=== PATIENT | female | born 1945 | race American Indian/Alaskan Native ===

== ENCOUNTER 2017-10-30 16:18 | Inpatient (IN) | payer MEDICARE ==
[2017-10-30 17:52] LABS: Basophils # (Auto) 0.1 K/mm3 (0.0-0.1); Eosinophils % (Auto) 0.5 % (0.0-4.3); Hematocrit 44.6 % (30.3-42.9); Hemoglobin 14.4 gm/dl (10.1-14.3); Lymphocytes # (Auto) 1.8 K/mm3 (1.2-5.4); Lymphocytes % (Auto) 30.7 % (13.4-35.0); Mean Corpuscular HGB Conc 32 % (30-34); Mean Corpuscular Hemoglobin 27 pg (28-32); Mean Corpuscular Volume 83 fl (79-97); Monocytes # (Auto) 0.9 K/mm3 (0.0-0.8); Monocytes % (Auto) 14.3 % (0.0-7.3); Platelet Count 243 K/mm3 (140-440); Red Blood Count 5.39 M/mm3 (3.65-5.03); Red Cell Distribution Width 14.3 % (13.2-15.2)
[2017-10-30 17:57] LABS: BUN/Creatinine Ratio 7; Blood Urea Nitrogen 4 mg/dL (7-17); Calcium 9.3 mg/dL (8.4-10.2); Hemolysis Index 6
--- NOTE | 2017-10-30 18:48 | XRay Report ---
FINAL REPORT EXAM: XR CHEST ROUTINE 2V HISTORY: shortness of breath TECHNIQUE: Two view chest PA and lateral PRIORS: None. FINDINGS: Cardiac and mediastinal contours are unremarkable. No focal pulmonary infiltrate is identified. No pleural fluid collection seen. Pulmonary vasculature is unremarkable. IMPRESSION: Negative two-view chest
[2017-10-30] MEDS ORDERED: DUONEB *Not for PRN Use IH ONE (19:30)
[2017-10-30] MEDS ORDERED: PROVENTIL IH ONE ×2 (19:31→22:39)
[2017-10-30] MEDS ORDERED: ATROVENT IH ONE (22:39)
--- NOTE | 2017-10-30 22:42 | Emergency Department Report ---
ED Shortness of Breath HPI - General Chief Complaint: Upper Respiratory Infection Stated Complaint: SOB/COLD Time Seen by Provider: 10/30/17 19:39 Source: patient Mode of arrival: Ambulatory Limitations: No Limitations - History of Present Illness MD Complaint: shortness of breath -: week(s) (2) Pain Scale: 8 Quality: aching Consistency: intermittent Improves With: rest, bronchodilators Worsens With: other (cough) Known History Of: COPD Context: recent URI, other (smokes 1ppd for 50 yrs) Associated Symptoms: chest pain, cough Treatments Prior to Arrival: none - Related Data Home Oxygen Therapy: No Allergies Allergy/AdvReac Type Severity Reaction Status Date / Time No Known Allergies Allergy Unverified 10/30/17 16:43 ED Review of Systems ROS: Stated complaint: SOB/COLD Other details as noted in HPI Constitutional: denies: chills, fever Eyes: denies: eye pain, eye discharge, vision change ENT: denies: ear pain, throat pain Respiratory: cough. denies: shortness of breath, wheezing Cardiovascular: denies: chest pain, palpitations Endocrine: no symptoms reported Gastrointestinal: denies: abdominal pain, nausea, diarrhea Genitourinary: denies: urgency, dysuria, discharge Musculoskeletal: denies: back pain, joint swelling, arthralgia Skin: denies: rash, lesions Neurological: denies: headache, weakness, paresthesias Psychiatric: denies: anxiety, depression Hematological/Lymphatic: denies: easy bleeding, easy bruising ED Past Medical Hx - Past Medical History Previous Medical History?: Yes Hx COPD: Yes - Social History Smoking Status: Current Every Day Smoker Substance Use Type: Alcohol ED Physical Exam - General Limitations: No Limitations ED Course Vital Signs 10/30/17 10/30/17 10/30/17 16:41 19:07 19:08 Temperature 98.6 F Pulse Rate 90 68 Pulse Rate [ Bilateral] Respiratory 18 22 22 Rate Respiratory Rate [Bilateral ] Blood Pressure 140/86 Blood Pressure 119/62 [Left] O2 Sat by Pulse 96 100 Oximetry 10/30/17 22:13 Temperature Pulse Rate Pulse Rate [ 88 Bilateral] Respiratory Rate Respiratory 20 Rate [Bilateral ] Blood Pressure Blood Pressure [Left] O2 Sat by Pulse Oximetry ED Medical Decision Making - Lab Data Result diagrams: 10/30/17 17:13 10/30/17 17:13 - EKG Data -: EKG Interpreted by Me EKG shows normal: sinus rhythm, QRS complexes, ST-T waves - EKG Data Interpretation: other (lad,pac) - Radiology Data Radiology results: report reviewed (cxr;negative) Critical Care Time: Yes Critical care time in (mins) excluding proc time.: 30 Critical care attestation.: If time is entered above; I have spent that time in minutes in the direct care of this critically ill patient, excluding procedure time. callie ED Disposition Clinical Impression: Acute dyspnea, Bronchitis COPD (chronic obstructive pulmonary disease) Qualifiers: COPD type: COPD with acute lower respiratory infection Qualified Code(s): J44.0 - Chronic obstructive pulmonary disease with acute lower respiratory infection Disposition: 09 OP ADMIT IP TO THIS HOSP Is pt being admited?: Yes Does the pt Need Aspirin: No Condition: Stable Instructions: Chronic Obstructive Pulmonary Disease (ED), Chronic Bronchitis ( ED) Referrals: PRIMARY CARE, [Primary Care Provider] - 3-5 Days Time of Disposition: 02:20 (dr melissa was paged ,case reviewed and she will admit the pt to the hospital)
[2017-10-30] MEDS ORDERED: ROCEPHIN 1,000 MG in NACL 0.9% 50 ML IV NR (23:00)
[2017-10-30] MEDS ORDERED: ROCEPHIN 1 GM in NACL 0.9% 20 ML IV ONE (23:35)
[2017-10-31] MEDS ORDERED: TYLENOL PO PRN (02:31)
[2017-10-31] MEDS ORDERED: PERCOCET 5/325 PO PRN (02:31)
[2017-10-31] MEDS ORDERED: ZOFRAN IV PRN (02:31)
[2017-10-31] MEDS ORDERED: PROVENTIL IH PRN (02:31)
[2017-10-31] MEDS ORDERED: AMBIEN PO PRN (02:31)
[2017-10-31] MEDS ORDERED: DULCOLAX PR PRN (02:31)
[2017-10-31] MEDS ORDERED: MILK OF MAGNESIA PO PRN (02:31)
[2017-10-31] MEDS ORDERED: D50W (25GM) Syringe IV PRN (02:31)
--- NOTE | 2017-10-31 02:38 | History and Physical Report ---
History of Present Illness Date of examination: 10/31/17 Chief complaint: SOB / Cold History of present illness: Patient is a 71-year-old female with past medical history as mentioned below. Presented to the ER for progressive shortness of breath over the past 2 weeks. The patient states that she has been coughing constantly and fighting this chest congestion for the past 2 weeks she denies any fevers chills no headache nausea vomiting no tingling numbness or weakness. She states that she had her medicine changed to ellipta but she thinks that this is not helping her as well as the aNora. She denies any other GI or symptoms Past History Past Medical History: COPD Past Surgical History: Other (unknown) Social history: smoking, full code. denies: alcohol abuse, IV drug use Family history: no significant family history Medications and Allergies Allergies Allergy/AdvReac Type Severity Reaction Status Date / Time No Known Allergies Allergy Unverified 10/30/17 16:43 Active Meds: Active Medications Acetaminophen (Tylenol) 650 mg PO Q4H PRN PRN Reason: Pain MILD(1-3)/Fever >100.5/BLANC Albuterol (Proventil) 2.5 mg IH Q3HRT PRN PRN Reason: Shortness Of Breath Albuterol/Ipratropium (Duoneb *Not For Prn Use*) 1 ampul IH Q6HRT ELY Bisacodyl (Dulcolax) 10 mg KS QDAY PRN PRN Reason: Constipation unrelieved by MOM Budesonide (Pulmicort) 0.5 mg IH Q12HRT ELY Dextrose (D50w (25gm) Syringe) 50 ml IV PRN PRN PRN Reason: Hypoglycemia Docusate Sodium (Colace) 100 mg PO BID ELY Enoxaparin Sodium (Lovenox) 40 mg SUB-Q QDAY ELY Famotidine (Pepcid) 20 mg PO BID EYL Azithromycin 500 mg/ Sodium (Chloride) 250 mls @ 250 mls/hr IV Q24HR ELY Sodium Chloride (Nacl 0.9% 1000 Ml) 1,000 mls @ 100 mls/hr IV DIRECT ELY Insulin Aspart (Novolog) 0 units SUB-Q ACHS ELY PRN Reason: Protocol Magnesium Hydroxide (Milk Of Magnesia) 30 ml PO Q4H PRN PRN Reason: Constipation Ondansetron HCl (Zofran) 4 mg IV Q8H PRN PRN Reason: N/V unrelieved by Reglan Oxycodone/Acetaminophen (Percocet 5/325) 1 tab PO Q6H PRN PRN Reason: Pain, Moderate (4-6) Review of Systems All systems: negative Exam - Physical Exam Narrative exam: General- the patient is awake alert oriented to time place and person in mild respiratory distress HEENT- head is atraumatic normocephalic pupils equal round reactive to light and accommodation extraocular movements intact. Oral mucosa is moist oropharynx. Neck is supple no JVD no thyromegaly or lymphadenopathy no carotid bruit Heart- regular rate and rhythm no murmurs or gallops Lungs- diffuse crackles bilaterally with diffuse rhonchi and wheezing mildly labored breathing but no accessory respiratory muscle use. Diminished chest wall expansion. Globally diminished breath sounds. Abdomen- is soft nondistended nontender normoactive bowel sounds hepatosplenomegaly no abdominal masses of the appreciated Extremities- no cyanosis or edema Neurological- grossly intact and nonfocal Skin- warm and dry no rashes or bruises Psychiatric- appropriate mood and affect Vascular system- no lymphadenopathy distal pulses 2+ bilaterally - Constitutional Vitals: Temp Pulse Resp BP Pulse Ox 98.6 F 88 20 119/62 100 10/30/17 16:41 10/30/17 22:13 10/30/17 22:13 10/30/17 19:07 10/30/17 19:07 Results - Labs CBC & Chem 7: 10/30/17 17:13 10/30/17 17:13 Labs: Laboratory Last Values WBC 6.0 K/mm3 (4.5-11.0) 10/30/17 17:13 RBC 5.39 M/mm3 (3.65-5.03) H 10/30/17 17:13 Hgb 14.4 gm/dl (10.1-14.3) H 10/30/17 17:13 Hct 44.6 % (30.3-42.9) H 10/30/17 17:13 MCV 83 fl (79-97) 10/30/17 17:13 MCH 27 pg (28-32) L 10/30/17 17:13 MCHC 32 % (30-34) 10/30/17 17:13 RDW 14.3 % (13.2-15.2) 10/30/17 17:13 Plt Count 243 K/mm3 (140-440) 10/30/17 17:13 Lymph % (Auto) 30.7 % (13.4-35.0) 10/30/17 17:13 [place] % (Auto) 14.3 % (0.0-7.3) H 10/30/17 17:13 Eos % (Auto) 0.5 % (0.0-4.3) 10/30/17 17:13 Baso % (Auto) 1.0 % (0.0-1.8) 10/30/17 17:13 Lymph # 1.8 K/mm3 (1.2-5.4) 10/30/17 17:13 [place] # 0.9 K/mm3 (0.0-0.8) H 10/30/17 17:13 Eos # 0.0 K/mm3 (0.0-0.4) 10/30/17 17:13 Baso # 0.1 K/mm3 (0.0-0.1) 10/30/17 17:13 Seg Neutrophils % 53.5 % (40.0-70.0) 10/30/17 17:13 Seg Neutrophils # 3.2 K/mm3 (1.8-7.7) 10/30/17 17:13 POC ABG pH 7.427 (7.35-7.45) 10/30/17 22:57 POC ABG pCO2 37.9 (35-45) 10/30/17 22:57 POC ABG pO2 56 (80-105) L 10/30/17 22:57 POC ABG HCO3 25.0 10/30/17 22:57 POC ABG Total CO2 26 10/30/17 22:57 POC ABG O2 Sat 90 10/30/17 22:57 POC ABG Base Excess 1 10/30/17 22:57 FiO2 21 % 10/30/17 22:57 Sodium 141 mmol/L (137-145) 10/30/17 17:13 Potassium 5.2 mmol/L (3.6-5.0) H 10/30/17 17:13 Chloride 100.2 mmol/L (98-107) 10/30/17 17:13 Carbon Dioxide 28 mmol/L (22-30) 10/30/17 17:13 Anion Gap 18 mmol/L 10/30/17 17:13 BUN 4 mg/dL (7-17) L 10/30/17 17:13 Creatinine 0.6 mg/dL (0.7-1.2) L 10/30/17 17:13 Estimated GFR > 60 ml/min 10/30/17 17:13 BUN/Creatinine Ratio 7 % 10/30/17 17:13 Glucose 111 mg/dL (65-100) H 10/30/17 17:13 Lactic Acid 0.90 mmol/L (0.7-2.0) 10/30/17 20:13 Calcium 9.3 mg/dL (8.4-10.2) 10/30/17 17:13 - Imaging and Cardiology Imaging and Cardiology: Chest x-ray showing no acute cardiopulmonary process Assessment and Plan Assessment and plan: Assessment and plan - * Acute COPD exacerbation * Acute bronchitis * Tobacco abuse * Hyperkalemia mild Plan - Admit to medical floor with telemetry Aggressive when necessary and scheduled bronchodilators IV Solu-Medrol Levaquin empirically for acute bronchitis Monitor CBC and electrolytes The patient electrolytes as per protocol DVT GI prophylaxis as ordered Monitor and follow the patient closely
[2017-10-31 03:02] LABS: Hematocrit 42.6 % (30.3-42.9); Hemoglobin 13.9 gm/dl (10.1-14.3); Mean Corpuscular HGB Conc 33 % (30-34); Mean Corpuscular Hemoglobin 27 pg (28-32); Mean Corpuscular Volume 82 fl (79-97); Platelet Count 233 K/mm3 (140-440); Red Blood Count 5.19 M/mm3 (3.65-5.03); Red Cell Distribution Width 14.5 % (13.2-15.2)
[2017-10-31 03:30] LABS: Alanine Aminotransferase 20 units/L (7-56); Albumin 3.9 g/dL (3.9-5); BUN/Creatinine Ratio 9; Blood Urea Nitrogen 6 mg/dL (7-17); Calcium 9.3 mg/dL (8.4-10.2); Chol/HDL Ratio 3.97 %; HDL Cholesterol 49 mg/dL (40-59); Hemolysis Index 10; LDL Cholesterol,Direct 137 mg/dL (50-130)
[2017-10-31 04:02] LABS: Basophils % (Manual) 0 % (0.0-1.8); Eosinophils % (Manual) 0 % (0.0-4.3); RBC Morphology Normal; Total Cells Counted 100
[2017-10-31 04:03] LABS: Platelet Estimate Consistent w Auto
[2017-10-31] MEDS: NACL 0.9% 1000 ML 1,000 ML IV SCH ×2 (05:31→16:00)
[2017-10-31] MEDS: PULMICORT IH SCH ×2 (07:42→20:58)
[2017-10-31] MEDS: DUONEB *Not for PRN Use IH SCH ×3 (07:42→20:58)
[2017-10-31] MEDS: NOVOLOG SUB-Q SCH ×4 (08:00→21:29)
--- NOTE | 2017-10-31 08:38 | Progress Note ---
<NALINI HALL - Last Filed: 10/31/17 15:29> Assessment and Plan Assessment and plan: Patient is a 71-year-old female with past medical history of COPD who presented to the ER for progressive shortness of breath over the past 2 weeks. Acute COPD exacerbation Continue on Duoneb every 6 hours Wean IV steroid Solumedrol Continue on Levaquin Oxygen as necessary Hyperkalemia mild Resolved Tobacco abuse Smoking cessation counseling done. Patient strongly advised to quit. Lactic Acidosis Resolved DVT prophylaxis is Lovenox History Interval history: Patient complains dyspnea on exertion. Labs and nursing notes reviewed. Hospitalist Physical - Constitutional Vitals: Temp Pulse Resp BP Pulse Ox 98.4 F 81 20 125/60 96 10/31/17 07:34 10/31/17 08:02 10/31/17 08:02 10/31/17 07:34 10/31/17 07:39 General appearance: Present: no acute distress - EENT Eyes: Present: PERRL ENT: hearing intact - Neck Neck: Present: supple - Respiratory Respiratory effort: normal Respiratory: bilateral: wheezing (mild ) - Cardiovascular Rhythm: regular Heart Sounds: Present: S1 & S2 - Abdominal General gastrointestinal: soft, non-tender - Integumentary Integumentary: Present: clear, warm, dry - Psychiatric Psychiatric: appropriate mood/affect - Neurologic Neurologic: moves all extremities - Allied Health Allied health notes reviewed: nursing Results - Labs CBC & Chem 7: 10/31/17 02:44 10/31/17 02:44 Labs: Laboratory Last Values WBC 6.6 K/mm3 (4.5-11.0) 10/31/17 02:44 RBC 5.19 M/mm3 (3.65-5.03) H 10/31/17 02:44 Hgb 13.9 gm/dl (10.1-14.3) 10/31/17 02:44 Hct 42.6 % (30.3-42.9) 10/31/17 02:44 MCV 82 fl (79-97) 10/31/17 02:44 MCH 27 pg (28-32) L 10/31/17 02:44 MCHC 33 % (30-34) 10/31/17 02:44 RDW 14.5 % (13.2-15.2) 10/31/17 02:44 Plt Count 233 K/mm3 (140-440) 10/31/17 02:44 Lymph % (Auto) 30.7 % (13.4-35.0) 10/30/17 17:13 [place] % (Auto) 14.3 % (0.0-7.3) H 10/30/17 17:13 Eos % (Auto) 0.5 % (0.0-4.3) 10/30/17 17:13 Baso % (Auto) 1.0 % (0.0-1.8) 10/30/17 17:13 Lymph # 1.8 K/mm3 (1.2-5.4) 10/30/17 17:13 [place] # 0.9 K/mm3 (0.0-0.8) H 10/30/17 17:13 Eos # 0.0 K/mm3 (0.0-0.4) 10/30/17 17:13 Baso # 0.1 K/mm3 (0.0-0.1) 10/30/17 17:13 Add Manual Diff Complete 10/31/17 02:44 Total Counted 100 10/31/17 02:44 Seg Neutrophils % Detective 10/31/17 02:44 Seg Neuts % (Manual) 90.0 % (40.0-70.0) H 10/31/17 02:44 Band Neutrophils % 0 % 10/31/17 02:44 Lymphocytes % (Manual) 8.0 % (13.4-35.0) L 10/31/17 02:44 Reactive Lymphs % (Man) 0 % 10/31/17 02:44 Monocytes % (Manual) 2.0 % (0.0-7.3) 10/31/17 02:44 Eosinophils % (Manual) 0 % (0.0-4.3) 10/31/17 02:44 Basophils % (Manual) 0 % (0.0-1.8) 10/31/17 02:44 Metamyelocytes % 0 % 10/31/17 02:44 Myelocytes % 0 % 10/31/17 02:44 Promyelocytes % 0 % 10/31/17 02:44 Blast Cells % 0 % 10/31/17 02:44 Nucleated RBC % Not Reportable 10/31/17 02:44 Seg Neutrophils # 3.2 K/mm3 (1.8-7.7) 10/30/17 17:13 Seg Neutrophils # Man 5.9 K/mm3 (1.8-7.7) 10/31/17 02:44 Band Neutrophils # 0.0 K/mm3 10/31/17 02:44 Lymphocytes # (Manual) 0.5 K/mm3 (1.2-5.4) L 10/31/17 02:44 Abs React Lymphs (Man) 0.0 K/mm3 10/31/17 02:44 Monocytes # (Manual) 0.1 K/mm3 (0.0-0.8) 10/31/17 02:44 Eosinophils # (Manual) 0.0 K/mm3 (0.0-0.4) 10/31/17 02:44 Basophils # (Manual) 0.0 K/mm3 (0.0-0.1) 10/31/17 02:44 Metamyelocytes # 0.0 K/mm3 10/31/17 02:44 Myelocytes # 0.0 K/mm3 10/31/17 02:44 Promyelocytes # 0.0 K/mm3 10/31/17 02:44 Blast Cells # 0.0 K/mm3 10/31/17 02:44 WBC Morphology Not Reportable 10/31/17 02:44 Hypersegmented Neuts Not Reportable 10/31/17 02:44 Hyposegmented Neuts Not Reportable 10/31/17 02:44 Hypogranular Neuts Not Reportable 10/31/17 02:44 Smudge Cells Not Reportable 10/31/17 02:44 Toxic Granulation Not Reportable 10/31/17 02:44 Toxic Vacuolation Not Reportable 10/31/17 02:44 Dohle Bodies Not Reportable 10/31/17 02:44 Pelger-Huet Anomaly Not Reportable 10/31/17 02:44 Kaycee Rods Not Reportable 10/31/17 02:44 Platelet Estimate Consistent w auto 10/31/17 02:44 Clumped Platelets Not Reportable 10/31/17 02:44 Plt Clumps, EDTA Not Reportable 10/31/17 02:44 Large Platelets Not Reportable 10/31/17 02:44 Giant Platelets Not Reportable 10/31/17 02:44 Platelet Satelliting Not Reportable 10/31/17 02:44 Plt Morphology Comment Not Reportable 10/31/17 02:44 RBC Morphology Normal 10/31/17 02:44 Dimorphic RBCs Not Reportable 10/31/17 02:44 Polychromasia Not Reportable 10/31/17 02:44 Hypochromasia Not Reportable 10/31/17 02:44 Poikilocytosis Not Reportable 10/31/17 02:44 Anisocytosis Not Reportable 10/31/17 02:44 Microcytosis Not Reportable 10/31/17 02:44 Macrocytosis Not Reportable 10/31/17 02:44 Spherocytes Not Reportable 10/31/17 02:44 Pappenheimer Bodies Not Reportable 10/31/17 02:44 Sickle Cells Not Reportable 10/31/17 02:44 Target Cells Not Reportable 10/31/17 02:44 Tear Drop Cells Not Reportable 10/31/17 02:44 Ovalocytes Not Reportable 10/31/17 02:44 Helmet Cells Not Reportable 10/31/17 02:44 [place] Bodies Not Reportable 10/31/17 02:44 [place] Rings Not Reportable 10/31/17 02:44 Jonn Cells Not Reportable 10/31/17 02:44 Bite Cells Not Reportable 10/31/17 02:44 Crenated Cell Not Reportable 10/31/17 02:44 Elliptocytes Not Reportable 10/31/17 02:44 Acanthocytes (Spur) Not Reportable 10/31/17 02:44 Rouleaux Not Reportable 10/31/17 02:44 Hemoglobin C Crystals Not Reportable 10/31/17 02:44 Schistocytes Not Reportable 10/31/17 02:44 Malaria parasites Not Reportable 10/31/17 02:44 Zhang Bodies Not Reportable 10/31/17 02:44 Hem Pathologist Commnt No 10/31/17 02:44 POC ABG pH 7.427 (7.35-7.45) 10/30/17 22:57 POC ABG pCO2 37.9 (35-45) 10/30/17 22:57 POC ABG pO2 56 (80-105) L 10/30/17 22:57 POC ABG HCO3 25.0 10/30/17 22:57 POC ABG Total CO2 26 10/30/17 22:57 POC ABG O2 Sat 90 10/30/17 22:57 POC ABG Base Excess 1 10/30/17 22:57 FiO2 21 % 10/30/17 22:57 Sodium 139 mmol/L (137-145) 10/31/17 02:44 Potassium 4.3 mmol/L (3.6-5.0) 10/31/17 02:44 Chloride 98.6 mmol/L (98-107) 10/31/17 02:44 Carbon Dioxide 22 mmol/L (22-30) 10/31/17 02:44 Anion Gap 23 mmol/L 10/31/17 02:44 BUN 6 mg/dL (7-17) L 10/31/17 02:44 Creatinine 0.7 mg/dL (0.7-1.2) 10/31/17 02:44 Estimated GFR > 60 ml/min 10/31/17 02:44 BUN/Creatinine Ratio 9 % 10/31/17 02:44 Glucose 192 mg/dL (65-100) H 10/31/17 02:44 POC Glucose 148 (70-105) H 10/31/17 06:27 Hemoglobin A1c 5.6 % (4-6) 10/31/17 02:44 Lactic Acid 0.90 mmol/L (0.7-2.0) 10/30/17 20:13 Calcium 9.3 mg/dL (8.4-10.2) 10/31/17 02:44 Total Bilirubin 0.20 mg/dL (0.1-1.2) 10/31/17 02:44 AST 20 units/L (5-40) 10/31/17 02:44 ALT 20 units/L (7-56) 10/31/17 02:44 Alkaline Phosphatase 89 units/L (35-129) 10/31/17 02:44 Total Protein 7.6 g/dL (6.3-8.2) 10/31/17 02:44 Albumin 3.9 g/dL (3.9-5) 10/31/17 02:44 Albumin/Globulin Ratio 1.1 % 10/31/17 02:44 Triglycerides 47 mg/dL (2-149) 10/31/17 02:44 Cholesterol 195 mg/dL (50-199) 10/31/17 02:44 LDL Cholesterol Direct 137 mg/dL (50-130) H 10/31/17 02:44 HDL Cholesterol 49 mg/dL (40-59) 10/31/17 02:44 Cholesterol/HDL Ratio 3.97 % 10/31/17 02:44 <POLA PANTOJA - Last Filed: 11/01/17 10:42> Assessment and Plan Assessment and plan: I saw and evaluated the patient. I agree with the findings and the plan of care as documented in the Nurse Practitioner's~note, with the following corrections and additions. Hospitalist Physical - Constitutional Vitals: Temp Pulse Resp BP Pulse Ox 97.9 F 89 18 126/69 95 11/01/17 07:56 11/01/17 09:10 11/01/17 09:10 11/01/17 07:56 11/01/17 08:56 Results - Labs CBC & Chem 7: 11/01/17 05:24 11/01/17 05:24 Labs: Laboratory Last Values WBC 12.3 K/mm3 (4.5-11.0) H 11/01/17 05:24 RBC 4.69 M/mm3 (3.65-5.03) 11/01/17 05:24 Hgb 12.7 gm/dl (10.1-14.3) 11/01/17 05:24 Hct 38.5 % (30.3-42.9) 11/01/17 05:24 MCV 82 fl (79-97) 11/01/17 05:24 MCH 27 pg (28-32) L 11/01/17 05:24 MCHC 33 % (30-34) 11/01/17 05:24 RDW 14.2 % (13.2-15.2) 11/01/17 05:24 Plt Count 249 K/mm3 (140-440) 11/01/17 05:24 Lymph % (Auto) 6.2 % (13.4-35.0) L 11/01/17 05:24 [place] % (Auto) 6.3 % (0.0-7.3) 11/01/17 05:24 Eos % (Auto) 0.0 % (0.0-4.3) 11/01/17 05:24 Baso % (Auto) 0.0 % (0.0-1.8) 11/01/17 05:24 Lymph # 0.8 K/mm3 (1.2-5.4) L 11/01/17 05:24 [place] # 0.8 K/mm3 (0.0-0.8) 11/01/17 05:24 Eos # 0.0 K/mm3 (0.0-0.4) 11/01/17 05:24 Baso # 0.0 K/mm3 (0.0-0.1) 11/01/17 05:24 Add Manual Diff Complete 10/31/17 02:44 Total Counted 100 10/31/17 02:44 Seg Neutrophils % 87.5 % (40.0-70.0) H 11/01/17 05:24 Seg Neuts % (Manual) 90.0 % (40.0-70.0) H 10/31/17 02:44 Band Neutrophils % 0 % 10/31/17 02:44 Lymphocytes % (Manual) 8.0 % (13.4-35.0) L 10/31/17 02:44 Reactive Lymphs % (Man) 0 % 10/31/17 02:44 Monocytes % (Manual) 2.0 % (0.0-7.3) 10/31/17 02:44 Eosinophils % (Manual) 0 % (0.0-4.3) 10/31/17 02:44 Basophils % (Manual) 0 % (0.0-1.8) 10/31/17 02:44 Metamyelocytes % 0 % 10/31/17 02:44 Myelocytes % 0 % 10/31/17 02:44 Promyelocytes % 0 % 10/31/17 02:44 Blast Cells % 0 % 10/31/17 02:44 Nucleated RBC % Not Reportable 10/31/17 02:44 Seg Neutrophils # 10.8 K/mm3 (1.8-7.7) H 11/01/17 05:24 Seg Neutrophils # Man 5.9 K/mm3 (1.8-7.7) 10/31/17 02:44 Band Neutrophils # 0.0 K/mm3 10/31/17 02:44 Lymphocytes # (Manual) 0.5 K/mm3 (1.2-5.4) L 10/31/17 02:44 Abs React Lymphs (Man) 0.0 K/mm3 10/31/17 02:44 Monocytes # (Manual) 0.1 K/mm3 (0.0-0.8) 10/31/17 02:44 Eosinophils # (Manual) 0.0 K/mm3 (0.0-0.4) 10/31/17 02:44 Basophils # (Manual) 0.0 K/mm3 (0.0-0.1) 10/31/17 02:44 Metamyelocytes # 0.0 K/mm3 10/31/17 02:44 Myelocytes # 0.0 K/mm3 10/31/17 02:44 Promyelocytes # 0.0 K/mm3 10/31/17 02:44 Blast Cells # 0.0 K/mm3 10/31/17 02:44 WBC Morphology Not Reportable 10/31/17 02:44 Hypersegmented Neuts Not Reportable 10/31/17 02:44 Hyposegmented Neuts Not Reportable 10/31/17 02:44 Hypogranular Neuts Not Reportable 10/31/17 02:44 Smudge Cells Not Reportable 10/31/17 02:44 Toxic Granulation Not Reportable 10/31/17 02:44 Toxic Vacuolation Not Reportable 10/31/17 02:44 Dohle Bodies Not Reportable 10/31/17 02:44 Pelger-Huet Anomaly Not Reportable 10/31/17 02:44 Kaycee Rods Not Reportable 10/31/17 02:44 Platelet Estimate Consistent w auto 10/31/17 02:44 Clumped Platelets Not Reportable 10/31/17 02:44 Plt Clumps, EDTA Not Reportable 10/31/17 02:44 Large Platelets Not Reportable 10/31/17 02:44 Giant Platelets Not Reportable 10/31/17 02:44 Platelet Satelliting Not Reportable 10/31/17 02:44 Plt Morphology Comment Not Reportable 10/31/17 02:44 RBC Morphology Normal 10/31/17 02:44 Dimorphic RBCs Not Reportable 10/31/17 02:44 Polychromasia Not Reportable 10/31/17 02:44 Hypochromasia Not Reportable 10/31/17 02:44 Poikilocytosis Not Reportable 10/31/17 02:44 Anisocytosis Not Reportable 10/31/17 02:44 Microcytosis Not Reportable 10/31/17 02:44 Macrocytosis Not Reportable 10/31/17 02:44 Spherocytes Not Reportable 10/31/17 02:44 Pappenheimer Bodies Not Reportable 10/31/17 02:44 Sickle Cells Not Reportable 10/31/17 02:44 Target Cells Not Reportable 10/31/17 02:44 Tear Drop Cells Not Reportable 10/31/17 02:44 Ovalocytes Not Reportable 10/31/17 02:44 Helmet Cells Not Reportable 10/31/17 02:44 [place] Bodies Not Reportable 10/31/17 02:44 [place] Rings Not Reportable 10/31/17 02:44 [place] Cells Not Reportable 10/31/17 02:44 Bite Cells Not Reportable 10/31/17 02:44 Crenated Cell Not Reportable 10/31/17 02:44 Elliptocytes Not Reportable 10/31/17 02:44 Acanthocytes (Spur) Not Reportable 10/31/17 02:44 Rouleaux Not Reportable 10/31/17 02:44 Hemoglobin C Crystals Not Reportable 10/31/17 02:44 Schistocytes Not Reportable 10/31/17 02:44 Malaria parasites Not Reportable 10/31/17 02:44 Zhang Bodies Not Reportable 10/31/17 02:44 Hem Pathologist Commnt No 10/31/17 02:44 POC ABG pH 7.427 (7.35-7.45) 10/30/17 22:57 POC ABG pCO2 37.9 (35-45) 10/30/17 22:57 POC ABG pO2 56 (80-105) L 10/30/17 22:57 POC ABG HCO3 25.0 10/30/17 22:57 POC ABG Total CO2 26 10/30/17 22:57 POC ABG O2 Sat 90 10/30/17 22:57 POC ABG Base Excess 1 10/30/17 22:57 FiO2 21 % 10/30/17 22:57 Sodium 143 mmol/L (137-145) 11/01/17 05:24 Potassium 4.4 mmol/L (3.6-5.0) 11/01/17 05:24 Chloride 106.3 mmol/L (98-107) 11/01/17 05:24 Carbon Dioxide 24 mmol/L (22-30) 11/01/17 05:24 Anion Gap 17 mmol/L 11/01/17 05:24 BUN 8 mg/dL (7-17) 11/01/17 05:24 Creatinine 0.5 mg/dL (0.7-1.2) L 11/01/17 05:24 Estimated GFR > 60 ml/min 11/01/17 05:24 BUN/Creatinine Ratio 16 % 11/01/17 05:24 Glucose 140 mg/dL (65-100) H 11/01/17 05:24 POC Glucose 174 (70-105) H 10/31/17 21:25 Hemoglobin A1c 5.6 % (4-6) 10/31/17 02:44 Lactic Acid 0.90 mmol/L (0.7-2.0) 10/30/17 20:13 Calcium 8.7 mg/dL (8.4-10.2) 11/01/17 05:24 Phosphorus 2.60 mg/dL (2.5-4.5) 11/01/17 05:24 Magnesium 2.10 mg/dL (1.7-2.3) 11/01/17 05:24 Total Bilirubin < 0.20 mg/dL (0.1-1.2) 11/01/17 05:24 AST 20 units/L (5-40) 11/01/17 05:24 ALT 21 units/L (7-56) 11/01/17 05:24 Alkaline Phosphatase 77 units/L (35-129) 11/01/17 05:24 Total Protein 6.6 g/dL (6.3-8.2) 11/01/17 05:24 Albumin 3.5 g/dL (3.9-5) L 11/01/17 05:24 Albumin/Globulin Ratio 1.1 % 11/01/17 05:24 Triglycerides 47 mg/dL (2-149) 10/31/17 02:44 Cholesterol 195 mg/dL (50-199) 10/31/17 02:44 LDL Cholesterol Direct 137 mg/dL (50-130) H 10/31/17 02:44 HDL Cholesterol 49 mg/dL (40-59) 10/31/17 02:44 Cholesterol/HDL Ratio 3.97 % 10/31/17 02:44
[2017-10-31] MEDS ORDERED: LEVAQUIN 750MG/150ML 750 MG/150 ML BAG IV SCH (10:00)
[2017-10-31] MEDS ORDERED: ZITHROMAX 500 MG in NACL 0.9% 250ML 250 ML IV SCH (10:00)
[2017-10-31] MEDS: LOVENOX SUB-Q SCH (10:01)
[2017-10-31] MEDS: LEVAQUIN 750MG/150ML 750 MG/150 ML BAG IV SCH (10:01)
[2017-10-31] MEDS: PEPCID PO SCH ×2 (10:02→21:24)
[2017-10-31] MEDS: SENOKOT PO SCH ×2 (10:02→21:23)
[2017-10-31] MEDS: COLACE PO SCH ×2 (10:02→21:23)
--- NOTE | 2017-10-31 14:25 | Event Note ---
Date: 10/31/17 Patient is examined today nonacute distress reports improvement in symptoms. I' ll do not have a baseline of encouraged patient to ambulate today. She is not on oxygen at home but still uses tobacco she verbalized understanding on the counseling for tobacco cessation. She verbalizes that she will sees tobacco use today. We'll continue treatment as prescribed and suspected discharge in 24 -48 hours
[2017-11-01] MEDS: DUONEB *Not for PRN Use IH SCH ×2 (02:18→08:54)
[2017-11-01 05:46] LABS: Hematocrit 38.5 % (30.3-42.9); Hemoglobin 12.7 gm/dl (10.1-14.3); Lymphocytes # (Auto) 0.8 K/mm3 (1.2-5.4); Lymphocytes % (Auto) 6.2 % (13.4-35.0); Mean Corpuscular HGB Conc 33 % (30-34); Mean Corpuscular Hemoglobin 27 pg (28-32); Mean Corpuscular Volume 82 fl (79-97); Monocytes # (Auto) 0.8 K/mm3 (0.0-0.8); Monocytes % (Auto) 6.3 % (0.0-7.3); Platelet Count 249 K/mm3 (140-440); Red Blood Count 4.69 M/mm3 (3.65-5.03); Red Cell Distribution Width 14.2 % (13.2-15.2)
[2017-11-01] MEDS: NACL 0.9% 1000 ML 1,000 ML IV SCH (05:47)
[2017-11-01 06:12] LABS: Alanine Aminotransferase 21 units/L (7-56); Albumin 3.5 g/dL (3.9-5); BUN/Creatinine Ratio 16; Blood Urea Nitrogen 8 mg/dL (7-17); Calcium 8.7 mg/dL (8.4-10.2); Hemolysis Index 3
[2017-11-01] MEDS: NOVOLOG SUB-Q SCH ×2 (08:00→12:00)
[2017-11-01 08:08] VITALS: BP 126/69
[2017-11-01] MEDS: PULMICORT IH SCH (08:55)
[2017-11-01] MEDS: COLACE PO SCH (10:36)
[2017-11-01] MEDS: SENOKOT PO SCH (10:36)
[2017-11-01] MEDS: LEVAQUIN 750MG/150ML 750 MG/150 ML BAG IV SCH (10:36)
[2017-11-01] MEDS: LOVENOX SUB-Q SCH (10:36)
[2017-11-01] MEDS: PEPCID PO SCH (10:36)
--- NOTE | 2017-11-01 10:44 | Discharge Summary ---
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 Patient denies any fever nausea vomiting and diarrhea. Unfortunately she continues to use tobacco although she is strongly advised to quit with did have extensive counseling in regards to this. She was treated with antibiotics with IV steroids and Solu-Medrol. She is clinically improved at this time is stable for discharge. Acute COPD exacerbation Acute respiratory failure with hypoxia secondary to COPD exacerbation Hyperkalemia mild Tobacco abuse Lactic Acidosis Disposition: TO HOME OR SELFCARE Time spent for discharge: 35 mins Core Measure Documentation - Palliative Care Palliative Care/ Comfort Measures: Not Applicable - Core Measures Any of the following diagnoses?: none - VTE Discharge Requirements Deep Vein Thrombosis/Pulmonary Embolism Present on Admission: No Exam - Physical Exam Narrative exam: VITAL SIGNS: Reviewed. GENERAL: The patient appeared well nourished and normally developed. Vital signs as documented. HEAD: No signs of head trauma. EYES: Pupils are equal. Extraocular motions intact. EARS: Hearing grossly intact. MOUTH: Oropharynx is normal. NECK: No adenopathy, no JVD. CHEST: Chest with clear breath sounds bilaterally. No wheezes, rales, or rhonchi. CARDIAC: Regular rate and rhythm. S1 and S2, without murmurs, gallops, or rubs. VASCULAR: No Edema. Peripheral pulses normal and equal in all extremities. ABDOMEN: Soft, without detectable tenderness. No sign of distention. No rebound or guarding, and no masses palpated. Bowel Sounds normal. MUSCULOSKELETAL: Good range of motion of all major joints. Extremities without clubbing, cyanosis or edema. NEUROLOGIC EXAM: Alert and oriented x 3. No focal sensory or strength deficits. Speech normal. Follows commands. PSYCHIATRIC: Mood normal. SKIN: No rash or lesions. - Constitutional Vitals: Temp Pulse Resp BP Pulse Ox 97.9 F 89 18 126/69 95 11/01/17 07:56 11/01/17 09:10 11/01/17 09:10 11/01/17 07:56 11/01/17 08:56 Plan Activity: advance as tolerated, fall precautions Diet: low cholesterol Special Instructions: record daily BP diary, smoking cessation Follow up with: PRIMARY CARE, [Primary Care Provider] - 3-5 Days TAMIKA SANTOS MD [Staff Physician] - 7 Days NIKHIL HOLDER MD [Staff Physician] - 7 Days Prescriptions: ALBUTEROL Inhaler 2 puff INHALATION PRN PRN 30 Days PRN Reason: Dyspnea Amoxicillin/Potassium Clav [Augmentin 875-125 Tablet] 1 each PO BID #10 tablet Prednisone [predniSONE 10 mg (6-Day Pack, 21 Tabs)] 10 mg PO .TAPER #1 tab.ds.pk
== END 2017-11-01 12:45 | disposition home or self-care (01) | DRG 189 ==
LOC: ED 16:18 → 3A 10-31 02:31
PROVIDERS: ADMIT Internal Medicine Geriatric Medicine; ATTEND Internal Medicine
PROC: 4A033R1 Measurement of Arterial Saturation, Peripheral, Percutaneous Approach (ICD-10-PCS; principal; 2017-10-30)
DX: J96.01 Acute respiratory failure with hypoxia (principal); J44.1 Chronic obstructive pulmonary disease with (acute) exacerbation; E87.2 Acidosis; J44.0 Chronic obstructive pulmonary disease with (acute) lower respiratory infection; E87.5 Hyperkalemia; F17.210 Nicotine dependence, cigarettes, uncomplicated; J20.9 Acute bronchitis, unspecified; Z71.6 Tobacco abuse counseling
CPT/HCPCS: 36415; 71020; 80048; 80053; 80061; 82140; 82803; 82962; 83036; 83735; 84100; 85007; 85025; 87040; 93005; 93010; 94640; 94644; 94760; 96374; 96375; 99406; J0696; J1650; J1815; J1956; J2920; J2930; J7030

== ENCOUNTER 2018-07-07 23:31 | Inpatient (IN) | payer MEDICARE ==
--- NOTE | 2018-07-08 00:08 | XRay Report ---
FINAL REPORT EXAM: XR CHEST 1V AP HISTORY: ES, cough COMPARISON: October 2017. FINDINGS: Frontal view(s) of the chest obtained. Cardiac silhouette within normal limits. No gross consolidation or effusion. No pneumothorax. Mild tortuosity of the thoracic aorta. IMPRESSION: No grossly acute findings.
[2018-07-08 00:32] LABS: Basophils # (Auto) 0.1 K/mm3 (0.0-0.1); Basophils % (Auto) 1.3 % (0.0-1.8); Eosinophils # (Auto) 0.6 K/mm3 (0.0-0.4); Eosinophils % (Auto) 7.3 % (0.0-4.3); Hematocrit 43.7 % (30.3-42.9); Hemoglobin 14.7 gm/dl (10.1-14.3); Lymphocytes # (Auto) 1.9 K/mm3 (1.2-5.4); Lymphocytes % (Auto) 24.5 % (13.4-35.0); Mean Corpuscular HGB Conc 34 % (30-34); Mean Corpuscular Hemoglobin 28 pg (28-32); Mean Corpuscular Volume 83 fl (79-97); Monocytes # (Auto) 0.9 K/mm3 (0.0-0.8); Monocytes % (Auto) 11.1 % (0.0-7.3); Red Cell Distribution Width 15.9 % (13.2-15.2)
--- NOTE | 2018-07-08 00:49 | Emergency Department Report ---
HPI - General Chief Complaint: Dyspnea/Respdistress Time Seen by Provider: 07/08/18 00:00 - HPI HPI: 72-year-old [place] female presents to the emergency department via EMS with a complaint of a one-day history of shortness of breath and a mixed dry and productive cough. Patient has a history of COPD but is not oxygen dependent. She is still a tobacco smoker. She tried her inhaler and nebulizer without any relief. She received 125 mg of Solu-Medrol and 2 g of magnesium in route with EMS. No recent travel or sick contacts at home. Her primary care physician is Dr. Lema and her senior strategy manager is Dr. Botello. She denies any fever, chest pain, back pain, nausea, vomiting or diaphoresis. ED Past Medical Hx - Past Medical History Previous Medical History?: Yes Hx COPD: Yes - Surgical History Past Surgical History?: Yes Additional Surgical History: D&C - Social History Smoking Status: Current Every Day Smoker Substance Use Type: None - Medications Home Medications: Home Medications Medication Instructions Recorded Confirmed Last Taken Type Trelegy 100 mcg IH DAILY 10/31/17 07/08/18 10/30/17 History ALBUTEROL Inhaler 2 puff INHALATION PRN PRN 30 Days 11/01/17 07/08/18 Unknown Rx Albuterol Sulfate [Albuterol 0.63% 0.63 mg IH TID PRN 07/08/18 07/08/18 Unknown History NEBS] ED Review of Systems ROS: Stated complaint: ES Other details as noted in HPI Comment: All other systems reviewed and negative Constitutional: denies: chills, fever Eyes: denies: eye pain, eye discharge, vision change ENT: denies: ear pain, throat pain Respiratory: cough, shortness of breath, wheezing Cardiovascular: denies: palpitations, edema Gastrointestinal: denies: abdominal pain, nausea, diarrhea Genitourinary: denies: urgency, dysuria, discharge Musculoskeletal: denies: back pain, joint swelling, arthralgia Skin: denies: rash, lesions Neurological: denies: headache, weakness, paresthesias Physical Exam - Physical Exam Vital Signs: Vital Signs 07/07/18 23:48 Temperature 97.7 F Pulse Rate 105 H Respiratory 28 H Rate Blood Pressure 109/84 O2 Sat by Pulse 99 Oximetry Physical Exam: GENERAL: The patient is well-developed well-nourished. HENT: Normocephalic. Atraumatic. Patient has moist mucous membranes. EYES: Extraocular motions are intact. Pupils equal reactive to light bilaterally. NECK: Supple. Trachea is midline. CHEST/LUNGS: Mild to moderate wheezing throughout the chest. There is some mild tachypnea but no accessory muscle use. A dry cough heard during examination. There is no respiratory distress noted. HEART/CARDIOVASCULAR: Regular. There is mild tachycardia. There is no murmur. ABDOMEN: Abdomen is soft, nontender. Patient has normal bowel sounds. There is no abdominal distention. SKIN: Skin is warm and dry. NEURO: The patient is awake, alert, and oriented. The patient is cooperative. The patient has no focal neurologic deficits. The patient has normal speech. MUSCULOSKELETAL: There is no tenderness or deformity. There is no limitation range of motion. There is no evidence of acute injury. ED Course Vital Signs 07/07/18 23:48 Temperature 97.7 F Pulse Rate 105 H Respiratory 28 H Rate Blood Pressure 109/84 O2 Sat by Pulse 99 Oximetry ED Medical Decision Making - Lab Data Result diagrams: 07/08/18 00:13 07/08/18 00:13 - EKG Data -: EKG Interpreted by Me EKG shows normal: sinus rhythm, axis (left axis deviation), intervals (mild prolongation of [place] interval), QRS complexes (left anterior fascicular block, Q waves to the septal leads), ST-T waves Rate: normal - EKG Data When compared to previous EKG there are: previous EKG unavailable Interpretation: other (sinus rhythm, left anterior fascicular block, left axis deviation, Q waves to the septal leads) - Radiology Data Radiology results: report reviewed, image reviewed interpreted by me: Chest x-ray shows some hyperinflation of the lungs and flattening of the diaphragms consistent with emphysema/COPD. No focal consolidation, obvious pneumonia or pneumothorax. EXAM: CT ANGIO CHEST HISTORY: SOB, elevated dimer COMPARISON: Chest x-ray from yesterday. TECHNIQUE: Contiguous axial images were obtained. Additional sagittal and coronal reformatted images were obtained. Administration of IV contrast given per institution protocol. Images submitted for interpretation. Max intensity projection images. 100 cc Omnipaque 350. FINDINGS: Heart normal in size. Thoracic aorta normal in caliber. No acute dissection or rupture. No pulmonary embolus. No pathologically enlarged intrathoracic or axillary lymph nodes. 3 millimeter hypodense left thyroid lobe nodule. Mild centrilobular emphysema. Mild diffuse bronchial wall thickening concerning for mild bronchitis. No focal consolidation or pleural effusion. Mild superior plate compression deformities of the lower thoracic spine, which appear chronic. No bony retropulsion. Visualized upper abdomen is grossly unremarkable. IMPRESSION: No pulmonary embolus. Mild centrilobular emphysema. Mild bronchial wall thickening concerning for bronchitis which may be acute or chronic. No acute infiltrates or effusions. Transcribed By: LMA Dictated By: TOYA ALARCON MD Electronically Authenticated By: TOYA ALARCON MD Signed Date/Time: 07/08/18 0229 - Medical Decision Making Patient presents with a one-day history of some shortness of breath, wheezing and coughing. She does not appear to be in any respiratory distress but does have mild to moderate bronchospasm. EKG does not show ST elevation MS or significant dysrhythmia. Chest x-ray appears consistent with emphysema/COPD but does not show any pleural effusion, pneumothorax, consolidation, pneumonia or any other acute process. Patient's labs were mostly unremarkable except for a slightly elevated and equivocal d-dimer. CT angiography of the chest did not show any pulmonary embolism, dissection and appears consistent with emphysema. Patient did receive some steroids and magnesium in route. She got some breathing treatments here. However the minute the patient exerted herself, even just trying to get onto a bedpan, the patient began having dyspnea, tachypnea and worsening of her symptoms. For this reason the patient will be admitted to the hospital for further evaluation and treatment of her COPD exacerbation. She has been accepted for admission by the hospitalist, Dr. Salamanca. - Differential Diagnosis COPD, PE, pneumonia, bronchitis Critical Care Time: No Critical care attestation.: If time is entered above; I have spent that time in minutes in the direct care of this critically ill patient, excluding procedure time. ED Disposition Clinical Impression: COPD exacerbation, Acute dyspnea, Bronchitis Disposition: OP ADMIT IP TO THIS HOSP Is pt being admited?: Yes Condition: Fair Instructions: Chronic Obstructive Pulmonary Disease (ED), Chronic Bronchitis ( ED) Referrals: PRIMARY CARE, [Primary Care Provider] - 3-5 Days Time of Disposition: 04:30
[2018-07-08 00:50] LABS: BUN/Creatinine Ratio 14; Blood Urea Nitrogen 7 mg/dL (7-17); Calcium 9.4 mg/dL (8.4-10.2); Hemolysis Index 25; Platelet Count 236 K/mm3 (140-440)
--- NOTE | 2018-07-08 02:30 | Cat Scan Report ---
FINAL REPORT EXAM: CT ANGIO CHEST HISTORY: SOB, elevated dimer COMPARISON: Chest x-ray from yesterday. TECHNIQUE: Contiguous axial images were obtained. Additional sagittal and coronal reformatted images were obtained. Administration of IV contrast given per institution protocol. Images submitted for interpretation. Max intensity projection images. 100 cc Omnipaque 350. FINDINGS: Heart normal in size. Thoracic aorta normal in caliber. No acute dissection or rupture. No pulmonary embolus. No pathologically enlarged intrathoracic or axillary lymph nodes. 3 millimeter hypodense left thyroid lobe nodule. Mild centrilobular emphysema. Mild diffuse bronchial wall thickening concerning for mild bronchitis. No focal consolidation or pleural effusion. Mild superior plate compression deformities of the lower thoracic spine, which appear chronic. No bony retropulsion. Visualized upper abdomen is grossly unremarkable. IMPRESSION: No pulmonary embolus. Mild centrilobular emphysema. Mild bronchial wall thickening concerning for bronchitis which may be acute or chronic. No acute infiltrates or effusions.
[2018-07-08] MEDS: XOPENEX IH ONE ×2 (03:25→03:37)
[2018-07-08] MEDS ORDERED: ZOFRAN IV PRN (03:58)
[2018-07-08] MEDS ORDERED: TYLENOL PO PRN (03:58)
[2018-07-08] MEDS ORDERED: SODIUM CHLORIDE FLUSH SYRINGE 10 ML IV PRN (03:58)
[2018-07-08] MEDS ORDERED: SOLU-Medrol IV SCH (04:00)
--- NOTE | 2018-07-08 04:19 | History and Physical Report ---
History of Present Illness Date of examination: 07/08/18 History of present illness: 72-year-old woman with a history of COPD, tobacco abuse comes emergency room complaining of shortness of breath started yesterday. She has been using her inhaler without any improvement in her symptoms. She complains of a cough productive of green-brown phlegm, no fever Review of systems Constitutional: no weight loss, chills, fever Ears, eyes, nose, mouth and throat: no nasal congestion, no nasal discharge, no sinus pressure, no vision change, no red eye. Neck: No neck pain or rigidity. Cardiovascular: no chest pain, palpitations Respiratory:+ cough, shortness of breath Gastrointestinal: no abdominal pain hematochezia Genitourinary : no frequency , no hematuria Musculoskeletal: no joint swelling or muscle ache Integumentary: no rash, no pruritis Neurological: no parathesias, no numbness, no focal weakness Endocrine: no cold or heat intolerance, no polyuria or polydipsia Hematologic/Lymphatic: no easy bruising, no easy bleeding, no gland swelling Allergic/Immunologic: no urticaria, no angioedema. PAST MEDICAL HISTORY: COPD PAST SURGICAL HISTORY: None SOCIAL HISTORY: No alcohol, no drugs, smokes 2 cigarettes a day FAMILY HISTORY: Hypertension Medications and Allergies Allergies Allergy/AdvReac Type Severity Reaction Status Date / Time No Known Allergies Allergy Unverified 10/30/17 16:43 Home Medications Medication Instructions Recorded Confirmed Last Taken Type Trelegy 100 mcg IH DAILY 10/31/17 07/08/18 10/30/17 History ALBUTEROL Inhaler 2 puff INHALATION PRN PRN 30 Days 11/01/17 07/08/18 Unknown Rx Albuterol Sulfate [Albuterol 0.63% 0.63 mg IH TID PRN 07/08/18 07/08/18 Unknown History NEBS] Active Meds: Active Medications Acetaminophen (Tylenol) 650 mg PO Q4H PRN PRN Reason: Pain MILD(1-3)/Fever >100.5/BLANC Albuterol/Ipratropium (Duoneb *Not For Prn Use*) 1 ampul IH Q6HRT ELY Enoxaparin Sodium (Lovenox) 40 mg SUB-Q QDAY@1000 ELY Methylprednisolone Sodium Succinate (Solu-Medrol) 125 mg IV Q6HR ELY Ondansetron HCl (Zofran) 4 mg IV Q8H PRN PRN Reason: Nausea And Vomiting Sodium Chloride (Sodium Chloride Flush Syringe 10 Ml) 10 ml IV BID ELY Sodium Chloride (Sodium Chloride Flush Syringe 10 Ml) 10 ml IV PRN PRN PRN Reason: LINE FLUSH Exam - Physical Exam Narrative exam: Gen. appearance: Patient lying in bed, no apparent distress HEENT: Normocephalic, atraumatic, pupils equally round and reactive to light, extraocular movement intact, and no sclericterus,. No JVD or thyromegaly or nodule,neck supple, no carotid bruit ,mucous membranes moist, no exudate or erythema Heart: S1, S2, regular rate and rhythm Lungs: Wheezing breathing comfortable Abdomen: Positive bowel sounds, non-tender, nondistended, no organomegaly Extremity:no edema cyanosis, clubbing Skin: no rash, dry, warm Neuro: Oriented 3, cranial nerves II-12 intact, speech is fluent, motor and sensory intact - Constitutional Vitals: Temp Pulse Resp BP Pulse Ox 97.7 F 80 18 109/84 99 07/07/18 23:48 07/08/18 03:25 07/08/18 03:25 07/07/18 23:48 07/07/18 23:48 Results - Labs CBC & Chem 7: 07/08/18 00:13 07/08/18 00:13 Labs: Abnormal lab results 07/08/18 07/08/18 07/08/18 Range/Units 00:13 00:13 00:16 RBC 5.30 H (3.65-5.03) M/mm3 Hgb 14.7 H (10.1-14.3) gm/dl Hct 43.7 H (30.3-42.9) % RDW 15.9 H (13.2-15.2) % [place] % (Auto) 11.1 H (0.0-7.3) % Eos % (Auto) 7.3 H (0.0-4.3) % [place] # 0.9 H (0.0-0.8) K/mm3 Eos # 0.6 H (0.0-0.4) K/mm3 D-Dimer 280.10 H (0-234) ng/mlDDU Creatinine 0.5 L (0.7-1.2) mg/dL Glucose 123 H (65-100) mg/dL - Imaging and Cardiology Chest x-ray: report reviewed CT scan - chest: report reviewed Assessment and Plan Assessment Acute COPD exacerbation with bronchitis Plan Start high-dose steroids, nebulizer treatment, azithromycin DT prophylaxis
[2018-07-08] MEDS: ZITHROMAX 500 MG in NACL 0.9% 250ML 250 ML IV SCH (06:08)
[2018-07-08] MEDS: SODIUM CHLORIDE FLUSH SYRINGE 10 ML IV SCH ×2 (09:52→23:00)
[2018-07-08] MEDS: LOVENOX SUB-Q SCH (09:52)
[2018-07-08] MEDS: DUONEB *Not for PRN Use IH SCH ×3 (09:56→20:18)
[2018-07-08] MEDS ORDERED: LOVENOX SUB-Q SCH (10:00)
--- NOTE | 2018-07-08 10:43 | Progress Note ---
Assessment and Plan Assessment and plan: Acute hypoxemic respiratory failure. Continue O2 to maintain sats greater than 92%. Etiology secondary to COPD exacerbation. COPD exacerbation. Continue systemic steroids but taper to 60 mg IV every 8 hours. Continue IV antibiotics and breathing treatments. Acute bronchitis. Continue antibiotics as noted above. Tobacco abuse. Patient will be counseled on tobacco cessation. History Interval history: No new issues overnight. Patient still complains of shortness of breath with minimal exertion. Hospitalist Physical - Constitutional Vitals: Temp Pulse Resp BP Pulse Ox 97.5 F L 94 H 18 138/62 97 07/08/18 06:47 07/08/18 10:12 07/08/18 10:12 07/08/18 06:47 07/08/18 09:58 General appearance: Present: no acute distress, well-nourished - EENT Eyes: Present: PERRL, EOM intact ENT: hearing intact, clear oral mucosa, dentition normal - Neck Neck: Present: supple, normal ROM - Respiratory Respiratory effort: normal Respiratory: bilateral: diminished, rhonchi - Cardiovascular Rhythm: regular Heart Sounds: Present: S1 & S2. Absent: gallop, rub - Extremities Extremities: no ischemia, No edema, Full ROM - Abdominal General gastrointestinal: soft, non-tender, non-distended, normal bowel sounds - Integumentary Integumentary: Present: clear, warm, dry - Neurologic Neurologic: CNII-XII intact, moves all extremities Results - Labs CBC & Chem 7: 07/08/18 00:13 07/08/18 00:13 Labs: Laboratory Last Values WBC 7.9 K/mm3 (4.5-11.0) 07/08/18 00:13 RBC 5.30 M/mm3 (3.65-5.03) H 07/08/18 00:13 Hgb 14.7 gm/dl (10.1-14.3) H 07/08/18 00:13 Hct 43.7 % (30.3-42.9) H 07/08/18 00:13 MCV 83 fl (79-97) 07/08/18 00:13 MCH 28 pg (28-32) 07/08/18 00:13 MCHC 34 % (30-34) 07/08/18 00:13 RDW 15.9 % (13.2-15.2) H 07/08/18 00:13 Plt Count 236 K/mm3 (140-440) 07/08/18 00:13 Lymph % (Auto) 24.5 % (13.4-35.0) 07/08/18 00:13 [place] % (Auto) 11.1 % (0.0-7.3) H 07/08/18 00:13 Eos % (Auto) 7.3 % (0.0-4.3) H 07/08/18 00:13 Baso % (Auto) 1.3 % (0.0-1.8) 07/08/18 00:13 Lymph # 1.9 K/mm3 (1.2-5.4) 07/08/18 00:13 [place] # 0.9 K/mm3 (0.0-0.8) H 07/08/18 00:13 Eos # 0.6 K/mm3 (0.0-0.4) H 07/08/18 00:13 Baso # 0.1 K/mm3 (0.0-0.1) 07/08/18 00:13 Seg Neutrophils % 55.8 % (40.0-70.0) 07/08/18 00:13 Seg Neutrophils # 4.4 K/mm3 (1.8-7.7) 07/08/18 00:13 D-Dimer 280.10 ng/mlDDU (0-234) H 07/08/18 00:16 Sodium 141 mmol/L (137-145) 07/08/18 00:13 Potassium 4.3 mmol/L (3.6-5.0) 07/08/18 00:13 Chloride 101.6 mmol/L (98-107) 07/08/18 00:13 Carbon Dioxide 27 mmol/L (22-30) 07/08/18 00:13 Anion Gap 17 mmol/L 07/08/18 00:13 BUN 7 mg/dL (7-17) 07/08/18 00:13 Creatinine 0.5 mg/dL (0.7-1.2) L 07/08/18 00:13 Estimated GFR > 60 ml/min 07/08/18 00:13 BUN/Creatinine Ratio 14 % 07/08/18 00:13 Glucose 123 mg/dL (65-100) H 07/08/18 00:13 Calcium 9.4 mg/dL (8.4-10.2) 07/08/18 00:13 Troponin T < 0.010 ng/mL (0.00-0.029) 07/08/18 00:16 NT-Pro-B Natriuret Pep 19.75 pg/mL (0-900) 07/08/18 00:16
[2018-07-08] MEDS: SOLU-Medrol IV SCH ×2 (13:41→23:00)
[2018-07-08] MEDS ORDERED: NORCO 5/325 PO PRN (16:44)
[2018-07-09] MEDS: DUONEB *Not for PRN Use IH SCH ×4 (02:36→20:26)
[2018-07-09 05:34] LABS: Hematocrit 40.6 % (30.3-42.9); Hemoglobin 13.2 gm/dl (10.1-14.3); Mean Corpuscular HGB Conc 33 % (30-34); Mean Corpuscular Hemoglobin 27 pg (28-32); Mean Corpuscular Volume 83 fl (79-97); Platelet Count 239 K/mm3 (140-440); Red Blood Count 4.88 M/mm3 (3.65-5.03); Red Cell Distribution Width 15.7 % (13.2-15.2)
[2018-07-09 05:47] LABS: BUN/Creatinine Ratio 22; Blood Urea Nitrogen 11 mg/dL (7-17); Calcium 8.9 mg/dL (8.4-10.2); Hemolysis Index 11
[2018-07-09] MEDS: SOLU-Medrol IV SCH ×3 (06:00→22:42)
[2018-07-09] MEDS: ZITHROMAX 500 MG in NACL 0.9% 250ML 250 ML IV SCH (06:00)
[2018-07-09 07:31] LABS: Total Cells Counted 100
[2018-07-09 07:32] LABS: Anisocytosis 1+; Band Neutrophils # (Manual) 0.2 K/mm3; Basophils % (Manual) 0 % (0.0-1.8); Eosinophils % (Manual) 0 % (0.0-4.3); Hypochromasia Few
--- NOTE | 2018-07-09 09:09 | Progress Note ---
Assessment and Plan Assessment and plan: Acute hypoxemic respiratory failure. Continue O2 to maintain sats greater than 92%. Etiology secondary to COPD exacerbation. COPD exacerbation. Continue systemic steroids and cont taper to 40 mg IV every 12 hours. Continue IV antibiotics and breathing treatments. Acute bronchitis. Continue antibiotics as noted above. Tobacco abuse. Patient will be counseled on tobacco cessation. Disposition. Anticipate discharge in a.m. History Interval history: No new issues overnight. Patient still complains of shortness of breath with minimal exertion. Hospitalist Physical - Constitutional Vitals: Temp Pulse Resp BP Pulse Ox 98.1 F 79 18 133/68 97 07/09/18 06:32 07/09/18 08:30 07/09/18 08:30 07/09/18 06:32 07/09/18 08:31 General appearance: Present: no acute distress, well-nourished - EENT Eyes: Present: PERRL, EOM intact ENT: hearing intact, clear oral mucosa, dentition normal - Neck Neck: Present: supple, normal ROM - Respiratory Respiratory effort: normal Respiratory: bilateral: diminished, wheezing - Cardiovascular Rhythm: regular Heart Sounds: Present: S1 & S2. Absent: gallop, rub - Extremities Extremities: no ischemia, No edema, Full ROM - Abdominal General gastrointestinal: soft, non-tender, non-distended, normal bowel sounds - Integumentary Integumentary: Present: clear, warm, dry - Neurologic Neurologic: CNII-XII intact, moves all extremities Results - Labs CBC & Chem 7: 07/09/18 04:52 07/09/18 04:52 Labs: Laboratory Last Values WBC 12.1 K/mm3 (4.5-11.0) H 07/09/18 04:52 RBC 4.88 M/mm3 (3.65-5.03) 07/09/18 04:52 Hgb 13.2 gm/dl (10.1-14.3) 07/09/18 04:52 Hct 40.6 % (30.3-42.9) 07/09/18 04:52 MCV 83 fl (79-97) 07/09/18 04:52 MCH 27 pg (28-32) L 07/09/18 04:52 MCHC 33 % (30-34) 07/09/18 04:52 RDW 15.7 % (13.2-15.2) H 07/09/18 04:52 Plt Count 239 K/mm3 (140-440) 07/09/18 04:52 Lymph % (Auto) 24.5 % (13.4-35.0) 07/08/18 00:13 [place] % (Auto) 11.1 % (0.0-7.3) H 07/08/18 00:13 Eos % (Auto) 7.3 % (0.0-4.3) H 07/08/18 00:13 Baso % (Auto) 1.3 % (0.0-1.8) 07/08/18 00:13 Lymph # 1.9 K/mm3 (1.2-5.4) 07/08/18 00:13 [place] # 0.9 K/mm3 (0.0-0.8) H 07/08/18 00:13 Eos # 0.6 K/mm3 (0.0-0.4) H 07/08/18 00:13 Baso # 0.1 K/mm3 (0.0-0.1) 07/08/18 00:13 Add Manual Diff Complete 07/09/18 04:52 Total Counted 100 07/09/18 04:52 Seg Neutrophils % First Aid Trainer 07/09/18 04:52 Seg Neuts % (Manual) 81.0 % (40.0-70.0) H 07/09/18 04:52 Band Neutrophils % 2.0 % 07/09/18 04:52 Lymphocytes % (Manual) 8.0 % (13.4-35.0) L 07/09/18 04:52 Reactive Lymphs % (Man) 0 % 07/09/18 04:52 Monocytes % (Manual) 9.0 % (0.0-7.3) H 07/09/18 04:52 Eosinophils % (Manual) 0 % (0.0-4.3) 07/09/18 04:52 Basophils % (Manual) 0 % (0.0-1.8) 07/09/18 04:52 Metamyelocytes % 0 % 07/09/18 04:52 Myelocytes % 0 % 07/09/18 04:52 Promyelocytes % 0 % 07/09/18 04:52 Blast Cells % 0 % 07/09/18 04:52 Nucleated RBC % Not Reportable 07/09/18 04:52 Seg Neutrophils # 4.4 K/mm3 (1.8-7.7) 07/08/18 00:13 Seg Neutrophils # Man 9.8 K/mm3 (1.8-7.7) H 07/09/18 04:52 Band Neutrophils # 0.2 K/mm3 07/09/18 04:52 Lymphocytes # (Manual) 1.0 K/mm3 (1.2-5.4) L 07/09/18 04:52 Abs React Lymphs (Man) 0.0 K/mm3 07/09/18 04:52 Monocytes # (Manual) 1.1 K/mm3 (0.0-0.8) H 07/09/18 04:52 Eosinophils # (Manual) 0.0 K/mm3 (0.0-0.4) 07/09/18 04:52 Basophils # (Manual) 0.0 K/mm3 (0.0-0.1) 07/09/18 04:52 Metamyelocytes # 0.0 K/mm3 07/09/18 04:52 Myelocytes # 0.0 K/mm3 07/09/18 04:52 Promyelocytes # 0.0 K/mm3 07/09/18 04:52 Blast Cells # 0.0 K/mm3 07/09/18 04:52 WBC Morphology Not Reportable 07/09/18 04:52 Hypersegmented Neuts Not Reportable 07/09/18 04:52 Hyposegmented Neuts Not Reportable 07/09/18 04:52 Hypogranular Neuts Not Reportable 07/09/18 04:52 Smudge Cells Not Reportable 07/09/18 04:52 Toxic Granulation Not Reportable 07/09/18 04:52 Toxic Vacuolation Not Reportable 07/09/18 04:52 Dohle Bodies Not Reportable 07/09/18 04:52 Pelger-Huet Anomaly Not Reportable 07/09/18 04:52 Kaycee Rods Not Reportable 07/09/18 04:52 Platelet Estimate Appears normal 07/09/18 04:52 Clumped Platelets Not Reportable 07/09/18 04:52 Plt Clumps, EDTA Not Reportable 07/09/18 04:52 Large Platelets Not Reportable 07/09/18 04:52 Giant Platelets Not Reportable 07/09/18 04:52 Platelet Satelliting Not Reportable 07/09/18 04:52 Plt Morphology Comment Not Reportable 07/09/18 04:52 RBC Morphology Not Reportable 07/09/18 04:52 Dimorphic RBCs Not Reportable 07/09/18 04:52 Polychromasia Not Reportable 07/09/18 04:52 Hypochromasia Few 07/09/18 04:52 Poikilocytosis Not Reportable 07/09/18 04:52 Anisocytosis 1+ 07/09/18 04:52 Microcytosis Not Reportable 07/09/18 04:52 Macrocytosis Not Reportable 07/09/18 04:52 Spherocytes Not Reportable 07/09/18 04:52 Pappenheimer Bodies Not Reportable 07/09/18 04:52 Sickle Cells Not Reportable 07/09/18 04:52 Target Cells Not Reportable 07/09/18 04:52 Tear Drop Cells Not Reportable 07/09/18 04:52 Ovalocytes Not Reportable 07/09/18 04:52 Helmet Cells Not Reportable 07/09/18 04:52 [place] Bodies Not Reportable 07/09/18 04:52 [place] Rings Not Reportable 07/09/18 04:52 Jonn Cells Not Reportable 07/09/18 04:52 Bite Cells Not Reportable 07/09/18 04:52 Crenated Cell Not Reportable 07/09/18 04:52 Elliptocytes Not Reportable 07/09/18 04:52 Acanthocytes (Spur) Not Reportable 07/09/18 04:52 Rouleaux Not Reportable 07/09/18 04:52 Hemoglobin C Crystals Not Reportable 07/09/18 04:52 Schistocytes Not Reportable 07/09/18 04:52 Malaria parasites Not Reportable 07/09/18 04:52 Zhang Bodies Not Reportable 07/09/18 04:52 Hem Pathologist Commnt No 07/09/18 04:52 D-Dimer 280.10 ng/mlDDU (0-234) H 07/08/18 00:16 Sodium 140 mmol/L (137-145) 07/09/18 04:52 Potassium 5.1 mmol/L (3.6-5.0) H 07/09/18 04:52 Chloride 104.0 mmol/L (98-107) 07/09/18 04:52 Carbon Dioxide 25 mmol/L (22-30) 07/09/18 04:52 Anion Gap 16 mmol/L 07/09/18 04:52 BUN 11 mg/dL (7-17) 07/09/18 04:52 Creatinine 0.5 mg/dL (0.7-1.2) L 07/09/18 04:52 Estimated GFR > 60 ml/min 07/09/18 04:52 BUN/Creatinine Ratio 22 % 07/09/18 04:52 Glucose 134 mg/dL (65-100) H 07/09/18 04:52 Calcium 8.9 mg/dL (8.4-10.2) 07/09/18 04:52 Troponin T < 0.010 ng/mL (0.00-0.029) 07/08/18 00:16 NT-Pro-B Natriuret Pep 19.75 pg/mL (0-900) 07/08/18 00:16
[2018-07-09] MEDS ORDERED: SOLU-Medrol IV SCH (10:00)
[2018-07-09] MEDS: LOVENOX SUB-Q SCH (11:08)
[2018-07-09] MEDS: SODIUM CHLORIDE FLUSH SYRINGE 10 ML IV SCH ×2 (11:09→22:38)
[2018-07-10] MEDS: DUONEB *Not for PRN Use IH SCH ×2 (02:33→08:30)
--- NOTE | 2018-07-10 09:24 | Discharge Summary ---
Providers - Providers Date of Admission: 07/08/18 03:58 Date of discharge: 07/10/18 Attending physician: DENICE ESCOBAR Primary care physician: MELISSA ANDRADE MD Hospitalization Reason for admission: copd exac Condition: Fair Hospital course: 72-year-old woman with a history of COPD, tobacco abuse comes emergency room complaining of shortness of breath starting 1 day prior to admission. She reported using her inhaler without any improvement in her symptoms. She complained of a cough productive of green-brown phlegm, no fever. The patient was admitted with diagnosis of acute hypoxemic respiratory failure secondary to COPD exacerbation and bronchitis. The patient received breathing treatments, systemic steroids and IV antibiotics with significant improvement. Patient will be discharged home and his follow-up with her primary care physician. Dedicated discharge time 32 minutes Disposition: DC-01 TO HOME OR SELFCARE Time spent for discharge: 32 Core Measure Documentation - Palliative Care Palliative Care/ Comfort Measures: Not Applicable - Core Measures Any of the following diagnoses?: none Exam - Constitutional Vitals: Temp Pulse Resp BP Pulse Ox 98.2 F 98 H 16 114/64 98 07/10/18 05:22 07/10/18 08:40 07/10/18 08:40 07/10/18 05:22 07/10/18 08:55 General appearance: Present: no acute distress, well-nourished - EENT Eyes: Present: PERRL ENT: hearing intact, clear oral mucosa - Neck Neck: Present: supple, normal ROM - Respiratory Respiratory effort: normal Respiratory: bilateral: CTA - Cardiovascular Heart Sounds: Present: S1 & S2. Absent: rub, click - Extremities Extremities: pulses symmetrical, No edema Peripheral Pulses: within normal limits - Abdominal General gastrointestinal: Present: soft, non-tender, non-distended, normal bowel sounds Female genitourinary: Present: normal - Integumentary Integumentary: Present: clear, warm, dry - Musculoskeletal Musculoskeletal: gait normal, strength equal bilaterally - Psychiatric Psychiatric: appropriate mood/affect, intact judgment & insight - Neurologic Neurologic: CNII-XII intact, moves all extremities Plan Activity: no restrictions Weight Bearing Status: Full Weight Bearing Follow up with: PRIMARY CARE, [Primary Care Provider] - 3-5 Days Prescriptions: ALBUTEROL Inhaler 2 puff INHALATION PRN PRN 30 Days PRN Reason: Dyspnea Albuterol Sulfate [Albuterol 0.63% NEBS] 0.63 mg IH TID PRN #30 vial.neb PRN Reason: Wheezing Azithromycin [Zithromax TAB] 500 mg PO QDAY #5 tablet HYDROcodone/APAP 5-325 [[place] 5-325 mg TAB] 1 each PO Q6H PRN #12 tablet PRN Reason: Pain, Moderate (4-6) levoFLOXacin [Levaquin] 750 mg PO QDAY #7 tablet methylPREDNISolone [Medrol] 4 mg PO QAM #1 tab.ds.pk Trelegy 100 mcg IH DAILY 30 Days
[2018-07-10] MEDS ORDERED: ZITHROMAX PO SCH (10:00)
--- NOTE | 2018-07-10 10:16 | Query-Infection ---
"Sung Jeffrey Norm Date:__07/10/18 Service Tech/Welder/CDS: roly Phone#:____[phone] Exercise your independent professional judgment when responding to this query. Questions asked do not imply a particular answer is desired or expected. We greatly appreciate your clarification on this issue. Clinical Documentation States: 72-year-old woman with a history of COPD, tobacco abuse comes emergency room complaining of shortness of breath started yesterday. She has been using her inhaler without any improvement in her symptoms. She complains of a cough productive of green-brown phlegm, no fever Assessment and plan: Acute hypoxemic respiratory failure. Continue O2 to maintain sats greater than 92%. Etiology secondary to COPD exacerbation. COPD exacerbation. Continue systemic steroids and cont taper to 40 mg IV every 12 hours. Continue IV antibiotics and breathing treatments. Acute bronchitis. Clinical findings show: (please check applicable parameters) Infection, known /suspected, with some of the following indicators; Specify the infection: Acute Bronchitis 07/08/18 07/09/18 WBC 7.9 12.1 DE 106 114 RR 25 20 3 General parameters [ ] Fever (core temp >38.30C or 100.40F) [ ] Hypothermia (core temp <36C) [X ] Heart rate >90 bpm [X ] Tachypnea: >20 bpm or pCO2 < 32 mmHg [ ] Altered mental status [ ] Significant edema / +ve fluid balance (>20 ml/kg 24 h) [ ] Hyperglycemia (Bl. glucose >110 mg/dl) w/o diabetes Inflammatory parameters [X ] Leukocytosis (white blood cell count >12,000/l) [ ] Leukopenia (white blood cell count <4,000/l) [ ] Bandemia (immature WBC > 10%) [ ] Leucocyte Left Shift [ ] Plasma procalcitonin>2 SD above the normal value Hemodynamic and tissue perfusion parameters [ ] Arterial hypotension(SBP <90 mmHg, MAP <70 mmHg,or a SBP drop >40 mmHg in adults) [ ] Hyperlactatemia (>3 mmol/l) [ ] Anion Gap (> 11mEG/l) [ ] Decreased capillary refill or mottling Organ dysfunction parameters [ ] Arterial hypoxemia (PaO2/FIO2 <300) [ ] Creatinine increase =0.5 mg/dl [ ] Acute oliguria (urine output <0.5 ml | kg |h or 45 mM/l for at least 2 hrs) [ ] Coagulation abnormalities (INR >1.5 or activated partial thromboplastin time >60 s) [ ] Ileus (absent tianna wel sounds) [ ] Thrombocytopenia (platelet count <100,000/l) [ ] Hyperbilirubinemia (plasma total bilirubin >4 mg/dl) According to the clinical indications above, can Bacteremia be further specified? If so, please indicate below and in your Progress Notes and/ or Discharge Summary. Indicate if the condition was present on admission. PHYSICIAN RESPONSE: [x ] Sepsis [ ] Severe Sepsis [ ] Septic Shock [ ] Septicemia [ ] Sepsis now resolved [ ] SIRS due to non-infectious cause with organ dysfunction [ ] SIRS due to non-infectious cause without organ dysfunction [ ] Other: [ ] Comment/Explanation: Present on Admission: [x ] Yes (Y) [ ] Clinically undeterminable (W) [ ] No (N) [ ] Ruled Out Please also document response in your Progress Notes and/or Discharge Summary and indicate if the condition was present on admission Notes: SIRS/ SIRS WITH ORGAN DYSFUNCTION Systemic inflammatory response syndrome (SIRS) generally refers to the systemic response to trauma/elena or other insult such as Acute Myocardial Infarction, Acute Pancreatitis, and Major Surgery with symptoms including fever, tachycardia , tachypnea, and leukocytosis (1). BACTEREMIA Presence of viable bacteria in the circulating blood (2). This term is reserved for patients that do not manifest above SIRS response. SEPTICEMIA Generally refers to a systemic disease associated with the presence of pathological microorganisms or toxins in the blood, which can include bacteria, viruses, fungi or other organisms (1). SEPSIS Generally refers to SIRS due infection (1). SEVERE SEPSIS Generally refers to sepsis associated with acute organ dysfunction (1). SEPTIC SHOCK Generally refers to circulatory failure associated with severe sepsis (2), and defined as hypotension or hypoperfusion despite adequate fluid resuscitation (1 hour) (3). REFERENCES: 1. [place] [employer]/Society of Critical Care Medicine Consensus Conference. Definitions for sepsis and organ failure and guidelines for the use of innovative therapies in sepsis. Critical Care Med 1992;20:864 - 74. 2. Murray y MM, Celeste MP, Quan ARIS, Buster E, Gunnar D, Perfecto D, Jayesh J, Daysi SM , Hasmukh JL, Chet G; International Sepsis Definitions Conference. 2000 SCCM/ESICM/ACCP/ATS/SIS International Sepsis Definitions Conference. Intensive Care Med. 2002 Apr;29(4):530-8. Epub 2002Jan 28. Review. PubMed PMID:[id number] 3. ICD-9-CM Official Guidelines for Coding and Reporting 4. Medscape Drugs, Diseases and Procedures references 5. [employer] Textbook of Internal Medicine. 18th Edition MTDD"
[2018-07-10] MEDS: SOLU-Medrol IV SCH (10:54)
[2018-07-10] MEDS: LOVENOX SUB-Q SCH (10:55)
[2018-07-10] MEDS: SODIUM CHLORIDE FLUSH SYRINGE 10 ML IV SCH (10:55)
[2018-07-10 12:23] VITALS: BP 120/48
== END 2018-07-10 12:30 | disposition home or self-care (01) | DRG 871 ==
LOC: ED 23:31 → 3A 07-08 03:58
PROVIDERS: ADMIT Internal Medicine; ATTEND Hospitalist
DX: A41.9 Sepsis, unspecified organism (principal); J96.01 Acute respiratory failure with hypoxia; J44.1 Chronic obstructive pulmonary disease with (acute) exacerbation; J44.0 Chronic obstructive pulmonary disease with (acute) lower respiratory infection; J20.9 Acute bronchitis, unspecified; F17.210 Nicotine dependence, cigarettes, uncomplicated; Z79.51 Long term (current) use of inhaled steroids; Z82.49 Family history of ischemic heart disease and other diseases of the circulatory system; Z71.6 Tobacco abuse counseling
CPT/HCPCS: 36415; 71045; 71275; 80048; 83880; 84484; 85007; 85025; 85379; 87116; 93005; 93010; 94640; 94760; 96374; J0456; J1650; J2920; J2930; J7050; Q9967

== ENCOUNTER 2018-08-01 02:37 | Emergency (ER) | payer MEDICARE ==
[2018-08-01] MEDS ORDERED: PROVENTIL IH ONE (03:31)
[2018-08-01] MEDS ORDERED: ATROVENT IH ONE (03:31)
--- NOTE | 2018-08-01 03:33 | Emergency Department Report ---
ED General Adult HPI - General Chief complaint: Dyspnea/Respdistress Stated complaint: ES Time Seen by Provider: 08/01/18 03:06 Source: patient, EMS (verbal report received from EMS.ems notes not available at time of chart dictation), RN notes reviewed, old records reviewed Mode of arrival: Stretcher Limitations: Other (patient is a poor historian) - History of Present Illness Initial comments: This is a 72-year-old female who is not known to this provider previously. Her maint mechanic is Dr. Botello. She endorses a past medical history of COPD. Patient was recently admitted to this hospital for COPD exacerbation. She also recently had a negative CT scan of the chest for pulmonary embolus. Patient presents to the ER with EMS with a complaint of resolved shortness of breath. Patient reports that she woke up and felt short of breath and felt like she panicked. EMS gave the patient steroids and nebulizer therapy in the field. Patient currently complains of upper abdominal bandlike discomfort, but denies chest pain. She endorses lower extremity swelling but she is not sure if its new or old. She denies chest pain. Her symptoms do not radiate anywhere, and she cannot think of any exacerbating or relieving factors. She does indicate like she feels like she panics occasionally. -: Sudden Consistency: now resolved Improves with: medication, rest Worsens with: none Associated Symptoms: cough, malaise, shortness of breath, weakness. denies: confusion, chest pain, fever/chills, headaches, loss of appetite, nausea/ vomiting, rash, seizure, syncope - Related Data Previous Rx's Medication Instructions Recorded Last Taken Type Azithromycin [Zithromax TAB] 500 mg PO QDAY #5 tablet 07/10/18 Unknown Rx HYDROcodone/APAP 5-325 [[place] 1 each PO Q6H PRN #12 tablet 07/10/18 Unknown Rx 5-325 mg TAB] Trelegy 100 mcg IH DAILY 30 Days 07/10/18 Unknown Rx levoFLOXacin [Levaquin] 750 mg PO QDAY #7 tablet 07/10/18 Unknown Rx ALBUTEROL Inhaler 2 puff INHALATION PRN PRN 30 Days 08/01/18 Unknown Rx Albuterol Sulfate [Albuterol 0.63% 0.63 mg IH TID PRN #30 vial.neb 08/01/18 Unknown Rx NEBS] methylPREDNISolone [Medrol Dose 4 mg PO QAM #1 tab.ds.pk 08/01/18 Unknown Rx Jean Claude] Allergies Allergy/AdvReac Type Severity Reaction Status Date / Time No Known Allergies Allergy Unverified 10/30/17 16:43 ED Review of Systems ROS: Stated complaint: ES Other details as noted in HPI Constitutional: denies: fever Eyes: denies: eye discharge ENT: congestion Respiratory: SOB with exertion, wheezing Cardiovascular: denies: syncope Gastrointestinal: denies: vomiting Musculoskeletal: denies: as per HPI, arthralgia, myalgia Skin: denies: lesions Neurological: weakness Psychiatric: anxiety ED Past Medical Hx - Past Medical History Previous Medical History?: Yes Hx COPD: Yes - Surgical History Past Surgical History?: Yes Additional Surgical History: D&C - Social History Smoking Status: Current Some Day Smoker Substance Use Type: None - Medications Home Medications: Home Medications Medication Instructions Recorded Confirmed Last Taken Type Azithromycin [Zithromax TAB] 500 mg PO QDAY #5 tablet 07/10/18 Unknown Rx HYDROcodone/APAP 5-325 [[place] 1 each PO Q6H PRN #12 tablet 07/10/18 Unknown Rx 5-325 mg TAB] Trelegy 100 mcg IH DAILY 30 Days 07/10/18 Unknown Rx levoFLOXacin [Levaquin] 750 mg PO QDAY #7 tablet 07/10/18 Unknown Rx ALBUTEROL Inhaler 2 puff INHALATION PRN PRN 30 Days 08/01/18 Unknown Rx Albuterol Sulfate [Albuterol 0.63% 0.63 mg IH TID PRN #30 vial.neb 08/01/18 Unknown Rx NEBS] methylPREDNISolone [Medrol Dose 4 mg PO QAM #1 tab.ds.pk 08/01/18 Unknown Rx Jean Claude] ED Physical Exam - General Limitations: No Limitations General appearance: alert, in no apparent distress - Head Head exam: Present: atraumatic, normocephalic - Eye Eye exam: Present: normal appearance, EOMI. Absent: nystagmus - ENT ENT exam: Present: normal exam, normal orophraynx, mucous membranes moist, normal external ear exam - Neck Neck exam: Present: normal inspection, full ROM. Absent: tenderness, meningismus - Respiratory Respiratory exam: Present: wheezes, rhonchi. Absent: respiratory distress - Cardiovascular Cardiovascular Exam: Present: regular rate, normal rhythm, normal heart sounds. Absent: bradycardia, tachycardia, irregular rhythm, systolic murmur, diastolic murmur, rubs, gallop - GI/Abdominal GI/Abdominal exam: Present: soft, normal bowel sounds. Absent: distended, tenderness, guarding, rebound, rigid, pulsatile mass - Extremities Exam Extremities exam: Present: normal inspection, full ROM, normal capillary refill , pedal edema, other (2+ pulses noted in the bilateral upper, lower extremities. Compartments soft. No long bony tenderness. The pelvis is stable.). Absent: tenderness, calf tenderness - Back Exam Back exam: Present: normal inspection, full ROM. Absent: tenderness, CVA tenderness (R), paraspinal tenderness, vertebral tenderness - Neurological Exam Neurological exam: Present: alert, CN II-XII intact, other (Extraocular movements intact. Tongue midline. No facial droop. Facial sensation intact to light touch in the V1, V2, V3 distribution bilaterally. 5 and 5 strength in 4 extremities.. Sensation is intact to light touch in 4 extremities.). Absent : motor sensory deficit - Psychiatric Psychiatric exam: Present: normal affect, normal mood - Skin Skin exam: Present: warm, dry, intact, normal color. Absent: rash ED Course Vital Signs 08/01/18 03:10 Temperature 98.3 F Pulse Rate 83 Respiratory 20 Rate Blood Pressure 124/97 Blood Pressure 124/97 [Left] O2 Sat by Pulse 99 Oximetry - Reevaluation(s) Reevaluation #1: 08/01/18 04:18 Differential diagnosis, including not limited to: COPD, pneumonia, asthma, bronchitis, pulmonary embolus Assessment and plan: 72-year-old female with very mild wheezing, lower extremity edema. Suspect venous insufficiency. Patient recently ruled out for pulmonary embolus. However, given her recent hospitalization, we will send a d- dimer to risk stratify the patient for pulmonary embolus. Basic laboratory studies, EKG pending. On reassessment, patient is currently sleeping, saturating at 92, 93%, and no acute distress. Reevaluation #2: 08/01/18 05:11 D-dimer is negative. Vital signs remained stable. Patient is in no acute distress. She is sleeping comfortably. Wheezing has improved. Suspect mild COPD exacerbation. Patient medically suitable for discharge at this time. ED Medical Decision Making - Lab Data Result diagrams: 08/01/18 03:39 08/01/18 03:39 Vital Signs 08/01/18 03:10 Temperature 98.3 F Pulse Rate 83 Respiratory 20 Rate Blood Pressure 124/97 O2 Sat by Pulse 99 Oximetry Lab Results 08/01/18 08/01/18 Range/Units 03:39 03:39 WBC 7.4 (4.5-11.0) K/mm3 RBC 5.19 H (3.65-5.03) M/mm3 Hgb 14.2 (10.1-14.3) gm/dl Hct 43.2 H (30.3-42.9) % MCV 83 (79-97) fl MCH 27 L (28-32) pg MCHC 33 (30-34) % RDW 15.7 H (13.2-15.2) % Plt Count 243 (140-440) K/mm3 PT 12.8 (12.2-14.9) Sec. INR 0.92 (0.87-1.13) APTT 37.0 H (24.2-36.6) Sec. - EKG Data -: EKG Interpreted by Me EKG shows normal: sinus rhythm Rate: normal - EKG Data When compared to previous EKG there are: no significant change 08/01/18 04:28 Sinus, 75 bpm, left axis deviation, left anterior fascicular block, poor R-wave progression, low voltage, this EKG is not a STEMI and it is unchanged from her prior EKG. - Radiology Data Radiology results: image reviewed interpreted by me: X-ray of the chest, interpreted by me, demonstrates no acute disease, hyperinflated lungs. Critical care attestation.: If time is entered above; I have spent that time in minutes in the direct care of this critically ill patient, excluding procedure time. ED Disposition Clinical Impression: COPD (chronic obstructive pulmonary disease) Disposition: DC-01 TO HOME OR SELFCARE Is pt being admited?: No Does the pt Need Aspirin: No Condition: Stable Instructions: Chronic Obstructive Pulmonary Disease (ED) Additional Instructions: Take medications as directed. Contact the vascular lab with the test requisition form that you were given, to schedule outpatient lower extremity DVT study. Follow-up with the primary care doctor or pulmonary doctor within the next 7-10 days. Return to the ER right away with new pain, worsened pain, migration of pain, projectile vomiting, change in mental status, confusion, inability to tolerate liquid feeds. Referrals: NIKHIL BOTELLO MD [Staff Physician] - 3-5 Days
[2018-08-01 04:06] LABS: Hematocrit 43.2 % (30.3-42.9); Hemoglobin 14.2 gm/dl (10.1-14.3); Mean Corpuscular HGB Conc 33 % (30-34); Mean Corpuscular Hemoglobin 27 pg (28-32); Mean Corpuscular Volume 83 fl (79-97); Platelet Count 243 K/mm3 (140-440); Red Blood Count 5.19 M/mm3 (3.65-5.03); Red Cell Distribution Width 15.7 % (13.2-15.2)
[2018-08-01 04:17] LABS: INR 0.92 (0.87-1.13)
[2018-08-01 04:36] LABS: Alanine Aminotransferase 25 units/L (7-56); Albumin 4.3 g/dL (3.9-5); BUN/Creatinine Ratio 14; Blood Urea Nitrogen 7 mg/dL (7-17); Calcium 9.4 mg/dL (8.4-10.2); Hemolysis Index 4
[2018-08-01 05:44] VITALS: BP 117/47
--- NOTE | 2018-08-01 06:40 | XRay Report ---
FINAL REPORT EXAM: XR CHEST 1V AP HISTORY: Dyspnea TECHNIQUE: AP portable view(s) of the chest obtained. PRIORS: 07/07/2018 FINDINGS: No mediastinal shift. Cardiac silhouette is not enlarged. No pneumothorax, effusion, or focal pulmonary opacity identified. No acute skeletal findings. IMPRESSION: No acute pulmonary finding identified.
== END 2018-08-01 06:49 | disposition home or self-care (01) ==
LOC: ED 02:37
DX: J44.9 Chronic obstructive pulmonary disease, unspecified (principal); F17.200 Nicotine dependence, unspecified, uncomplicated
CPT/HCPCS: 36415; 71045; 80053; 82550; 83880; 85027; 85379; 85610; 85730; 93005; 93010; 94640

== ENCOUNTER 2018-08-04 09:25 | Outpatient (CLI) | payer BC, MEDICARE | END 2018-08-04 09:26 | disposition home or self-care (01) | LOC: VAS 09:25 | PROVIDERS: ATTEND Emergency Medicine | DX: R22.43 Localized swelling, mass and lump, lower limb, bilateral (principal); J44.1 Chronic obstructive pulmonary disease with (acute) exacerbation | CPT/HCPCS: 93970 ==

== ENCOUNTER 2018-11-13 12:03 | Inpatient (IN) | payer MEDICARE ==
[2018-11-13] MEDS ORDERED: NACL 0.9% 1000 ML 1,000 ML IV ONE (12:30)
[2018-11-13] MEDS ORDERED: PROVENTIL IH ONE (12:31)
[2018-11-13] MEDS ORDERED: ATROVENT IH ONE (12:31)
--- NOTE | 2018-11-13 13:07 | Emergency Department Report ---
HPI - General Chief Complaint: Dyspnea/Respdistress Time Seen by Provider: 11/13/18 12:21 - HPI HPI: 73-year-old -[place] female presents to the emergency department, sent in from her associate office, with complaint of shortness of breath, whe ezing and dry cough that started today. The patient was recently admitted to this hospital for a COPD exacerbation and was discharged a few days ago. She says that she did have some improvement in between but the symptoms came back. She is not oxygen dependent at home for her COPD history. She has used her inhaler and was given some steroids in the pulmonology office prior to arrival. Her primary care physician is Dr. Lema and her associate is Dr. Botello. ED Past Medical Hx - Past Medical History Hx COPD: Yes - Surgical History Additional Surgical History: D&C - Social History Smoking Status: Former Smoker Substance Use Type: None - Medications Home Medications: Home Medications Medication Instructions Recorded Confirmed Last Taken Type ALBUTEROL Inhaler 2 puff INHALATION PRN PRN 30 Days 08/01/18 11/04/18 09/17/18 20:00 Rx Albuterol Sulfate [Albuterol 0.63% 0.63 mg IH TID PRN #30 vial.neb 08/01/18 11/04/18 09/17/18 20:00 Rx NEBS] Aspirin 325 mg PO DAILY 09/18/18 11/04/18 09/17/18 14:00 History Bevespi Aerosphere Inhaler 9 mcg INHALATION DAILY 09/18/18 11/04/18 09/17/18 20:00 History Doxycycline Hyclate 100 mg PO BID 09/18/18 11/04/18 09/17/18 20:00 History Flovent 44 MCG/PUFF HFA 2 inhalation PO BID 09/18/18 11/04/18 09/17/18 20:00 History Melatonin 10 mg Tablet 10 mg PO QHS 09/18/18 11/04/18 09/17/18 20:00 History AtorvaSTATin [Lipitor] 40 mg PO QHS #30 tablet 09/21/18 11/04/18 Unknown Rx Carvedilol [Coreg] 3.125 mg PO BID #60 tablet 09/21/18 11/04/18 Unknown Rx Lisinopril [Zestril TAB] 5 mg PO QDAY #30 tablet 09/21/18 11/04/18 Unknown Rx guaiFENesin [Robitussin] 200 mg PO Q4H PRN 10 Days 09/21/18 11/04/18 Unknown Rx oral.liqd Benzonatate [Tessalon Perles] 100 mg PO Q8HR PRN #20 capsule 10/31/18 11/04/18 Unknown Rx traMADol [Ultram 50 MG tab] 50 mg PO Q6HR PRN #7 tablet 10/31/18 11/04/18 Unknown Rx ALPRAZolam [Xanax TAB] 0.25 mg PO Q8H PRN #30 tablet 11/06/18 Unknown Rx Nicotine [Habitrol] 14 mg TD QDAY #30 patch 11/06/18 Unknown Rx Prednisone [predniSONE 10 mg 10 mg PO .TAPER #1 tab.ds.pk 11/06/18 Unknown Rx (6-Day Pack, 21 Tabs)] ED Review of Systems ROS: Stated complaint: ES Other details as noted in HPI Comment: All other systems reviewed and negative Constitutional: denies: chills, fever Eyes: denies: eye pain, eye discharge, vision change ENT: denies: ear pain, throat pain Respiratory: cough, shortness of breath, wheezing Cardiovascular: denies: chest pain, edema Gastrointestinal: denies: abdominal pain, vomiting Genitourinary: denies: dysuria, discharge Musculoskeletal: denies: back pain, arthralgia Skin: denies: rash, lesions Neurological: denies: headache, weakness Physical Exam - Physical Exam Vital Signs: Vital Signs 11/13/18 11/13/18 11/13/18 12:10 12:25 12:26 Temperature 97.5 F L Pulse Rate 113 H Respiratory 14 Rate Blood Pressure 157/95 O2 Sat by Pulse 95 96 97 Oximetry 11/13/18 12:28 Temperature Pulse Rate 111 H Respiratory 23 Rate Blood Pressure 149/91 O2 Sat by Pulse 97 Oximetry Physical Exam: GENERAL: The patient is well-developed well-nourished. HEENT: Normocephalic. Atraumatic. Patient has moist mucous membranes. EYES: Extraocular motions are intact. Pupils are equal and reactive to light bilaterally. NECK: Supple. Trachea is midline. CHEST/LUNGS: Decreased breath sounds throughout the chest. Mild wheezing heard. There is tachypnea with some accessory muscle use. There is some mild respiratory distress noted. HEART/CARDIOVASCULAR: Regular. There is mild tachycardia. There is no obvious murmur. ABDOMEN: Abdomen is soft, nontender. Patient has normal bowel sounds. There is no abdominal distention. SKIN: Skin is warm and dry. NEURO: The patient is awake, alert, and oriented. The patient is cooperative. The patient has no focal neurologic deficits. The patient has normal speech. MUSCULOSKELETAL: There is no tenderness or deformity. There is no evidence of acute injury. ED Course Vital Signs 11/13/18 11/13/18 11/13/18 12:10 12:25 12:26 Temperature 97.5 F L Pulse Rate 113 H Respiratory 14 Rate Blood Pressure 157/95 O2 Sat by Pulse 95 96 97 Oximetry 11/13/18 12:28 Temperature Pulse Rate 111 H Respiratory 23 Rate Blood Pressure 149/91 O2 Sat by Pulse 97 Oximetry - ABG Interpretation Ph: 7.346 PCO2: 54 PO2: 173 Bicarbonate: 29 Interpretation: respiratory acidosis, metabolic alkalosis ED Medical Decision Making - Lab Data Result diagrams: 11/13/18 13:04 11/13/18 13:04 - EKG Data -: EKG Interpreted by Me EKG shows normal: sinus rhythm, axis, intervals, QRS complexes (Q waves to the inferior leads), ST-T waves Rate: tachycardia (116 bpm) - EKG Data When compared to previous EKG there are: previous EKG unavailable Interpretation: other (sinus tachycardia, Q waves to the inferior leads) - Radiology Data Radiology results: report reviewed, image reviewed interpreted by me: Chest x-ray shows some hyperinflation of lungs and flattening of the diaphragms. No pleural effusions or pneumonia. EXAM: CT ANGIO CHEST HISTORY: SOB, elevated dimer TECHNIQUE: Following IV administration of 100 cc of Omnipaque 350 axial helical imaging was performed through the chest with sagittal and coronal reformatted images and maximum intensity projection images obtained. Comparison: Chest x-ray dated November 03, [address] angiogram chest dated July 08, 2018 FINDINGS: Visualization of fine detail in portions of the chest is somewhat limited by motion artifact. Again noted is the bilateral pulmonary emphysema. There is no evidence of focal infiltrate, pneumothorax or pleural fluid collection. The trachea and bronchi are patent. There appear to be retained secretions in the right mainstem bronchus and bronchus intermedius. The thoracic aorta is normal caliber. There is no evidence of intrathoracic adenopathy. Opacification of the pulmonary arteries is not optimal for a pulmonary arteriogram quality study. There is no evidence of large central pulmonary artery emboli. However, significant pulmonary artery emboli could be missed due to poor opacification of the pulmonary arteries and motion artifact. The visualized portion the upper abdomen is unremarkable. The bony structures are unremarkable. IMPRESSION: 1. This study is degraded by artifact created by motion and lack of significant opacification of the pulmonary arteries. 2. Pulmonary emphysema. 3. There appear to be retained secretions in the right mainstem bronchus and bronchus intermedius. 4. Otherwise no evidence of an acute intrathoracic process. 5 . No evidence of large central pulmonary artery emboli. However, significant pulmonary artery emboli could be missed due to poor opacification of the pulmonary arteries and motion artifact. Transcribed By: ED Dictated By: ELTON TATE MD Electronically Authenticated By: ELTON TATE MD Signed Date/Time: 11/13/18 8120 - Medical Decision Making Patient presents to the emergency department from her pulmonology office with complaint of some shortness of breath that started earlier today. The patient was recently here for a COPD exacerbation. Patient presents in some mild respir atory distress with decreased overall breath sounds, some tachypnea and accessory muscle use. For this reason the patient was placed on a BiPAP machine. Patient's labs show a mild cytosis but otherwise were mostly unremarkable. She did have an elevated and equivocal d-dimer and therefore a CT angiography of the chest was done that did not show any signs of any pulmonary embolism, dissection or any other acute process. We will able to get the patient off of the BiPAP machine and after breathing treatments, BiPAP, magnesium she no longer appeared in respiratory distress. Patient will be adm itted to the hospital for further evaluation and treatment and was accepted for admission by the hospitalist, Dr. Turner. - Differential Diagnosis COPD, PE, pneumonia, CHF Critical Care Time: No Critical care attestation.: If time is entered above; I have spent that time in minutes in the direct care of this critically ill patient, excluding procedure time. ED Disposition Clinical Impression: COPD exacerbation, Acute dyspnea, Bronchospasm, SIRS (systemic inflammatory response syndrome) Disposition: OP ADMIT IP TO THIS HOSP Is pt being admited?: Yes Condition: Fair Time of Disposition: 19:18
[2018-11-13] MEDS ORDERED: XANAX PO ONE (13:16)
--- NOTE | 2018-11-13 13:19 | XRay Report ---
Portable chest: Dyspnea. The lungs are significantly hyperinflated bilaterally. There are no pulmonary infiltrates nor nodules. The heart is normal in size. The upper lobe vessels are slightly prominent. No perivascular edema. Compared to prior examination of November 03, 2018 there no changes. Impression: Significant chronic hyperinflation. Mild pulmonary redistribution of flow to the upper lobes.
[2018-11-13] MEDS ORDERED: ATIVAN IV ONE (13:22)
[2018-11-13 13:28] LABS: Hematocrit 45.6 % (30.3-42.9); Hemoglobin 14.8 gm/dl (10.1-14.3); Mean Corpuscular HGB Conc 33 % (30-34); Mean Corpuscular Volume 83 fl (79-97); Platelet Count 301 K/mm3 (140-440); Red Blood Count 5.53 M/mm3 (3.65-5.03); Red Cell Distribution Width 15.5 % (13.2-15.2)
[2018-11-13 13:31] LABS: INR 0.9 (0.87-1.13)
[2018-11-13 13:32] LABS: Partial Thromboplastin Time 32.1 Sec. (24.2-36.6)
[2018-11-13 14:23] LABS: Band Neutrophils # (Manual) 0.3 K/mm3; Basophils % (Manual) 0 % (0.0-1.8); Eosinophils % (Manual) 0 % (0.0-4.3); Total Cells Counted 100
[2018-11-13 14:24] LABS: Platelet Estimate Consistent w Auto; RBC Morphology Normal
[2018-11-13 14:42] LABS: Alanine Aminotransferase 25 units/L (7-56); Albumin 4.2 g/dL (3.9-5); BUN/Creatinine Ratio 16; Blood Urea Nitrogen 8 mg/dL (7-17); Calcium 9.4 mg/dL (8.4-10.2); Hemolysis Index 38
--- NOTE | 2018-11-13 14:45 | History and Physical Report ---
History of Present Illness Chief complaint: I just cant catch my breath History of present illness: 73 YO Female with COPD, HLD, GERD presents to ED for evaluation. Pt states that she has experienced shortness of breath, worsening cough, and wheezing over the past 2 days with worsening symptoms over the past 1 day. Pt acknowledges increased coughing with increased production of clear sputum. Pt seen and evaluated by her pulmonary care nurse today and found to have persistent symptoms. Pt instructed to seek further care and [facility]. Pt transported to [facility] by her family for further care. Pt seen and evaluated in ED and found to have COPD Exacerbation complicated by Acute Respiratory Failure, as well as SIRS. Pt denies fever, chills, CP, Palpitations, NVD, Syncope, BRBPR, unintentional weight loss or night sweats.Pt admitted [facility]. Past History Past Medical History: COPD, GERD, hyperlipidemia Past Surgical History: No surgical history, Other (reviewed) Social history: single Family history: no significant family history (reviewed) Medications and Allergies Allergies Allergy/AdvReac Type Severity Reaction Status Date / Time No Known Allergies Allergy Verified 11/13/18 12:09 Home Medications Medication Instructions Recorded Confirmed Last Taken Type ALBUTEROL Inhaler 2 puff INHALATION PRN PRN 30 Days 08/01/18 11/04/18 09/17/18 20:00 Rx Albuterol Sulfate [Albuterol 0.63% 0.63 mg IH TID PRN #30 vial.neb 08/01/18 11/04/18 09/17/18 20:00 Rx NEBS] Aspirin 325 mg PO DAILY 09/18/18 11/04/18 09/17/18 14:00 History Bevespi Aerosphere Inhaler 9 mcg INHALATION DAILY 09/18/18 11/04/18 09/17/18 20:00 History Doxycycline Hyclate 100 mg PO BID 09/18/18 11/04/18 09/17/18 20:00 History Flovent 44 MCG/PUFF HFA 2 inhalation PO BID 09/18/18 11/04/18 09/17/18 20:00 History Melatonin 10 mg Tablet 10 mg PO QHS 09/18/18 11/04/18 09/17/18 20:00 History AtorvaSTATin [Lipitor] 40 mg PO QHS #30 tablet 09/21/18 11/04/18 Unknown Rx Carvedilol [Coreg] 3.125 mg PO BID #60 tablet 09/21/18 11/04/18 Unknown Rx Lisinopril [Zestril TAB] 5 mg PO QDAY #30 tablet 09/21/18 11/04/18 Unknown Rx guaiFENesin [Robitussin] 200 mg PO Q4H PRN 10 Days 09/21/18 11/04/18 Unknown Rx oral.liqd Benzonatate [Tessalon Perles] 100 mg PO Q8HR PRN #20 capsule 10/31/18 11/04/18 Unknown Rx traMADol [Ultram 50 MG tab] 50 mg PO Q6HR PRN #7 tablet 10/31/18 11/04/18 Unknown Rx ALPRAZolam [Xanax TAB] 0.25 mg PO Q8H PRN #30 tablet 11/06/18 Unknown Rx Nicotine [Habitrol] 14 mg TD QDAY #30 patch 11/06/18 Unknown Rx Prednisone [predniSONE 10 mg 10 mg PO .TAPER #1 tab.ds.pk 11/06/18 Unknown Rx (6-Day Pack, 21 Tabs)] Active Meds: Active Medications Sodium Chloride (Nacl 0.9% 1000 Ml) 1,000 mls @ 250 mls/hr IV ONCE ONE Stop: 11/13/18 16:29 Last Admin: 11/13/18 14:22 Dose: 250 mls/hr Documented by: Review of Systems Constitutional: no weight loss, no weight gain, no fever, no sweats Ears, nose, mouth and throat: no ear pain, no ear discharge, no tinnitis, no decreased hearing Breasts: no change in shape, no swelling, no mass Cardiovascular: no chest pain, no orthopnea, no palpitations, no rapid/irregular heart beat Respiratory: cough, cough with sputum, excessive sputum, shortness of breath Gastrointestinal: no nausea, no vomiting, no diarrhea, no constipation, no change in bowel habits Genitourinary Female: no pelvic pain, no flank pain, no menorrhagia, no dysuria, no urinary frequency Rectal: no pain, no incontinence, no bleeding Musculoskeletal: no neck stiffness, no neck pain, no shooting arm pain, no arm numbness/tingling, no shooting leg pain, no leg numbness/tingling Integumentary: no rash, no pruritis, no redness, no sores, no wounds Neurological: no paralysis, no weakness, no parathesias, no numbness, no tingling, no seizures Psychiatric: no anxiety, no memory loss, no sleep disturbances, no change in appetite, no change in libido Endocrine: no cold intolerance, no heat intolerance, no polyphagia, no excessive thirst, no polydipsia Hematologic/Lymphatic: no easy bruising, no easy bleeding Allergic/Immunologic: no urticaria, no allergic rhinitis, no wheezing Exam - Constitutional Vitals: Temp Pulse Resp BP Pulse Ox 97.5 F L 111 H 23 149/91 97 11/13/18 12:10 11/13/18 12:28 11/13/18 12:28 11/13/18 12:28 11/13/18 12:28 General appearance: Present: mild distress - EENT Eyes: Present: PERRL ENT: hearing intact, clear oral mucosa - Neck Neck: Present: supple, normal ROM - Respiratory Respiratory effort: labored Respiratory: bilateral: diminished, rhonchi - Cardiovascular Heart Sounds: Present: S1 & S2. Absent: rub, click - Extremities Extremities: pulses symmetrical, No edema Peripheral Pulses: within normal limits - Abdominal General gastrointestinal: Present: soft, non-tender, non-distended, normal bowel sounds Female genitourinary: Present: normal - Integumentary Integumentary: Present: clear, warm, dry - Musculoskeletal Musculoskeletal: generalized weakness - Psychiatric Psychiatric: appropriate mood/affect, intact judgment & insight - Neurologic Neurologic: CNII-XII intact, moves all extremities Results - Labs CBC & Chem 7: 11/13/18 13:04 11/13/18 13:04 Labs: Abnormal lab results 11/13/18 11/13/18 11/13/18 Range/Units 13:04 13:04 13:04 WBC 12.8 H (4.5-11.0) K/mm3 RBC 5.53 H (3.65-5.03) M/mm3 Hgb 14.8 H (10.1-14.3) gm/dl Hct 45.6 H (30.3-42.9) % MCH 27 L (28-32) pg RDW 15.5 H (13.2-15.2) % Seg Neuts % (Manual) 84.0 H (40.0-70.0) % Lymphocytes % (Manual) 9.0 L (13.4-35.0) % Seg Neutrophils # Man 10.8 H (1.8-7.7) K/mm3 D-Dimer 396.20 H (0-234) ng/mlDDU POC ABG pH (7.35-7.45) POC ABG pCO2 (35-45) POC ABG pO2 (80-105) Chloride 97.8 L (98-107) mmol/L Creatinine 0.5 L (0.7-1.2) mg/dL Glucose 123 H (65-100) mg/dL 11/13/18 Range/Units 13:59 WBC (4.5-11.0) K/mm3 RBC (3.65-5.03) M/mm3 Hgb (10.1-14.3) gm/dl Hct (30.3-42.9) % MCH (28-32) pg RDW (13.2-15.2) % Seg Neuts % (Manual) (40.0-70.0) % Lymphocytes % (Manual) (13.4-35.0) % Seg Neutrophils # Man (1.8-7.7) K/mm3 D-Dimer (0-234) ng/mlDDU POC ABG pH 7.346 L (7.35-7.45) POC ABG pCO2 54.0 H (35-45) POC ABG pO2 173 H (80-105) Chloride (98-107) mmol/L Creatinine (0.7-1.2) mg/dL Glucose (65-100) mg/dL Assessment and Plan - Patient Problems (1) Respiratory failure Current Visit: No Status: Acute Qualifiers: Chronicity: acute Respiratory failure complication: hypoxia Qualified Code(s): J96.01 - Acute respiratory failure with hypoxia Plan to address problem: Supplemental oxygen, nebulizer therapy, NIPPV as clinically indicated, ABG, chest x ray, CTA chest, (2) SIRS (systemic inflammatory response syndrome) Current Visit: Yes Status: Acute Plan to address problem: IV antibiotic therapy, cbc, cmp, chest x ray, (3) COPD with acute exacerbation Current Visit: No Status: Acute Plan to address problem: IV antibiotic therapy, IV steroid therapy, supplemental oxygen, NIPPV as clinically indicated, chest x ray (4) DVT prophylaxis Current Visit: Yes Status: Acute Plan to address problem: SCD to BLE while in bed
[2018-11-13] MEDS ORDERED: PROVENTIL IH PRN (15:10)
[2018-11-13] MEDS ORDERED: ZOFRAN IV PRN (15:10)
[2018-11-13] MEDS ORDERED: TYLENOL PO PRN (15:10)
[2018-11-13] MEDS ORDERED: ULTRAM PO PRN (15:33)
[2018-11-13] MEDS ORDERED: SOLU-Medrol ONE (16:20)
--- NOTE | 2018-11-13 16:25 | Cat Scan Report ---
FINAL REPORT EXAM: CT ANGIO CHEST HISTORY: SOB, elevated dimer TECHNIQUE: Following IV administration of 100 cc of Omnipaque 350 axial helical imaging was performe d through the chest with sagittal and coronal reformatted images and maximum intensity projection yodit ges obtained. Comparison: Chest x-ray dated November 03, [address] angiogram chest dated July 08, 2018 FINDINGS: Visualization of fine detail in portions of the chest is somewhat limited by motion artifact. Again noted is the bilateral pulmonary emphysema. There is no evidence of focal infiltrate, pneumothorax or pleural fluid collection. The trachea and bronchi are patent. There appear to be retained secretions in the right mainstem bron chus and bronchus intermedius. The thoracic aorta is normal caliber. There is no evidence of intrathoracic adenopathy. Opacification of the pulmonary arteries is not optimal for a pulmonary arteriogram quality study. The re is no evidence of large central pulmonary artery emboli. However, significant pulmonary artery emb stephanie could be missed due to poor opacification of the pulmonary arteries and motion artifact. The visualized portion the upper abdomen is unremarkable. The bony structures are unremarkable. IMPRESSION: 1. This study is degraded by artifact created by motion and lack of significant opacification of the pulmonary arteries. 2. Pulmonary emphysema. 3. There appear to be retained secretions in the right mainstem bronchus and bronchus intermedius. 4. Otherwise no evidence of an acute intrathoracic process. 5 . No evidence of large central pulmonary artery emboli. However, significant pulmonary artery embol i could be missed due to poor opacification of the pulmonary arteries and motion artifact. The the
[2018-11-13] MEDS: SOLU-Medrol IV SCH (17:07)
[2018-11-13] MEDS ORDERED: NORCO 5/325 ONE (17:35)
[2018-11-13] MEDS: ZITHROMAX 500 MG in NACL 0.9% 250ML 250 ML IV SCH (18:19)
[2018-11-13] MEDS: HABITROL TD SCH (18:55)
[2018-11-13] MEDS ORDERED: PULMICORT IH SCH (20:00)
[2018-11-13] MEDS: XANAX PO PRN (21:53)
[2018-11-13] MEDS ORDERED: FLOVENT PO SCH (22:00)
[2018-11-13] MEDS: SODIUM CHLORIDE FLUSH SYRINGE 10 ML IV SCH (22:03)
[2018-11-14] MEDS: SOLU-Medrol IV SCH ×3 (04:17→17:35)
[2018-11-14] MEDS: SODIUM CHLORIDE FLUSH SYRINGE 10 ML IV PRN (04:18)
[2018-11-14] MEDS ORDERED: SOLU-Medrol ONE (04:50)
[2018-11-14] MEDS ORDERED: MAGNESIUM SULFATE 2GM/50ML 2 GM/50 ML BAG IV ONE (05:00)
--- NOTE | 2018-11-14 05:09 | Procedure Note ---
Date of procedure: 11/14/18 Pre-op diagnosis: respiratory failure Post-op diagnosis: same Procedure: Patient required intubation. Hospitalist was called for assistance and intubation. Patient was intubated without difficulty. One attempt. Visualize cords during intubation. Patient was intubated with a Mac 3. Good color change. Bilateral breath sounds. No sounds over the epigastrium. We'll do a chest x-ray to verify. Immediately after intubation saturation improved. Letcher t O2 sat saturation was 82%. Patient was presented mainly after admission. Patient transferred to the ICU. Care return to hospitalist team. RSI used for sedation. See nurse's note. Patient was given 20 mg of etomidate followed by 80 mg succinylcholine Chest x-ray shows ET tube in good placement. Hospitalist made aware of the chest x-ray results Estimated blood loss: none Pathology: none Condition: critical Disposition: ICU
[2018-11-14] MEDS ORDERED: VERSED ONE ×2 (05:20→05:41)
[2018-11-14] MEDS ORDERED: ARTIFICIAL TEARS OPHTH OINT OU PRN (05:23)
[2018-11-14] MEDS ORDERED: VASELINE LIP THERAPY TP PRN (05:23)
[2018-11-14] MEDS: VERSED IV PRN ×2 (05:25→05:55)
[2018-11-14] MEDS ORDERED: SOLU-Medrol IV ONE (05:32)
--- NOTE | 2018-11-14 05:38 | Event Note ---
Date: 11/14/18 Cold met Called to see patient Patient in respiratory distress, using accessory muscles, hypoxic at 58%, hypertensive Breath sounds significantly diminish IV Solu-Medrol, magnesium given, she was placed on BiPAP temporarily ER physician consulted for intubation Obtain labs, d-dimer, chest x-ray Respiratory ICU Consult critical The high probability of a clinically significant, sudden or life threatening deterioration of the [CV, GI, respiratory] system(s) required my full and direct attention, intervention and personal management. The aggregate critical care time was [40 ] minutes. This time is in addition to time spent performing reported procedures but includes the following: x] Data Review and interpretation [x] Patient assessment and monitoring of vital signs [x] Documentation [x] Medication orders and management
[2018-11-14] MEDS ORDERED: VERSED IV ONE (05:39)
[2018-11-14] MEDS: MIDAZOLAM 100 MG in NACL 0.9% 80 ML IV SCH (06:00)
[2018-11-14 07:01] LABS: Alanine Aminotransferase 34 units/L (7-56); Albumin 3.9 g/dL (3.9-5); BUN/Creatinine Ratio 20; Blood Urea Nitrogen 12 mg/dL (7-17); Calcium 8.9 mg/dL (8.4-10.2); Hemolysis Index 52
--- NOTE | 2018-11-14 07:42 | XRay Report ---
FINAL REPORT EXAM: XR CHEST 1V AP HISTORY: ett TECHNIQUE: AP portable view(s) of the chest obtained. PRIORS: 11/03/2018 FINDINGS: Endotracheal tube terminates approximately 4 cm from the charli. No mediastinal shift. Cardiac silhou ette is not enlarged. Hyperaeration the lungs. No pneumothorax, effusion, or focal pulmonary opacity identified. No acute skeletal findings. IMPRESSION: Satisfactory appearance of patient's endotracheal tube. No pneumothorax.
[2018-11-14] MEDS ORDERED: SODIUM BICARBONATE IV ONE (09:47)
[2018-11-14] MEDS ORDERED: CALCIUM GLUCONATE 2,000 MG in NACL 0.9% 100 ML IV ONE (09:47)
[2018-11-14] MEDS ORDERED: BEVESPI AEROSPHERE INHALATION SCH (10:00)
[2018-11-14] MEDS ORDERED: ASPIRIN PO SCH (10:00)
[2018-11-14] MEDS ORDERED: ZESTRIL PO SCH (10:00)
[2018-11-14] MEDS ORDERED: NON-FORMULARY (Aspirin 325 MG) PO SCH (10:00)
[2018-11-14] MEDS: HABITROL TD SCH (10:26)
[2018-11-14] MEDS: SODIUM CHLORIDE FLUSH SYRINGE 10 ML IV SCH (10:31)
[2018-11-14 10:56] LABS: Hematocrit 47.1 % (30.3-42.9); Hemoglobin 15.1 gm/dl (10.1-14.3); Mean Corpuscular HGB Conc 32 % (30-34); Mean Corpuscular Volume 85 fl (79-97); Platelet Count 234 K/mm3 (140-440); Red Blood Count 5.55 M/mm3 (3.65-5.03); Red Cell Distribution Width 16.1 % (13.2-15.2)
[2018-11-14 11:10] LABS: BUN/Creatinine Ratio 26; Blood Urea Nitrogen 13 mg/dL (7-17); Calcium 9.4 mg/dL (8.4-10.2); Hemolysis Index 14
[2018-11-14] MEDS ORDERED: SUBLIMAZE IV PRN (11:33)
[2018-11-14] MEDS: fentaNYL DRIP Premix 2,000 MCG/100 ML BAG IV SCH (12:16)
[2018-11-14] MEDS: KIONEX PO SCH ×2 (12:24→17:34)
--- NOTE | 2018-11-14 12:46 | Progress Note ---
Assessment and Plan /Acute hypoxic Respiratory failure cont Supplemental oxygen, nebulizer therapy, wean off vent as tolerated Pulmonary consulted /hyperkalemia, give kayexalate, Nabicarbonate, calcium gluconate - monitor BMP /SIRS (systemic inflammatory response syndrome) likely from COPD exacerbation, neb therapy, IV antibiotic therapy, follow cx /COPD with acute exacerbation IV antibiotic therapy, IV steroid therapy, cont vent Mx / DVT prophylaxis SCD to BLE while in bed The high probability of a clinically significant, sudden or life threatening deterioration of the [respiratory, CVS] system(s) required my full and direct attention, intervention and personal management. The aggregate critical care time was [34] minutes. This time is in addition to time spent performing reported procedures but includes the following: [x] Data Review and interpretation [x] Patient assessment and monitoring of vital signs [x] Documentation [x] Medication orders and management Brief History: 73 YO Female with COPD, HLD, GERD presents to ED for evaluation. Pt states that she has experienced shortness of breath, worsening cough, and wheezing over the past 2 days , Pt seen and evaluated by her implement mechanic and found to have persistent worsening symptoms, instructed to seek further care at [facility]. Pt transported to [facility] by her family , seen and evaluated in ED and found to have COPD Exacerbation complicated by Acute Respiratory Failure, as well as SIRS. Pt admitted [facility], but she deteriorated and transferred to ICU as required intubation. Chest CTA: 1. This study is degraded by artifact created by motion and lack of significant opacification of the pulmonary arteries. 2. Pulmonary emphysema. 3. There appear to be retained secretions in the right mainstem bronchus and bronchus intermedius. 4. Otherwise no evidence of an acute intrathoracic process. 5 . No evidence of large central pulmonary artery emboli. However, significant pulmonary artery emboli could be missed due to poor opacification of the pulmonary arteries and motion artifact. CXR: Significant chronic hyperinflation. Mild pulmonary redistribution of flow to the upper lobes. Subjective Date of service: 11/14/18 Interval history: pt seen and examined Resting on vent, sedated No family member at bedside discuss with RN for plan of care Objective - Constitutional Vitals: Vital Signs - 12hr 11/14/18 11/14/18 11/14/18 01:20 05:12 05:20 Temperature 98.3 F Pulse Rate 105 H 131 H 118 H Respiratory 18 21 30 H Rate Blood Pressure 161/82 143/103 O2 Sat by Pulse 95 100 Oximetry 11/14/18 11/14/18 11/14/18 05:25 05:30 05:31 Temperature 98.5 F Pulse Rate 118 H 122 H Respiratory 20 Rate Blood Pressure 143/103 143/103 O2 Sat by Pulse 100 99 Oximetry 11/14/18 11/14/18 11/14/18 05:40 05:50 06:00 Temperature Pulse Rate 115 H 120 H 117 H Respiratory 22 28 H 31 H Rate Blood Pressure 85/65 143/68 O2 Sat by Pulse 100 100 100 Oximetry 11/14/18 11/14/18 11/14/18 06:10 06:20 06:30 Temperature Pulse Rate 111 H 118 H 113 H Respiratory 31 H 30 H 19 Rate Blood Pressure 143/68 128/65 128/65 O2 Sat by Pulse 100 99 99 Oximetry 11/14/18 11/14/18 11/14/18 06:40 06:50 08:27 Temperature Pulse Rate 113 H 113 H 119 H Respiratory 21 24 19 Rate Blood Pressure 127/68 128/76 O2 Sat by Pulse 100 100 95 Oximetry 11/14/18 09:37 Temperature Pulse Rate 119 H Respiratory Rate Blood Pressure 142/121 O2 Sat by Pulse 95 Oximetry General appearance: Present: no acute distress, well-nourished - EENT Eyes: no scleral icterus, no conjunctival injection ENT: dentition normal, no thrush, no ulcerations Ears: bilateral: normal - Neck Neck: supple, no masses or JVD - Respiratory Respiratory: bilateral: rhonchi (pt on mechanical ventillation) - Cardiovascular Rhythm: regular Heart Sounds: Present: S1 & S2. Absent: gallop, rub Extremities: pulses intact, No edema, normal color - Gastrointestinal General gastrointestinal: Present: soft, non-tender, non-distended, normal bowel sounds - Genitourinary Female genitourinary: deferred - Integumentary Integumentary: clear, warm, dry - Musculoskeletal Musculoskeletal: 1, strength equal bilaterally - Neurologic Neurologic: other (sedated) - Psychiatric Psychiatric: other (sedated) - Labs CBC & Chem 7: 11/14/18 10:06 11/14/18 10:06 Labs: Abnormal lab results 11/13/18 11/13/18 11/13/18 Range/Units 13:04 13:04 13:04 WBC 12.8 H (4.5-11.0) K/mm3 RBC 5.53 H (3.65-5.03) M/mm3 Hgb 14.8 H (10.1-14.3) gm/dl Hct 45.6 H (30.3-42.9) % MCH 27 L (28-32) pg RDW 15.5 H (13.2-15.2) % Seg Neuts % (Manual) 84.0 H (40.0-70.0) % Lymphocytes % (Manual) 9.0 L (13.4-35.0) % Seg Neutrophils # Man 10.8 H (1.8-7.7) K/mm3 D-Dimer 396.20 H (0-234) ng/mlDDU POC ABG pH (7.35-7.45) POC ABG pCO2 (35-45) POC ABG pO2 (80-105) Potassium (3.6-5.0) mmol/L Chloride 97.8 L (98-107) mmol/L Creatinine 0.5 L (0.7-1.2) mg/dL Glucose 123 H (65-100) mg/dL 11/13/18 11/14/18 11/14/18 Range/Units 13:59 06:00 06:00 WBC (4.5-11.0) K/mm3 RBC (3.65-5.03) M/mm3 Hgb (10.1-14.3) gm/dl Hct (30.3-42.9) % MCH (28-32) pg RDW (13.2-15.2) % Seg Neuts % (Manual) (40.0-70.0) % Lymphocytes % (Manual) (13.4-35.0) % Seg Neutrophils # Man (1.8-7.7) K/mm3 D-Dimer 6484.89 H (0-234) ng/mlDDU POC ABG pH 7.346 L (7.35-7.45) POC ABG pCO2 54.0 H (35-45) POC ABG pO2 173 H (80-105) Potassium 5.9 H D (3.6-5.0) mmol/L Chloride 96.2 L (98-107) mmol/L Creatinine 0.6 L (0.7-1.2) mg/dL Glucose 157 H (65-100) mg/dL 11/14/18 11/14/18 11/14/18 Range/Units 06:10 10:06 10:06 WBC 15.8 H (4.5-11.0) K/mm3 RBC 5.55 H (3.65-5.03) M/mm3 Hgb 15.1 H (10.1-14.3) gm/dl Hct 47.1 H (30.3-42.9) % MCH 27 L (28-32) pg RDW 16.1 H (13.2-15.2) % Seg Neuts % (Manual) (40.0-70.0) % Lymphocytes % (Manual) (13.4-35.0) % Seg Neutrophils # Man (1.8-7.7) K/mm3 D-Dimer (0-234) ng/mlDDU POC ABG pH 7.303 L (7.35-7.45) POC ABG pCO2 60.6 H (35-45) POC ABG pO2 165 H (80-105) Potassium 5.5 H (3.6-5.0) mmol/L Chloride 97.0 L (98-107) mmol/L Creatinine 0.5 L (0.7-1.2) mg/dL Glucose 113 H (65-100) mg/dL
--- NOTE | 2018-11-14 13:32 | Consultation ---
Past History Past Medical History: COPD, GERD, hyperlipidemia Past Surgical History: No surgical history, Other (reviewed) Social history: single Family history: no significant family history (reviewed) Medications and Allergies Allergies Allergy/AdvReac Type Severity Reaction Status Date / Time No Known Allergies Allergy Verified 11/13/18 12:09 Home Medications Medication Instructions Recorded Confirmed Last Taken Type ALBUTEROL Inhaler 2 puff INHALATION PRN PRN 30 Days 08/01/18 11/13/18 11/13/18 08:30 Rx Albuterol Sulfate [Albuterol 0.63% 0.63 mg IH TID PRN #30 vial.neb 08/01/18 11/13/18 11/13/18 08:30 Rx NEBS] Aspirin 325 mg PO DAILY 09/18/18 11/13/18 11/12/18 21:00 History Bevespi Aerosphere Inhaler 9 mcg INHALATION DAILY 09/18/18 11/13/18 11/13/18 History Doxycycline Hyclate 100 mg PO BID 09/18/18 11/13/18 09/17/18 20:00 History Flovent 44 MCG/PUFF HFA 2 inhalation PO BID 09/18/18 11/13/18 09/17/18 20:00 History Melatonin 10 mg Tablet 10 mg PO QHS 09/18/18 11/13/18 11/11/18 22:00 History AtorvaSTATin [Lipitor] 40 mg PO QHS #30 tablet 09/21/18 11/13/18 11/13/18 22:00 Rx Carvedilol [Coreg] 3.125 mg PO BID #60 tablet 09/21/18 11/13/18 11/13/18 10:00 Rx Lisinopril [Zestril TAB] 5 mg PO QDAY #30 tablet 09/21/18 11/13/18 11/13/18 Rx guaiFENesin [Robitussin] 200 mg PO Q4H PRN 10 Days 09/21/18 11/13/18 11/13/18 Rx oral.liqd Benzonatate [Tessalon Perles] 100 mg PO Q8HR PRN #20 capsule 10/31/18 11/13/18 11/13/18 08:00 Rx traMADol [Ultram 50 MG tab] 50 mg PO Q6HR PRN #7 tablet 10/31/18 11/13/1811/13/19 11:00 Rx ALPRAZolam [Xanax TAB] 0.25 mg PO Q8H PRN #30 tablet 11/06/18 11/13/18 11/13/18 08:00 Rx 0.5 Nicotine [Habitrol] 14 mg TD QDAY #30 patch 11/06/18 11/13/18 11/13/18 15:00 Rx Prednisone [predniSONE 10 mg 10 mg PO .TAPER #1 tab.ds.pk 11/06/18 11/13/18 11/13/18 10:00 Rx (6-Day Pack, 21 Tabs)] Active Meds: Active Medications Albuterol (Proventil) 2.5 mg IH Q4HRT PRN PRN Reason: Shortness Of Breath Albuterol/Ipratropium (Duoneb *Not For Prn Use*) 1 ampul IH Q6HRT ELY Alprazolam (Xanax) 0.25 mg PO Q8H PRN PRN Reason: Anxiety Last Admin: 11/13/18 21:53 Dose: 0.25 mg Documented by: Atorvastatin Calcium (Lipitor) 40 mg PO QHS ELY Last Admin: 11/13/18 21:53 Dose: 40 mg Documented by: Carvedilol (Coreg) 3.125 mg PO BID [facility] Fentanyl (Sublimaze) 50 mcg IV Q10MIN PRN PRN Reason: ANALGESIA Hydrophilic Ointment (Vaseline Lip Therapy) 1 applic TP Q2HR PRN PRN Reason: Dry Lips Azithromycin 500 mg/ Sodium (Chloride) 250 mls @ 250 mls/hr IV Q24H [facility] Last Admin: 11/13/18 18:19 Dose: 250 mls/hr Documented by: Midazolam HCl 100 mg/ Sodium (Chloride) 100 mls @ 2 mls/hr IV TITR ELY; Protocol Last Titration: 11/14/18 09:04 Dose: 2 mg/hr, 2 mls/hr Documented by: Fentanyl Citrate (Fentanyl Drip Premix) 2,000 mcg in 100 mls @ 3.561 mls/hr IV TITR ELY; Protocol Last Admin: 11/14/18 12:16 Dose: 1 mcg/kg/hr, 3.561 mls/hr Documented by: Ceftriaxone Sodium (Rocephin/Ns 1 Gm/50 Ml) 1 gm in 50 mls @ 100 mls/hr IV Q24HR [facility]; Protocol Methylprednisolone Sodium Succinate (Solu-Medrol) 125 mg IV Q6HR [facility] Last Admin: 11/14/18 12:14 Dose: 125 mg Documented by: Miscellaneous Medication (Bevespi Aerosphere Inhaler) 9 mcg INHALATION DAILY [facility] Multi-Ingred Cream/Lotion/Oil/Oint (Artificial Tears Ophth Oint) 1 applic OU Q4HR PRN PRN Reason: Dry Eye(s) Nicotine (Habitrol) 14 mg TD QDAY [facility] Last Admin: 11/14/18 10:26 Dose: 14 mg Documented by: Ondansetron HCl (Zofran) 4 mg IV Q8H PRN PRN Reason: Nausea And Vomiting Sodium Chloride (Sodium Chloride Flush Syringe 10 Ml) 10 ml IV BID [facility] Last Admin: 11/14/18 10:31 Dose: 10 ml Documented by: Sodium Chloride (Sodium Chloride Flush Syringe 10 Ml) 10 ml IV PRN PRN PRN Reason: LINE FLUSH Last Admin: 11/14/18 04:18 Dose: 10 ml Documented by: Sodium Polystyrene Sulfonate (Kionex) 30 gm PO Q6HR [facility] Last Admin: 11/14/18 12:24 Dose: Not Given Documented by: Physical Examination Vital signs: Vital Signs Temp Pulse Resp BP Pulse Ox 97.5 F L 113 H 14 157/95 95 11/13/18 12:10 11/13/18 12:10 11/13/18 12:10 11/13/18 12:10 11/13/18 12:10 Results - Laboratory Findings CBC and BMP: 11/14/18 10:06 11/14/18 10:06 ABG POC ABG pH 7.303 (7.35-7.45) L 11/14/18 06:10 POC ABG pCO2 60.6 (35-45) H 11/14/18 06:10 POC ABG pO2 165 (80-105) H 11/14/18 06:10 POC ABG HCO3 30.0 11/14/18 06:10 POC ABG Total CO2 32 11/14/18 06:10 POC ABG O2 Sat 99 11/14/18 06:10 PT/INR, D-dimer PT 12.6 Sec. (12.2-14.9) 11/13/18 13:04 INR 0.90 (0.87-1.13) 11/13/18 13:04 D-Dimer 6484.89 ng/mlDDU (0-234) H 11/14/18 06:00 Abnormal lab findings: Abnormal Labs 11/13/18 11/13/18 11/13/18 13:04 13:04 13:04 WBC 12.8 H RBC 5.53 H Hgb 14.8 H Hct 45.6 H MCH 27 L RDW 15.5 H Seg Neuts % (Manual) 84.0 H Lymphocytes % (Manual) 9.0 L Seg Neutrophils # Man 10.8 H D-Dimer 396.20 H POC ABG pH POC ABG pCO2 POC ABG pO2 Potassium Chloride 97.8 L Creatinine 0.5 L Glucose 123 H 11/13/18 11/14/18 11/14/18 13:59 06:00 06:00 WBC RBC Hgb Hct MCH RDW Seg Neuts % (Manual) Lymphocytes % (Manual) Seg Neutrophils # Man D-Dimer 6484.89 H POC ABG pH 7.346 L POC ABG pCO2 54.0 H POC ABG pO2 173 H Potassium 5.9 H D Chloride 96.2 L Creatinine 0.6 L Glucose 157 H 11/14/18 11/14/18 11/14/18 06:10 10:06 10:06 WBC 15.8 H RBC 5.55 H Hgb 15.1 H Hct 47.1 H MCH 27 L RDW 16.1 H Seg Neuts % (Manual) Lymphocytes % (Manual) Seg Neutrophils # Man D-Dimer POC ABG pH 7.303 L POC ABG pCO2 60.6 H POC ABG pO2 165 H Potassium 5.5 H Chloride 97.0 L Creatinine 0.5 L Glucose 113 H
[2018-11-14] MEDS: BROVANA NEBU IH SCH ×2 (14:16→21:03)
[2018-11-14] MEDS ORDERED: QUELICIN ONE (14:21)
[2018-11-14] MEDS ORDERED: AMIDATE IV ONE (14:21)
[2018-11-14] MEDS ORDERED: PANCREAZE DR 10,500 UNIT FEEDTUBE PRN (14:25)
[2018-11-14] MEDS ORDERED: SIMPLE SYRUP FEEDTUBE PRN ×2 (14:25)
[2018-11-14] MEDS ORDERED: SODIUM BICARBONATE FEEDTUBE PRN (14:25)
[2018-11-14] MEDS: ROCEPHIN/NS 1 GM/50 ML 1 GM/50 ML BAG IV SCH (14:32)
--- NOTE | 2018-11-14 16:13 | Consultation ---
HISTORY OF PRESENT ILLNESS: This is a 73-year-old female with a known history of end-stage chronic obstructive pulmonary disease, who was recently admitted earlier this month with acute exacerbation of chronic obstructive pulmonary disease. She was discharged, but still had a lot of chest congestion and came for followup on Friday. The patient was noted to have some mild chest congestion and was to be continued on oral antibiotics and then started on oral steroids. When the patient was about to get in her car, she reports that she was not feeling well and felt a little bit tired and was told to go to the ER for evaluation. The patient was admitted and overnight had an acute respiratory decompensation, requiring mechanical ventilation. Presently, the patient is orally intubated. Presently, on sedation. Prior to sedation, she was responsive and squeezing hands to oral to verbal stimulation. PAST MEDICAL HISTORY: COPD, anxiety. SOCIAL HISTORY: Lives at home, has a history of tobacco abuse. REVIEW OF SYSTEMS: Presently unable, but yesterday had no reports of lightheadedness, no chest pains, no nausea, no vomiting, no diarrhea. Due to report of productive cough and anxiety, she reports that she was seen by her PCP on the and was told that she has a lot of anxiety and her anti-anxiolytic dose was increased. MEDICATION LIST: Reviewed. PHYSICAL EXAMINATION: VITAL SIGNS: Blood pressure 152/69, 110, 24. The patient is on vent on assist control. HEENT: Pupils reactive. Orally intubated. CARDIOVASCULAR: Normal S1, S2. LUNGS: Distant. ABDOMEN: Positive bowel sounds, soft, nontender. EXTREMITIES: No edema, cyanosis or clubbing. LABORATORY DATA: Sputum culture rare gram-positive cocci. Chest x-ray, no acute process, evidence of hyperinflation. White count of 15.8, hemoglobin of 15.1, platelet count is 232. Arterial blood gas done this morning 7.30, 61, and 65. Potassium of 5.5 this morning with a creatinine of 0.5. IMPRESSION: A female with acute on chronic respiratory failure, chronic obstructive pulmonary disease exacerbation, possible mucus plugging with acute respiratory decompensation, acute bronchitis, cough, bronchospasm, anxiety. At this time, we will continue on vent, wean FiO2 as tolerated. Repeat arterial blood gas, start the patient on Brovana and budesonide. Continue on antibiotics. Await culture results. Continue to monitor for any worsening of respiratory status. I spoke with the patient's family in reference to status. PLAN: ____ vent protocol in place. Continue supportive care. Total critical care time 36 minutes. JOB# [id number] MENG/NTS
[2018-11-14] MEDS: DUONEB *Not for PRN Use IH SCH ×2 (16:32→19:44)
[2018-11-14] MEDS: COREG PO SCH ×2 (17:35→21:37)
[2018-11-14] MEDS ORDERED: WATER FOR INJ (PF) ONE (18:02)
--- NOTE | 2018-11-14 18:27 | XRay Report ---
FINAL REPORT EXAM: XR ABDOMEN 1V AP HISTORY: Verify OG tube placement TECHNIQUE: Chest and upper abdomen for tube placement PRIORS: None. FINDINGS: An OG tube is present. Distal and and side port overlie the stomach proximally at the fundus. Visuali zed portion of the lungs demonstrate no acute abnormality. Visualized bowel gas pattern is unremarkab le. IMPRESSION: OG tube appears in satisfactory position
[2018-11-14] MEDS: ZITHROMAX 500 MG in NACL 0.9% 250ML 250 ML IV SCH (18:46)
[2018-11-14] MEDS: PULMICORT IH SCH ×2 (19:44)
[2018-11-15] MEDS: SODIUM CHLORIDE FLUSH SYRINGE 10 ML IV SCH ×3 (00:33→21:49)
[2018-11-15] MEDS: KIONEX PO SCH ×4 (00:33→18:19)
[2018-11-15] MEDS: SOLU-Medrol IV SCH ×4 (00:34→21:49)
[2018-11-15] MEDS: DUONEB *Not for PRN Use IH SCH ×4 (03:14→19:40)
[2018-11-15] MEDS: fentaNYL DRIP Premix 2,000 MCG/100 ML BAG IV SCH ×2 (05:25→20:42)
--- NOTE | 2018-11-15 07:06 | XRay Report ---
FINAL REPORT EXAM: XR CHEST 1V AP HISTORY: follow up respiratory failure TECHNIQUE: AP portable view(s) of the chest obtained. PRIORS: 11/14/2018 FINDINGS: Endotracheal tube terminates approximately 4 cm from the charli. Enteric tube courses below the diaph ragm. No mediastinal shift. Cardiac silhouette is not enlarged. No pneumothorax, effusion, or focal p ulmonary opacity identified. No acute skeletal findings. IMPRESSION: Satisfactory appearance of patient's support apparatus without pneumothorax.
[2018-11-15] MEDS: BROVANA NEBU IH SCH ×2 (10:30→19:40)
[2018-11-15] MEDS: PULMICORT IH SCH ×2 (10:30→19:40)
[2018-11-15] MEDS: HABITROL TD SCH (10:42)
[2018-11-15] MEDS: COREG PO SCH ×2 (10:42→21:50)
[2018-11-15] MEDS: MIDAZOLAM 100 MG in NACL 0.9% 80 ML IV SCH (10:43)
[2018-11-15] MEDS ORDERED: VERSED IV ONE (10:47)
--- NOTE | 2018-11-15 10:54 | Progress Note ---
Assessment and Plan - Patient Problems (1) Acute on chronic respiratory failure Current Visit: Yes Status: Acute Qualifiers: Respiratory failure complication: hypoxia Qualified Code(s): J96.21 - Acute and chronic respiratory failure with hypoxia (2) Acute on chronic respiratory acidosis Current Visit: Yes Status: Acute (3) Bronchospasm Current Visit: Yes Status: Acute (4) COPD exacerbation Current Visit: Yes Status: Acute (5) SIRS (systemic inflammatory response syndrome) Current Visit: Yes Status: Acute (6) Bronchitis Current Visit: No Status: Acute (7) COPD (chronic obstructive pulmonary disease) Current Visit: No Status: Acute Qualifiers: COPD type: emphysema Emphysema type: centrilobular Qualified Code(s): J4 3.2 - Centrilobular emphysema (8) Hypoxia Current Visit: No Status: Acute (9) Anxiety Current Visit: Yes Status: Acute Subjective Interval history: self extubated, reintubated on vent Objective Vital Signs - 12hr 11/14/18 11/14/18 11/14/18 23:00 23:15 23:21 Temperature Pulse Rate 77 78 80 Pulse Rate [ Anterior Bilateral Throughout] Pulse Rate [ Right Radial] Respiratory 20 20 20 Rate Respiratory Rate [Anterior Bilateral Throughout] Blood Pressure 116/68 113/70 113/70 O2 Sat by Pulse 98 99 99 Oximetry 11/14/18 11/14/18 11/14/18 23:30 23:32 23:45 Temperature Pulse Rate 79 76 83 Pulse Rate [ Anterior Bilateral Throughout] Pulse Rate [ Right Radial] Respiratory 20 20 Rate Respiratory Rate [Anterior Bilateral Throughout] Blood Pressure 112/65 127/65 112/64 O2 Sat by Pulse 98 97 97 Oximetry 11/15/18 11/15/18 11/15/18 00:00 00:15 00:30 Temperature 97.0 F L Pulse Rate 80 82 82 Pulse Rate [ Anterior Bilateral Throughout] Pulse Rate [ Right Radial] Respiratory 20 20 20 Rate Respiratory Rate [Anterior Bilateral Throughout] Blood Pressure 112/70 116/69 113/72 O2 Sat by Pulse 97 99 100 Oximetry 11/15/18 11/15/18 11/15/18 00:46 01:00 01:15 Temperature Pulse Rate 97 H 117 H 89 Pulse Rate [ Anterior Bilateral Throughout] Pulse Rate [ Right Radial] Respiratory 17 17 21 Rate Respiratory Rate [Anterior Bilateral Throughout] Blood Pressure 112/70 112/70 108/63 O2 Sat by Pulse 93 99 Oximetry 11/15/18 11/15/18 11/15/18 01:30 01:45 02:00 Temperature Pulse Rate 83 85 86 Pulse Rate [ Anterior Bilateral Throughout] Pulse Rate [ Right Radial] Respiratory 20 20 20 Rate Respiratory Rate [Anterior Bilateral Throughout] Blood Pressure 94/58 95/63 103/68 O2 Sat by Pulse 94 94 94 Oximetry 11/15/18 11/15/18 11/15/18 02:15 02:30 02:45 Temperature Pulse Rate 114 H 102 H 100 H Pulse Rate [ Anterior Bilateral Throughout] Pulse Rate [ Right Radial] Respiratory 20 17 20 Rate Respiratory Rate [Anterior Bilateral Throughout] Blood Pressure 106/69 85/64 103/70 O2 Sat by Pulse 95 100 94 Oximetry 11/15/18 11/15/18 11/15/18 03:00 03:15 03:24 Temperature Pulse Rate 95 H 99 H Pulse Rate [ 96 H 96 H Anterior Bilateral Throughout] Pulse Rate [ Right Radial] Respiratory 20 20 Rate Respiratory 20 20 Rate [Anterior Bilateral Throughout] Blood Pressure 103/71 110/55 O2 Sat by Pulse 96 95 Oximetry 11/15/18 11/15/18 11/15/18 03:30 03:45 04:00 Temperature 98.4 F Pulse Rate 94 H 97 H 96 H Pulse Rate [ Anterior Bilateral Throughout] Pulse Rate [ Right Radial] Respiratory 20 20 20 Rate Respiratory Rate [Anterior Bilateral Throughout] Blood Pressure 96/65 106/58 99/63 O2 Sat by Pulse 100 100 100 Oximetry 11/15/18 11/15/18 11/15/18 04:15 04:30 04:45 Temperature Pulse Rate 94 H 96 H 94 H Pulse Rate [ Anterior Bilateral Throughout] Pulse Rate [ Right Radial] Respiratory 20 20 20 Rate Respiratory Rate [Anterior Bilateral Throughout] Blood Pressure 108/66 107/70 113/64 O2 Sat by Pulse 97 95 95 Oximetry 11/15/18 11/15/18 11/15/18 05:00 05:15 05:30 Temperature Pulse Rate 95 H 94 H 88 Pulse Rate [ Anterior Bilateral Throughout] Pulse Rate [ 92 H Right Radial] Respiratory 18 20 20 Rate Respiratory Rate [Anterior Bilateral Throughout] Blood Pressure 100/68 121/81 126/87 O2 Sat by Pulse 94 93 96 Oximetry 11/15/18 11/15/18 11/15/18 05:45 06:00 10:42 Temperature Pulse Rate 82 111 H 101 H Pulse Rate [ Anterior Bilateral Throughout] Pulse Rate [ Right Radial] Respiratory 20 20 Rate Respiratory Rate [Anterior Bilateral Throughout] Blood Pressure 125/75 126/82 119/59 O2 Sat by Pulse 97 96 Oximetry Constitutional: no acute distress, other (sedated on vent on AC fio2 25%) Eyes: non-icteric ENT: oropharynx moist Neck: supple Ascultation: Bilateral: wheezes Cardiovascular: regular rate and rhythm Gastrointestinal: normoactive bowel sounds, soft Integumentary: normal Neurologic: other (sedated on vent) CBC and BMP: 11/14/18 10:06 11/14/18 10:06 ABG, PT/INR, D-dimer: ABG POC ABG pH 7.480 (7.35-7.45) H 11/15/18 04:22 POC ABG pCO2 45.8 (35-45) H 11/15/18 04:22 POC ABG pO2 86 (80-105) 11/15/18 04:22 POC ABG HCO3 34.1 11/15/18 04:22 POC ABG Total CO2 35 11/15/18 04:22 POC ABG O2 Sat 97 11/15/18 04:22 PT/INR, D-dimer PT 12.6 Sec. (12.2-14.9) 11/13/18 13:04 INR 0.90 (0.87-1.13) 11/13/18 13:04 D-Dimer 6484.89 ng/mlDDU (0-234) H 11/14/18 06:00 Abnormal lab findings: Abnormal Labs 11/13/18 11/13/18 11/13/18 13:04 13:04 13:04 WBC 12.8 H RBC 5.53 H Hgb 14.8 H Hct 45.6 H MCH 27 L RDW 15.5 H Seg Neuts % (Manual) 84.0 H Lymphocytes % (Manual) 9.0 L Seg Neutrophils # Man 10.8 H D-Dimer 396.20 H POC ABG pH POC ABG pCO2 POC ABG pO2 Potassium Chloride 97.8 L Creatinine 0.5 L Glucose 123 H 11/13/18 11/14/18 11/14/18 13:59 06:00 06:00 WBC RBC Hgb Hct MCH RDW Seg Neuts % (Manual) Lymphocytes % (Manual) Seg Neutrophils # Man D-Dimer 6484.89 H POC ABG pH 7.346 L POC ABG pCO2 54.0 H POC ABG pO2 173 H Potassium 5.9 H D Chloride 96.2 L Creatinine 0.6 L Glucose 157 H 11/14/18 11/14/18 11/14/18 06:10 10:06 10:06 WBC 15.8 H RBC 5.55 H Hgb 15.1 H Hct 47.1 H MCH 27 L RDW 16.1 H Seg Neuts % (Manual) Lymphocytes % (Manual) Seg Neutrophils # Man D-Dimer POC ABG pH 7.303 L POC ABG pCO2 60.6 H POC ABG pO2 165 H Potassium 5.5 H Chloride 97.0 L Creatinine 0.5 L Glucose 113 H 11/15/18 04:22 WBC RBC Hgb Hct MCH RDW Seg Neuts % (Manual) Lymphocytes % (Manual) Seg Neutrophils # Man D-Dimer POC ABG pH 7.480 H POC ABG pCO2 45.8 H POC ABG pO2 Potassium Chloride Creatinine Glucose Chest x-ray: report reviewed, image reviewed
--- NOTE | 2018-11-15 11:46 | XRay Report ---
FINAL REPORT EXAM: XR CHEST 1V AP HISTORY: ETT placement TECHNIQUE: Frontal chest radiograph. PRIORS: 11/14/2017. FINDINGS: The endotracheal tube tip projects in the mid thoracic trachea. The enteric tube tip lies off of the study. The cardiomediastinal silhouette is normal. No focal consolidation. Unchanged hyperinflated lungs. No pleural effusion. No pneumothorax. No acute osseous abnormality. IMPRESSION: No acute cardiopulmonary process. Endotracheal tube tip projecting in the mid thoracic trachea.
--- NOTE | 2018-11-15 11:49 | XRay Report ---
FINAL REPORT EXAM: XR ABDOMEN 1V AP HISTORY: OG tube placement TECHNIQUE: AP abdominal radiograph. PRIORS: 11/14/2017. FINDINGS: The enteric tube tip projects in the right upper abdominal quadrant. There is a moderate amount of re tained stool in the colon. No bowel obstruction. No organomegaly or masses. No abnormal calcifications. No acute osseous abnormality. The lung bases are clear. IMPRESSION: Orogastric tube tip projecting in the right upper quadrant, likely in the distal stomach.
--- NOTE | 2018-11-15 13:57 | Progress Note ---
Assessment and Plan /Acute hypoxic Respiratory failure cont Supplemental oxygen, nebulizer therapy, wean off vent as tolerated Pulmonary consulted /hyperkalemia, s/p kayexalate, Nabicarbonate, calcium gluconate - monitor BMP /SIRS (systemic inflammatory response syndrome) likely from COPD exacerbation, cont neb therapy, IV antibiotic therapy, follow cx /HTN, uncontrolled resume home meds, adjust as needed /COPD with acute exacerbation IV antibiotic therapy, IV steroid therapy, cont vent Mx / DVT prophylaxis SCD to BLE while in bed The high probability of a clinically significant, sudden or life threatening deterioration of the [respiratory, CVS] system(s) required my full and direct attention, intervention and personal management. The aggregate critical care time was [34] minutes. This time is in addition to time spent performing reporte d procedures but includes the following: [x] Data Review and interpretation [x] Patient assessment and monitoring of vital signs [x] Documentation [x] Medication orders and management Brief History: 73 YO Female with COPD, HLD, GERD presents to ED for evaluation. Pt states that she has experienced shortness of breath, worsening cough, and wheezing over the past 2 days , Pt seen and evaluated by her supervisor [employer] and found to have persistent worsening symptoms, instructed to seek further care at [facility]. Pt transported to [facility] by her family , seen and evaluated in ED and found to have COPD Exacerbation complicated by Acute Respiratory Failure, as well as SIRS. Pt admitted [facility], but she deteriorated and transferred to ICU as required intubation. Chest CTA: 1. This study is degraded by artifact created by motion and lack of significant opacification of the pulmonary arteries. 2. Pulmonary emphysema. 3. There appear to be retained secretions in the right mainstem bronchus and bronchus intermedius. 4. Otherwise no evidence of an acute intrathoracic process. 5 . No evidence of large central pulmonary artery emboli. However, significant pulmonary artery emboli could be missed due to poor opacification of the pulmonary arteries and motion artifact. CXR: Significant chronic hyperinflation. Mild pulmonary redistribution of flow to the upper lobes. Subjective Date of service: 11/15/18 Interval history: pt seen and examined Resting on vent, sedated discuss with RN for plan of care self-extubated this am but again reintubated Objective - Exam Narrative Exam: General appearance: Present: no acute distress, well-nourished - EENT Eyes: no scleral icterus, no conjunctival injection ENT: dentition normal, no thrush, no ulcerations Ears: bilateral: normal - Neck Neck: supple, no masses or JVD - Respiratory Respiratory: bilateral: rhonchi (pt on mechanical ventillation) - Cardiovascular Rhythm: regular Heart Sounds: Present: S1 & S2. Absent: gallop, rub Extremities: pulses intact, No edema, normal color - Gastrointestinal General gastrointestinal: Present: soft, non-tender, non-distended, normal bowel sounds - Genitourinary Female genitourinary: deferred - Integumentary Integumentary: clear, warm, dry - Musculoskeletal Musculoskeletal: 1, strength equal bilaterally - Neurologic Neurologic: other (sedated) - Psychiatric Psychiatric: other (sedated) - Constitutional Vitals: Vital Signs - 12hr 11/15/18 11/15/18 11/15/18 02:00 02:15 02:30 Temperature Pulse Rate 86 114 H 102 H Pulse Rate [ Anterior Bilateral Throughout] Pulse Rate [ Right Radial] Respiratory 20 20 17 Rate Respiratory Rate [Anterior Bilateral Throughout] Blood Pressure 103/68 106/69 85/64 O2 Sat by Pulse 94 95 100 Oximetry 11/15/18 11/15/18 11/15/18 02:45 03:00 03:15 Temperature Pulse Rate 100 H 95 H 99 H Pulse Rate [ 96 H Anterior Bilateral Throughout] Pulse Rate [ Right Radial] Respiratory 20 20 20 Rate Respiratory 20 Rate [Anterior Bilateral Throughout] Blood Pressure 103/70 103/71 110/55 O2 Sat by Pulse 94 96 95 Oximetry 11/15/18 11/15/18 11/15/18 03:24 03:30 03:45 Temperature Pulse Rate 94 H 97 H Pulse Rate [ 96 H Anterior Bilateral Throughout] Pulse Rate [ Right Radial] Respiratory 20 20 Rate Respiratory 20 Rate [Anterior Bilateral Throughout] Blood Pressure 96/65 106/58 O2 Sat by Pulse 100 100 Oximetry 11/15/18 11/15/18 11/15/18 04:00 04:15 04:30 Temperature 98.4 F Pulse Rate 96 H 94 H 96 H Pulse Rate [ Anterior Bilateral Throughout] Pulse Rate [ Right Radial] Respiratory 20 20 20 Rate Respiratory Rate [Anterior Bilateral Throughout] Blood Pressure 99/63 108/66 107/70 O2 Sat by Pulse 100 97 95 Oximetry 11/15/18 11/15/18 11/15/18 04:45 05:00 05:15 Temperature Pulse Rate 94 H 95 H 94 H Pulse Rate [ Anterior Bilateral Throughout] Pulse Rate [ 92 H Right Radial] Respiratory 20 18 20 Rate Respiratory Rate [Anterior Bilateral Throughout] Blood Pressure 113/64 100/68 121/81 O2 Sat by Pulse 95 94 93 Oximetry 11/15/18 11/15/18 11/15/18 05:30 05:45 06:00 Temperature Pulse Rate 88 82 111 H Pulse Rate [ Anterior Bilateral Throughout] Pulse Rate [ Right Radial] Respiratory 20 20 20 Rate Respiratory Rate [Anterior Bilateral Throughout] Blood Pressure 126/87 125/75 126/82 O2 Sat by Pulse 96 97 96 Oximetry 11/15/18 11/15/18 11/15/18 06:15 06:30 06:45 Temperature Pulse Rate 92 H 83 83 Pulse Rate [ Anterior Bilateral Throughout] Pulse Rate [ Right Radial] Respiratory 19 20 20 Rate Respiratory Rate [Anterior Bilateral Throughout] Blood Pressure 127/88 116/81 116/81 O2 Sat by Pulse 97 97 97 Oximetry 11/15/18 11/15/18 11/15/18 07:00 07:15 07:30 Temperature Pulse Rate 84 80 79 Pulse Rate [ Anterior Bilateral Throughout] Pulse Rate [ Right Radial] Respiratory 20 20 20 Rate Respiratory Rate [Anterior Bilateral Throughout] Blood Pressure 130/74 107/69 110/75 O2 Sat by Pulse 97 97 97 Oximetry 11/15/18 11/15/18 11/15/18 07:45 08:00 08:15 Temperature 98.5 F Pulse Rate 85 88 80 Pulse Rate [ Anterior Bilateral Throughout] Pulse Rate [ Right Radial] Respiratory 20 20 20 Rate Respiratory Rate [Anterior Bilateral Throughout] Blood Pressure 117/76 117/79 111/70 O2 Sat by Pulse 97 98 97 Oximetry 11/15/18 11/15/18 11/15/18 08:30 08:45 09:00 Temperature Pulse Rate 101 H 100 H 80 Pulse Rate [ Anterior Bilateral Throughout] Pulse Rate [ Right Radial] Respiratory 11 L 20 20 Rate Respiratory Rate [Anterior Bilateral Throughout] Blood Pressure 98/71 101/77 119/77 O2 Sat by Pulse 98 96 97 Oximetry 11/15/18 11/15/18 11/15/18 09:16 09:30 09:45 Temperature Pulse Rate 143 H 116 H 110 H Pulse Rate [ Anterior Bilateral Throughout] Pulse Rate [ Right Radial] Respiratory 24 13 21 Rate Respiratory Rate [Anterior Bilateral Throughout] Blood Pressure 173/114 173/114 117/43 O2 Sat by Pulse 100 100 100 Oximetry 11/15/18 11/15/18 11/15/18 10:00 10:15 10:30 Temperature Pulse Rate 103 H 95 H 90 Pulse Rate [ Anterior Bilateral Throughout] Pulse Rate [ Right Radial] Respiratory 20 20 20 Rate Respiratory Rate [Anterior Bilateral Throughout] Blood Pressure 124/79 125/69 125/69 O2 Sat by Pulse 100 93 92 Oximetry 11/15/18 11/15/18 11/15/18 10:42 10:45 11:00 Temperature Pulse Rate 101 H 91 H 88 Pulse Rate [ Anterior Bilateral Throughout] Pulse Rate [ Right Radial] Respiratory 20 20 Rate Respiratory Rate [Anterior Bilateral Throughout] Blood Pressure 119/59 111/76 101/68 O2 Sat by Pulse 92 93 Oximetry 11/15/18 11/15/18 11/15/18 11:15 11:30 11:46 Temperature Pulse Rate 94 H 86 92 H Pulse Rate [ Anterior Bilateral Throughout] Pulse Rate [ Right Radial] Respiratory 20 20 20 Rate Respiratory Rate [Anterior Bilateral Throughout] Blood Pressure 106/71 115/74 122/57 O2 Sat by Pulse 94 96 96 Oximetry 11/15/18 11/15/18 11/15/18 12:00 12:16 12:30 Temperature 97.9 F Pulse Rate 88 95 H 89 Pulse Rate [ Anterior Bilateral Throughout] Pulse Rate [ Right Radial] Respiratory 20 21 20 Rate Respiratory Rate [Anterior Bilateral Throughout] Blood Pressure 122/57 122/57 105/69 O2 Sat by Pulse 100 100 100 Oximetry 11/15/18 11/15/18 11/15/18 12:46 13:00 13:16 Temperature Pulse Rate 111 H 97 H 87 Pulse Rate [ Anterior Bilateral Throughout] Pulse Rate [ Right Radial] Respiratory 20 20 20 Rate Respiratory Rate [Anterior Bilateral Throughout] Blood Pressure 105/69 105/69 105/69 O2 Sat by Pulse 100 100 100 Oximetry 11/15/18 13:30 Temperature Pulse Rate 87 Pulse Rate [ Anterior Bilateral Throughout] Pulse Rate [ Right Radial] Respiratory 20 Rate Respiratory Rate [Anterior Bilateral Throughout] Blood Pressure 106/68 O2 Sat by Pulse 100 Oximetry - Labs CBC & Chem 7: 11/15/18 14:00 11/16/18 03:55 Labs: Abnormal lab results 11/15/18 Range/Units 04:22 POC ABG pH 7.480 H (7.35-7.45) POC ABG pCO2 45.8 H (35-45)
[2018-11-15] MEDS: ROCEPHIN/NS 1 GM/50 ML 1 GM/50 ML BAG IV SCH (14:00)
[2018-11-15 14:24] LABS: Hematocrit 40.2 % (30.3-42.9); Hemoglobin 13.6 gm/dl (10.1-14.3); Mean Corpuscular HGB Conc 34 % (30-34); Mean Corpuscular Volume 80 fl (79-97); Platelet Count 214 K/mm3 (140-440); Red Cell Distribution Width 15.5 % (13.2-15.2)
[2018-11-15 14:54] LABS: BUN/Creatinine Ratio 35; Blood Urea Nitrogen 21 mg/dL (7-17); Calcium 8.9 mg/dL (8.4-10.2); Hemolysis Index 21
[2018-11-15] MEDS: ZITHROMAX 500 MG in NACL 0.9% 250ML 250 ML IV SCH (18:19)
[2018-11-15] MEDS: XANAX PO PRN (22:04)
[2018-11-16] MEDS: DUONEB *Not for PRN Use IH SCH ×4 (02:10→20:41)
--- NOTE | 2018-11-16 02:46 | XRay Report ---
FINAL REPORT EXAM: XR CHEST 1V AP HISTORY: follow up respiratory failure COMPARISON: November 15, 2017 FINDINGS:: Frontal and lateral views of the chest obtained. Cardiac silhouette is within normal limi ts. ETT and NG tube remain in place. No focal consolidation or effusion. No pneumothorax. Visualized bony thorax is grossly intact. IMPRESSION:: Lungs are grossly clear. ETT and NG tube remain in place. No change from prior study.
[2018-11-16 04:27] LABS: BUN/Creatinine Ratio 42; Blood Urea Nitrogen 25 mg/dL (7-17); Calcium 8.7 mg/dL (8.4-10.2); Hemolysis Index 8
[2018-11-16] MEDS: KIONEX PO SCH ×2 (04:36→06:23)
[2018-11-16] MEDS: SOLU-Medrol IV SCH ×3 (06:23→22:00)
[2018-11-16] MEDS: PULMICORT IH SCH ×2 (09:46→20:41)
[2018-11-16] MEDS: BROVANA NEBU IH SCH ×2 (09:46→20:41)
[2018-11-16] MEDS: HABITROL TD SCH (10:31)
[2018-11-16] MEDS: SODIUM CHLORIDE FLUSH SYRINGE 10 ML IV SCH ×2 (10:32→22:00)
[2018-11-16] MEDS: XANAX PO PRN ×2 (10:34→19:58)
[2018-11-16] MEDS: COREG PO SCH ×2 (10:34→21:50)
--- NOTE | 2018-11-16 11:45 | Progress Note ---
Assessment and Plan 73 y/o female with known COPD and chronic respiratory failure, admitted with COPD exacerbation and acute on chronic respiratory failure requiring mechanical ventilation. 1. Discontinue sedation 2. Increase xanax to 0.5 BID 3. Extubate 4. Increase steroids to 60q8 5. Bipap ordered QHS and PRN, asked RT to have this at bedside once extubated as she may need now. CCT 31 minutes. Subjective Date of service: 11/16/18 Interval history: Awake on Fentanyl and Versed. Follows commands. ABG was adequate this am. No family at bedside. Objective Vital Signs - 12hr 11/15/18 11/16/18 11/16/18 23:45 00:00 00:16 Temperature 97.8 F Pulse Rate 93 H 129 H 110 H Pulse Rate [ Anterior Bilateral Throughout] Pulse Rate [ 98 H From Monitor] Respiratory 20 23 18 Rate Respiratory Rate [Anterior Bilateral Throughout] Blood Pressure 100/57 92/50 128/81 O2 Sat by Pulse 96 92 95 Oximetry 11/16/18 11/16/18 11/16/18 00:30 00:45 01:00 Temperature Pulse Rate 92 H 93 H 93 H Pulse Rate [ Anterior Bilateral Throughout] Pulse Rate [ From Monitor] Respiratory 20 20 20 Rate Respiratory Rate [Anterior Bilateral Throughout] Blood Pressure 128/81 99/54 105/56 O2 Sat by Pulse 96 96 96 Oximetry 11/16/18 11/16/18 11/16/18 01:15 01:30 01:45 Temperature Pulse Rate 84 93 H 85 Pulse Rate [ Anterior Bilateral Throughout] Pulse Rate [ From Monitor] Respiratory 20 20 20 Rate Respiratory Rate [Anterior Bilateral Throughout] Blood Pressure 104/54 107/56 99/62 O2 Sat by Pulse 96 96 96 Oximetry 11/16/18 11/16/18 11/16/18 02:00 02:12 02:16 Temperature Pulse Rate 101 H 113 H Pulse Rate [ 108 H Anterior Bilateral Throughout] Pulse Rate [ From Monitor] Respiratory 20 17 Rate Respiratory 20 Rate [Anterior Bilateral Throughout] Blood Pressure 104/54 101/56 O2 Sat by Pulse 96 100 Oximetry 11/16/18 11/16/18 11/16/18 02:30 02:46 03:00 Temperature Pulse Rate 125 H 126 H 125 H Pulse Rate [ 115 H Anterior Bilateral Throughout] Pulse Rate [ From Monitor] Respiratory 19 24 16 Rate Respiratory 20 Rate [Anterior Bilateral Throughout] Blood Pressure 138/69 147/94 147/94 O2 Sat by Pulse 99 95 95 Oximetry 11/16/18 11/16/18 11/16/18 03:11 03:15 03:30 Temperature Pulse Rate 122 H 128 H 128 H Pulse Rate [ Anterior Bilateral Throughout] Pulse Rate [ From Monitor] Respiratory 20 18 Rate Respiratory Rate [Anterior Bilateral Throughout] Blood Pressure 156/102 167/92 167/92 O2 Sat by Pulse 94 94 90 Oximetry 11/16/18 11/16/18 11/16/18 03:46 03:54 04:00 Temperature 97.9 F Pulse Rate 95 H 91 H Pulse Rate [ Anterior Bilateral Throughout] Pulse Rate [ 120 H From Monitor] Respiratory 20 20 Rate Respiratory Rate [Anterior Bilateral Throughout] Blood Pressure 118/53 134/64 O2 Sat by Pulse 94 96 Oximetry 11/16/18 11/16/18 11/16/18 04:15 04:30 04:45 Temperature Pulse Rate 97 H 93 H 94 H Pulse Rate [ Anterior Bilateral Throughout] Pulse Rate [ From Monitor] Respiratory 19 20 20 Rate Respiratory Rate [Anterior Bilateral Throughout] Blood Pressure 120/60 120/60 103/67 O2 Sat by Pulse 97 97 97 Oximetry 11/16/18 11/16/18 11/16/18 05:00 05:15 05:30 Temperature Pulse Rate 79 76 73 Pulse Rate [ Anterior Bilateral Throughout] Pulse Rate [ From Monitor] Respiratory 20 20 20 Rate Respiratory Rate [Anterior Bilateral Throughout] Blood Pressure 110/61 115/61 112/69 O2 Sat by Pulse 97 97 98 Oximetry 11/16/18 11/16/18 11/16/18 05:45 06:00 06:16 Temperature Pulse Rate 96 H 80 92 H Pulse Rate [ Anterior Bilateral Throughout] Pulse Rate [ From Monitor] Respiratory 15 20 21 Rate Respiratory Rate [Anterior Bilateral Throughout] Blood Pressure 114/80 114/80 134/84 O2 Sat by Pulse 98 98 96 Oximetry 11/16/18 11/16/18 11/16/18 06:30 06:45 07:00 Temperature Pulse Rate 119 H 119 H 124 H Pulse Rate [ Anterior Bilateral Throughout] Pulse Rate [ From Monitor] Respiratory 26 H 21 19 Rate Respiratory Rate [Anterior Bilateral Throughout] Blood Pressure 134/84 170/102 170/102 O2 Sat by Pulse 96 94 93 Oximetry 11/16/18 11/16/18 11/16/18 07:15 07:30 07:46 Temperature Pulse Rate 111 H 126 H 127 H Pulse Rate [ Anterior Bilateral Throughout] Pulse Rate [ From Monitor] Respiratory 20 25 H 22 Rate Respiratory Rate [Anterior Bilateral Throughout] Blood Pressure 169/98 169/98 186/102 O2 Sat by Pulse 94 92 94 Oximetry 11/16/18 11/16/18 11/16/18 08:00 08:16 08:30 Temperature 97.6 F Pulse Rate 108 H 121 H 123 H Pulse Rate [ Anterior Bilateral Throughout] Pulse Rate [ From Monitor] Respiratory 19 15 24 Rate Respiratory Rate [Anterior Bilateral Throughout] Blood Pressure 174/108 163/104 163/104 O2 Sat by Pulse 93 94 96 Oximetry 11/16/18 11/16/18 11/16/18 08:45 09:00 09:16 Temperature Pulse Rate 127 H 119 H 112 H Pulse Rate [ Anterior Bilateral Throughout] Pulse Rate [ From Monitor] Respiratory 22 21 18 Rate Respiratory Rate [Anterior Bilateral Throughout] Blood Pressure 182/130 182/130 165/92 O2 Sat by Pulse 94 94 95 Oximetry 11/16/18 11/16/18 11/16/18 09:30 09:34 09:38 Temperature Pulse Rate 122 H 125 H 119 H Pulse Rate [ Anterior Bilateral Throughout] Pulse Rate [ From Monitor] Respiratory 27 H 22 Rate Respiratory Rate [Anterior Bilateral Throughout] Blood Pressure 165/92 142/91 142/91 O2 Sat by Pulse 95 94 95 Oximetry 11/16/18 11/16/18 11/16/18 09:45 09:46 10:00 Temperature Pulse Rate 122 H 125 H Pulse Rate [ 110 H Anterior Bilateral Throughout] Pulse Rate [ From Monitor] Respiratory 23 29 H Rate Respiratory 20 Rate [Anterior Bilateral Throughout] Blood Pressure 149/92 149/92 O2 Sat by Pulse 91 100 Oximetry 11/16/18 11/16/18 11/16/18 10:15 10:30 10:34 Temperature Pulse Rate 112 H 122 H 121 H Pulse Rate [ Anterior Bilateral Throughout] Pulse Rate [ From Monitor] Respiratory 23 26 H Rate Respiratory Rate [Anterior Bilateral Throughout] Blood Pressure 159/99 149/92 186/119 O2 Sat by Pulse 92 95 Oximetry 11/16/18 11/16/18 11/16/18 10:46 11:00 11:15 Temperature Pulse Rate 123 H 128 H 124 H Pulse Rate [ Anterior Bilateral Throughout] Pulse Rate [ From Monitor] Respiratory 26 H 22 23 Rate Respiratory Rate [Anterior Bilateral Throughout] Blood Pressure 166/100 166/100 186/96 O2 Sat by Pulse 94 95 95 Oximetry 11/16/18 11:30 Temperature Pulse Rate 108 H Pulse Rate [ Anterior Bilateral Throughout] Pulse Rate [ From Monitor] Respiratory 23 Rate Respiratory Rate [Anterior Bilateral Throughout] Blood Pressure 186/96 O2 Sat by Pulse 93 Oximetry Constitutional: no acute distress, other (sedated on vent on AC fio2 25%) Eyes: non-icteric ENT: oropharynx moist Neck: supple Ascultation: Bilateral: wheezes Cardiovascular: regular rate and rhythm Gastrointestinal: normoactive bowel sounds, soft Integumentary: normal Neurologic: other (sedated on vent) CBC and BMP: 11/15/18 14:00 11/16/18 03:55 ABG, PT/INR, D-dimer: ABG POC ABG pH 7.460 (7.35-7.45) H 11/16/18 04:05 POC ABG pCO2 48.8 (35-45) H 11/16/18 04:05 POC ABG pO2 64 (80-105) L 11/16/18 04:05 POC ABG HCO3 34.7 11/16/18 04:05 POC ABG Total CO2 36 11/16/18 04:05 POC ABG O2 Sat 93 11/16/18 04:05 PT/INR, D-dimer PT 12.6 Sec. (12.2-14.9) 11/13/18 13:04 INR 0.90 (0.87-1.13) 11/13/18 13:04 D-Dimer 6484.89 ng/mlDDU (0-234) H 11/14/18 06:00 Abnormal lab findings: Abnormal Labs 11/13/18 11/13/18 11/13/18 13:04 13:04 13:04 WBC 12.8 H RBC 5.53 H Hgb 14.8 H Hct 45.6 H MCH 27 L RDW 15.5 H Seg Neuts % (Manual) 84.0 H Lymphocytes % (Manual) 9.0 L Seg Neutrophils # Man 10.8 H D-Dimer 396.20 H POC ABG pH POC ABG pCO2 POC ABG pO2 Sodium Potassium Chloride 97.8 L Carbon Dioxide BUN Creatinine 0.5 L Glucose 123 H 11/13/18 11/14/1811/14/19 13:59 06:00 06:00 WBC RBC Hgb Hct MCH RDW Seg Neuts % (Manual) Lymphocytes % (Manual) Seg Neutrophils # Thomas D-Dimer 6484.89 H POC ABG pH 7.346 L POC ABG pCO2 54.0 H POC ABG pO2 173 H Sodium Potassium 5.9 H D Chloride 96.2 L Carbon Dioxide BUN Creatinine 0.6 L Glucose 157 H 11/14/18 11/14/18 11/14/18 06:10 10:06 10:06 WBC 15.8 H RBC 5.55 H Hgb 15.1 H Hct 47.1 H MCH 27 L RDW 16.1 H Seg Neuts % (Manual) Lymphocytes % (Manual) Seg Neutrophils # Thomas D-Dimer POC ABG pH 7.303 L POC ABG pCO2 60.6 H POC ABG pO2 165 H Sodium Potassium 5.5 H Chloride 97.0 L Carbon Dioxide BUN Creatinine 0.5 L Glucose 113 H 11/15/18 11/15/18 11/15/18 04:22 14:00 14:00 WBC 14.4 H RBC Hgb Hct MCH 27 L RDW 15.5 H Seg Neuts % (Manual) Lymphocytes % (Manual) Seg Neutrophils # Thomas D-Dimer POC ABG pH 7.480 H POC ABG pCO2 45.8 H POC ABG pO2 Sodium 136 L Potassium Chloride 93.8 L Carbon Dioxide 32 H D BUN 21 H Creatinine 0.6 L Glucose 126 H 11/16/18 11/16/18 03:55 04:05 WBC RBC Hgb Hct MCH RDW Seg Neuts % (Manual) Lymphocytes % (Manual) Seg Neutrophils # Man D-Dimer POC ABG pH 7.460 H POC ABG pCO2 48.8 H POC ABG pO2 64 L Sodium Potassium Chloride 94.2 L Carbon Dioxide 31 H BUN 25 H Creatinine 0.6 L Glucose 161 H
[2018-11-16] MEDS: HEPARIN SUB-Q SCH ×2 (14:43→22:00)
--- NOTE | 2018-11-16 14:49 | Progress Note ---
Assessment and Plan /Acute hypoxic Respiratory failure cont Supplemental oxygen, nebulizer therapy, wean off vent as tolerated Pulmonary consulted /hyperkalemia, s/p kayexalate, Nabicarbonate, calcium gluconate - monitor BMP /SIRS (systemic inflammatory response syndrome) likely from COPD exacerbation, cont neb therapy, IV antibiotic therapy, follow cx /HTN, uncontrolled resume home meds, adjust as needed /COPD with acute exacerbation IV antibiotic therapy, IV steroid therapy, cont vent Mx / DVT prophylaxis SCD to BLE while in bed The high probability of a clinically significant, sudden or life threatening deterioration of the [respiratory, CVS] system(s) required my full and direct attention, intervention and personal management. The aggregate critical care time was [34] minutes. This time is in addition to time spent performing reporte d procedures but includes the following: [x] Data Review and interpretation [x] Patient assessment and monitoring of vital signs [x] Documentation [x] Medication orders and management Brief History: 73 YO Female with COPD, HLD, GERD presents to ED for evaluation. 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 Pt transported to [facility] by her family , seen and evaluated in ED and found to have COPD Exacerbation complicated by Acute Respiratory Failure, as well as SIRS. Pt admitted [facility] Unit, but she deteriorated and transferred to ICU as required intubation. Chest CTA: 1. This study is degraded by artifact created by motion and lack of significant opacification of the pulmonary arteries. 2. Pulmonary emphysema. 3. There appear to be retained secretions in the right mainstem bronchus and bronchus intermedius. 4. Otherwise no evidence of an acute intrathoracic process. 5 . No evidence of large central pulmonary artery emboli. However, significant pulmonary artery emboli could be missed due to poor opacification of the pulmonary arteries and motion artifact. CXR: Significant chronic hyperinflation. Mild pulmonary redistribution of flow to the upper lobes. Subjective Date of service: 11/16/18 Interval history: pt seen and examined Resting on vent, sedated discuss with RN for plan of care Objective - Exam Narrative Exam: General appearance: Present: no acute distress, well-nourished - EENT Eyes: no scleral icterus, no conjunctival injection ENT: dentition normal, no thrush, no ulcerations Ears: bilateral: normal - Neck Neck: supple, no masses or JVD - Respiratory Respiratory: bilateral: rhonchi (pt on mechanical ventillation) - Cardiovascular Rhythm: regular Heart Sounds: Present: S1 & S2. Absent: gallop, rub Extremities: pulses intact, No edema, normal color - Gastrointestinal General gastrointestinal: Present: soft, non-tender, non-distended, normal bowel sounds - Genitourinary Female genitourinary: deferred - Integumentary Integumentary: clear, warm, dry - Musculoskeletal Musculoskeletal: 1, strength equal bilaterally - Neurologic Neurologic: other (sedated) - Psychiatric Psychiatric: other (sedated) - Constitutional Vitals: Vital Signs - 12hr 11/16/18 11/16/18 11/16/18 03:00 03:11 03:15 Temperature Pulse Rate 125 H 122 H 128 H Pulse Rate [ Anterior Bilateral Throughout] Pulse Rate [ From Monitor] Respiratory 16 20 Rate Respiratory Rate [Anterior Bilateral Throughout] Blood Pressure 147/94 156/102 167/92 O2 Sat by Pulse 95 94 94 Oximetry 11/16/18 11/16/18 11/16/18 03:30 03:46 03:54 Temperature 97.9 F Pulse Rate 128 H 95 H Pulse Rate [ Anterior Bilateral Throughout] Pulse Rate [ From Monitor] Respiratory 18 20 Rate Respiratory Rate [Anterior Bilateral Throughout] Blood Pressure 167/92 118/53 O2 Sat by Pulse 90 94 Oximetry 11/16/18 11/16/18 11/16/18 04:00 04:15 04:30 Temperature Pulse Rate 91 H 97 H 93 H Pulse Rate [ Anterior Bilateral Throughout] Pulse Rate [ 120 H From Monitor] Respiratory 20 19 20 Rate Respiratory Rate [Anterior Bilateral Throughout] Blood Pressure 134/64 120/60 120/60 O2 Sat by Pulse 96 97 97 Oximetry 11/16/18 11/16/18 11/16/18 04:45 05:00 05:15 Temperature Pulse Rate 94 H 79 76 Pulse Rate [ Anterior Bilateral Throughout] Pulse Rate [ From Monitor] Respiratory 20 20 20 Rate Respiratory Rate [Anterior Bilateral Throughout] Blood Pressure 103/67 110/61 115/61 O2 Sat by Pulse 97 97 97 Oximetry 11/16/18 11/16/18 11/16/18 05:30 05:45 06:00 Temperature Pulse Rate 73 96 H 80 Pulse Rate [ Anterior Bilateral Throughout] Pulse Rate [ From Monitor] Respiratory 20 15 20 Rate Respiratory Rate [Anterior Bilateral Throughout] Blood Pressure 112/69 114/80 114/80 O2 Sat by Pulse 98 98 98 Oximetry 11/16/18 11/16/18 11/16/18 06:16 06:30 06:45 Temperature Pulse Rate 92 H 119 H 119 H Pulse Rate [ Anterior Bilateral Throughout] Pulse Rate [ From Monitor] Respiratory 21 26 H 21 Rate Respiratory Rate [Anterior Bilateral Throughout] Blood Pressure 134/84 134/84 170/102 O2 Sat by Pulse 96 96 94 Oximetry 11/16/18 11/16/18 11/16/18 07:00 07:15 07:30 Temperature Pulse Rate 124 H 111 H 126 H Pulse Rate [ Anterior Bilateral Throughout] Pulse Rate [ From Monitor] Respiratory 19 20 25 H Rate Respiratory Rate [Anterior Bilateral Throughout] Blood Pressure 170/102 169/98 169/98 O2 Sat by Pulse 93 94 92 Oximetry 11/16/18 11/16/18 11/16/18 07:46 08:00 08:16 Temperature 97.6 F Pulse Rate 127 H 108 H 121 H Pulse Rate [ Anterior Bilateral Throughout] Pulse Rate [ 108 H From Monitor] Respiratory 22 19 15 Rate Respiratory Rate [Anterior Bilateral Throughout] Blood Pressure 186/102 174/108 163/104 O2 Sat by Pulse 94 93 94 Oximetry 11/16/18 11/16/18 11/16/18 08:30 08:45 09:00 Temperature Pulse Rate 123 H 127 H 119 H Pulse Rate [ Anterior Bilateral Throughout] Pulse Rate [ From Monitor] Respiratory 24 22 21 Rate Respiratory Rate [Anterior Bilateral Throughout] Blood Pressure 163/104 182/130 182/130 O2 Sat by Pulse 96 94 94 Oximetry 11/16/18 11/16/18 11/16/18 09:16 09:30 09:34 Temperature Pulse Rate 112 H 122 H 125 H Pulse Rate [ Anterior Bilateral Throughout] Pulse Rate [ From Monitor] Respiratory 18 27 H Rate Respiratory Rate [Anterior Bilateral Throughout] Blood Pressure 165/92 165/92 142/91 O2 Sat by Pulse 95 95 94 Oximetry 11/16/18 11/16/18 11/16/18 09:38 09:45 09:46 Temperature Pulse Rate 119 H 122 H Pulse Rate [ 110 H Anterior Bilateral Throughout] Pulse Rate [ From Monitor] Respiratory 22 23 Rate Respiratory 20 Rate [Anterior Bilateral Throughout] Blood Pressure 142/91 149/92 O2 Sat by Pulse 95 91 Oximetry 11/16/18 11/16/18 11/16/18 10:00 10:15 10:30 Temperature Pulse Rate 125 H 112 H 122 H Pulse Rate [ Anterior Bilateral Throughout] Pulse Rate [ From Monitor] Respiratory 29 H 23 26 H Rate Respiratory Rate [Anterior Bilateral Throughout] Blood Pressure 149/92 159/99 149/92 O2 Sat by Pulse 100 92 95 Oximetry 11/16/18 11/16/18 11/16/18 10:34 10:46 11:00 Temperature Pulse Rate 121 H 123 H 128 H Pulse Rate [ Anterior Bilateral Throughout] Pulse Rate [ From Monitor] Respiratory 26 H 22 Rate Respiratory Rate [Anterior Bilateral Throughout] Blood Pressure 186/119 166/100 166/100 O2 Sat by Pulse 94 95 Oximetry 11/16/18 11/16/18 11/16/18 11:15 11:30 11:45 Temperature Pulse Rate 124 H 108 H 115 H Pulse Rate [ Anterior Bilateral Throughout] Pulse Rate [ From Monitor] Respiratory 23 23 22 Rate Respiratory Rate [Anterior Bilateral Throughout] Blood Pressure 186/96 186/96 167/96 O2 Sat by Pulse 95 93 100 Oximetry 11/16/18 11/16/18 11/16/18 12:00 12:15 12:30 Temperature Pulse Rate 119 H 117 H 107 H Pulse Rate [ Anterior Bilateral Throughout] Pulse Rate [ From Monitor] Respiratory 30 H 25 H 27 H Rate Respiratory Rate [Anterior Bilateral Throughout] Blood Pressure 167/96 178/108 178/108 O2 Sat by Pulse 97 98 97 Oximetry 11/16/18 11/16/18 11/16/18 12:46 13:00 13:15 Temperature Pulse Rate 123 H 127 H 97 H Pulse Rate [ Anterior Bilateral Throughout] Pulse Rate [ From Monitor] Respiratory 25 H 23 20 Rate Respiratory Rate [Anterior Bilateral Throughout] Blood Pressure 200/121 178/108 169/79 O2 Sat by Pulse 98 97 96 Oximetry 11/16/18 11/16/18 13:30 13:46 Temperature Pulse Rate 113 H 110 H Pulse Rate [ Anterior Bilateral Throughout] Pulse Rate [ From Monitor] Respiratory 28 H 19 Rate Respiratory Rate [Anterior Bilateral Throughout] Blood Pressure 169/79 169/80 O2 Sat by Pulse 97 96 Oximetry - Labs CBC & Chem 7: 11/15/18 14:00 11/16/18 03:55 Labs: Abnormal lab results 11/15/18 11/16/18 11/16/18 Range/Units 14:00 03:55 04:05 POC ABG pH 7.460 H (7.35-7.45) POC ABG pCO2 48.8 H (35-45) POC ABG pO2 64 L (80-105) Sodium 136 L (137-145) mmol/L Chloride 93.8 L 94.2 L (98-107) mmol/L Carbon Dioxide 32 H D 31 H (22-30) mmol/L BUN 21 H 25 H (7-17) mg/dL Creatinine 0.6 L 0.6 L (0.7-1.2) mg/dL Glucose 126 H 161 H (65-100) mg/dL
[2018-11-17] MEDS: DUONEB *Not for PRN Use IH SCH ×4 (01:49→20:38)
--- NOTE | 2018-11-17 02:33 | XRay Report ---
FINAL REPORT EXAM: XR CHEST 1V AP HISTORY: follow up respiratory failure COMPARISON: November 16, 2018. FINDINGS: Frontal view(s) of the chest obtained. Cardiac silhouette within normal limits. No gross consolidatio n or effusion. No pneumothorax. ETT and NG tube is been removed. Mild hyperinflation of the lungs. IMPRESSION: No grossly acute findings.
[2018-11-17] MEDS: XANAX PO PRN ×3 (03:45→22:08)
[2018-11-17] MEDS: SOLU-Medrol IV SCH ×3 (05:45→22:07)
[2018-11-17 06:54] LABS: Basophils % (Auto) 0.1 % (0.0-1.8); Hematocrit 43.6 % (30.3-42.9); Lymphocytes # (Auto) 0.5 K/mm3 (1.2-5.4); Lymphocytes % (Auto) 3.5 % (13.4-35.0); Mean Corpuscular HGB Conc 32 % (30-34); Mean Corpuscular Volume 83 fl (79-97); Monocytes # (Auto) 1.2 K/mm3 (0.0-0.8); Monocytes % (Auto) 7.9 % (0.0-7.3); Platelet Count 194 K/mm3 (140-440); Red Blood Count 5.23 M/mm3 (3.65-5.03); Red Cell Distribution Width 15.6 % (13.2-15.2)
[2018-11-17 07:11] LABS: BUN/Creatinine Ratio 38; Blood Urea Nitrogen 19 mg/dL (7-17); Calcium 8.8 mg/dL (8.4-10.2); Hemolysis Index 35
[2018-11-17] MEDS: HEPARIN SUB-Q SCH ×3 (07:41→22:08)
[2018-11-17] MEDS: BROVANA NEBU IH SCH ×2 (08:35→20:38)
--- NOTE | 2018-11-17 08:46 | Progress Note ---
Assessment and Plan Assessment and plan: 73 YO Female with COPD, HLD, GERD presents to ED for evaluation. 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 Pt transported to [facility] by her family , seen and evaluated in ED and found to have COPD Exacerbation complicated by Acute Respiratory Failure, as well as SIRS. Pt admitted [facility], but she deteriorated and transferred to ICU as required intubation. --Acute hypoxic Respiratory failure; requiring intubation, extubated yesterday On CPAP BiPAP, continue current management, pulmonary following --hyperkalemia, corrected ,resolved --SIRS (systemic inflammatory response syndrome) likely from COPD exacerbation, cont neb therapy, IV antibiotic therapy, follow cx --HTN, well-controlled Continue current anti-hypertensives and when necessary medications --COPD with acute exacerbation IV antibiotic therapy, IV steroid therapy, cont vent Mx --DVT prophylaxis SCD to BLE while in bed The high probability of a clinically significant, sudden or life threatening deterioration of the [respiratory, CVS] system(s) required my full and direct attention, intervention and personal management. The aggregate critical care time was [31] minutes. This time is in addition to time spent performing reporte d procedures but includes the following: [x] Data Review and interpretation [x] Patient assessment and monitoring of vital signs [x] Documentation [x] Medication orders and management Chest CTA: 1. This study is degraded by artifact created by motion and lack of significant opacification of the pulmonary arteries. 2. Pulmonary emphysema. 3. There appear to be retained secretions in the right mainstem bronchus and bronchus intermedius. 4. Otherwise no evidence of an acute intrathoracic process. 5 . No evidence of large central pulmonary artery emboli. However, significant pulmonary artery emboli could be missed due to poor opacification of the pulmonary arteries and motion artifact. CXR: Significant chronic hyperinflation. Mild pulmonary redistribution of flow to the upper lobes. History Interval history: Patient seen and examined Hospitalist Physical - Constitutional Vitals: Temp Pulse Resp BP Pulse Ox 98.8 F 107 H 31 H 138/76 100 11/17/18 03:38 11/17/18 08:40 11/17/18 08:40 11/17/18 06:00 11/17/18 08:40 General appearance: Present: no acute distress, well-nourished, other (on bipap) - EENT Eyes: Present: PERRL, EOM intact - Neck Neck: Present: supple, normal ROM - Respiratory Respiratory effort: normal Respiratory: bilateral: diminished, wheezing, negative: rales, rhonchi - Cardiovascular Rhythm: regular Heart Sounds: Present: S1 & S2 - Extremities Extremities: no ischemia, No edema - Abdominal General gastrointestinal: soft, non-tender, non-distended, normal bowel sounds - Integumentary Integumentary: Present: clear, warm - Psychiatric Psychiatric: appropriate mood/affect - Neurologic Neurologic: moves all extremities Results - Labs CBC & Chem 7: 11/17/18 06:00 11/17/18 06:00 Labs: Laboratory Last Values WBC 15.5 K/mm3 (4.5-11.0) H 11/17/18 06:00 RBC 5.23 M/mm3 (3.65-5.03) H 11/17/18 06:00 Hgb 14.0 gm/dl (10.1-14.3) 11/17/18 06:00 Hct 43.6 % (30.3-42.9) H 11/17/18 06:00 MCV 83 fl (79-97) 11/17/18 06:00 MCH 27 pg (28-32) L 11/17/18 06:00 MCHC 32 % (30-34) 11/17/18 06:00 RDW 15.6 % (13.2-15.2) H 11/17/18 06:00 Plt Count 194 K/mm3 (140-440) 11/17/18 06:00 Lymph % (Auto) 3.5 % (13.4-35.0) L 11/17/18 06:00 [place] % (Auto) 7.9 % (0.0-7.3) H 11/17/18 06:00 Eos % (Auto) 0.0 % (0.0-4.3) 11/17/18 06:00 Baso % (Auto) 0.1 % (0.0-1.8) 11/17/18 06:00 Lymph # 0.5 K/mm3 (1.2-5.4) L 11/17/18 06:00 [place] # 1.2 K/mm3 (0.0-0.8) H 11/17/18 06:00 Eos # 0.0 K/mm3 (0.0-0.4) 11/17/18 06:00 Baso # 0.0 K/mm3 (0.0-0.1) 11/17/18 06:00 Add Manual Diff Complete 11/13/18 13:04 Total Counted 100 11/13/18 13:04 Seg Neutrophils % 88.5 % (40.0-70.0) H 11/17/18 06:00 Seg Neuts % (Manual) 84.0 % (40.0-70.0) H 11/13/18 13:04 Band Neutrophils % 2.0 % 11/13/18 13:04 Lymphocytes % (Manual) 9.0 % (13.4-35.0) L 11/13/18 13:04 Reactive Lymphs % (Man) 0 % 11/13/18 13:04 Monocytes % (Manual) 5.0 % (0.0-7.3) 11/13/18 13:04 Eosinophils % (Manual) 0 % (0.0-4.3) 11/13/18 13:04 Basophils % (Manual) 0 % (0.0-1.8) 11/13/18 13:04 Metamyelocytes % 0 % 11/13/18 13:04 Myelocytes % 0 % 11/13/18 13:04 Promyelocytes % 0 % 11/13/18 13:04 Blast Cells % 0 % 11/13/18 13:04 Nucleated RBC % Not Reportable 11/13/18 13:04 Seg Neutrophils # 13.7 K/mm3 (1.8-7.7) H 11/17/18 06:00 Seg Neutrophils # Man 10.8 K/mm3 (1.8-7.7) H 11/13/18 13:04 Band Neutrophils # 0.3 K/mm3 11/13/18 13:04 Lymphocytes # (Manual) 1.2 K/mm3 (1.2-5.4) 11/13/18 13:04 Abs React Lymphs (Man) 0.0 K/mm3 11/13/18 13:04 Monocytes # (Manual) 0.6 K/mm3 (0.0-0.8) 11/13/18 13:04 Eosinophils # (Manual) 0.0 K/mm3 (0.0-0.4) 11/13/18 13:04 Basophils # (Manual) 0.0 K/mm3 (0.0-0.1) 11/13/18 13:04 Metamyelocytes # 0.0 K/mm3 11/13/18 13:04 Myelocytes # 0.0 K/mm3 11/13/18 13:04 Promyelocytes # 0.0 K/mm3 11/13/18 13:04 Blast Cells # 0.0 K/mm3 11/13/18 13:04 WBC Morphology Not Reportable 11/13/18 13:04 Hypersegmented Neuts Not Reportable 11/13/18 13:04 Hyposegmented Neuts Not Reportable 11/13/18 13:04 Hypogranular Neuts Not Reportable 11/13/18 13:04 Smudge Cells Not Reportable 11/13/18 13:04 Toxic Granulation Not Reportable 11/13/18 13:04 Toxic Vacuolation Not Reportable 11/13/18 13:04 Dohle Bodies Not Reportable 11/13/18 13:04 Pelger-Huet Anomaly Not Reportable 11/13/18 13:04 Kaycee Rods Not Reportable 11/13/18 13:04 Platelet Estimate Consistent w auto 11/13/18 13:04 Clumped Platelets Not Reportable 11/13/18 13:04 Plt Clumps, EDTA Not Reportable 11/13/18 13:04 Large Platelets Not Reportable 11/13/18 13:04 Giant Platelets Not Reportable 11/13/18 13:04 Platelet Satelliting Not Reportable 11/13/18 13:04 Plt Morphology Comment Not Reportable 11/13/18 13:04 RBC Morphology Normal 11/13/18 13:04 Dimorphic RBCs Not Reportable 11/13/18 13:04 Polychromasia Not Reportable 11/13/18 13:04 Hypochromasia Not Reportable 11/13/18 13:04 Poikilocytosis Not Reportable 11/13/18 13:04 Anisocytosis Not Reportable 11/13/18 13:04 Microcytosis Not Reportable 11/13/18 13:04 Macrocytosis Not Reportable 11/13/18 13:04 Spherocytes Not Reportable 11/13/18 13:04 Pappenheimer Bodies Not Reportable 11/13/18 13:04 Sickle Cells Not Reportable 11/13/18 13:04 Target Cells Not Reportable 11/13/18 13:04 Tear Drop Cells Not Reportable 11/13/18 13:04 Ovalocytes Not Reportable 11/13/18 13:04 Helmet Cells Not Reportable 11/13/18 13:04 Frey-Millbury Bodies Not Reportable 11/13/18 13:04 [place] Rings Not Reportable 11/13/18 13:04 Jonn Cells Not Reportable 11/13/18 13:04 Bite Cells Not Reportable 11/13/18 13:04 Crenated Cell Not Reportable 11/13/18 13:04 Elliptocytes Not Reportable 11/13/18 13:04 Acanthocytes (Spur) Not Reportable 11/13/18 13:04 Rouleaux Not Reportable 11/13/18 13:04 Hemoglobin C Crystals Not Reportable 11/13/18 13:04 Schistocytes Not Reportable 11/13/18 13:04 Malaria parasites Not Reportable 11/13/18 13:04 Zhang Bodies Not Reportable 11/13/18 13:04 Hem Pathologist Commnt No 11/13/18 13:04 PT 12.6 Sec. (12.2-14.9) 11/13/18 13:04 INR 0.90 (0.87-1.13) 11/13/18 13:04 APTT 32.1 Sec. (24.2-36.6) 11/13/18 13:04 D-Dimer 6484.89 ng/mlDDU (0-234) H 11/14/18 06:00 POC ABG pH 7.460 (7.35-7.45) H 11/16/18 04:05 POC ABG pCO2 48.8 (35-45) H 11/16/18 04:05 POC ABG pO2 64 (80-105) L 11/16/18 04:05 POC ABG HCO3 34.7 11/16/18 04:05 POC ABG Total CO2 36 11/16/18 04:05 POC ABG O2 Sat 93 11/16/18 04:05 POC ABG Base Excess 11 11/16/18 04:05 FiO2 25 % 11/16/18 04:05 Sodium 137 mmol/L (137-145) 11/17/18 06:00 Potassium 4.2 mmol/L (3.6-5.0) 11/17/18 06:00 Chloride 94.1 mmol/L (98-107) L 11/17/18 06:00 Carbon Dioxide 31 mmol/L (22-30) H 11/17/18 06:00 Anion Gap 16 mmol/L 11/17/18 06:00 BUN 19 mg/dL (7-17) H 11/17/18 06:00 Creatinine 0.5 mg/dL (0.7-1.2) L 11/17/18 06:00 Estimated GFR > 60 ml/min 11/17/18 06:00 BUN/Creatinine Ratio 38 % 11/17/18 06:00 Glucose 127 mg/dL (65-100) H 11/17/18 06:00 POC Glucose 93 (70-105) 11/15/18 16:59 Calcium 8.8 mg/dL (8.4-10.2) 11/17/18 06:00 Total Bilirubin 0.50 mg/dL (0.1-1.2) 11/14/18 06:00 AST 26 units/L (5-40) 11/14/18 06:00 ALT 34 units/L (7-56) 11/14/18 06:00 Alkaline Phosphatase 108 units/L (35-129) 11/14/18 06:00 Troponin T < 0.010 ng/mL (0.00-0.029) 11/13/18 13:04 Total Protein 6.8 g/dL (6.3-8.2) 11/14/18 06:00 Albumin 3.9 g/dL (3.9-5) 11/14/18 06:00 Albumin/Globulin Ratio 1.3 % 11/14/18 06:00 Nutrition/Malnutrition Assess - Dietary Evaluation Nutrition/Malnutrition Findings: Nutrition Notes Start: 11/14/18 14:19 Freq: Status: Active Protocol: Document 11/16/18 15:29 GERMAIN (Rec: 11/16/18 15:33 GERMAIN [email or web address]) Nutrition Notes Initial or Follow up Reassessment Current Diagnosis COPD Respiratory Failure Current Diet TF - Nepro at 35ml/hr Labs/Tests K 3.8 BUN 25 BG 161 Pertinent Medications Reviewed Height 5 ft 4 in Weight 69.3 kg [place] Body Weight (lbs) 120.0 BMI 26.2 Weight Status Overweight Subjective/Other Information Pt remains on vent support. TF stopped for possible extubation today. Burn Absent Trauma Absent #1 Nutrition Diagnosis Inadequate oral intake Diagnosis Progress(for reassessment Continues documentation) Is patient on ventilator? Yes Is Patient Ambulatory and/or Out of Bed No REE-([place]-confined to bed) 1431.684 Calculation Used for Recommendations [facility] Additional Notes protein (1.2-2g/kg): 83-139g fluid: 1mL/kcal or per MD Nutrition Intervention Nutrition Support: Resume Nepro at 35ml/hr with 150ml water flush q4h if unable to advance diet. Goal #1 Resume TF or advance diet to meet nutrient needs Follow-Up By: 11/17/18 Additional Comments F/U: extubation
[2018-11-17] MEDS: PULMICORT IH SCH ×2 (08:51→20:39)
[2018-11-17] MEDS ORDERED: CATAPRES-TTS PATCH TD SCH (10:00)
[2018-11-17] MEDS ORDERED: HEPARIN SUB-Q SCH (10:00)
[2018-11-17] MEDS: COREG PO SCH ×2 (10:40→22:09)
[2018-11-17] MEDS: HABITROL TD SCH (10:42)
[2018-11-17] MEDS: SODIUM CHLORIDE FLUSH SYRINGE 10 ML IV SCH ×2 (10:45→22:11)
[2018-11-17] MEDS ORDERED: ATIVAN IV ONE (11:00)
--- NOTE | 2018-11-17 11:52 | Progress Note ---
Assessment and Plan 73 y/o female with known COPD and chronic respiratory failure, admitted with COPD exacerbation and acute on chronic respiratory failure requiring mechanical ventilation. 1. Ativan 1mg IV x1 now 2. Continue Xanax 3. Continue bipap therapy and reassess in a couple of hours after ativan therapy. 4. Continue steroids at q8 dosing with 60mg 5. Bipap ordered QHS and PRN, asked RT to have this at bedside once extubated as she may need now. 6. Continue ICU monitoring at least 24 more hours. Subjective Date of service: 11/17/18 Interval history: Successful extubation. However last night after being lied flat, developed respiratory distress and was placed on bipap. CXR done today was stable. Patient awake and alert. Tachypnic and tachycardic. Objective Vital Signs - 12hr 11/17/18 11/17/18 11/17/18 00:00 00:15 00:30 Temperature Pulse Rate 100 H 98 H 100 H Pulse Rate [ Anterior Bilateral Throughout] Pulse Rate [ From Monitor] Pulse Rate [ Left Dorsalis Pedis] Respiratory 33 H 18 18 Rate Respiratory Rate [Anterior Bilateral Throughout] Blood Pressure 162/86 155/92 155/92 O2 Sat by Pulse 96 96 96 Oximetry 11/17/18 11/17/18 11/17/18 00:46 01:00 01:15 Temperature Pulse Rate 96 H 93 H 89 Pulse Rate [ Anterior Bilateral Throughout] Pulse Rate [ From Monitor] Pulse Rate [ Left Dorsalis Pedis] Respiratory 33 H 20 16 Rate Respiratory Rate [Anterior Bilateral Throughout] Blood Pressure 185/86 185/86 144/80 O2 Sat by Pulse 94 96 98 Oximetry 11/17/18 11/17/18 11/17/18 01:30 01:32 01:46 Temperature Pulse Rate 109 H 98 H 105 H Pulse Rate [ Anterior Bilateral Throughout] Pulse Rate [ From Monitor] Pulse Rate [ Left Dorsalis Pedis] Respiratory 24 24 24 Rate Respiratory Rate [Anterior Bilateral Throughout] Blood Pressure 144/80 151/90 158/77 O2 Sat by Pulse 98 98 97 Oximetry 11/17/18 11/17/18 11/17/18 01:51 02:00 02:15 Temperature Pulse Rate 101 H 91 H Pulse Rate [ 104 H 98 H Anterior Bilateral Throughout] Pulse Rate [ From Monitor] Pulse Rate [ Left Dorsalis Pedis] Respiratory 22 18 Rate Respiratory 24 22 Rate [Anterior Bilateral Throughout] Blood Pressure 158/77 151/76 O2 Sat by Pulse 98 99 Oximetry 11/17/18 11/17/18 11/17/18 02:30 02:45 03:00 Temperature Pulse Rate 96 H 92 H 107 H Pulse Rate [ Anterior Bilateral Throughout] Pulse Rate [ From Monitor] Pulse Rate [ Left Dorsalis Pedis] Respiratory 31 H 22 17 Rate Respiratory Rate [Anterior Bilateral Throughout] Blood Pressure 151/76 140/85 135/87 O2 Sat by Pulse 96 97 98 Oximetry 11/17/18 11/17/18 11/17/18 03:15 03:30 03:38 Temperature 98.8 F Pulse Rate 89 89 Pulse Rate [ Anterior Bilateral Throughout] Pulse Rate [ From Monitor] Pulse Rate [ Left Dorsalis Pedis] Respiratory 18 19 Rate Respiratory Rate [Anterior Bilateral Throughout] Blood Pressure 154/79 154/79 O2 Sat by Pulse 98 98 Oximetry 11/17/18 11/17/18 11/17/18 03:46 04:00 04:15 Temperature Pulse Rate 97 H 89 94 H Pulse Rate [ Anterior Bilateral Throughout] Pulse Rate [ 102 H From Monitor] Pulse Rate [ 102 H Left Dorsalis Pedis] Respiratory 19 37 H 21 Rate Respiratory Rate [Anterior Bilateral Throughout] Blood Pressure 115/54 115/54 131/68 O2 Sat by Pulse 98 98 98 Oximetry 11/17/18 11/17/18 11/17/18 04:30 04:45 05:00 Temperature Pulse Rate 90 84 94 H Pulse Rate [ Anterior Bilateral Throughout] Pulse Rate [ From Monitor] Pulse Rate [ Left Dorsalis Pedis] Respiratory 21 22 22 Rate Respiratory Rate [Anterior Bilateral Throughout] Blood Pressure 147/59 157/61 157/61 O2 Sat by Pulse 99 99 98 Oximetry 11/17/18 11/17/18 11/17/18 05:15 05:30 05:46 Temperature Pulse Rate 91 H 88 105 H Pulse Rate [ Anterior Bilateral Throughout] Pulse Rate [ From Monitor] Pulse Rate [ Left Dorsalis Pedis] Respiratory 21 18 29 H Rate Respiratory Rate [Anterior Bilateral Throughout] Blood Pressure 130/75 130/75 158/134 O2 Sat by Pulse 98 99 85 Oximetry 11/17/18 11/17/18 11/17/18 06:00 06:15 06:30 Temperature Pulse Rate 99 H 104 H 113 H Pulse Rate [ Anterior Bilateral Throughout] Pulse Rate [ From Monitor] Pulse Rate [ Left Dorsalis Pedis] Respiratory 20 21 31 H Rate Respiratory Rate [Anterior Bilateral Throughout] Blood Pressure 138/76 151/82 138/76 O2 Sat by Pulse 97 96 99 Oximetry 11/17/18 11/17/18 11/17/18 06:45 07:00 07:15 Temperature Pulse Rate 101 H 110 H 93 H Pulse Rate [ Anterior Bilateral Throughout] Pulse Rate [ From Monitor] Pulse Rate [ Left Dorsalis Pedis] Respiratory 20 26 H 23 Rate Respiratory Rate [Anterior Bilateral Throughout] Blood Pressure 149/96 123/87 140/83 O2 Sat by Pulse 99 100 99 Oximetry 11/17/18 11/17/18 11/17/18 07:30 07:45 08:00 Temperature 98.1 F Pulse Rate 100 H 105 H 96 H Pulse Rate [ Anterior Bilateral Throughout] Pulse Rate [ 96 H From Monitor] Pulse Rate [ Left Dorsalis Pedis] Respiratory 22 26 H 24 Rate Respiratory Rate [Anterior Bilateral Throughout] Blood Pressure 138/72 142/73 134/82 O2 Sat by Pulse 100 100 100 Oximetry 11/17/18 11/17/18 11/17/18 08:15 08:30 08:40 Temperature Pulse Rate 93 H 98 H Pulse Rate [ 107 H Anterior Bilateral Throughout] Pulse Rate [ From Monitor] Pulse Rate [ Left Dorsalis Pedis] Respiratory 24 25 H Rate Respiratory 31 H Rate [Anterior Bilateral Throughout] Blood Pressure 119/72 119/72 O2 Sat by Pulse 100 100 100 Oximetry 11/17/18 11/17/18 11/17/18 08:46 09:00 09:16 Temperature Pulse Rate 108 H 107 H 100 H Pulse Rate [ 106 H Anterior Bilateral Throughout] Pulse Rate [ From Monitor] Pulse Rate [ Left Dorsalis Pedis] Respiratory 23 26 H 29 H Rate Respiratory 26 H Rate [Anterior Bilateral Throughout] Blood Pressure 141/78 183/101 184/91 O2 Sat by Pulse 99 98 96 Oximetry 11/17/18 11/17/18 11/17/18 09:30 09:45 09:57 Temperature Pulse Rate 107 H 122 H 99 H Pulse Rate [ Anterior Bilateral Throughout] Pulse Rate [ From Monitor] Pulse Rate [ Left Dorsalis Pedis] Respiratory 22 20 21 Rate Respiratory Rate [Anterior Bilateral Throughout] Blood Pressure 184/91 158/92 158/92 O2 Sat by Pulse 98 98 99 Oximetry 11/17/18 11/17/18 11/17/18 10:00 10:16 10:30 Temperature Pulse Rate 114 H 112 H 105 H Pulse Rate [ Anterior Bilateral Throughout] Pulse Rate [ From Monitor] Pulse Rate [ Left Dorsalis Pedis] Respiratory 22 22 20 Rate Respiratory Rate [Anterior Bilateral Throughout] Blood Pressure 152/85 165/99 119/60 O2 Sat by Pulse 99 99 100 Oximetry 11/17/18 11/17/18 11/17/18 10:40 10:41 10:46 Temperature Pulse Rate 112 H 112 H 116 H Pulse Rate [ Anterior Bilateral Throughout] Pulse Rate [ From Monitor] Pulse Rate [ Left Dorsalis Pedis] Respiratory 29 H Rate Respiratory Rate [Anterior Bilateral Throughout] Blood Pressure 119/60 119/60 125/81 O2 Sat by Pulse 100 Oximetry 11/17/18 11:00 Temperature Pulse Rate 126 H Pulse Rate [ Anterior Bilateral Throughout] Pulse Rate [ From Monitor] Pulse Rate [ Left Dorsalis Pedis] Respiratory 28 H Rate Respiratory Rate [Anterior Bilateral Throughout] Blood Pressure 125/81 O2 Sat by Pulse 100 Oximetry Constitutional: alert, agitated Eyes: non-icteric ENT: oropharynx moist Neck: supple Ascultation: Bilateral: wheezes Cardiovascular: regular rate and rhythm Gastrointestinal: normoactive bowel sounds, soft Integumentary: normal Neurologic: other (sedated on vent) CBC and BMP: 11/17/18 06:00 11/17/18 06:00 ABG, PT/INR, D-dimer: ABG POC ABG pH 7.460 (7.35-7.45) H 11/16/18 04:05 POC ABG pCO2 48.8 (35-45) H 11/16/18 04:05 POC ABG pO2 64 (80-105) L 11/16/18 04:05 POC ABG HCO3 34.7 11/16/18 04:05 POC ABG Total CO2 36 11/16/18 04:05 POC ABG O2 Sat 93 11/16/18 04:05 PT/INR, D-dimer PT 12.6 Sec. (12.2-14.9) 11/13/18 13:04 INR 0.90 (0.87-1.13) 11/13/18 13:04 D-Dimer 6484.89 ng/mlDDU (0-234) H 11/14/18 06:00 Abnormal lab findings: Abnormal Labs 11/13/18 11/13/18 11/13/18 13:04 13:04 13:04 WBC 12.8 H RBC 5.53 H Hgb 14.8 H Hct 45.6 H MCH 27 L RDW 15.5 H Lymph % (Auto) [place] % (Auto) Lymph # [place] # Seg Neutrophils % Seg Neuts % (Manual) 84.0 H Lymphocytes % (Manual) 9.0 L Seg Neutrophils # Seg Neutrophils # Man 10.8 H D-Dimer 396.20 H POC ABG pH POC ABG pCO2 POC ABG pO2 Sodium Potassium Chloride 97.8 L Carbon Dioxide BUN Creatinine 0.5 L Glucose 123 H 11/13/18 11/14/18 11/14/18 13:59 06:00 06:00 WBC RBC Hgb Hct MCH RDW Lymph % (Auto) [place] % (Auto) Lymph # [place] # Seg Neutrophils % Seg Neuts % (Manual) Lymphocytes % (Manual) Seg Neutrophils # Seg Neutrophils # Man D-Dimer 6484.89 H POC ABG pH 7.346 L POC ABG pCO2 54.0 H POC ABG pO2 173 H Sodium Potassium 5.9 H D Chloride 96.2 L Carbon Dioxide BUN Creatinine 0.6 L Glucose 157 H 11/14/18 11/14/18 11/14/18 06:10 10:06 10:06 WBC 15.8 H RBC 5.55 H Hgb 15.1 H Hct 47.1 H MCH 27 L RDW 16.1 H Lymph % (Auto) [place] % (Auto) Lymph # [place] # Seg Neutrophils % Seg Neuts % (Manual) Lymphocytes % (Manual) Seg Neutrophils # Seg Neutrophils # Man D-Dimer POC ABG pH 7.303 L POC ABG pCO2 60.6 H POC ABG pO2 165 H Sodium Potassium 5.5 H Chloride 97.0 L Carbon Dioxide BUN Creatinine 0.5 L Glucose 113 H 11/15/18 11/15/18 11/15/18 04:22 14:00 14:00 WBC 14.4 H RBC Hgb Hct MCH 27 L RDW 15.5 H Lymph % (Auto) [place] % (Auto) Lymph # [place] # Seg Neutrophils % Seg Neuts % (Manual) Lymphocytes % (Manual) Seg Neutrophils # Seg Neutrophils # Man D-Dimer POC ABG pH 7.480 H POC ABG pCO2 45.8 H POC ABG pO2 Sodium 136 L Potassium Chloride 93.8 L Carbon Dioxide 32 H D BUN 21 H Creatinine 0.6 L Glucose 126 H 11/16/18 11/16/18 11/17/18 03:55 04:05 06:00 WBC 15.5 H RBC 5.23 H Hgb Hct 43.6 H MCH 27 L RDW 15.6 H Lymph % (Auto) 3.5 L [place] % (Auto) 7.9 H Lymph # 0.5 L [place] # 1.2 H Seg Neutrophils % 88.5 H Seg Neuts % (Manual) Lymphocytes % (Manual) Seg Neutrophils # 13.7 H Seg Neutrophils # Man D-Dimer POC ABG pH 7.460 H POC ABG pCO2 48.8 H POC ABG pO2 64 L Sodium Potassium Chloride 94.2 L Carbon Dioxide 31 H BUN 25 H Creatinine 0.6 L Glucose 161 H 11/17/18 06:00 WBC RBC Hgb Hct MCH RDW Lymph % (Auto) [place] % (Auto) Lymph # [place] # Seg Neutrophils % Seg Neuts % (Manual) Lymphocytes % (Manual) Seg Neutrophils # Seg Neutrophils # Man D-Dimer POC ABG pH POC ABG pCO2 POC ABG pO2 Sodium Potassium Chloride 94.1 L Carbon Dioxide 31 H BUN 19 H Creatinine 0.5 L Glucose 127 H
[2018-11-18] MEDS: DUONEB *Not for PRN Use IH SCH ×4 (02:36→21:11)
--- NOTE | 2018-11-18 04:24 | XRay Report ---
FINAL REPORT PROCEDURE: XR CHEST 1V AP TECHNIQUE: Chest radiograph anteroposterior view. CPT 71298 HISTORY: follow up respiratory failure COMPARISON: No prior studies are available for comparison. FINDINGS: Heart: Normal. Mediastinum/Vessels: Normal. Lungs/Pleural space: Normal. Bony thorax: No acute osseous abnormality. Life support devices: None. IMPRESSION: No acute cardiopulmonary abnormality.
[2018-11-18] MEDS: SOLU-Medrol IV SCH ×3 (06:01→21:01)
[2018-11-18] MEDS: HEPARIN SUB-Q SCH ×3 (06:02→21:03)
[2018-11-18] MEDS: BROVANA NEBU IH SCH ×2 (08:16→21:10)
[2018-11-18] MEDS: PULMICORT IH SCH ×2 (08:19→21:10)
[2018-11-18] MEDS: HABITROL TD SCH (10:03)
[2018-11-18] MEDS: COREG PO SCH ×2 (10:03→21:00)
[2018-11-18] MEDS: SODIUM CHLORIDE FLUSH SYRINGE 10 ML IV SCH ×2 (10:05→21:04)
--- NOTE | 2018-11-18 10:23 | Progress Note ---
Assessment and Plan Assessment and plan: 73 YO Female with COPD, HLD, GERD presents to ED for evaluation. Pt states that she has experienced shortness of breath, worsening cough, and wheezing over the past 2 days , Pt seen and evaluated by her financial analyst accountant and found to have persistent worsening symptoms, instructed to seek further care at [facility]. Pt transported to [facility] by her family , seen and evaluated in ED and found to have COPD Exacerbation complicated by Acute Respiratory Failure, as well as SIRS. Pt admitted [facility], but she deteriorated and transferred to ICU as required intubation. --Acute hypoxic Respiratory failure; requiring intubation, extubated On NC o2 ,CPAP BiPAP PRN, continue current management, pulmonary following --Swallow evaln and diet as tolerated --hyperkalemia, corrected ,resolved --SIRS (systemic inflammatory response syndrome) likely from COPD exacerbation, cont neb therapy, IV antibiotic therapy, follow cx --HTN, well-controlled Continue current anti-hypertensives and when necessary medications --COPD with acute exacerbation IV antibiotic therapy, IV steroid therapy, cont vent Mx --DVT prophylaxis SCD to BLE while in bed Physical therapy occupational therapy and This planning per case management possible home with home health/PT The high probability of a clinically significant, sudden or life threatening deterioration of the [respiratory, CVS] system(s) required my full and direct attention, intervention and personal management. The aggregate critical care time was [31] minutes. This time is in addition to time spent performing reported procedures but includes the following: [x] Data Review and interpretation [x] Patient assessment and monitoring of vital signs [x] Documentation [x] Medication orders and management Patient may be transferred to Tele if OK with CC History Interval history: Patient seen and examined medical records reviewed Patient feels slightly better, requesting for food Past the swallow eval Soft diet , advance as tolerated No new complaints Vital signs noted Hospitalist Physical - Constitutional Vitals: Temp Pulse Resp BP Pulse Ox 97.9 F 108 H 19 134/71 97 11/18/18 08:00 11/18/18 10:03 11/18/18 08:17 11/18/18 10:03 11/18/18 08:01 General appearance: Present: no acute distress, well-nourished, other (nasal cannula oxygen) - EENT Eyes: Present: PERRL, EOM intact - Neck Neck: Present: supple, normal ROM - Respiratory Respiratory effort: normal Respiratory: bilateral: diminished, wheezing, negative: rales, rhonchi - Cardiovascular Rhythm: regular Heart Sounds: Present: S1 & S2 - Extremities Extremities: no ischemia, No edema - Abdominal General gastrointestinal: soft, non-tender, non-distended, normal bowel sounds - Integumentary Integumentary: Present: clear, warm - Psychiatric Psychiatric: appropriate mood/affect, cooperative - Neurologic Neurologic: CNII-XII intact, moves all extremities Results - Labs CBC & Chem 7: 11/17/18 06:00 11/17/18 06:00 Labs: Laboratory Last Values WBC 15.5 K/mm3 (4.5-11.0) H 11/17/18 06:00 RBC 5.23 M/mm3 (3.65-5.03) H 11/17/18 06:00 Hgb 14.0 gm/dl (10.1-14.3) 11/17/18 06:00 Hct 43.6 % (30.3-42.9) H 11/17/18 06:00 MCV 83 fl (79-97) 11/17/18 06:00 MCH 27 pg (28-32) L 11/17/18 06:00 MCHC 32 % (30-34) 11/17/18 06:00 RDW 15.6 % (13.2-15.2) H 11/17/18 06:00 Plt Count 194 K/mm3 (140-440) 11/17/18 06:00 Lymph % (Auto) 3.5 % (13.4-35.0) L 11/17/18 06:00 [place] % (Auto) 7.9 % (0.0-7.3) H 11/17/18 06:00 Eos % (Auto) 0.0 % (0.0-4.3) 11/17/18 06:00 Baso % (Auto) 0.1 % (0.0-1.8) 11/17/18 06:00 Lymph # 0.5 K/mm3 (1.2-5.4) L 11/17/18 06:00 [place] # 1.2 K/mm3 (0.0-0.8) H 11/17/18 06:00 Eos # 0.0 K/mm3 (0.0-0.4) 11/17/18 06:00 Baso # 0.0 K/mm3 (0.0-0.1) 11/17/18 06:00 Add Manual Diff Complete 11/13/18 13:04 Total Counted 100 11/13/18 13:04 Seg Neutrophils % 88.5 % (40.0-70.0) H 11/17/18 06:00 Seg Neuts % (Manual) 84.0 % (40.0-70.0) H 11/13/18 13:04 Band Neutrophils % 2.0 % 11/13/18 13:04 Lymphocytes % (Manual) 9.0 % (13.4-35.0) L 11/13/18 13:04 Reactive Lymphs % (Man) 0 % 11/13/18 13:04 Monocytes % (Manual) 5.0 % (0.0-7.3) 11/13/18 13:04 Eosinophils % (Manual) 0 % (0.0-4.3) 11/13/18 13:04 Basophils % (Manual) 0 % (0.0-1.8) 11/13/18 13:04 Metamyelocytes % 0 % 11/13/18 13:04 Myelocytes % 0 % 11/13/18 13:04 Promyelocytes % 0 % 11/13/18 13:04 Blast Cells % 0 % 11/13/18 13:04 Nucleated RBC % Not Reportable 11/13/18 13:04 Seg Neutrophils # 13.7 K/mm3 (1.8-7.7) H 11/17/18 06:00 Seg Neutrophils # Man 10.8 K/mm3 (1.8-7.7) H 11/13/18 13:04 Band Neutrophils # 0.3 K/mm3 11/13/18 13:04 Lymphocytes # (Manual) 1.2 K/mm3 (1.2-5.4) 11/13/18 13:04 Abs React Lymphs (Man) 0.0 K/mm3 11/13/18 13:04 Monocytes # (Manual) 0.6 K/mm3 (0.0-0.8) 11/13/18 13:04 Eosinophils # (Manual) 0.0 K/mm3 (0.0-0.4) 11/13/18 13:04 Basophils # (Manual) 0.0 K/mm3 (0.0-0.1) 11/13/18 13:04 Metamyelocytes # 0.0 K/mm3 11/13/18 13:04 Myelocytes # 0.0 K/mm3 11/13/18 13:04 Promyelocytes # 0.0 K/mm3 11/13/18 13:04 Blast Cells # 0.0 K/mm3 11/13/18 13:04 WBC Morphology Not Reportable 11/13/18 13:04 Hypersegmented Neuts Not Reportable 11/13/18 13:04 Hyposegmented Neuts Not Reportable 11/13/18 13:04 Hypogranular Neuts Not Reportable 11/13/18 13:04 Smudge Cells Not Reportable 11/13/18 13:04 Toxic Granulation Not Reportable 11/13/18 13:04 Toxic Vacuolation Not Reportable 11/13/18 13:04 Dohle Bodies Not Reportable 11/13/18 13:04 Pelger-Huet Anomaly Not Reportable 11/13/18 13:04 Kaycee Rods Not Reportable 11/13/18 13:04 Platelet Estimate Consistent w auto 11/13/18 13:04 Clumped Platelets Not Reportable 11/13/18 13:04 Plt Clumps, EDTA Not Reportable 11/13/18 13:04 Large Platelets Not Reportable 11/13/18 13:04 Giant Platelets Not Reportable 11/13/18 13:04 Platelet Satelliting Not Reportable 11/13/18 13:04 Plt Morphology Comment Not Reportable 11/13/18 13:04 RBC Morphology Normal 11/13/18 13:04 Dimorphic RBCs Not Reportable 11/13/18 13:04 Polychromasia Not Reportable 11/13/18 13:04 Hypochromasia Not Reportable 11/13/18 13:04 Poikilocytosis Not Reportable 11/13/18 13:04 Anisocytosis Not Reportable 11/13/18 13:04 Microcytosis Not Reportable 11/13/18 13:04 Macrocytosis Not Reportable 11/13/18 13:04 Spherocytes Not Reportable 11/13/18 13:04 Pappenheimer Bodies Not Reportable 11/13/18 13:04 Sickle Cells Not Reportable 11/13/18 13:04 Target Cells Not Reportable 11/13/18 13:04 Tear Drop Cells Not Reportable 11/13/18 13:04 Ovalocytes Not Reportable 11/13/18 13:04 Helmet Cells Not Reportable 11/13/18 13:04 [place] Bodies Not Reportable 11/13/18 13:04 [place] Rings Not Reportable 11/13/18 13:04 [place] Cells Not Reportable 11/13/18 13:04 Bite Cells Not Reportable 11/13/18 13:04 Crenated Cell Not Reportable 11/13/18 13:04 Elliptocytes Not Reportable 11/13/18 13:04 Acanthocytes (Spur) Not Reportable 11/13/18 13:04 Rouleaux Not Reportable 11/13/18 13:04 Hemoglobin C Crystals Not Reportable 11/13/18 13:04 Schistocytes Not Reportable 11/13/18 13:04 Malaria parasites Not Reportable 11/13/18 13:04 Zhang Bodies Not Reportable 11/13/18 13:04 Hem Pathologist Commnt No 11/13/18 13:04 PT 12.6 Sec. (12.2-14.9) 11/13/18 13:04 INR 0.90 (0.87-1.13) 11/13/18 13:04 APTT 32.1 Sec. (24.2-36.6) 11/13/18 13:04 D-Dimer 6484.89 ng/mlDDU (0-234) H 11/14/18 06:00 POC ABG pH 7.468 (7.35-7.45) H 11/18/18 08:58 POC ABG pCO2 51.1 (35-45) H 11/18/18 08:58 POC ABG pO2 73 (80-105) L 11/18/18 08:58 POC ABG HCO3 37.0 11/18/18 08:58 POC ABG Total CO2 39 11/18/18 08:58 POC ABG O2 Sat 95 11/18/18 08:58 POC ABG Base Excess 13 11/18/18 08:58 FiO2 35 % 11/18/18 08:58 Sodium 137 mmol/L (137-145) 11/17/18 06:00 Potassium 4.2 mmol/L (3.6-5.0) 11/17/18 06:00 Chloride 94.1 mmol/L (98-107) L 11/17/18 06:00 Carbon Dioxide 31 mmol/L (22-30) H 11/17/18 06:00 Anion Gap 16 mmol/L 11/17/18 06:00 BUN 19 mg/dL (7-17) H 11/17/18 06:00 Creatinine 0.5 mg/dL (0.7-1.2) L 11/17/18 06:00 Estimated GFR > 60 ml/min 11/17/18 06:00 BUN/Creatinine Ratio 38 % 11/17/18 06:00 Glucose 127 mg/dL (65-100) H 11/17/18 06:00 POC Glucose 93 (70-105) 11/15/18 16:59 Calcium 8.8 mg/dL (8.4-10.2) 11/17/18 06:00 Total Bilirubin 0.50 mg/dL (0.1-1.2) 11/14/18 06:00 AST 26 units/L (5-40) 11/14/18 06:00 ALT 34 units/L (7-56) 11/14/18 06:00 Alkaline Phosphatase 108 units/L (35-129) 11/14/18 06:00 Troponin T < 0.010 ng/mL (0.00-0.029) 11/13/18 13:04 Total Protein 6.8 g/dL (6.3-8.2) 11/14/18 06:00 Albumin 3.9 g/dL (3.9-5) 11/14/18 06:00 Albumin/Globulin Ratio 1.3 % 11/14/18 06:00 Nutrition/Malnutrition Assess - Dietary Evaluation Nutrition/Malnutrition Findings: Nutrition Notes Start: 11/14/18 14:19 Freq: Status: Active Protocol: Document 11/17/18 15:28 BRIAN (Rec: 11/17/18 15:52 [email or web address]) Co-Sign 11/17/18 15:28 NHALL Nutrition Notes Initial or Follow up Reassessment Current Diagnosis COPD Respiratory Failure Current Diet TF - Nepro at 35ml/hr Labs/Tests BUN: 19 Cr: 0.5 Pertinent Medications Solu-medrol Height 5 ft 4 in Weight 69.3 kg [place] Body Weight (lbs) 120.0 BMI 26.2 Weight Status Overweight Subjective/Other Information Pt has been extubated and Dobhoff has been removed for use of bipap. Pt will remain NPO for a while per MD. Burn Absent Trauma Absent #1 Nutrition Diagnosis Inadequate oral intake Etiology Bipap use As Evidenced by Signs and Symptoms NPO status Diagnosis Progress(for reassessment Continues documentation) Is patient on ventilator? No Is Patient Ambulatory and/or Out of Bed No REE-([facility] Jewi-confined to bed) [phone] Calculation Used for Recommendations [facility] Additional Notes protein (1.2-2g/kg): 83-139g fluid: 1mL/kcal or per MD Nutrition Intervention Change Diet Order: Advance diet when feasible Goal #1 Resume TF or advance diet to meet nutrient needs Anticipated Discharge Needs: Unable to determine at this time Follow-Up By: 11/19/18 Additional Comments F/u: Diet advancement
--- NOTE | 2018-11-18 12:07 | Progress Note ---
Assessment and Plan 73 y/o female with known COPD and chronic respiratory failure, admitted with COPD exacerbation and acute on chronic respiratory failure requiring mechanical ventilation. 1. INcrease xanax to 1 q6 hours. 2. Wean HFNC 3. Ok with feeding patient. 4. Continue steroids at q8 dosing with 60mg 5. Bipap ordered QHS and PRN, asked RT to have this at bedside once extubated as she may need now. 6. PT to work with patient today, if she tolerates, then would be ok to go to [facility] unit, if not, suggest continued ICU monitoring vs Step Down if beds available Subjective Date of service: 11/18/18 Interval history: No acute events. Currently on HFNC. Wore BIpap last night. Still very anxious. Objective Vital Signs - 12hr 11/18/18 11/18/18 11/18/18 01:00 02:00 03:00 Temperature Pulse Rate 101 H 92 H 98 H Pulse Rate [ 91 H Anterior Bilateral Throughout] Pulse Rate [ From Monitor] Respiratory 20 19 21 Rate Respiratory 24 Rate [Anterior Bilateral Throughout] Blood Pressure 120/66 99/59 98/59 O2 Sat by Pulse 96 97 96 Oximetry 11/18/18 11/18/18 11/18/18 03:58 04:00 04:01 Temperature 98.6 F Pulse Rate 111 H 111 H Pulse Rate [ Anterior Bilateral Throughout] Pulse Rate [ 84 From Monitor] Respiratory 22 24 Rate Respiratory Rate [Anterior Bilateral Throughout] Blood Pressure 137/98 O2 Sat by Pulse 99 98 Oximetry 11/18/18 11/18/18 11/18/18 05:00 05:10 06:00 Temperature Pulse Rate 90 92 H 102 H Pulse Rate [ Anterior Bilateral Throughout] Pulse Rate [ From Monitor] Respiratory 19 24 20 Rate Respiratory Rate [Anterior Bilateral Throughout] Blood Pressure 97/61 97/61 114/66 O2 Sat by Pulse 93 118 H 94 Oximetry 11/18/18 11/18/18 11/18/18 07:00 08:00 08:01 Temperature 97.9 F Pulse Rate 96 H 90 91 H Pulse Rate [ Anterior Bilateral Throughout] Pulse Rate [ 91 H From Monitor] Respiratory 24 22 22 Rate Respiratory Rate [Anterior Bilateral Throughout] Blood Pressure 116/71 124/66 O2 Sat by Pulse 98 97 97 Oximetry 11/18/18 11/18/18 11/18/18 08:16 08:17 10:03 Temperature Pulse Rate 108 H Pulse Rate [ 102 H 101 H Anterior Bilateral Throughout] Pulse Rate [ From Monitor] Respiratory Rate Respiratory 22 19 Rate [Anterior Bilateral Throughout] Blood Pressure 134/71 O2 Sat by Pulse Oximetry Constitutional: alert, agitated Eyes: non-icteric ENT: oropharynx moist Neck: supple Ascultation: Bilateral: wheezes Cardiovascular: regular rate and rhythm Gastrointestinal: normoactive bowel sounds, soft Integumentary: normal Neurologic: other (sedated on vent) CBC and BMP: 11/17/18 06:00 11/17/18 06:00 ABG, PT/INR, D-dimer: ABG POC ABG pH 7.468 (7.35-7.45) H 11/18/18 08:58 POC ABG pCO2 51.1 (35-45) H 11/18/18 08:58 POC ABG pO2 73 (80-105) L 11/18/18 08:58 POC ABG HCO3 37.0 11/18/18 08:58 POC ABG Total CO2 39 11/18/18 08:58 POC ABG O2 Sat 95 11/18/18 08:58 PT/INR, D-dimer PT 12.6 Sec. (12.2-14.9) 11/13/18 13:04 INR 0.90 (0.87-1.13) 11/13/18 13:04 D-Dimer 6484.89 ng/mlDDU (0-234) H 11/14/18 06:00 Abnormal lab findings: Abnormal Labs 11/13/18 11/13/18 11/13/18 13:04 13:04 13:04 WBC 12.8 H RBC 5.53 H Hgb 14.8 H Hct 45.6 H MCH 27 L RDW 15.5 H Lymph % (Auto) [place] % (Auto) Lymph # [place] # Seg Neutrophils % Seg Neuts % (Manual) 84.0 H Lymphocytes % (Manual) 9.0 L Seg Neutrophils # Seg Neutrophils # Man 10.8 H D-Dimer 396.20 H POC ABG pH POC ABG pCO2 POC ABG pO2 Sodium Potassium Chloride 97.8 L Carbon Dioxide BUN Creatinine 0.5 L Glucose 123 H 11/13/18 11/14/18 11/14/18 13:59 06:00 06:00 WBC RBC Hgb Hct MCH RDW Lymph % (Auto) [place] % (Auto) Lymph # [place] # Seg Neutrophils % Seg Neuts % (Manual) Lymphocytes % (Manual) Seg Neutrophils # Seg Neutrophils # Man D-Dimer 6484.89 H POC ABG pH 7.346 L POC ABG pCO2 54.0 H POC ABG pO2 173 H Sodium Potassium 5.9 H D Chloride 96.2 L Carbon Dioxide BUN Creatinine 0.6 L Glucose 157 H 11/14/18 11/14/18 11/14/18 06:10 10:06 10:06 WBC 15.8 H RBC 5.55 H Hgb 15.1 H Hct 47.1 H MCH 27 L RDW 16.1 H Lymph % (Auto) [place] % (Auto) Lymph # [place] # Seg Neutrophils % Seg Neuts % (Manual) Lymphocytes % (Manual) Seg Neutrophils # Seg Neutrophils # Man D-Dimer POC ABG pH 7.303 L POC ABG pCO2 60.6 H POC ABG pO2 165 H Sodium Potassium 5.5 H Chloride 97.0 L Carbon Dioxide BUN Creatinine 0.5 L Glucose 113 H 11/15/18 11/15/18 11/15/18 04:22 14:00 14:00 WBC 14.4 H RBC Hgb Hct MCH 27 L RDW 15.5 H Lymph % (Auto) [place] % (Auto) Lymph # [place] # Seg Neutrophils % Seg Neuts % (Manual) Lymphocytes % (Manual) Seg Neutrophils # Seg Neutrophils # Man D-Dimer POC ABG pH 7.480 H POC ABG pCO2 45.8 H POC ABG pO2 Sodium 136 L Potassium Chloride 93.8 L Carbon Dioxide 32 H D BUN 21 H Creatinine 0.6 L Glucose 126 H 11/16/18 11/16/18 11/17/18 03:55 04:05 06:00 WBC 15.5 H RBC 5.23 H Hgb Hct 43.6 H MCH 27 L RDW 15.6 H Lymph % (Auto) 3.5 L [place] % (Auto) 7.9 H Lymph # 0.5 L [place] # 1.2 H Seg Neutrophils % 88.5 H Seg Neuts % (Manual) Lymphocytes % (Manual) Seg Neutrophils # 13.7 H Seg Neutrophils # Man D-Dimer POC ABG pH 7.460 H POC ABG pCO2 48.8 H POC ABG pO2 64 L Sodium Potassium Chloride 94.2 L Carbon Dioxide 31 H BUN 25 H Creatinine 0.6 L Glucose 161 H 11/17/18 11/18/18 06:00 08:58 WBC RBC Hgb Hct MCH RDW Lymph % (Auto) [place] % (Auto) Lymph # [place] # Seg Neutrophils % Seg Neuts % (Manual) Lymphocytes % (Manual) Seg Neutrophils # Seg Neutrophils # Man D-Dimer POC ABG pH 7.468 H POC ABG pCO2 51.1 H POC ABG pO2 73 L Sodium Potassium Chloride 94.1 L Carbon Dioxide 31 H BUN 19 H Creatinine 0.5 L Glucose 127 H
[2018-11-19] MEDS: DUONEB *Not for PRN Use IH SCH ×4 (02:06→20:44)
--- NOTE | 2018-11-19 02:08 | XRay Report ---
FINAL REPORT PROCEDURE: XR CHEST 1V AP TECHNIQUE: Chest radiograph anteroposterior view. CPT 89474 HISTORY: follow up respiratory failure COMPARISON: 11/17/2018 FINDINGS: Heart: Normal. Mediastinum/Vessels: Normal. Lungs/Pleural space: Mild atelectasis bilateral lower lungs. Bony thorax: No acute osseous abnormality. Life support devices: The endotracheal tube ends 1 centimeter above the charli. A nasogastric tube en ds below the hemidiaphragms. IMPRESSION: Mild atelectasis bilateral lower lungs. The endotracheal tube ends 1 centimeter above charli..
[2018-11-19] MEDS: XANAX PO PRN ×2 (02:14→20:09)
[2018-11-19 05:44] LABS: Hematocrit 39.9 % (30.3-42.9); Hemoglobin 12.8 gm/dl (10.1-14.3); Mean Corpuscular HGB Conc 32 % (30-34); Mean Corpuscular Volume 84 fl (79-97); Platelet Count 156 K/mm3 (140-440); Red Blood Count 4.76 M/mm3 (3.65-5.03); Red Cell Distribution Width 15.2 % (13.2-15.2)
[2018-11-19 06:08] LABS: BUN/Creatinine Ratio 43; Blood Urea Nitrogen 17 mg/dL (7-17); Calcium 8.4 mg/dL (8.4-10.2); Hemolysis Index 3
[2018-11-19 06:25] LABS: Basophils % (Manual) 0 % (0.0-1.8); Eosinophils % (Manual) 0 % (0.0-4.3); Total Cells Counted 100
[2018-11-19 06:26] LABS: Giant Platelets Rare; RBC Morphology Normal
[2018-11-19] MEDS: HEPARIN SUB-Q SCH ×3 (06:38→22:27)
[2018-11-19] MEDS: SOLU-Medrol IV SCH ×3 (06:38→22:28)
[2018-11-19] MEDS: PULMICORT IH SCH ×2 (08:51→20:44)
[2018-11-19] MEDS: BROVANA NEBU IH SCH ×2 (08:51→20:44)
[2018-11-19] MEDS: COREG PO SCH ×2 (10:27→22:27)
[2018-11-19] MEDS: HABITROL TD SCH (10:28)
[2018-11-19] MEDS: SODIUM CHLORIDE FLUSH SYRINGE 10 ML IV SCH ×2 (10:29→22:29)
--- NOTE | 2018-11-19 11:32 | Progress Note ---
Assessment and Plan Assessment and plan: 73 YO Female with COPD, HLD, GERD through ED with worsening shortness of breath,cough, and wheezing over the past 2 days , Pt seen and evaluated by her clinical nurse specialist and found to have persistent worsening symptoms, twice to go to [facility] initially admitted to the floor , went into acute respiratory failure requiring intubation , transferred to ICU , evaluated by pulmonary critical , medications optimized Weaned and extubated , now patient is on nasal cannula oxygen saturating well --Acute hypoxic Respiratory failure; requiring intubation, extubated On NC o2 ,CPAP BiPAP PRN, continue current management, pulmonary following --hypokalemia, replace and closely monitor --SIRS (systemic inflammatory response syndrome) likely from COPD exacerbation, cont neb therapy, IV antibiotic therapy, follow cx --HTN, well-controlled Continue current anti-hypertensives and when necessary medications --COPD with acute exacerbation IV antibiotic therapy, IV steroid therapy, cont vent Mx --DVT prophylaxis SCD to BLE while in bed Physical therapy occupational therapy and This planning per case management possible home with home health/PT The high probability of a clinically significant, sudden or life threatening deterioration of the [respiratory, CVS] system(s) required my full and direct attention, intervention and personal management. The aggregate critical care time was [31] minutes. This time is in addition to time spent performing reported procedures but includes the following: [x] Data Review and interpretation [x] Patient assessment and monitoring of vital signs [x] Documentation [x] Medication orders and management Patient may be transferred to Tele if OK with CC History Interval history: Patient seen and examined medical records reviewed No new events reported by the nursing Patient feels slightly better tolerated food Sitting in the chair family at the bedside Vital signs noted Hospitalist Physical - Constitutional Vitals: Temp Pulse Resp BP Pulse Ox 97.8 F 116 H 21 122/64 99 11/19/18 08:00 11/19/18 10:27 11/19/18 10:00 11/19/18 10:27 11/19/18 10:00 General appearance: Present: no acute distress, well-nourished, other (nasal cannula oxygen) - EENT Eyes: Present: PERRL, EOM intact - Neck Neck: Present: supple, normal ROM - Respiratory Respiratory effort: normal Respiratory: bilateral: diminished, rhonchi, negative: rales, wheezing - Cardiovascular Rhythm: regular Heart Sounds: Present: S1 & S2 - Extremities Extremities: no ischemia, No edema - Abdominal General gastrointestinal: soft, non-tender, non-distended, normal bowel sounds - Integumentary Integumentary: Present: clear, warm - Psychiatric Psychiatric: appropriate mood/affect, cooperative - Neurologic Neurologic: CNII-XII intact, moves all extremities Results - Labs CBC & Chem 7: 11/19/18 04:41 11/19/18 04:41 Labs: Laboratory Last Values WBC 12.3 K/mm3 (4.5-11.0) H 11/19/18 04:41 RBC 4.76 M/mm3 (3.65-5.03) 11/19/18 04:41 Hgb 12.8 gm/dl (10.1-14.3) 11/19/18 04:41 Hct 39.9 % (30.3-42.9) 11/19/18 04:41 MCV 84 fl (79-97) 11/19/18 04:41 MCH 27 pg (28-32) L 11/19/18 04:41 MCHC 32 % (30-34) 11/19/18 04:41 RDW 15.2 % (13.2-15.2) 11/19/18 04:41 Plt Count 156 K/mm3 (140-440) 11/19/18 04:41 Lymph % (Auto) 3.5 % (13.4-35.0) L 11/17/18 06:00 [place] % (Auto) 7.9 % (0.0-7.3) H 11/17/18 06:00 Eos % (Auto) 0.0 % (0.0-4.3) 11/17/18 06:00 Baso % (Auto) 0.1 % (0.0-1.8) 11/17/18 06:00 Lymph # 0.5 K/mm3 (1.2-5.4) L 11/17/18 06:00 [place] # 1.2 K/mm3 (0.0-0.8) H 11/17/18 06:00 Eos # 0.0 K/mm3 (0.0-0.4) 11/17/18 06:00 Baso # 0.0 K/mm3 (0.0-0.1) 11/17/18 06:00 Add Manual Diff Complete 11/19/18 04:41 Total Counted 100 11/19/18 04:41 Seg Neutrophils % Assistant Research Scientist 11/19/18 04:41 Seg Neuts % (Manual) 97.0 % (40.0-70.0) H 11/19/18 04:41 Band Neutrophils % 0 % 11/19/18 04:41 Lymphocytes % (Manual) 2.0 % (13.4-35.0) L 11/19/18 04:41 Reactive Lymphs % (Man) 0 % 11/19/18 04:41 Monocytes % (Manual) 1.0 % (0.0-7.3) 11/19/18 04:41 Eosinophils % (Manual) 0 % (0.0-4.3) 11/19/18 04:41 Basophils % (Manual) 0 % (0.0-1.8) 11/19/18 04:41 Metamyelocytes % 0 % 11/19/18 04:41 Myelocytes % 0 % 11/19/18 04:41 Promyelocytes % 0 % 11/19/18 04:41 Blast Cells % 0 % 11/19/18 04:41 Nucleated RBC % Not Reportable 11/19/18 04:41 Seg Neutrophils # 13.7 K/mm3 (1.8-7.7) H 11/17/18 06:00 Seg Neutrophils # Man 11.9 K/mm3 (1.8-7.7) H 11/19/18 04:41 Band Neutrophils # 0.0 K/mm3 11/19/18 04:41 Lymphocytes # (Manual) 0.2 K/mm3 (1.2-5.4) L 11/19/18 04:41 Abs React Lymphs (Man) 0.0 K/mm3 11/19/18 04:41 Monocytes # (Manual) 0.1 K/mm3 (0.0-0.8) 11/19/18 04:41 Eosinophils # (Manual) 0.0 K/mm3 (0.0-0.4) 11/19/18 04:41 Basophils # (Manual) 0.0 K/mm3 (0.0-0.1) 11/19/18 04:41 Metamyelocytes # 0.0 K/mm3 11/19/18 04:41 Myelocytes # 0.0 K/mm3 11/19/18 04:41 Promyelocytes # 0.0 K/mm3 11/19/18 04:41 Blast Cells # 0.0 K/mm3 11/19/18 04:41 WBC Morphology Not Reportable 11/19/18 04:41 Hypersegmented Neuts Not Reportable 11/19/18 04:41 Hyposegmented Neuts Not Reportable 11/19/18 04:41 Hypogranular Neuts Not Reportable 11/19/18 04:41 Smudge Cells Not Reportable 11/19/18 04:41 Toxic Granulation Not Reportable 11/19/18 04:41 Toxic Vacuolation Not Reportable 11/19/18 04:41 Dohle Bodies Not Reportable 11/19/18 04:41 Pelger-Huet Anomaly Not Reportable 11/19/18 04:41 Kaycee Rods Not Reportable 11/19/18 04:41 Platelet Estimate Appears normal 11/19/18 04:41 Clumped Platelets Not Reportable 11/19/18 04:41 Plt Clumps, EDTA Not Reportable 11/19/18 04:41 Large Platelets Not Reportable 11/19/18 04:41 Giant Platelets Rare 11/19/18 04:41 Platelet Satelliting Not Reportable 11/19/18 04:41 Plt Morphology Comment Not Reportable 11/19/18 04:41 RBC Morphology Normal 11/19/18 04:41 Dimorphic RBCs Not Reportable 11/19/18 04:41 Polychromasia Not Reportable 11/19/18 04:41 Hypochromasia Not Reportable 11/19/18 04:41 Poikilocytosis Not Reportable 11/19/18 04:41 Anisocytosis Not Reportable 11/19/18 04:41 Microcytosis Not Reportable 11/19/18 04:41 Macrocytosis Not Reportable 11/19/18 04:41 Spherocytes Not Reportable 11/19/18 04:41 Pappenheimer Bodies Not Reportable 11/19/18 04:41 Sickle Cells Not Reportable 11/19/18 04:41 Target Cells Not Reportable 11/19/18 04:41 Tear Drop Cells Not Reportable 11/19/18 04:41 Ovalocytes Not Reportable 11/19/18 04:41 Helmet Cells Not Reportable 11/19/18 04:41 [place] Bodies Not Reportable 11/19/18 04:41 [place] Rings Not Reportable 11/19/18 04:41 [place] Cells Not Reportable 11/19/18 04:41 Bite Cells Not Reportable 11/19/18 04:41 Crenated Cell Not Reportable 11/19/18 04:41 Elliptocytes Not Reportable 11/19/18 04:41 Acanthocytes (Spur) Not Reportable 11/19/18 04:41 Rouleaux Not Reportable 11/19/18 04:41 Hemoglobin C Crystals Not Reportable 11/19/18 04:41 Schistocytes Not Reportable 11/19/18 04:41 Malaria parasites Not Reportable 11/19/18 04:41 Zhang Bodies Not Reportable 11/19/18 04:41 Hem Pathologist Commnt No 11/19/18 04:41 PT 12.6 Sec. (12.2-14.9) 11/13/18 13:04 INR 0.90 (0.87-1.13) 11/13/18 13:04 APTT 32.1 Sec. (24.2-36.6) 11/13/18 13:04 D-Dimer 6484.89 ng/mlDDU (0-234) H 11/14/18 06:00 POC ABG pH 7.468 (7.35-7.45) H 11/18/18 08:58 POC ABG pCO2 51.1 (35-45) H 11/18/18 08:58 POC ABG pO2 73 (80-105) L 11/18/18 08:58 POC ABG HCO3 37.0 11/18/18 08:58 POC ABG Total CO2 39 11/18/18 08:58 POC ABG O2 Sat 95 11/18/18 08:58 POC ABG Base Excess 13 11/18/18 08:58 FiO2 35 % 11/18/18 08:58 Sodium 143 mmol/L (137-145) 11/19/18 04:41 Potassium 3.3 mmol/L (3.6-5.0) L D 11/19/18 04:41 Chloride 97.6 mmol/L (98-107) L 11/19/18 04:41 Carbon Dioxide 35 mmol/L (22-30) H 11/19/18 04:41 Anion Gap 14 mmol/L 11/19/18 04:41 BUN 17 mg/dL (7-17) 11/19/18 04:41 Creatinine 0.4 mg/dL (0.7-1.2) L 11/19/18 04:41 Estimated GFR > 60 ml/min 11/19/18 04:41 BUN/Creatinine Ratio 43 % 11/19/18 04:41 Glucose 123 mg/dL (65-100) H 11/19/18 04:41 POC Glucose 93 (70-105) 11/15/18 16:59 Calcium 8.4 mg/dL (8.4-10.2) 11/19/18 04:41 Total Bilirubin 0.50 mg/dL (0.1-1.2) 11/14/18 06:00 AST 26 units/L (5-40) 11/14/18 06:00 ALT 34 units/L (7-56) 11/14/18 06:00 Alkaline Phosphatase 108 units/L (35-129) 11/14/18 06:00 Troponin T < 0.010 ng/mL (0.00-0.029) 11/13/18 13:04 Total Protein 6.8 g/dL (6.3-8.2) 11/14/18 06:00 Albumin 3.9 g/dL (3.9-5) 11/14/18 06:00 Albumin/Globulin Ratio 1.3 % 11/14/18 06:00 Nutrition/Malnutrition Assess - Dietary Evaluation Nutrition/Malnutrition Findings: Nutrition Notes Start: 11/14/18 14:19 Freq: Status: Active Protocol: Document 11/17/18 15:28 BRIAN (Rec: 11/17/18 15:52 [email or web address]) Co-Sign 11/17/18 15:28 NHALL Nutrition Notes Initial or Follow up Reassessment Current Diagnosis COPD Respiratory Failure Current Diet TF - Nepro at 35ml/hr Labs/Tests BUN: 19 Cr: 0.5 Pertinent Medications Solu-medrol Height 5 ft 4 in Weight 69.3 kg [place] Body Weight (lbs) 120.0 BMI 26.2 Weight Status Overweight Subjective/Other Information Pt has been extubated and [place] has been removed for use of bipap. Pt will remain NPO for a while per MD. Burn Absent Trauma Absent #1 Nutrition Diagnosis Inadequate oral intake Etiology Bipap use As Evidenced by Signs and Symptoms NPO status Diagnosis Progress(for reassessment Continues documentation) Is patient on ventilator? No Is Patient Ambulatory and/or Out of Bed No REE-([facility]-confined to bed) 1773.650 Calculation Used for Recommendations [facility] Additional Notes protein (1.2-2g/kg): 83-139g fluid: 1mL/kcal or per MD Nutrition Intervention Change Diet Order: Advance diet when feasible Goal #1 Resume TF or advance diet to meet nutrient needs Anticipated Discharge Needs: Unable to determine at this time Follow-Up By: 11/19/18 Additional Comments F/u: Diet advancement
[2018-11-19] MEDS ORDERED: K-DUR PO ONE ×2 (12:26→15:00)
--- NOTE | 2018-11-19 13:10 | Progress Note ---
Assessment and Plan 73 y/o female with known COPD and chronic respiratory failure, admitted with COPD exacerbation and acute on chronic respiratory failure requiring mechanical ventilation. 1. Continue xanax at current dosing 2. Wean HFNC for sats >88% 3. Soft mechanical diet 4. Continue steroids at q8 dosing with 60mg will start to wean tomorrow 5. Bipap ordered QHS and PRN 6. PT 7. Stable for transfer to [facility] with remote tele Subjective Date of service: 11/19/18 Interval history: No acute events. Remains off HFNC. Anxiety has improved. Objective Vital Signs - 12hr 11/19/18 11/19/18 11/19/18 02:00 02:10 03:01 Temperature Pulse Rate 102 H 105 H Pulse Rate [ 107 H 94 H Anterior Bilateral Throughout] Pulse Rate [ From Monitor] Respiratory 16 16 Rate Respiratory 24 20 Rate [Anterior Bilateral Throughout] Blood Pressure 136/98 108/64 O2 Sat by Pulse 87 93 Oximetry 11/19/18 11/19/18 11/19/18 04:00 04:35 05:00 Temperature 97.9 F Pulse Rate 105 H 114 H Pulse Rate [ Anterior Bilateral Throughout] Pulse Rate [ 115 H From Monitor] Respiratory 16 19 Rate Respiratory Rate [Anterior Bilateral Throughout] Blood Pressure 107/71 122/71 O2 Sat by Pulse 94 98 92 Oximetry 11/19/18 11/19/18 11/19/18 06:00 07:00 08:00 Temperature 97.8 F Pulse Rate 106 H 78 93 H Pulse Rate [ Anterior Bilateral Throughout] Pulse Rate [ 94 H From Monitor] Respiratory 22 22 18 Rate Respiratory Rate [Anterior Bilateral Throughout] Blood Pressure 125/84 122/77 104/65 O2 Sat by Pulse 95 96 96 Oximetry 11/19/18 11/19/18 11/19/18 08:07 08:35 08:57 Temperature Pulse Rate Pulse Rate [ 104 H 87 Anterior Bilateral Throughout] Pulse Rate [ From Monitor] Respiratory Rate Respiratory 18 18 Rate [Anterior Bilateral Throughout] Blood Pressure O2 Sat by Pulse 98 Oximetry 11/19/18 11/19/18 11/19/18 09:00 10:00 10:27 Temperature Pulse Rate 89 105 H 116 H Pulse Rate [ Anterior Bilateral Throughout] Pulse Rate [ From Monitor] Respiratory 20 21 Rate Respiratory Rate [Anterior Bilateral Throughout] Blood Pressure 122/62 122/64 122/64 O2 Sat by Pulse 99 99 Oximetry 11/19/18 11/19/18 11/19/18 11:00 12:00 13:00 Temperature 98.4 F Pulse Rate 110 H 93 H 117 H Pulse Rate [ Anterior Bilateral Throughout] Pulse Rate [ From Monitor] Respiratory 20 15 16 Rate Respiratory Rate [Anterior Bilateral Throughout] Blood Pressure 131/74 117/76 122/87 O2 Sat by Pulse 100 89 92 Oximetry Constitutional: alert, agitated Eyes: non-icteric ENT: oropharynx moist Neck: supple Ascultation: Bilateral: wheezes Cardiovascular: regular rate and rhythm Gastrointestinal: normoactive bowel sounds, soft Integumentary: normal Neurologic: other (sedated on vent) CBC and BMP: 11/19/18 04:41 11/19/18 04:41 ABG, PT/INR, D-dimer: ABG POC ABG pH 7.468 (7.35-7.45) H 11/18/18 08:58 POC ABG pCO2 51.1 (35-45) H 11/18/18 08:58 POC ABG pO2 73 (80-105) L 11/18/18 08:58 POC ABG HCO3 37.0 11/18/18 08:58 POC ABG Total CO2 39 11/18/18 08:58 POC ABG O2 Sat 95 11/18/18 08:58 PT/INR, D-dimer PT 12.6 Sec. (12.2-14.9) 11/13/18 13:04 INR 0.90 (0.87-1.13) 11/13/18 13:04 D-Dimer 6484.89 ng/mlDDU (0-234) H 11/14/18 06:00 Abnormal lab findings: Abnormal Labs 11/13/18 11/13/18 11/13/18 13:04 13:04 13:04 WBC 12.8 H RBC 5.53 H Hgb 14.8 H Hct 45.6 H MCH 27 L RDW 15.5 H Lymph % (Auto) [place] % (Auto) Lymph # [place] # Seg Neutrophils % Seg Neuts % (Manual) 84.0 H Lymphocytes % (Manual) 9.0 L Seg Neutrophils # Seg Neutrophils # Man 10.8 H Lymphocytes # (Manual) D-Dimer 396.20 H POC ABG pH POC ABG pCO2 POC ABG pO2 Sodium Potassium Chloride 97.8 L Carbon Dioxide BUN Creatinine 0.5 L Glucose 123 H 11/13/18 11/14/18 11/14/18 13:59 06:00 06:00 WBC RBC Hgb Hct MCH RDW Lymph % (Auto) [place] % (Auto) Lymph # [place] # Seg Neutrophils % Seg Neuts % (Manual) Lymphocytes % (Manual) Seg Neutrophils # Seg Neutrophils # Man Lymphocytes # (Manual) D-Dimer 6484.89 H POC ABG pH 7.346 L POC ABG pCO2 54.0 H POC ABG pO2 173 H Sodium Potassium 5.9 H D Chloride 96.2 L Carbon Dioxide BUN Creatinine 0.6 L Glucose 157 H 11/14/18 11/14/18 11/14/18 06:10 10:06 10:06 WBC 15.8 H RBC 5.55 H Hgb 15.1 H Hct 47.1 H MCH 27 L RDW 16.1 H Lymph % (Auto) [place] % (Auto) Lymph # [place] # Seg Neutrophils % Seg Neuts % (Manual) Lymphocytes % (Manual) Seg Neutrophils # Seg Neutrophils # Man Lymphocytes # (Manual) D-Dimer POC ABG pH 7.303 L POC ABG pCO2 60.6 H POC ABG pO2 165 H Sodium Potassium 5.5 H Chloride 97.0 L Carbon Dioxide BUN Creatinine 0.5 L Glucose 113 H 11/15/18 11/15/18 11/15/18 04:22 14:00 14:00 WBC 14.4 H RBC Hgb Hct MCH 27 L RDW 15.5 H Lymph % (Auto) [place] % (Auto) Lymph # [place] # Seg Neutrophils % Seg Neuts % (Manual) Lymphocytes % (Manual) Seg Neutrophils # Seg Neutrophils # Man Lymphocytes # (Manual) D-Dimer POC ABG pH 7.480 H POC ABG pCO2 45.8 H POC ABG pO2 Sodium 136 L Potassium Chloride 93.8 L Carbon Dioxide 32 H D BUN 21 H Creatinine 0.6 L Glucose 126 H 11/16/18 11/16/18 11/17/18 03:55 04:05 06:00 WBC 15.5 H RBC 5.23 H Hgb Hct 43.6 H MCH 27 L RDW 15.6 H Lymph % (Auto) 3.5 L [place] % (Auto) 7.9 H Lymph # 0.5 L [place] # 1.2 H Seg Neutrophils % 88.5 H Seg Neuts % (Manual) Lymphocytes % (Manual) Seg Neutrophils # 13.7 H Seg Neutrophils # Man Lymphocytes # (Manual) D-Dimer POC ABG pH 7.460 H POC ABG pCO2 48.8 H POC ABG pO2 64 L Sodium Potassium Chloride 94.2 L Carbon Dioxide 31 H BUN 25 H Creatinine 0.6 L Glucose 161 H 11/17/18 11/18/18 11/19/18 06:00 08:58 04:41 WBC 12.3 H RBC Hgb Hct MCH 27 L RDW Lymph % (Auto) [place] % (Auto) Lymph # [place] # Seg Neutrophils % Seg Neuts % (Manual) 97.0 H Lymphocytes % (Manual) 2.0 L Seg Neutrophils # Seg Neutrophils # Man 11.9 H Lymphocytes # (Manual) 0.2 L D-Dimer POC ABG pH 7.468 H POC ABG pCO2 51.1 H POC ABG pO2 73 L Sodium Potassium Chloride 94.1 L Carbon Dioxide 31 H BUN 19 H Creatinine 0.5 L Glucose 127 H 11/19/18 04:41 WBC RBC Hgb Hct MCH RDW Lymph % (Auto) [place] % (Auto) Lymph # [place] # Seg Neutrophils % Seg Neuts % (Manual) Lymphocytes % (Manual) Seg Neutrophils # Seg Neutrophils # Man Lymphocytes # (Manual) D-Dimer POC ABG pH POC ABG pCO2 POC ABG pO2 Sodium Potassium 3.3 L D Chloride 97.6 L Carbon Dioxide 35 H BUN Creatinine 0.4 L Glucose 123 H
[2018-11-20] MEDS: DUONEB *Not for PRN Use IH SCH ×4 (01:09→20:20)
[2018-11-20] MEDS: HEPARIN SUB-Q SCH ×3 (06:24→21:28)
[2018-11-20] MEDS: SOLU-Medrol IV SCH ×3 (06:24→21:07)
[2018-11-20] MEDS: BROVANA NEBU IH SCH ×2 (07:51→20:20)
[2018-11-20] MEDS: COREG PO SCH ×2 (09:05→21:00)
[2018-11-20] MEDS: HABITROL TD SCH (09:06)
[2018-11-20] MEDS: SODIUM CHLORIDE FLUSH SYRINGE 10 ML IV SCH ×2 (09:06→21:10)
[2018-11-20] MEDS: PULMICORT IH SCH ×2 (09:53→20:21)
[2018-11-20 10:41] LABS: Hematocrit 44.7 % (30.3-42.9); Hemoglobin 14.4 gm/dl (10.1-14.3); Mean Corpuscular HGB Conc 32 % (30-34); Mean Corpuscular Volume 84 fl (79-97); Platelet Count 178 K/mm3 (140-440); Red Blood Count 5.34 M/mm3 (3.65-5.03); Red Cell Distribution Width 15.3 % (13.2-15.2)
[2018-11-20 11:02] LABS: BUN/Creatinine Ratio 34; Blood Urea Nitrogen 17 mg/dL (7-17); Calcium 9.2 mg/dL (8.4-10.2); Hemolysis Index 41
[2018-11-20 11:27] LABS: Anisocytosis 1+; Basophils % (Manual) 0 % (0.0-1.8); Eosinophils % (Manual) 0 % (0.0-4.3); Ovalocytes Few; Platelet Estimate Consistent w Auto; Poikilocytosis 1+; Total Cells Counted 100
[2018-11-20] MEDS: SODIUM CHLORIDE FLUSH SYRINGE 10 ML IV PRN ×2 (13:36→17:52)
--- NOTE | 2018-11-20 16:38 | Progress Note ---
Assessment and Plan 73 y/o female with known COPD and chronic respiratory failure, admitted with COPD exacerbation and acute on chronic respiratory failure requiring mechanical ventilation. 1. Continue xanax at current dosing 2. Wean HFNC for sats >88% 3. Soft mechanical diet 4. Continue steroids at q8 dosing with 60mg will start to wean tomorrow (satu rday) 5. Bipap ordered QHS and PRN 6. PT 7. Will give one time dose of lasix to see if this will help with oxygen requirement Subjective Date of service: 11/20/18 Interval history: Successful transfer out of unit. Still on high flow Objective Vital Signs - 12hr 11/20/18 11/20/18 11/20/18 07:28 08:00 08:10 Temperature 98.0 F Pulse Rate 84 Pulse Rate [ 84 85 Anterior Bilateral Throughout] Pulse Rate [ From Monitor] Respiratory 22 Rate Respiratory 18 18 Rate [Anterior Bilateral Throughout] Respiratory Rate [ribcage] Blood Pressure 132/77 O2 Sat by Pulse 98 Oximetry 11/20/18 11/20/18 11/20/18 09:05 09:50 10:00 Temperature Pulse Rate 84 Pulse Rate [ Anterior Bilateral Throughout] Pulse Rate [ 94 H From Monitor] Respiratory 22 Rate Respiratory Rate [Anterior Bilateral Throughout] Respiratory 22 Rate [ribcage] Blood Pressure 132/77 O2 Sat by Pulse 93 98 Oximetry 11/20/18 11/20/18 14:01 16:22 Temperature 97.9 F Pulse Rate 116 H 117 H Pulse Rate [ Anterior Bilateral Throughout] Pulse Rate [ From Monitor] Respiratory 22 Rate Respiratory Rate [Anterior Bilateral Throughout] Respiratory Rate [ribcage] Blood Pressure 115/58 O2 Sat by Pulse 97 Oximetry Constitutional: alert, agitated Eyes: non-icteric ENT: oropharynx moist Neck: supple Ascultation: Bilateral: wheezes Cardiovascular: regular rate and rhythm Gastrointestinal: normoactive bowel sounds, soft Integumentary: normal Neurologic: other (sedated on vent) CBC and BMP: 11/20/18 10:21 11/20/18 10:21 ABG, PT/INR, D-dimer: ABG POC ABG pH 7.468 (7.35-7.45) H 11/18/18 08:58 POC ABG pCO2 51.1 (35-45) H 11/18/18 08:58 POC ABG pO2 73 (80-105) L 11/18/18 08:58 POC ABG HCO3 37.0 11/18/18 08:58 POC ABG Total CO2 39 11/18/18 08:58 POC ABG O2 Sat 95 11/18/18 08:58 PT/INR, D-dimer PT 12.6 Sec. (12.2-14.9) 11/13/18 13:04 INR 0.90 (0.87-1.13) 11/13/18 13:04 D-Dimer 6484.89 ng/mlDDU (0-234) H 11/14/18 06:00 Abnormal lab findings: Abnormal Labs 11/13/18 11/13/18 11/13/18 13:04 13:04 13:04 WBC 12.8 H RBC 5.53 H Hgb 14.8 H Hct 45.6 H MCH 27 L RDW 15.5 H Lymph % (Auto) [place] % (Auto) Lymph # [place] # Seg Neutrophils % Seg Neuts % (Manual) 84.0 H Lymphocytes % (Manual) 9.0 L Seg Neutrophils # Seg Neutrophils # Man 10.8 H Lymphocytes # (Manual) D-Dimer 396.20 H POC ABG pH POC ABG pCO2 POC ABG pO2 Sodium Potassium Chloride 97.8 L Carbon Dioxide BUN Creatinine 0.5 L Glucose 123 H 11/13/18 11/14/18 11/14/18 13:59 06:00 06:00 WBC RBC Hgb Hct MCH RDW Lymph % (Auto) [place] % (Auto) Lymph # [place] # Seg Neutrophils % Seg Neuts % (Manual) Lymphocytes % (Manual) Seg Neutrophils # Seg Neutrophils # Man Lymphocytes # (Manual) D-Dimer 6484.89 H POC ABG pH 7.346 L POC ABG pCO2 54.0 H POC ABG pO2 173 H Sodium Potassium 5.9 H D Chloride 96.2 L Carbon Dioxide BUN Creatinine 0.6 L Glucose 157 H 11/14/18 11/14/18 11/14/18 06:10 10:06 10:06 WBC 15.8 H RBC 5.55 H Hgb 15.1 H Hct 47.1 H MCH 27 L RDW 16.1 H Lymph % (Auto) [place] % (Auto) Lymph # [place] # Seg Neutrophils % Seg Neuts % (Manual) Lymphocytes % (Manual) Seg Neutrophils # Seg Neutrophils # Man Lymphocytes # (Manual) D-Dimer POC ABG pH 7.303 L POC ABG pCO2 60.6 H POC ABG pO2 165 H Sodium Potassium 5.5 H Chloride 97.0 L Carbon Dioxide BUN Creatinine 0.5 L Glucose 113 H 11/15/18 11/15/18 11/15/18 04:22 14:00 14:00 WBC 14.4 H RBC Hgb Hct MCH 27 L RDW 15.5 H Lymph % (Auto) [place] % (Auto) Lymph # [place] # Seg Neutrophils % Seg Neuts % (Manual) Lymphocytes % (Manual) Seg Neutrophils # Seg Neutrophils # Man Lymphocytes # (Manual) D-Dimer POC ABG pH 7.480 H POC ABG pCO2 45.8 H POC ABG pO2 Sodium 136 L Potassium Chloride 93.8 L Carbon Dioxide 32 H D BUN 21 H Creatinine 0.6 L Glucose 126 H 11/16/18 11/16/18 11/17/18 03:55 04:05 06:00 WBC 15.5 H RBC 5.23 H Hgb Hct 43.6 H MCH 27 L RDW 15.6 H Lymph % (Auto) 3.5 L [place] % (Auto) 7.9 H Lymph # 0.5 L [place] # 1.2 H Seg Neutrophils % 88.5 H Seg Neuts % (Manual) Lymphocytes % (Manual) Seg Neutrophils # 13.7 H Seg Neutrophils # Man Lymphocytes # (Manual) D-Dimer POC ABG pH 7.460 H POC ABG pCO2 48.8 H POC ABG pO2 64 L Sodium Potassium Chloride 94.2 L Carbon Dioxide 31 H BUN 25 H Creatinine 0.6 L Glucose 161 H 11/17/18 11/18/18 11/19/18 06:00 08:58 04:41 WBC 12.3 H RBC Hgb Hct MCH 27 L RDW Lymph % (Auto) [place] % (Auto) Lymph # [place] # Seg Neutrophils % Seg Neuts % (Manual) 97.0 H Lymphocytes % (Manual) 2.0 L Seg Neutrophils # Seg Neutrophils # Man 11.9 H Lymphocytes # (Manual) 0.2 L D-Dimer POC ABG pH 7.468 H POC ABG pCO2 51.1 H POC ABG pO2 73 L Sodium Potassium Chloride 94.1 L Carbon Dioxide 31 H BUN 19 H Creatinine 0.5 L Glucose 127 H 11/19/18 11/20/18 11/20/18 04:41 10:21 10:21 WBC 11.3 H RBC 5.34 H Hgb 14.4 H Hct 44.7 H MCH 27 L RDW 15.3 H Lymph % (Auto) [place] % (Auto) Lymph # [place] # Seg Neutrophils % Seg Neuts % (Manual) 94.0 H Lymphocytes % (Manual) 3.0 L Seg Neutrophils # Seg Neutrophils # Man 10.6 H Lymphocytes # (Manual) 0.3 L D-Dimer POC ABG pH POC ABG pCO2 POC ABG pO2 Sodium Potassium 3.3 L D Chloride 97.6 L 97.8 L Carbon Dioxide 35 H 35 H BUN Creatinine 0.4 L 0.5 L Glucose 123 H 175 H
[2018-11-20] MEDS ORDERED: LASIX IV ONE (17:37)
--- NOTE | 2018-11-20 18:40 | Progress Note ---
Assessment and Plan Assessment and plan: 73 YO Female with COPD, HLD, GERD through ED with worsening shortness of breath,cough, and wheezing over the past 2 days , Pt seen and evaluated by her site administrator and found to have persistent worsening symptoms, twice to go to [facility] initially admitted to the floor , went into acute respiratory failure requiring intubation , transferred to ICU , evaluated by pulmonary critical , medications optimized Weaned and extubated , now patient is on nasal cannula oxygen saturating well --Acute hypoxic Respiratory failure; requiring intubation, extubated On NC o2 ,CPAP BiPAP PRN, continue current management, pulmonary following --hypokalemia, replace and closely monitor --SIRS (systemic inflammatory response syndrome) likely from COPD exacerbation, cont neb therapy, IV antibiotic therapy, follow cx --HTN, well-controlled Continue current anti-hypertensives and when necessary medications --COPD with acute exacerbation IV antibiotic therapy, IV steroid therapy, cont vent Mx --DVT prophylaxis SCD to BLE while in bed Physical therapy occupational therapy and This planning per case management possible home with home health/PT History Interval history: Patient seen and examined medical records reviewed No new events reported by the nursing staff Patient is on high flow oxygen Complaints of generalized weakness Vital signs noted Hospitalist Physical - Constitutional Vitals: Temp Pulse Resp BP Pulse Ox 97.9 F 117 H 22 115/58 97 11/20/18 14:01 11/20/18 16:22 11/20/18 14:01 11/20/18 14:01 11/20/18 14:01 General appearance: Present: no acute distress, well-nourished, other (nasal cannula oxygen) - EENT Eyes: Present: PERRL, EOM intact - Neck Neck: Present: supple, normal ROM - Respiratory Respiratory effort: normal Respiratory: bilateral: diminished, negative: rales, rhonchi, wheezing - Cardiovascular Rhythm: regular Heart Sounds: Present: S1 & S2 - Extremities Extremities: no ischemia Extremity abnormal: edema - Abdominal General gastrointestinal: soft, non-tender, non-distended, normal bowel sounds - Integumentary Integumentary: Present: clear, warm - Psychiatric Psychiatric: appropriate mood/affect, cooperative - Neurologic Neurologic: CNII-XII intact, moves all extremities Results - Labs CBC & Chem 7: 11/20/18 10:21 11/20/18 10:21 Labs: Laboratory Last Values WBC 11.3 K/mm3 (4.5-11.0) H 11/20/18 10:21 RBC 5.34 M/mm3 (3.65-5.03) H 11/20/18 10:21 Hgb 14.4 gm/dl (10.1-14.3) H 11/20/18 10:21 Hct 44.7 % (30.3-42.9) H 11/20/18 10:21 MCV 84 fl (79-97) 11/20/18 10:21 MCH 27 pg (28-32) L 11/20/18 10:21 MCHC 32 % (30-34) 11/20/18 10:21 RDW 15.3 % (13.2-15.2) H 11/20/18 10:21 Plt Count 178 K/mm3 (140-440) 11/20/18 10:21 Lymph % (Auto) 3.5 % (13.4-35.0) L 11/17/18 06:00 [place] % (Auto) 7.9 % (0.0-7.3) H 11/17/18 06:00 Eos % (Auto) 0.0 % (0.0-4.3) 11/17/18 06:00 Baso % (Auto) 0.1 % (0.0-1.8) 11/17/18 06:00 Lymph # 0.5 K/mm3 (1.2-5.4) L 11/17/18 06:00 [place] # 1.2 K/mm3 (0.0-0.8) H 11/17/18 06:00 Eos # 0.0 K/mm3 (0.0-0.4) 11/17/18 06:00 Baso # 0.0 K/mm3 (0.0-0.1) 11/17/18 06:00 Add Manual Diff Complete 11/20/18 10:21 Total Counted 100 11/20/18 10:21 Seg Neutrophils % Clothing Examiner 11/20/18 10:21 Seg Neuts % (Manual) 94.0 % (40.0-70.0) H 11/20/18 10:21 Band Neutrophils % 0 % 11/20/18 10:21 Lymphocytes % (Manual) 3.0 % (13.4-35.0) L 11/20/18 10:21 Reactive Lymphs % (Man) 0 % 11/20/18 10:21 Monocytes % (Manual) 3.0 % (0.0-7.3) 11/20/18 10:21 Eosinophils % (Manual) 0 % (0.0-4.3) 11/20/18 10:21 Basophils % (Manual) 0 % (0.0-1.8) 11/20/18 10:21 Metamyelocytes % 0 % 11/20/18 10:21 Myelocytes % 0 % 11/20/18 10:21 Promyelocytes % 0 % 11/20/18 10:21 Blast Cells % 0 % 11/20/18 10:21 Nucleated RBC % Not Reportable 11/20/18 10:21 Seg Neutrophils # 13.7 K/mm3 (1.8-7.7) H 11/17/18 06:00 Seg Neutrophils # Man 10.6 K/mm3 (1.8-7.7) H 11/20/18 10:21 Band Neutrophils # 0.0 K/mm3 11/20/18 10:21 Lymphocytes # (Manual) 0.3 K/mm3 (1.2-5.4) L 11/20/18 10:21 Abs React Lymphs (Man) 0.0 K/mm3 11/20/18 10:21 Monocytes # (Manual) 0.3 K/mm3 (0.0-0.8) 11/20/18 10:21 Eosinophils # (Manual) 0.0 K/mm3 (0.0-0.4) 11/20/18 10:21 Basophils # (Manual) 0.0 K/mm3 (0.0-0.1) 11/20/18 10:21 Metamyelocytes # 0.0 K/mm3 11/20/18 10:21 Myelocytes # 0.0 K/mm3 11/20/18 10:21 Promyelocytes # 0.0 K/mm3 11/20/18 10:21 Blast Cells # 0.0 K/mm3 11/20/18 10:21 WBC Morphology Not Reportable 11/20/18 10:21 Hypersegmented Neuts Not Reportable 11/20/18 10:21 Hyposegmented Neuts Not Reportable 11/20/18 10:21 Hypogranular Neuts Not Reportable 11/20/18 10:21 Smudge Cells Not Reportable 11/20/18 10:21 Toxic Granulation Not Reportable 11/20/18 10:21 Toxic Vacuolation Not Reportable 11/20/18 10:21 Dohle Bodies Not Reportable 11/20/18 10:21 Pelger-Huet Anomaly Not Reportable 11/20/18 10:21 Kaycee Rods Not Reportable 11/20/18 10:21 Platelet Estimate Consistent w auto 11/20/18 10:21 Clumped Platelets Not Reportable 11/20/18 10:21 Plt Clumps, EDTA Not Reportable 11/20/18 10:21 Large Platelets Not Reportable 11/20/18 10:21 Giant Platelets Not Reportable 11/20/18 10:21 Platelet Satelliting Not Reportable 11/20/18 10:21 Plt Morphology Comment Not Reportable 11/20/18 10:21 RBC Morphology Not Reportable 11/20/18 10:21 Dimorphic RBCs Not Reportable 11/20/18 10:21 Polychromasia Not Reportable 11/20/18 10:21 Hypochromasia Not Reportable 11/20/18 10:21 Poikilocytosis 1+ 11/20/18 10:21 Anisocytosis 1+ 11/20/18 10:21 Microcytosis Not Reportable 11/20/18 10:21 Macrocytosis Not Reportable 11/20/18 10:21 Spherocytes Not Reportable 11/20/18 10:21 Pappenheimer Bodies Not Reportable 11/20/18 10:21 Sickle Cells Not Reportable 11/20/18 10:21 Target Cells Not Reportable 11/20/18 10:21 Tear Drop Cells Not Reportable 11/20/18 10:21 Ovalocytes Few 11/20/18 10:21 Helmet Cells Not Reportable 11/20/18 10:21 [place] Bodies Not Reportable 11/20/18 10:21 [place] Rings Not Reportable 11/20/18 10:21 Jonn Cells Not Reportable 11/20/18 10:21 Bite Cells Not Reportable 11/20/18 10:21 Crenated Cell Not Reportable 11/20/18 10:21 Elliptocytes Not Reportable 11/20/18 10:21 Acanthocytes (Spur) Not Reportable 11/20/18 10:21 Rouleaux Not Reportable 11/20/18 10:21 Hemoglobin C Crystals Not Reportable 11/20/18 10:21 Schistocytes Not Reportable 11/20/18 10:21 Malaria parasites Not Reportable 11/20/18 10:21 Zhang Bodies Not Reportable 11/20/18 10:21 Hem Pathologist Commnt No 11/20/18 10:21 PT 12.6 Sec. (12.2-14.9) 11/13/18 13:04 INR 0.90 (0.87-1.13) 11/13/18 13:04 APTT 32.1 Sec. (24.2-36.6) 11/13/18 13:04 D-Dimer 6484.89 ng/mlDDU (0-234) H 11/14/18 06:00 POC ABG pH 7.468 (7.35-7.45) H 11/18/18 08:58 POC ABG pCO2 51.1 (35-45) H 11/18/18 08:58 POC ABG pO2 73 (80-105) L 11/18/18 08:58 POC ABG HCO3 37.0 11/18/18 08:58 POC ABG Total CO2 39 11/18/18 08:58 POC ABG O2 Sat 95 11/18/18 08:58 POC ABG Base Excess 13 11/18/18 08:58 FiO2 35 % 11/18/18 08:58 Sodium 143 mmol/L (137-145) 11/20/18 10:21 Potassium 4.5 mmol/L (3.6-5.0) D 11/20/18 10:21 Chloride 97.8 mmol/L (98-107) L 11/20/18 10:21 Carbon Dioxide 35 mmol/L (22-30) H 11/20/18 10:21 Anion Gap 15 mmol/L 11/20/18 10:21 BUN 17 mg/dL (7-17) 11/20/18 10:21 Creatinine 0.5 mg/dL (0.7-1.2) L 11/20/18 10:21 Estimated GFR > 60 ml/min 11/20/18 10:21 BUN/Creatinine Ratio 34 % 11/20/18 10:21 Glucose 175 mg/dL (65-100) H 11/20/18 10:21 POC Glucose 93 (70-105) 11/15/18 16:59 Calcium 9.2 mg/dL (8.4-10.2) 11/20/18 10:21 Total Bilirubin 0.50 mg/dL (0.1-1.2) 11/14/18 06:00 AST 26 units/L (5-40) 11/14/18 06:00 ALT 34 units/L (7-56) 11/14/18 06:00 Alkaline Phosphatase 108 units/L (35-129) 11/14/18 06:00 Troponin T < 0.010 ng/mL (0.00-0.029) 11/13/18 13:04 Total Protein 6.8 g/dL (6.3-8.2) 11/14/18 06:00 Albumin 3.9 g/dL (3.9-5) 11/14/18 06:00 Albumin/Globulin Ratio 1.3 % 11/14/18 06:00 Nutrition/Malnutrition Assess - Dietary Evaluation Nutrition/Malnutrition Findings: Nutrition Notes Start: 11/14/18 14:19 Freq: Status: Active Protocol: Document 11/19/18 13:25 KH (Rec: 11/19/18 13:49 [email or web address]) Co-Sign 11/19/18 13:25 OL Nutrition Notes Initial or Follow up Reassessment Current Diagnosis COPD Respiratory Failure Hyperlipidemia Current Diet Mechanical soft Labs/Tests K: 3.3 Cr: 0.4 Pertinent Medications Solu-medrol Height 5 ft 4 in Weight 71.4 kg [place] Body Weight (lbs) 120.0 BMI 27.0 Weight Status Overweight Subjective/Other Information F/u for diet advancement. Pt. now consuming mechanical soft diet. Pt. ate about 50% of breakfast plate per RN. RN denied pt. experiencing chewing/swallowing difficulties with mechanical soft diet. Percent of energy/protein needs met: 74%/58% Burn Absent Trauma Absent #1 Nutrition Diagnosis Inadequate oral intake As Evidenced by Signs and Symptoms Consumption of mechanical soft diet. Diagnosis Progress(for reassessment Improved documentation) Is patient on ventilator? No Is Patient Ambulatory and/or Out of Bed No [facility] 1456.860 Calculation Used for Recommendations [facility] Additional Notes protein (1.2-2g/kg): 86-143g/ day fluid: 1mL/kcal or per MD Nutrition Intervention Change Diet Order: Continue mechanical soft diet Add Supplement/Snack (indicate name/kcal Ensure Enlive daily /protein ) Provides kCal: 350 Provides Protein (gm) 20 Goal #1 Meet at least 80% of energy and protein needs via ONS and PO intakes Anticipated Discharge Needs: Continue mechanical soft diet with ONS PRN Follow-Up By: 11/24/18 Additional Comments F/u: PO and ONS intakes
[2018-11-21] MEDS: ROBITUSSIN AC PO PRN ×2 (02:40→17:11)
[2018-11-21] MEDS: SOLU-Medrol IV SCH ×3 (06:18→21:00)
[2018-11-21] MEDS: HEPARIN SUB-Q SCH ×3 (06:18→21:44)
[2018-11-21] MEDS: PULMICORT IH SCH ×2 (08:47→14:16)
[2018-11-21] MEDS: BROVANA NEBU IH SCH ×2 (08:47→20:28)
[2018-11-21] MEDS: DUONEB *Not for PRN Use IH SCH ×4 (08:47→20:27)
[2018-11-21] MEDS: COREG PO SCH ×2 (09:27→21:03)
[2018-11-21] MEDS: HABITROL TD SCH (09:28)
[2018-11-21] MEDS: SODIUM CHLORIDE FLUSH SYRINGE 10 ML IV SCH ×2 (10:11→21:46)
--- NOTE | 2018-11-21 14:16 | Progress Note ---
Assessment and Plan 73 y/o female with known COPD and chronic respiratory failure, admitted with COPD exacerbation and acute on chronic respiratory failure requiring mechanical ventilation. 1. Continue xanax at current dosing 2. Wean HFNC for sats >88%, now down to nasal cannula 3. Soft mechanical diet 4. Will change steroids to 40q8 5. Bipap ordered QHS and PRN 6. PT 7. Will give one time dose of lasix to see if this will help with oxygen requirement. Appears to have helped alot. No labs checked today, so will hold on additional dosing. Subjective Date of service: 11/21/18 Interval history: Down to 3 liters NC. Stable. Objective Vital Signs - 12hr 11/21/18 11/21/18 11/21/18 04:39 05:00 05:09 Temperature Pulse Rate 96 H Pulse Rate [ 99 H 101 H Anterior Bilateral Throughout] Pulse Rate [ From Monitor] Respiratory Rate Respiratory 16 18 Rate [Anterior Bilateral Throughout] Blood Pressure O2 Sat by Pulse Oximetry 11/21/18 11/21/18 11/21/18 07:47 08:47 09:04 Temperature 98.0 F Pulse Rate 87 Pulse Rate [ 89 107 H Anterior Bilateral Throughout] Pulse Rate [ From Monitor] Respiratory 22 Rate Respiratory 18 18 Rate [Anterior Bilateral Throughout] Blood Pressure 114/64 O2 Sat by Pulse 97 94 Oximetry 11/21/18 11/21/18 09:27 10:00 Temperature Pulse Rate 87 Pulse Rate [ Anterior Bilateral Throughout] Pulse Rate [ 87 From Monitor] Respiratory 22 Rate Respiratory Rate [Anterior Bilateral Throughout] Blood Pressure 114/64 O2 Sat by Pulse 94 Oximetry Constitutional: alert, agitated Eyes: non-icteric ENT: oropharynx moist Neck: supple Ascultation: Bilateral: wheezes Cardiovascular: regular rate and rhythm Gastrointestinal: normoactive bowel sounds, soft Integumentary: normal Neurologic: other (sedated on vent) CBC and BMP: 11/20/18 10:21 11/20/18 10:21 ABG, PT/INR, D-dimer: ABG POC ABG pH 7.468 (7.35-7.45) H 11/18/18 08:58 POC ABG pCO2 51.1 (35-45) H 11/18/18 08:58 POC ABG pO2 73 (80-105) L 11/18/18 08:58 POC ABG HCO3 37.0 11/18/18 08:58 POC ABG Total CO2 39 11/18/18 08:58 POC ABG O2 Sat 95 11/18/18 08:58 PT/INR, D-dimer PT 12.6 Sec. (12.2-14.9) 11/13/18 13:04 INR 0.90 (0.87-1.13) 11/13/18 13:04 D-Dimer 6484.89 ng/mlDDU (0-234) H 11/14/18 06:00 Abnormal lab findings: Abnormal Labs 11/13/18 11/13/18 11/13/18 13:04 13:04 13:04 WBC 12.8 H RBC 5.53 H Hgb 14.8 H Hct 45.6 H MCH 27 L RDW 15.5 H Lymph % (Auto) [place] % (Auto) Lymph # [place] # Seg Neutrophils % Seg Neuts % (Manual) 84.0 H Lymphocytes % (Manual) 9.0 L Seg Neutrophils # Seg Neutrophils # Man 10.8 H Lymphocytes # (Manual) D-Dimer 396.20 H POC ABG pH POC ABG pCO2 POC ABG pO2 Sodium Potassium Chloride 97.8 L Carbon Dioxide BUN Creatinine 0.5 L Glucose 123 H 11/13/18 11/14/18 11/14/18 13:59 06:00 06:00 WBC RBC Hgb Hct MCH RDW Lymph % (Auto) [place] % (Auto) Lymph # [place] # Seg Neutrophils % Seg Neuts % (Manual) Lymphocytes % (Manual) Seg Neutrophils # Seg Neutrophils # Man Lymphocytes # (Manual) D-Dimer 6484.89 H POC ABG pH 7.346 L POC ABG pCO2 54.0 H POC ABG pO2 173 H Sodium Potassium 5.9 H D Chloride 96.2 L Carbon Dioxide BUN Creatinine 0.6 L Glucose 157 H 11/14/18 11/14/18 11/14/18 06:10 10:06 10:06 WBC 15.8 H RBC 5.55 H Hgb 15.1 H Hct 47.1 H MCH 27 L RDW 16.1 H Lymph % (Auto) [place] % (Auto) Lymph # [place] # Seg Neutrophils % Seg Neuts % (Manual) Lymphocytes % (Manual) Seg Neutrophils # Seg Neutrophils # Man Lymphocytes # (Manual) D-Dimer POC ABG pH 7.303 L POC ABG pCO2 60.6 H POC ABG pO2 165 H Sodium Potassium 5.5 H Chloride 97.0 L Carbon Dioxide BUN Creatinine 0.5 L Glucose 113 H 11/15/18 11/15/18 11/15/18 04:22 14:00 14:00 WBC 14.4 H RBC Hgb Hct MCH 27 L RDW 15.5 H Lymph % (Auto) [place] % (Auto) Lymph # [place] # Seg Neutrophils % Seg Neuts % (Manual) Lymphocytes % (Manual) Seg Neutrophils # Seg Neutrophils # Man Lymphocytes # (Manual) D-Dimer POC ABG pH 7.480 H POC ABG pCO2 45.8 H POC ABG pO2 Sodium 136 L Potassium Chloride 93.8 L Carbon Dioxide 32 H D BUN 21 H Creatinine 0.6 L Glucose 126 H 11/16/18 11/16/18 11/17/18 03:55 04:05 06:00 WBC 15.5 H RBC 5.23 H Hgb Hct 43.6 H MCH 27 L RDW 15.6 H Lymph % (Auto) 3.5 L [place] % (Auto) 7.9 H Lymph # 0.5 L [place] # 1.2 H Seg Neutrophils % 88.5 H Seg Neuts % (Manual) Lymphocytes % (Manual) Seg Neutrophils # 13.7 H Seg Neutrophils # Man Lymphocytes # (Manual) D-Dimer POC ABG pH 7.460 H POC ABG pCO2 48.8 H POC ABG pO2 64 L Sodium Potassium Chloride 94.2 L Carbon Dioxide 31 H BUN 25 H Creatinine 0.6 L Glucose 161 H 11/17/18 11/18/18 11/19/18 06:00 08:58 04:41 WBC 12.3 H RBC Hgb Hct MCH 27 L RDW Lymph % (Auto) [place] % (Auto) Lymph # [place] # Seg Neutrophils % Seg Neuts % (Manual) 97.0 H Lymphocytes % (Manual) 2.0 L Seg Neutrophils # Seg Neutrophils # Man 11.9 H Lymphocytes # (Manual) 0.2 L D-Dimer POC ABG pH 7.468 H POC ABG pCO2 51.1 H POC ABG pO2 73 L Sodium Potassium Chloride 94.1 L Carbon Dioxide 31 H BUN 19 H Creatinine 0.5 L Glucose 127 H 11/19/18 11/20/18 11/20/18 04:41 10:21 10:21 WBC 11.3 H RBC 5.34 H Hgb 14.4 H Hct 44.7 H MCH 27 L RDW 15.3 H Lymph % (Auto) [place] % (Auto) Lymph # [place] # Seg Neutrophils % Seg Neuts % (Manual) 94.0 H Lymphocytes % (Manual) 3.0 L Seg Neutrophils # Seg Neutrophils # Man 10.6 H Lymphocytes # (Manual) 0.3 L D-Dimer POC ABG pH POC ABG pCO2 POC ABG pO2 Sodium Potassium 3.3 L D Chloride 97.6 L 97.8 L Carbon Dioxide 35 H 35 H BUN Creatinine 0.4 L 0.5 L Glucose 123 H 175 H
--- NOTE | 2018-11-21 15:29 | Progress Note ---
Assessment and Plan Assessment and plan: 73 YO Female with COPD, HLD, GERD through ED with worsening shortness of breath,cough, and wheezing over the past 2 days , Pt seen and evaluated by her underground repairer and found to have persistent worsening symptoms, twice to go to [facility] initially admitted to the floor , went into acute respiratory failure requiring intubation , transferred to ICU , evaluated by pulmonary critical , medications optimized Weaned and extubated , now patient is on nasal cannula oxygen saturating well --Acute hypoxic Respiratory failure; requiring intubation, extubated On NC o2 , significant improvement of symptoms, try to wean NC oxygen Low-dose Lasix seemed to help, we'll add daily Lasix 20 mg for next 2 days --hypokalemia, replace and closely monitor --SIRS (systemic inflammatory response syndrome) likely from COPD exacerbation, cont neb therapy, IV antibiotic therapy, follow cx --HTN, well-controlled Continue current anti-hypertensives and when necessary medications --COPD with acute exacerbation IV antibiotic therapy, IV steroid therapy, cont vent Mx --DVT prophylaxis SCD to BLE while in bed Severe debility; PT and OT PT recommend subacute, check with case management and family Possible discharge subacute rehabilitation vs home with home health in 1-2 days if stable History Interval history: Patient seen and examined medical records reviewed Slightly better sitting in a chair, comfortable No new complaints Received 1 dose of 20 mg of Lasix per critical care Vital signs noted Hospitalist Physical - Constitutional Vitals: Temp Pulse Resp BP Pulse Ox 97.9 F 99 H 18 102/55 98 11/21/18 13:13 11/21/18 14:37 11/21/18 14:37 11/21/18 13:13 11/21/18 13:13 General appearance: Present: no acute distress, well-nourished, other (nasal cannula oxygen) - EENT Eyes: Present: PERRL, EOM intact - Neck Neck: Present: supple, normal ROM - Respiratory Respiratory effort: normal Respiratory: bilateral: diminished, negative: rales, rhonchi, wheezing - Cardiovascular Rhythm: regular Heart Sounds: Present: S1 & S2 - Extremities Extremities: no ischemia, No edema - Abdominal General gastrointestinal: soft, non-tender, tender, non-distended - Integumentary Integumentary: Present: clear, warm - Psychiatric Psychiatric: appropriate mood/affect, cooperative - Neurologic Neurologic: CNII-XII intact, moves all extremities Results - Labs CBC & Chem 7: 11/20/18 10:21 11/20/18 10:21 Labs: Laboratory Last Values WBC 11.3 K/mm3 (4.5-11.0) H 11/20/18 10:21 RBC 5.34 M/mm3 (3.65-5.03) H 11/20/18 10:21 Hgb 14.4 gm/dl (10.1-14.3) H 11/20/18 10:21 Hct 44.7 % (30.3-42.9) H 11/20/18 10:21 MCV 84 fl (79-97) 11/20/18 10:21 MCH 27 pg (28-32) L 11/20/18 10:21 MCHC 32 % (30-34) 11/20/18 10:21 RDW 15.3 % (13.2-15.2) H 11/20/18 10:21 Plt Count 178 K/mm3 (140-440) 11/20/18 10:21 Lymph % (Auto) 3.5 % (13.4-35.0) L 11/17/18 06:00 Mora % (Auto) 7.9 % (0.0-7.3) H 11/17/18 06:00 Eos % (Auto) 0.0 % (0.0-4.3) 11/17/18 06:00 Baso % (Auto) 0.1 % (0.0-1.8) 11/17/18 06:00 Lymph # 0.5 K/mm3 (1.2-5.4) L 11/17/18 06:00 Mora # 1.2 K/mm3 (0.0-0.8) H 11/17/18 06:00 Eos # 0.0 K/mm3 (0.0-0.4) 11/17/18 06:00 Baso # 0.0 K/mm3 (0.0-0.1) 11/17/18 06:00 Add Manual Diff Complete 11/20/18 10:21 Total Counted 100 11/20/18 10:21 Seg Neutrophils % Senior Executive Compensation Analyst 11/20/18 10:21 Seg Neuts % (Manual) 94.0 % (40.0-70.0) H 11/20/18 10:21 Band Neutrophils % 0 % 11/20/18 10:21 Lymphocytes % (Manual) 3.0 % (13.4-35.0) L 11/20/18 10:21 Reactive Lymphs % (Man) 0 % 11/20/18 10:21 Monocytes % (Manual) 3.0 % (0.0-7.3) 11/20/18 10:21 Eosinophils % (Manual) 0 % (0.0-4.3) 11/20/18 10:21 Basophils % (Manual) 0 % (0.0-1.8) 11/20/18 10:21 Metamyelocytes % 0 % 11/20/18 10:21 Myelocytes % 0 % 11/20/18 10:21 Promyelocytes % 0 % 11/20/18 10:21 Blast Cells % 0 % 11/20/18 10:21 Nucleated RBC % Not Reportable 11/20/18 10:21 Seg Neutrophils # 13.7 K/mm3 (1.8-7.7) H 11/17/18 06:00 Seg Neutrophils # Man 10.6 K/mm3 (1.8-7.7) H 11/20/18 10:21 Band Neutrophils # 0.0 K/mm3 11/20/18 10:21 Lymphocytes # (Manual) 0.3 K/mm3 (1.2-5.4) L 11/20/18 10:21 Abs React Lymphs (Man) 0.0 K/mm3 11/20/18 10:21 Monocytes # (Manual) 0.3 K/mm3 (0.0-0.8) 11/20/18 10:21 Eosinophils # (Manual) 0.0 K/mm3 (0.0-0.4) 11/20/18 10:21 Basophils # (Manual) 0.0 K/mm3 (0.0-0.1) 11/20/18 10:21 Metamyelocytes # 0.0 K/mm3 11/20/18 10:21 Myelocytes # 0.0 K/mm3 11/20/18 10:21 Promyelocytes # 0.0 K/mm3 11/20/18 10:21 Blast Cells # 0.0 K/mm3 11/20/18 10:21 WBC Morphology Not Reportable 11/20/18 10:21 Hypersegmented Neuts Not Reportable 11/20/18 10:21 Hyposegmented Neuts Not Reportable 11/20/18 10:21 Hypogranular Neuts Not Reportable 11/20/18 10:21 Smudge Cells Not Reportable 11/20/18 10:21 Toxic Granulation Not Reportable 11/20/18 10:21 Toxic Vacuolation Not Reportable 11/20/18 10:21 Dohle Bodies Not Reportable 11/20/18 10:21 Pelger-Huet Anomaly Not Reportable 11/20/18 10:21 Kaycee Rods Not Reportable 11/20/18 10:21 Platelet Estimate Consistent w auto 11/20/18 10:21 Clumped Platelets Not Reportable 11/20/18 10:21 Plt Clumps, EDTA Not Reportable 11/20/18 10:21 Large Platelets Not Reportable 11/20/18 10:21 Giant Platelets Not Reportable 11/20/18 10:21 Platelet Satelliting Not Reportable 11/20/18 10:21 Plt Morphology Comment Not Reportable 11/20/18 10:21 RBC Morphology Not Reportable 11/20/18 10:21 Dimorphic RBCs Not Reportable 11/20/18 10:21 Polychromasia Not Reportable 11/20/18 10:21 Hypochromasia Not Reportable 11/20/18 10:21 Poikilocytosis 1+ 11/20/18 10:21 Anisocytosis 1+ 11/20/18 10:21 Microcytosis Not Reportable 11/20/18 10:21 Macrocytosis Not Reportable 11/20/18 10:21 Spherocytes Not Reportable 11/20/18 10:21 Pappenheimer Bodies Not Reportable 11/20/18 10:21 Sickle Cells Not Reportable 11/20/18 10:21 Target Cells Not Reportable 11/20/18 10:21 Tear Drop Cells Not Reportable 11/20/18 10:21 Ovalocytes Few 11/20/18 10:21 Helmet Cells Not Reportable 11/20/18 10:21 [place]rey[place] Bodies Not Reportable 11/20/18 10:21 [place] Rings Not Reportable 11/20/18 10:21 [place] Cells Not Reportable 11/20/18 10:21 Bite Cells Not Reportable 11/20/18 10:21 Crenated Cell Not Reportable 11/20/18 10:21 Elliptocytes Not Reportable 11/20/18 10:21 Acanthocytes (Spur) Not Reportable 11/20/18 10:21 Rouleaux Not Reportable 11/20/18 10:21 Hemoglobin C Crystals Not Reportable 11/20/18 10:21 Schistocytes Not Reportable 11/20/18 10:21 Malaria parasites Not Reportable 11/20/18 10:21 Zhang Bodies Not Reportable 11/20/18 10:21 Hem Pathologist Commnt No 11/20/18 10:21 PT 12.6 Sec. (12.2-14.9) 11/13/18 13:04 INR 0.90 (0.87-1.13) 11/13/18 13:04 APTT 32.1 Sec. (24.2-36.6) 11/13/18 13:04 D-Dimer 6484.89 ng/mlDDU (0-234) H 11/14/18 06:00 POC ABG pH 7.468 (7.35-7.45) H 11/18/18 08:58 POC ABG pCO2 51.1 (35-45) H 11/18/18 08:58 POC ABG pO2 73 (80-105) L 11/18/18 08:58 POC ABG HCO3 37.0 11/18/18 08:58 POC ABG Total CO2 39 11/18/18 08:58 POC ABG O2 Sat 95 11/18/18 08:58 POC ABG Base Excess 13 11/18/18 08:58 FiO2 35 % 11/18/18 08:58 Sodium 143 mmol/L (137-145) 11/20/18 10:21 Potassium 4.5 mmol/L (3.6-5.0) D 11/20/18 10:21 Chloride 97.8 mmol/L (98-107) L 11/20/18 10:21 Carbon Dioxide 35 mmol/L (22-30) H 11/20/18 10:21 Anion Gap 15 mmol/L 11/20/18 10:21 BUN 17 mg/dL (7-17) 11/20/18 10:21 Creatinine 0.5 mg/dL (0.7-1.2) L 11/20/18 10:21 Estimated GFR > 60 ml/min 11/20/18 10:21 BUN/Creatinine Ratio 34 % 11/20/18 10:21 Glucose 175 mg/dL (65-100) H 11/20/18 10:21 POC Glucose 93 (70-105) 11/15/18 16:59 Calcium 9.2 mg/dL (8.4-10.2) 11/20/18 10:21 Total Bilirubin 0.50 mg/dL (0.1-1.2) 11/14/18 06:00 AST 26 units/L (5-40) 11/14/18 06:00 ALT 34 units/L (7-56) 11/14/18 06:00 Alkaline Phosphatase 108 units/L (35-129) 11/14/18 06:00 Troponin T < 0.010 ng/mL (0.00-0.029) 11/13/18 13:04 Total Protein 6.8 g/dL (6.3-8.2) 11/14/18 06:00 Albumin 3.9 g/dL (3.9-5) 11/14/18 06:00 Albumin/Globulin Ratio 1.3 % 11/14/18 06:00 Nutrition/Malnutrition Assess - Dietary Evaluation Nutrition/Malnutrition Findings: Nutrition Notes Start: 11/14/18 14:19 Freq: Status: Active Protocol: Document 11/19/18 13:25 BRIAN (Rec: 11/19/18 13:49 [email or web address]) Co-Sign 11/19/18 13:25 OL Nutrition Notes Initial or Follow up Reassessment Current Diagnosis COPD Respiratory Failure Hyperlipidemia Current Diet Mechanical soft Labs/Tests K: 3.3 Cr: 0.4 Pertinent Medications Solu-medrol Height 5 ft 4 in Weight 71.4 kg [place] Body Weight (lbs) 120.0 BMI 27.0 Weight Status Overweight Subjective/Other Information F/u for diet advancement. Pt. now consuming mechanical soft diet. Pt. ate about 50% of breakfast plate per RN. RN denied pt. experiencing chewing/swallowing difficulties with mechanical soft diet. Percent of energy/protein needs met: 74%/58% Burn Absent Trauma Absent #1 Nutrition Diagnosis Inadequate oral intake As Evidenced by Signs and Symptoms Consumption of mechanical soft diet. Diagnosis Progress(for reassessment Improved documentation) Is patient on ventilator? No Is Patient Ambulatory and/or Out of Bed No REE-([facility]-confined to bed) [phone] Calculation Used for Recommendations León Ibrahim Additional Notes protein (1.2-2g/kg): 86-143g/ day fluid: 1mL/kcal or per MD Nutrition Intervention Change Diet Order: Continue mechanical soft diet Add Supplement/Snack (indicate name/kcal Ensure Enlive daily /protein ) Provides kCal: 350 Provides Protein (gm) 20 Goal #1 Meet at least 80% of energy and protein needs via ONS and PO intakes Anticipated Discharge Needs: Continue mechanical soft diet with ONS PRN Follow-Up By: 11/24/18 Additional Comments F/u: PO and ONS intakes
[2018-11-22] MEDS: ROBITUSSIN AC PO PRN (01:02)
[2018-11-22] MEDS: PULMICORT IH SCH ×5 (03:38→20:24)
[2018-11-22] MEDS: DUONEB *Not for PRN Use IH SCH ×6 (03:51→20:23)
[2018-11-22] MEDS: HEPARIN SUB-Q SCH ×3 (05:20→21:32)
[2018-11-22] MEDS: SOLU-Medrol IV SCH ×3 (05:20→21:29)
[2018-11-22 06:49] LABS: Basophils % (Auto) 0.1 % (0.0-1.8); Hematocrit 38.7 % (30.3-42.9); Hemoglobin 12.5 gm/dl (10.1-14.3); Lymphocytes # (Auto) 0.5 K/mm3 (1.2-5.4); Lymphocytes % (Auto) 5.7 % (13.4-35.0); Mean Corpuscular HGB Conc 32 % (30-34); Mean Corpuscular Volume 84 fl (79-97); Monocytes # (Auto) 0.7 K/mm3 (0.0-0.8); Monocytes % (Auto) 7.7 % (0.0-7.3); Platelet Count 178 K/mm3 (140-440); Red Blood Count 4.63 M/mm3 (3.65-5.03); Red Cell Distribution Width 15.3 % (13.2-15.2)
[2018-11-22 07:11] LABS: BUN/Creatinine Ratio 38; Blood Urea Nitrogen 15 mg/dL (7-17); Calcium 8.4 mg/dL (8.4-10.2); Hemolysis Index 29
--- NOTE | 2018-11-22 07:42 | Progress Note ---
Assessment and Plan Assessment and plan: 73 YO Female with COPD, HLD, GERD through ED with worsening shortness of breath,cough, and wheezing over 2 days and evaluatedt and admitted to the floor , went into acute respiratory failure requiring intubation , transferred to ICU , evaluated by pulmonary critical , medications optimized Weaned and extubated , transferred to the floor ,now patient is on nasal cannula oxygen saturating well --Acute hypoxic Respiratory failure; requiring intubation, extubated On NC o2 , significant improvement of symptoms, try to wean NC oxygen Low-dose Lasix seem to help, cont Lasix 20 mg for next 2 days --hypokalemia, corrected --SIRS (systemic inflammatory response syndrome) likely from COPD exacerbation, stable --Hypertension : Continue current anti`hypertensives and when necessary medications --COPD with acute exacerbation IV antibiotic therapy, IV steroid therapy, cont vent Mx --DVT prophylaxis SCD to BLE while in bed Continue PT and OT Possible discharge tomorrow to home with home health versus subacute Plan of care reviewed with the patient and her nurse History Interval history: Patient seen and examined medical records reviewed Patient is feeling better no new complaints Alert awake oriented 3 Vital signs noted Hospitalist Physical - Constitutional Vitals: Temp Pulse Resp BP Pulse Ox 97.3 F L 104 H 18 103/57 96 11/22/18 03:08 11/22/18 03:24 11/22/18 03:08 11/22/18 03:08 11/21/18 20:31 General appearance: Present: no acute distress, well-nourished, other (nasal cannula oxygen) - EENT Eyes: Present: PERRL, EOM intact - Neck Neck: Present: supple, normal ROM - Respiratory Respiratory: bilateral: diminished, negative: rales, rhonchi, wheezing - Cardiovascular Rhythm: regular Heart Sounds: Present: S1 & S2 - Extremities Extremities: no ischemia, No edema - Abdominal General gastrointestinal: soft, non-tender, non-distended, normal bowel sounds - Integumentary Integumentary: Present: clear, warm - Psychiatric Psychiatric: appropriate mood/affect, cooperative - Neurologic Neurologic: CNII-XII intact, moves all extremities Results - Labs CBC & Chem 7: 11/22/18 06:05 11/22/18 06:05 Labs: Laboratory Last Values WBC 9.0 K/mm3 (4.5-11.0) 11/22/18 06:05 RBC 4.63 M/mm3 (3.65-5.03) 11/22/18 06:05 Hgb 12.5 gm/dl (10.1-14.3) 11/22/18 06:05 Hct 38.7 % (30.3-42.9) D 11/22/18 06:05 MCV 84 fl (79-97) 11/22/18 06:05 MCH 27 pg (28-32) L 11/22/18 06:05 MCHC 32 % (30-34) 11/22/18 06:05 RDW 15.3 % (13.2-15.2) H 11/22/18 06:05 Plt Count 178 K/mm3 (140-440) 11/22/18 06:05 Lymph % (Auto) 5.7 % (13.4-35.0) L 11/22/18 06:05 [place] % (Auto) 7.7 % (0.0-7.3) H 11/22/18 06:05 Eos % (Auto) 0.0 % (0.0-4.3) 11/22/18 06:05 Baso % (Auto) 0.1 % (0.0-1.8) 11/22/18 06:05 Lymph # 0.5 K/mm3 (1.2-5.4) L 11/22/18 06:05 [place] # 0.7 K/mm3 (0.0-0.8) 11/22/18 06:05 Eos # 0.0 K/mm3 (0.0-0.4) 11/22/18 06:05 Baso # 0.0 K/mm3 (0.0-0.1) 11/22/18 06:05 Add Manual Diff Complete 11/20/18 10:21 Total Counted 100 11/20/18 10:21 Seg Neutrophils % 86.5 % (40.0-70.0) H 11/22/18 06:05 Seg Neuts % (Manual) 94.0 % (40.0-70.0) H 11/20/18 10:21 Band Neutrophils % 0 % 11/20/18 10:21 Lymphocytes % (Manual) 3.0 % (13.4-35.0) L 11/20/18 10:21 Reactive Lymphs % (Man) 0 % 11/20/18 10:21 Monocytes % (Manual) 3.0 % (0.0-7.3) 11/20/18 10:21 Eosinophils % (Manual) 0 % (0.0-4.3) 11/20/18 10:21 Basophils % (Manual) 0 % (0.0-1.8) 11/20/18 10:21 Metamyelocytes % 0 % 11/20/18 10:21 Myelocytes % 0 % 11/20/18 10:21 Promyelocytes % 0 % 11/20/18 10:21 Blast Cells % 0 % 11/20/18 10:21 Nucleated RBC % Not Reportable 11/20/18 10:21 Seg Neutrophils # 7.8 K/mm3 (1.8-7.7) H 11/22/18 06:05 Seg Neutrophils # Man 10.6 K/mm3 (1.8-7.7) H 11/20/18 10:21 Band Neutrophils # 0.0 K/mm3 11/20/18 10:21 Lymphocytes # (Manual) 0.3 K/mm3 (1.2-5.4) L 11/20/18 10:21 Abs React Lymphs (Man) 0.0 K/mm3 11/20/18 10:21 Monocytes # (Manual) 0.3 K/mm3 (0.0-0.8) 11/20/18 10:21 Eosinophils # (Manual) 0.0 K/mm3 (0.0-0.4) 11/20/18 10:21 Basophils # (Manual) 0.0 K/mm3 (0.0-0.1) 11/20/18 10:21 Metamyelocytes # 0.0 K/mm3 11/20/18 10:21 Myelocytes # 0.0 K/mm3 11/20/18 10:21 Promyelocytes # 0.0 K/mm3 11/20/18 10:21 Blast Cells # 0.0 K/mm3 11/20/18 10:21 WBC Morphology Not Reportable 11/20/18 10:21 Hypersegmented Neuts Not Reportable 11/20/18 10:21 Hyposegmented Neuts Not Reportable 11/20/18 10:21 Hypogranular Neuts Not Reportable 11/20/18 10:21 Smudge Cells Not Reportable 11/20/18 10:21 Toxic Granulation Not Reportable 11/20/18 10:21 Toxic Vacuolation Not Reportable 11/20/18 10:21 Dohle Bodies Not Reportable 11/20/18 10:21 Pelger-Huet Anomaly Not Reportable 11/20/18 10:21 Kaycee Rods Not Reportable 11/20/18 10:21 Platelet Estimate Consistent w auto 11/20/18 10:21 Clumped Platelets Not Reportable 11/20/18 10:21 Plt Clumps, EDTA Not Reportable 11/20/18 10:21 Large Platelets Not Reportable 11/20/18 10:21 Giant Platelets Not Reportable 11/20/18 10:21 Platelet Satelliting Not Reportable 11/20/18 10:21 Plt Morphology Comment Not Reportable 11/20/18 10:21 RBC Morphology Not Reportable 11/20/18 10:21 Dimorphic RBCs Not Reportable 11/20/18 10:21 Polychromasia Not Reportable 11/20/18 10:21 Hypochromasia Not Reportable 11/20/18 10:21 Poikilocytosis 1+ 11/20/18 10:21 Anisocytosis 1+ 11/20/18 10:21 Microcytosis Not Reportable 11/20/18 10:21 Macrocytosis Not Reportable 11/20/18 10:21 Spherocytes Not Reportable 11/20/18 10:21 Pappenheimer Bodies Not Reportable 11/20/18 10:21 Sickle Cells Not Reportable 11/20/18 10:21 Target Cells Not Reportable 11/20/18 10:21 Tear Drop Cells Not Reportable 11/20/18 10:21 Ovalocytes Few 11/20/18 10:21 Helmet Cells Not Reportable 11/20/18 10:21 [place] Bodies Not Reportable 11/20/18 10:21 [place] Rings Not Reportable 11/20/18 10:21 Jonn Cells Not Reportable 11/20/18 10:21 Bite Cells Not Reportable 11/20/18 10:21 Crenated Cell Not Reportable 11/20/18 10:21 Elliptocytes Not Reportable 11/20/18 10:21 Acanthocytes (Spur) Not Reportable 11/20/18 10:21 Rouleaux Not Reportable 11/20/18 10:21 Hemoglobin C Crystals Not Reportable 11/20/18 10:21 Schistocytes Not Reportable 11/20/18 10:21 Malaria parasites Not Reportable 11/20/18 10:21 Zhang Bodies Not Reportable 11/20/18 10:21 Hem Pathologist Commnt No 11/20/18 10:21 PT 12.6 Sec. (12.2-14.9) 11/13/18 13:04 INR 0.90 (0.87-1.13) 11/13/18 13:04 APTT 32.1 Sec. (24.2-36.6) 11/13/18 13:04 D-Dimer 6484.89 ng/mlDDU (0-234) H 11/14/18 06:00 POC ABG pH 7.468 (7.35-7.45) H 11/18/18 08:58 POC ABG pCO2 51.1 (35-45) H 11/18/18 08:58 POC ABG pO2 73 (80-105) L 11/18/18 08:58 POC ABG HCO3 37.0 11/18/18 08:58 POC ABG Total CO2 39 11/18/18 08:58 POC ABG O2 Sat 95 11/18/18 08:58 POC ABG Base Excess 13 11/18/18 08:58 FiO2 35 % 11/18/18 08:58 Sodium 141 mmol/L (137-145) 11/22/18 06:05 Potassium 3.9 mmol/L (3.6-5.0) 11/22/18 06:05 Chloride 98.0 mmol/L (98-107) 11/22/18 06:05 Carbon Dioxide 35 mmol/L (22-30) H 11/22/18 06:05 Anion Gap 12 mmol/L 11/22/18 06:05 BUN 15 mg/dL (7-17) 11/22/18 06:05 Creatinine 0.4 mg/dL (0.7-1.2) L 11/22/18 06:05 Estimated GFR > 60 ml/min 11/22/18 06:05 BUN/Creatinine Ratio 38 % 11/22/18 06:05 Glucose 103 mg/dL (65-100) H 11/22/18 06:05 POC Glucose 93 (70-105) 11/15/18 16:59 Calcium 8.4 mg/dL (8.4-10.2) 11/22/18 06:05 Magnesium 2.10 mg/dL (1.7-2.3) 11/22/18 06:05 Total Bilirubin 0.50 mg/dL (0.1-1.2) 11/14/18 06:00 AST 26 units/L (5-40) 11/14/18 06:00 ALT 34 units/L (7-56) 11/14/18 06:00 Alkaline Phosphatase 108 units/L (35-129) 11/14/18 06:00 Troponin T < 0.010 ng/mL (0.00-0.029) 11/13/18 13:04 Total Protein 6.8 g/dL (6.3-8.2) 11/14/18 06:00 Albumin 3.9 g/dL (3.9-5) 11/14/18 06:00 Albumin/Globulin Ratio 1.3 % 11/14/18 06:00 Nutrition/Malnutrition Assess - Dietary Evaluation Nutrition/Malnutrition Findings: Nutrition Notes Start: 11/14/18 14:19 Freq: Status: Active Protocol: Document 11/19/18 13:25 KH (Rec: 11/19/18 13:49 [email or web address]) Co-Sign 11/19/18 13:25 OL Nutrition Notes Initial or Follow up Reassessment Current Diagnosis COPD Respiratory Failure Hyperlipidemia Current Diet Mechanical soft Labs/Tests K: 3.3 Cr: 0.4 Pertinent Medications Solu-medrol Height 5 ft 4 in Weight 71.4 kg [place] Body Weight (lbs) 120.0 BMI 27.0 Weight Status Overweight Subjective/Other Information F/u for diet advancement. Pt. now consuming mechanical soft diet. Pt. ate about 50% of breakfast plate per RN. RN denied pt. experiencing chewing/swallowing difficulties with mechanical soft diet. Percent of energy/protein needs met: 74%/58% Burn Absent Trauma Absent #1 Nutrition Diagnosis Inadequate oral intake As Evidenced by Signs and Symptoms Consumption of mechanical soft diet. Diagnosis Progress(for reassessment Improved documentation) Is patient on ventilator? No Is Patient Ambulatory and/or [facility] [phone] Calculation Used for Recommendations [facility] Additional Notes protein (1.2-2g/kg): 86-143g/ day fluid: 1mL/kcal or per MD Nutrition Intervention Change Diet Order: Continue mechanical soft diet Add Supplement/Snack (indicate name/kcal Ensure Enlive daily /protein ) Provides kCal: 350 Provides Protein (gm) 20 Goal #1 Meet at least 80% of energy and protein needs via ONS and PO intakes Anticipated Discharge Needs: Continue mechanical soft diet with ONS PRN Follow-Up By: 11/24/18 Additional Comments F/u: PO and ONS intakes
[2018-11-22] MEDS: BROVANA NEBU IH SCH ×2 (09:05→20:25)
[2018-11-22] MEDS: COREG PO SCH ×2 (09:55→21:32)
[2018-11-22] MEDS: SODIUM CHLORIDE FLUSH SYRINGE 10 ML IV SCH ×3 (09:58→21:34)
[2018-11-22] MEDS: LASIX PO SCH (09:58)
[2018-11-22] MEDS: HABITROL TD SCH (09:58)
--- NOTE | 2018-11-22 11:50 | Progress Note ---
Assessment and Plan 73 y/o female with known COPD and chronic respiratory failure, admitted with COPD exacerbation and acute on chronic respiratory failure requiring mechanical ventilation. 1. Continue xanax at current dosing 2. Currently stable on room air. Will need walk test prior to discharge. 3. Soft mechanical diet 4. Can drop steroids down to 60 daily starting tomorrow and will need prolonged taper over two weeks time as follows: 60x4, 40x4, 20x4,10x4 then stop. 5. Bipap ordered QHS and PRN. Did not wear last night. Continue PRN 6. PT 7. No lasix again today. 8. Should be ready for discharge in the next 18-24 hours. Subjective Date of service: 11/22/18 Interval history: Weaned to room air and stable. Objective Vital Signs - 12hr 11/22/18 11/22/18 11/22/18 03:08 03:24 07:45 Temperature 97.3 F L 98.8 F Pulse Rate 104 H 99 H Pulse Rate [ Anterior Bilateral Throughout] Respiratory 18 22 Rate Respiratory Rate [Anterior Bilateral Throughout] Blood Pressure 103/57 103/60 O2 Sat by Pulse 98 Oximetry 11/22/18 11/22/18 11/22/18 09:05 09:20 09:55 Temperature Pulse Rate 99 H Pulse Rate [ 93 H 105 H Anterior Bilateral Throughout] Respiratory Rate Respiratory 18 18 Rate [Anterior Bilateral Throughout] Blood Pressure 103/60 O2 Sat by Pulse 94 Oximetry Constitutional: alert, agitated Eyes: non-icteric ENT: oropharynx moist Neck: supple Ascultation: Bilateral: wheezes Cardiovascular: regular rate and rhythm Gastrointestinal: normoactive bowel sounds, soft Integumentary: normal Neurologic: other (sedated on vent) CBC and BMP: 11/22/18 06:05 11/22/18 06:05 ABG, PT/INR, D-dimer: ABG POC ABG pH 7.468 (7.35-7.45) H 11/18/18 08:58 POC ABG pCO2 51.1 (35-45) H 11/18/18 08:58 POC ABG pO2 73 (80-105) L 11/18/18 08:58 POC ABG HCO3 37.0 11/18/18 08:58 POC ABG Total CO2 39 11/18/18 08:58 POC ABG O2 Sat 95 11/18/18 08:58 PT/INR, D-dimer PT 12.6 Sec. (12.2-14.9) 11/13/18 13:04 INR 0.90 (0.87-1.13) 11/13/18 13:04 D-Dimer 6484.89 ng/mlDDU (0-234) H 11/14/18 06:00 Abnormal lab findings: Abnormal Labs 11/13/18 11/13/18 11/13/18 13:04 13:04 13:04 WBC 12.8 H RBC 5.53 H Hgb 14.8 H Hct 45.6 H MCH 27 L RDW 15.5 H Lymph % (Auto) [place] % (Auto) Lymph # [place] # Seg Neutrophils % Seg Neuts % (Manual) 84.0 H Lymphocytes % (Manual) 9.0 L Seg Neutrophils # Seg Neutrophils # Man 10.8 H Lymphocytes # (Manual) D-Dimer 396.20 H POC ABG pH POC ABG pCO2 POC ABG pO2 Sodium Potassium Chloride 97.8 L Carbon Dioxide BUN Creatinine 0.5 L Glucose 123 H 11/13/18 11/14/18 11/14/18 13:59 06:00 06:00 WBC RBC Hgb Hct MCH RDW Lymph % (Auto) [place] % (Auto) Lymph # [place] # Seg Neutrophils % Seg Neuts % (Manual) Lymphocytes % (Manual) Seg Neutrophils # Seg Neutrophils # Man Lymphocytes # (Manual) D-Dimer 6484.89 H POC ABG pH 7.346 L POC ABG pCO2 54.0 H POC ABG pO2 173 H Sodium Potassium 5.9 H D Chloride 96.2 L Carbon Dioxide BUN Creatinine 0.6 L Glucose 157 H 11/14/18 11/14/18 11/14/18 06:10 10:06 10:06 WBC 15.8 H RBC 5.55 H Hgb 15.1 H Hct 47.1 H MCH 27 L RDW 16.1 H Lymph % (Auto) [place] % (Auto) Lymph # [place] # Seg Neutrophils % Seg Neuts % (Manual) Lymphocytes % (Manual) Seg Neutrophils # Seg Neutrophils # Man Lymphocytes # (Manual) D-Dimer POC ABG pH 7.303 L POC ABG pCO2 60.6 H POC ABG pO2 165 H Sodium Potassium 5.5 H Chloride 97.0 L Carbon Dioxide BUN Creatinine 0.5 L Glucose 113 H 11/15/18 11/15/18 11/15/18 04:22 14:00 14:00 WBC 14.4 H RBC Hgb Hct MCH 27 L RDW 15.5 H Lymph % (Auto) [place] % (Auto) Lymph # [place] # Seg Neutrophils % Seg Neuts % (Manual) Lymphocytes % (Manual) Seg Neutrophils # Seg Neutrophils # Man Lymphocytes # (Manual) D-Dimer POC ABG pH 7.480 H POC ABG pCO2 45.8 H POC ABG pO2 Sodium 136 L Potassium Chloride 93.8 L Carbon Dioxide 32 H D BUN 21 H Creatinine 0.6 L Glucose 126 H 11/16/18 11/16/18 11/17/18 03:55 04:05 06:00 WBC 15.5 H RBC 5.23 H Hgb Hct 43.6 H MCH 27 L RDW 15.6 H Lymph % (Auto) 3.5 L [place] % (Auto) 7.9 H Lymph # 0.5 L [place] # 1.2 H Seg Neutrophils % 88.5 H Seg Neuts % (Manual) Lymphocytes % (Manual) Seg Neutrophils # 13.7 H Seg Neutrophils # Man Lymphocytes # (Manual) D-Dimer POC ABG pH 7.460 H POC ABG pCO2 48.8 H POC ABG pO2 64 L Sodium Potassium Chloride 94.2 L Carbon Dioxide 31 H BUN 25 H Creatinine 0.6 L Glucose 161 H 11/17/18 11/18/18 11/19/18 06:00 08:58 04:41 WBC 12.3 H RBC Hgb Hct MCH 27 L RDW Lymph % (Auto) [place] % (Auto) Lymph # [place] # Seg Neutrophils % Seg Neuts % (Manual) 97.0 H Lymphocytes % (Manual) 2.0 L Seg Neutrophils # Seg Neutrophils # Man 11.9 H Lymphocytes # (Manual) 0.2 L D-Dimer POC ABG pH 7.468 H POC ABG pCO2 51.1 H POC ABG pO2 73 L Sodium Potassium Chloride 94.1 L Carbon Dioxide 31 H BUN 19 H Creatinine 0.5 L Glucose 127 H 11/19/18 11/20/18 11/20/18 04:41 10:21 10:21 WBC 11.3 H RBC 5.34 H Hgb 14.4 H Hct 44.7 H MCH 27 L RDW 15.3 H Lymph % (Auto) [place] % (Auto) Lymph # [place] # Seg Neutrophils % Seg Neuts % (Manual) 94.0 H Lymphocytes % (Manual) 3.0 L Seg Neutrophils # Seg Neutrophils # Man 10.6 H Lymphocytes # (Manual) 0.3 L D-Dimer POC ABG pH POC ABG pCO2 POC ABG pO2 Sodium Potassium 3.3 L D Chloride 97.6 L 97.8 L Carbon Dioxide 35 H 35 H BUN Creatinine 0.4 L 0.5 L Glucose 123 H 175 H 11/22/18 11/22/18 06:05 06:05 WBC RBC Hgb Hct MCH 27 L RDW 15.3 H Lymph % (Auto) 5.7 L [place] % (Auto) 7.7 H Lymph # 0.5 L [place] # Seg Neutrophils % 86.5 H Seg Neuts % (Manual) Lymphocytes % (Manual) Seg Neutrophils # 7.8 H Seg Neutrophils # Man Lymphocytes # (Manual) D-Dimer POC ABG pH POC ABG pCO2 POC ABG pO2 Sodium Potassium Chloride Carbon Dioxide 35 H BUN Creatinine 0.4 L Glucose 103 H
[2018-11-22] MEDS: XANAX PO PRN (13:57)
[2018-11-23] MEDS: SOLU-Medrol IV SCH ×3 (06:04→21:21)
[2018-11-23] MEDS: HEPARIN SUB-Q SCH ×3 (06:04→21:21)
[2018-11-23] MEDS: SODIUM CHLORIDE FLUSH SYRINGE 10 ML IV SCH ×3 (08:54→21:22)
[2018-11-23] MEDS: LASIX PO SCH ×2 (08:54→10:00)
[2018-11-23] MEDS: HABITROL TD SCH ×2 (08:54→10:00)
[2018-11-23] MEDS: DUONEB *Not for PRN Use IH SCH ×3 (09:23→20:55)
[2018-11-23] MEDS: BROVANA NEBU IH SCH ×2 (09:23→20:57)
[2018-11-23] MEDS: PULMICORT IH SCH ×2 (09:23→20:57)
[2018-11-23] MEDS: COREG PO SCH ×2 (10:00→21:22)
--- NOTE | 2018-11-23 12:37 | Discharge Summary ---
Providers - Providers Date of Admission: 11/13/18 15:10 Date of discharge: 11/23/18 Attending physician: ROCIO UGALDE 11/14/18 05:23 Consult to Dietitian/Nutrition [CONS] Routine Physician Instructions: Reason For Exam: Reason for Consult: Evaluate nutritional intake 11/14/18 12:49 Consult to Dietitian/Nutrition [CONS] Routine Physician Instructions: Reason For Exam: Reason for Consult: Write/Manage Tube Feeding 11/14/18 19:39 Consult to Physician [CONS] Urgent Comment: Consulting Provider: NIKHIL HOLDER Physician Instructions: Reason For Exam: ccu admit 11/16/18 11:02 Physical Therapy Evaluation and Treat [CONS] Routine Comment: Reason For Exam: debili 11/23/18 10:35 Occupational Therapy Evaluate and Treat [CONS] Routine Comment: Reason For Exam: To determine if 3-hour IP Rehab appropriate Primary care physician: [employer] Hospitalization Reason for admission: worsening shortness of breath/acute hypoxic respiratory failure Condition: Fair Pertinent studies: CTA chest Multiple Chest x-rays Procedures: Intubation mechanical ventilation Hospital course: 73 YO Female with COPD, HLD, GERD through ED with worsening shortness of breath,cough, and wheezing over 2 days and evaluatedt and admitted to the floor , went into acute respiratory failure requiring intubation , transferred to ICU , evaluated by pulmonary critical , medications optimized Weaned and extubated , transferred to the floor , she received physical therapy occupational therapy, initially planned to discharge home with home health However PT recommended acute rehabilitation, and patient was accepted for rehabilitation. Patient is placed on tapering doses of steroids as recommended by pulmonology, Resting room air and ambulatory room air O2 sats at more than 94%, no indication for home oxygen at this time Today patient is comfortable, complains of generalized weakness Vital signs reviewed, physical examination no new changes Patient is hemodynamically and clinically stable for discharge and transfer to acute rehabilitation Discharge diagnoses; --Acute hypoxic Respiratory failure; requiring intubation, extubated --Acute exacerbation of COPD; oxygen nebulizers tapering dose of IV steroids and supportive cares --hypokalemia, corrected --SIRS (systemic inflammatory response syndrome) --Hypertension : Continue current anti`hypertensives and when necessary medications --General debility Disposition: [id number] [facility] REHAB FACILITY Time spent for discharge: 35 min Core Measure Documentation - Palliative Care Palliative Care/ Comfort Measures: Not Applicable - Core Measures Any of the following diagnoses?: none Exam - Constitutional Vitals: Temp Pulse Resp BP Pulse Ox 98.1 F 100 H 20 102/57 97 11/23/18 07:42 11/23/18 09:27 11/23/18 09:27 11/23/18 07:42 11/23/18 09:29 General appearance: Present: no acute distress, well-nourished - EENT Eyes: Present: PERRL, EOM intact - Neck Neck: Present: supple, normal ROM - Respiratory Respiratory effort: normal Respiratory: bilateral: diminished, negative: rales, rhonchi, wheezing - Cardiovascular Rhythm: regular Heart Sounds: Present: S1 & S2 - Extremities Extremities: no ischemia, No edema - Abdominal General gastrointestinal: Present: soft, non-tender - Integumentary Integumentary: Present: clear, warm - Musculoskeletal Musculoskeletal: generalized weakness - Psychiatric Psychiatric: appropriate mood/affect, cooperative - Neurologic Neurologic: CNII-XII intact, moves all extremities Plan Activity: advance as tolerated, fall precautions Diet: low salt Special Instructions: physical therapy Additional Instructions: Patient's resting room air, Ambulatory room air O2 sats are more than 94%. No indication for home oxygen Follow up with: PRIMARY CAREMD [Primary Care Provider] - 7 Days NIKHIL HOLDER MD [Staff Physician] - 7 Days Prescriptions: predniSONE [Deltasone] 10 mg PO QDAY #52 tab
--- NOTE | 2018-11-23 14:07 | Progress Note ---
Assessment and Plan Imp: 1. Centrilobular emphysema with COPD exac. 2. Acute bronchitis 3. Acute respiratory failure, hypoxia 4. A/C respiratory failure, hypercapnea 5. Chronic nicotine dependence, cigarettes Rec: 1. Prednisone taper at d/c; would consider 40mg x 3 days, 30mg x 3 days, 20mg x 3 days, 10mg x 3 days 2. Resume Bevespi and Flovent BID at d/c 3. Stop smoking permanently, counseled 4. Would ambulate her to check need for home O2 5. F/u Dr. Botello 1 week after d/c Plan of care reviewed with patient, she understands/agrees Subjective Date of service: 11/23/18 Principal diagnosis: COPD exac. Interval history: No events. On RA. Ambulating to bathroom. SOB nearing baseline. No wheezing or new complaints. Active Medications Albuterol (Proventil) 2.5 mg IH Q4HRT PRN PRN Reason: Shortness Of Breath Last Admin: 11/21/18 05:04 Dose: 2.5 mg Documented by: Albuterol/Ipratropium (Duoneb *Not For Prn Use*) 1 ampul IH TIDRT [facility] Last Admin: 11/23/18 13:19 Dose: 1 ampul Documented by: Alprazolam (Xanax) 1 mg PO Q6H PRN PRN Reason: Anxiety Last Admin: 11/22/18 13:57 Dose: 1 mg Documented by: Arformoterol Tartrate (Brovana Nebu) 15 mcg IH Q12HRT [facility] Last Admin: 11/23/18 09:23 Dose: 15 mcg Documented by: Atorvastatin Calcium (Lipitor) 40 mg PO QHS [facility] Last Admin: 11/22/18 21:30 Dose: 40 mg Documented by: Budesonide (Pulmicort) 0.5 mg IH Q12HRT [facility] Last Admin: 11/23/18 09:23 Dose: Not Given Documented by: Carvedilol (Coreg) 3.125 mg PO BID [facility] Last Admin: 11/22/18 21:32 Dose: Not Given Documented by: Furosemide (Lasix) 20 mg PO QDAY [facility] Last Admin: 11/23/18 08:54 Dose: 20 mg Documented by: Heparin Sodium (Porcine) (Heparin) 5,000 unit SUB-Q Q8HR [facility] Last Admin: 11/23/18 06:04 Dose: 5,000 unit Documented by: Hydrophilic Ointment (Vaseline Lip Therapy) 1 applic TP Q2HR PRN PRN Reason: Dry Lips Methylprednisolone Sodium Succinate (Solu-Medrol) 40 mg IV Q8HR [facility] Last Admin: 11/23/18 06:04 Dose: 40 mg Documented by: Multi-Ingred Cream/Lotion/Oil/Oint (Artificial Tears Ophth Oint) 1 applic OU Q4HR PRN PRN Reason: Dry Eye(s) Nicotine (Habitrol) 14 mg TD QDAY [facility] Last Admin: 11/23/18 08:54 Dose: 14 mg Documented by: Ondansetron HCl (Zofran) 4 mg IV Q8H PRN PRN Reason: Nausea And Vomiting Pseudoephedrine/Acetam/Chlorphenir (Robitussin Ac) 5 ml PO Q4H PRN PRN Reason: Cough Last Admin: 11/22/18 01:02 Dose: 5 ml Documented by: Sodium Chloride (Sodium Chloride Flush Syringe 10 Ml) 10 ml IV BID [facility] Last Admin: 11/23/18 08:54 Dose: 10 ml Documented by: Sodium Chloride (Sodium Chloride Flush Syringe 10 Ml) 10 ml IV PRN PRN PRN Reason: LINE FLUSH Last Admin: 11/20/18 17:52 Dose: 10 ml Documented by: Objective Vital Signs - 12hr 11/23/18 11/23/18 11/23/18 07:42 09:20 09:27 Temperature 98.1 F Pulse Rate 94 H Pulse Rate [ 99 H 100 H Anterior Bilateral Throughout] Respiratory 18 Rate Respiratory 20 20 Rate [Anterior Bilateral Throughout] Blood Pressure 102/57 O2 Sat by Pulse 97 Oximetry 11/23/18 11/23/18 11/23/18 09:29 13:17 13:26 Temperature Pulse Rate Pulse Rate [ 92 H 94 H Anterior Bilateral Throughout] Respiratory Rate Respiratory 18 15 Rate [Anterior Bilateral Throughout] Blood Pressure O2 Sat by Pulse 97 Oximetry Constitutional: no acute distress, alert Eyes: non-icteric ENT: oropharynx moist Neck: supple Effort: normal Ascultation: Bilateral: diminished breath sounds Cardiovascular: regular rate and rhythm (no mrg) Gastrointestinal: normoactive bowel sounds, soft Integumentary: normal Extremities: no cyanosis, pink and warm, other (trace bilateral LE edema) Neurologic: normal mental status, non-focal exam, pupils equal and round, CN II- XII normal, other (sedated on vent) Psychiatric: mood appropriate, affect normal CBC and BMP: 11/22/18 06:05 11/22/18 06:05 ABG, PT/INR, D-dimer: ABG POC ABG pH 7.468 (7.35-7.45) H 11/18/18 08:58 POC ABG pCO2 51.1 (35-45) H 11/18/18 08:58 POC ABG pO2 73 (80-105) L 11/18/18 08:58 POC ABG HCO3 37.0 11/18/18 08:58 POC ABG Total CO2 39 11/18/18 08:58 POC ABG O2 Sat 95 11/18/18 08:58 PT/INR, D-dimer PT 12.6 Sec. (12.2-14.9) 11/13/18 13:04 INR 0.90 (0.87-1.13) 11/13/18 13:04 D-Dimer 6484.89 ng/mlDDU (0-234) H 11/14/18 06:00 Abnormal lab findings: Abnormal Labs 11/13/18 11/13/18 11/13/18 13:04 13:04 13:04 WBC 12.8 H RBC 5.53 H Hgb 14.8 H Hct 45.6 H MCH 27 L RDW 15.5 H Lymph % (Auto) [place] % (Auto) Lymph # [place] # Seg Neutrophils % Seg Neuts % (Manual) 84.0 H Lymphocytes % (Manual) 9.0 L Seg Neutrophils # Seg Neutrophils # Man 10.8 H Lymphocytes # (Manual) D-Dimer 396.20 H POC ABG pH POC ABG pCO2 POC ABG pO2 Sodium Potassium Chloride 97.8 L Carbon Dioxide BUN Creatinine 0.5 L Glucose 123 H 11/13/18 11/14/18 11/14/18 13:59 06:00 06:00 WBC RBC Hgb Hct MCH RDW Lymph % (Auto) [place] % (Auto) Lymph # [place] # Seg Neutrophils % Seg Neuts % (Manual) Lymphocytes % (Manual) Seg Neutrophils # Seg Neutrophils # Man Lymphocytes # (Manual) D-Dimer 6484.89 H POC ABG pH 7.346 L POC ABG pCO2 54.0 H POC ABG pO2 173 H Sodium Potassium 5.9 H D Chloride 96.2 L Carbon Dioxide BUN Creatinine 0.6 L Glucose 157 H 11/14/18 11/14/18 11/14/18 06:10 10:06 10:06 WBC 15.8 H RBC 5.55 H Hgb 15.1 H Hct 47.1 H MCH 27 L RDW 16.1 H Lymph % (Auto) [place] % (Auto) Lymph # [place] # Seg Neutrophils % Seg Neuts % (Manual) Lymphocytes % (Manual) Seg Neutrophils # Seg Neutrophils # Man Lymphocytes # (Manual) D-Dimer POC ABG pH 7.303 L POC ABG pCO2 60.6 H POC ABG pO2 165 H Sodium Potassium 5.5 H Chloride 97.0 L Carbon Dioxide BUN Creatinine 0.5 L Glucose 113 H 11/15/18 11/15/18 11/15/18 04:22 14:00 14:00 WBC 14.4 H RBC Hgb Hct MCH 27 L RDW 15.5 H Lymph % (Auto) [place] % (Auto) Lymph # [place] # Seg Neutrophils % Seg Neuts % (Manual) Lymphocytes % (Manual) Seg Neutrophils # Seg Neutrophils # Man Lymphocytes # (Manual) D-Dimer POC ABG pH 7.480 H POC ABG pCO2 45.8 H POC ABG pO2 Sodium 136 L Potassium Chloride 93.8 L Carbon Dioxide 32 H D BUN 21 H Creatinine 0.6 L Glucose 126 H 11/16/18 11/16/18 11/17/18 03:55 04:05 06:00 WBC 15.5 H RBC 5.23 H Hgb Hct 43.6 H MCH 27 L RDW 15.6 H Lymph % (Auto) 3.5 L [place] % (Auto) 7.9 H Lymph # 0.5 L [place] # 1.2 H Seg Neutrophils % 88.5 H Seg Neuts % (Manual) Lymphocytes % (Manual) Seg Neutrophils # 13.7 H Seg Neutrophils # Man Lymphocytes # (Manual) D-Dimer POC ABG pH 7.460 H POC ABG pCO2 48.8 H POC ABG pO2 64 L Sodium Potassium Chloride 94.2 L Carbon Dioxide 31 H BUN 25 H Creatinine 0.6 L Glucose 161 H 11/17/18 11/18/18 11/19/18 06:00 08:58 04:41 WBC 12.3 H RBC Hgb Hct MCH 27 L RDW Lymph % (Auto) [place] % (Auto) Lymph # [place] # Seg Neutrophils % Seg Neuts % (Manual) 97.0 H Lymphocytes % (Manual) 2.0 L Seg Neutrophils # Seg Neutrophils # Man 11.9 H Lymphocytes # (Manual) 0.2 L D-Dimer POC ABG pH 7.468 H POC ABG pCO2 51.1 H POC ABG pO2 73 L Sodium Potassium Chloride 94.1 L Carbon Dioxide 31 H BUN 19 H Creatinine 0.5 L Glucose 127 H 11/19/18 11/20/18 11/20/18 04:41 10:21 10:21 WBC 11.3 H RBC 5.34 H Hgb 14.4 H Hct 44.7 H MCH 27 L RDW 15.3 H Lymph % (Auto) [place] % (Auto) Lymph # [place] # Seg Neutrophils % Seg Neuts % (Manual) 94.0 H Lymphocytes % (Manual) 3.0 L Seg Neutrophils # Seg Neutrophils # Man 10.6 H Lymphocytes # (Manual) 0.3 L D-Dimer POC ABG pH POC ABG pCO2 POC ABG pO2 Sodium Potassium 3.3 L D Chloride 97.6 L 97.8 L Carbon Dioxide 35 H 35 H BUN Creatinine 0.4 L 0.5 L Glucose 123 H 175 H 11/22/18 11/22/18 06:05 06:05 WBC RBC Hgb Hct MCH 27 L RDW 15.3 H Lymph % (Auto) 5.7 L [place] % (Auto) 7.7 H Lymph # 0.5 L [place] # Seg Neutrophils % 86.5 H Seg Neuts % (Manual) Lymphocytes % (Manual) Seg Neutrophils # 7.8 H Seg Neutrophils # Man Lymphocytes # (Manual) D-Dimer POC ABG pH POC ABG pCO2 POC ABG pO2 Sodium Potassium Chloride Carbon Dioxide 35 H BUN Creatinine 0.4 L Glucose 103 H Chest x-ray: report reviewed, image reviewed CT scan - chest: report reviewed, image reviewed
--- NOTE | 2018-11-23 15:58 | Progress Note ---
Assessment and Plan Assessment and plan: 73 YO Female with COPD, HLD, GERD through ED with worsening shortness of breath,cough, and wheezing over 2 days and evaluatedt and admitted to the floor , went into acute respiratory failure requiring intubation , transferred to ICU , evaluated by pulmonary critical , medications optimized Weaned and extubated , transferred to the floor ,now patient is on nasal cannula oxygen saturating well --Acute hypoxic Respiratory failure; requiring intubation, extubated On NC o2 , significant improvement of symptoms, try to wean NC oxygen Low-dose Lasix seem to help, cont Lasix 20 mg for next 2 days --hypokalemia, corrected --SIRS (systemic inflammatory response syndrome) likely from COPD exacerbation, stable --Hypertension : Continue current anti`hypertensives and when necessary medications --COPD with acute exacerbation IV antibiotic therapy, IV steroid therapy, cont vent Mx --DVT prophylaxis SCD to BLE while in bed Continue PT and OT Patient is stable to be discharged home With home health/home PT History Interval history: Patient seen and examined medical records reviewed No new events reported by nursing staff Patient is comfortable sitting in bed Resting room air and ambulatory resume his O2 sats at more than 95% No indication for home oxygen Vital signs reviewed Hospitalist Physical - Constitutional Vitals: Temp Pulse Resp BP Pulse Ox 98.7 F 114 H 18 98/41 96 11/23/18 13:36 11/23/18 13:36 11/23/18 13:36 11/23/18 13:36 11/23/18 13:36 General appearance: Present: no acute distress, well-nourished - EENT Eyes: Present: PERRL, EOM intact - Neck Neck: Present: supple, normal ROM - Respiratory Respiratory effort: normal Respiratory: bilateral: diminished, negative: rales, rhonchi, wheezing - Cardiovascular Rhythm: regular Heart Sounds: Present: S1 & S2 - Extremities Extremities: no ischemia, No edema - Abdominal General gastrointestinal: soft, non-tender, non-distended, normal bowel sounds - Integumentary Integumentary: Present: clear, warm - Psychiatric Psychiatric: appropriate mood/affect, cooperative - Neurologic Neurologic: CNII-XII intact, moves all extremities Results - Labs CBC & Chem 7: 11/22/18 06:05 11/22/18 06:05 Labs: Laboratory Last Values WBC 9.0 K/mm3 (4.5-11.0) 11/22/18 06:05 RBC 4.63 M/mm3 (3.65-5.03) 11/22/18 06:05 Hgb 12.5 gm/dl (10.1-14.3) 11/22/18 06:05 Hct 38.7 % (30.3-42.9) D 11/22/18 06:05 MCV 84 fl (79-97) 11/22/18 06:05 MCH 27 pg (28-32) L 11/22/18 06:05 MCHC 32 % (30-34) 11/22/18 06:05 RDW 15.3 % (13.2-15.2) H 11/22/18 06:05 Plt Count 178 K/mm3 (140-440) 11/22/18 06:05 Lymph % (Auto) 5.7 % (13.4-35.0) L 11/22/18 06:05 [place] % (Auto) 7.7 % (0.0-7.3) H 11/22/18 06:05 Eos % (Auto) 0.0 % (0.0-4.3) 11/22/18 06:05 Baso % (Auto) 0.1 % (0.0-1.8) 11/22/18 06:05 Lymph # 0.5 K/mm3 (1.2-5.4) L 11/22/18 06:05 [place] # 0.7 K/mm3 (0.0-0.8) 11/22/18 06:05 Eos # 0.0 K/mm3 (0.0-0.4) 11/22/18 06:05 Baso # 0.0 K/mm3 (0.0-0.1) 11/22/18 06:05 Add Manual Diff Complete 11/20/18 10:21 Total Counted 100 11/20/18 10:21 Seg Neutrophils % 86.5 % (40.0-70.0) H 11/22/18 06:05 Seg Neuts % (Manual) 94.0 % (40.0-70.0) H 11/20/18 10:21 Band Neutrophils % 0 % 11/20/18 10:21 Lymphocytes % (Manual) 3.0 % (13.4-35.0) L 11/20/18 10:21 Reactive Lymphs % (Man) 0 % 11/20/18 10:21 Monocytes % (Manual) 3.0 % (0.0-7.3) 11/20/18 10:21 Eosinophils % (Manual) 0 % (0.0-4.3) 11/20/18 10:21 Basophils % (Manual) 0 % (0.0-1.8) 11/20/18 10:21 Metamyelocytes % 0 % 11/20/18 10:21 Myelocytes % 0 % 11/20/18 10:21 Promyelocytes % 0 % 11/20/18 10:21 Blast Cells % 0 % 11/20/18 10:21 Nucleated RBC % Not Reportable 11/20/18 10:21 Seg Neutrophils # 7.8 K/mm3 (1.8-7.7) H 11/22/18 06:05 Seg Neutrophils # Man 10.6 K/mm3 (1.8-7.7) H 11/20/18 10:21 Band Neutrophils # 0.0 K/mm3 11/20/18 10:21 Lymphocytes # (Manual) 0.3 K/mm3 (1.2-5.4) L 11/20/18 10:21 Abs React Lymphs (Man) 0.0 K/mm3 11/20/18 10:21 Monocytes # (Manual) 0.3 K/mm3 (0.0-0.8) 11/20/18 10:21 Eosinophils # (Manual) 0.0 K/mm3 (0.0-0.4) 11/20/18 10:21 Basophils # (Manual) 0.0 K/mm3 (0.0-0.1) 11/20/18 10:21 Metamyelocytes # 0.0 K/mm3 11/20/18 10:21 Myelocytes # 0.0 K/mm3 11/20/18 10:21 Promyelocytes # 0.0 K/mm3 11/20/18 10:21 Blast Cells # 0.0 K/mm3 11/20/18 10:21 WBC Morphology Not Reportable 11/20/18 10:21 Hypersegmented Neuts Not Reportable 11/20/18 10:21 Hyposegmented Neuts Not Reportable 11/20/18 10:21 Hypogranular Neuts Not Reportable 11/20/18 10:21 Smudge Cells Not Reportable 11/20/18 10:21 Toxic Granulation Not Reportable 11/20/18 10:21 Toxic Vacuolation Not Reportable 11/20/18 10:21 Dohle Bodies Not Reportable 11/20/18 10:21 Pelger-Huet Anomaly Not Reportable 11/20/18 10:21 Kaycee Rods Not Reportable 11/20/18 10:21 Platelet Estimate Consistent w auto 11/20/18 10:21 Clumped Platelets Not Reportable 11/20/18 10:21 Plt Clumps, EDTA Not Reportable 11/20/18 10:21 Large Platelets Not Reportable 11/20/18 10:21 Giant Platelets Not Reportable 11/20/18 10:21 Platelet Satelliting Not Reportable 11/20/18 10:21 Plt Morphology Comment Not Reportable 11/20/18 10:21 RBC Morphology Not Reportable 11/20/18 10:21 Dimorphic RBCs Not Reportable 11/20/18 10:21 Polychromasia Not Reportable 11/20/18 10:21 Hypochromasia Not Reportable 11/20/18 10:21 Poikilocytosis 1+ 11/20/18 10:21 Anisocytosis 1+ 11/20/18 10:21 Microcytosis Not Reportable 11/20/18 10:21 Macrocytosis Not Reportable 11/20/18 10:21 Spherocytes Not Reportable 11/20/18 10:21 Pappenheimer Bodies Not Reportable 11/20/18 10:21 Sickle Cells Not Reportable 11/20/18 10:21 Target Cells Not Reportable 11/20/18 10:21 Tear Drop Cells Not Reportable 11/20/18 10:21 Ovalocytes Few 11/20/18 10:21 Helmet Cells Not Reportable 11/20/18 10:21 [place] Bodies Not Reportable 11/20/18 10:21 [place] Rings Not Reportable 11/20/18 10:21 Jonn Cells Not Reportable 11/20/18 10:21 Bite Cells Not Reportable 11/20/18 10:21 Crenated Cell Not Reportable 11/20/18 10:21 Elliptocytes Not Reportable 11/20/18 10:21 Acanthocytes (Spur) Not Reportable 11/20/18 10:21 Rouleaux Not Reportable 11/20/18 10:21 Hemoglobin C Crystals Not Reportable 11/20/18 10:21 Schistocytes Not Reportable 11/20/18 10:21 Malaria parasites Not Reportable 11/20/18 10:21 Zhang Bodies Not Reportable 11/20/18 10:21 Hem Pathologist Commnt No 11/20/18 10:21 PT 12.6 Sec. (12.2-14.9) 11/13/18 13:04 INR 0.90 (0.87-1.13) 11/13/18 13:04 APTT 32.1 Sec. (24.2-36.6) 11/13/18 13:04 D-Dimer 6484.89 ng/mlDDU (0-234) H 11/14/18 06:00 POC ABG pH 7.468 (7.35-7.45) H 11/18/18 08:58 POC ABG pCO2 51.1 (35-45) H 11/18/18 08:58 POC ABG pO2 73 (80-105) L 11/18/18 08:58 POC ABG HCO3 37.0 11/18/18 08:58 POC ABG Total CO2 39 11/18/18 08:58 POC ABG O2 Sat 95 11/18/18 08:58 POC ABG Base Excess 13 11/18/18 08:58 FiO2 35 % 11/18/18 08:58 Sodium 141 mmol/L (137-145) 11/22/18 06:05 Potassium 3.9 mmol/L (3.6-5.0) 11/22/18 06:05 Chloride 98.0 mmol/L (98-107) 11/22/18 06:05 Carbon Dioxide 35 mmol/L (22-30) H 11/22/18 06:05 Anion Gap 12 mmol/L 11/22/18 06:05 BUN 15 mg/dL (7-17) 11/22/18 06:05 Creatinine 0.4 mg/dL (0.7-1.2) L 11/22/18 06:05 Estimated GFR > 60 ml/min 11/22/18 06:05 BUN/Creatinine Ratio 38 % 11/22/18 06:05 Glucose 103 mg/dL (65-100) H 11/22/18 06:05 POC Glucose 93 (70-105) 11/15/18 16:59 Calcium 8.4 mg/dL (8.4-10.2) 11/22/18 06:05 Magnesium 2.10 mg/dL (1.7-2.3) 11/22/18 06:05 Total Bilirubin 0.50 mg/dL (0.1-1.2) 11/14/18 06:00 AST 26 units/L (5-40) 11/14/18 06:00 ALT 34 units/L (7-56) 11/14/18 06:00 Alkaline Phosphatase 108 units/L (35-129) 11/14/18 06:00 Troponin T < 0.010 ng/mL (0.00-0.029) 11/13/18 13:04 Total Protein 6.8 g/dL (6.3-8.2) 11/14/18 06:00 Albumin 3.9 g/dL (3.9-5) 11/14/18 06:00 Albumin/Globulin Ratio 1.3 % 11/14/18 06:00 Nutrition/Malnutrition Assess - Dietary Evaluation Nutrition/Malnutrition Findings: Nutrition Notes Start: 11/14/18 14:19 Freq: Status: Active Protocol: Document 11/19/18 13:25 KH (Rec: 11/19/18 13:49 [email or web address]) Co-Sign 11/19/18 13:25 OL Nutrition Notes Initial or Follow up Reassessment Current Diagnosis COPD Respiratory Failure Hyperlipidemia Current Diet Mechanical soft Labs/Tests K: 3.3 Cr: 0.4 Pertinent Medications Solu-medrol Height 5 ft 4 in Weight 71.4 kg [place] Body Weight (lbs) 120.0 BMI 27.0 Weight Status Overweight Subjective/Other Information F/u for diet advancement. Pt. now consuming mechanical soft diet. Pt. ate about 50% of breakfast plate per RN. RN denied pt. experiencing chewing/swallowing difficulties with mechanical soft diet. Percent of energy/protein needs met: 74%/58% Burn Absent Trauma Absent #1 Nutrition Diagnosis Inadequate oral intake As Evidenced by Signs and Symptoms Consumption of mechanical soft diet. Diagnosis Progress(for reassessment Improved documentation) Is patient on ventilator? No Is Patient Ambulatory and/or Out of Bed No REE-(Gardner-St. Jeor-confined to bed) 1456.860 Calculation Used for Recommendations [facility] Additional Notes protein (1.2-2g/kg): 86-143g/ day fluid: 1mL/kcal or per MD Nutrition Intervention Change Diet Order: Continue mechanical soft diet Add Supplement/Snack (indicate name/kcal Ensure Enlive daily /protein ) Provides kCal: 350 Provides Protein (gm) 20 Goal #1 Meet at least 80% of energy and protein needs via ONS and PO intakes Anticipated Discharge Needs: Continue mechanical soft diet with ONS PRN Follow-Up By: 11/24/18 Additional Comments F/u: PO and ONS intakes
[2018-11-23] MEDS: XANAX PO PRN (16:48)
[2018-11-23 20:40] VITALS: BP 92/62
== END 2018-11-23 21:35 | DRG 208 ==
LOC: ED 12:03 → 2B-ACE 15:10 → CC1 11-14 05:38 → 2B-ACE 11-19 16:27
PROVIDERS: ADMIT Internal Medicine; ATTEND Internal Medicine
PROC: 4A033R1 Measurement of Arterial Saturation, Peripheral, Percutaneous Approach (ICD-10-PCS; 2018-11-13)
PROC: 5A1945Z Respiratory Ventilation, 24-96 Consecutive Hours (ICD-10-PCS; principal; 2018-11-14)
PROC: 0BH17EZ Insertion of Endotracheal Airway into Trachea, Via Natural or Artificial Opening (ICD-10-PCS; 2018-11-14)
PROC: 06HY33Z Insertion of Infusion Device into Lower Vein, Percutaneous Approach (ICD-10-PCS; 2018-11-14)
PROC: 5A09357 Assistance with Respiratory Ventilation, Less than 24 Consecutive Hours, Continuous Positive Airway Pressure (ICD-10-PCS; 2018-11-17)
PROC: 5A09357 Assistance with Respiratory Ventilation, Less than 24 Consecutive Hours, Continuous Positive Airway Pressure (ICD-10-PCS; 2018-11-18)
DX: J96.21 Acute and chronic respiratory failure with hypoxia (principal); R65.10 Systemic inflammatory response syndrome (SIRS) of non-infectious origin without acute organ dysfunction; J44.1 Chronic obstructive pulmonary disease with (acute) exacerbation; J44.0 Chronic obstructive pulmonary disease with (acute) lower respiratory infection; F41.9 Anxiety disorder, unspecified; E87.6 Hypokalemia; J98.01 Acute bronchospasm; I10 Essential (primary) hypertension; F17.210 Nicotine dependence, cigarettes, uncomplicated; E78.5 Hyperlipidemia, unspecified; K21.9 Gastro-esophageal reflux disease without esophagitis; Z79.51 Long term (current) use of inhaled steroids; Z79.899 Other long term (current) drug therapy; Z79.82 Long term (current) use of aspirin; Z79.01 Long term (current) use of anticoagulants; J20.9 Acute bronchitis, unspecified
CPT/HCPCS: 31500; 36415; 36600; 71045; 71275; 74018; 80048; 80053; 82803; 82962; 83735; 84484; 85007; 85025; 85027; 85379; 85610; 85730; 87070; 87205; 93005; 93010; 94002; 94003; 94640; 94660; 94760; 96361; 96374; G0378; A9270-GY; J0330; J0456; J0610; J0696; J1644; J1940; J2060; J2250; J2920; J2930; J3010; J3475; J7030; J7050; Q9967

== ENCOUNTER 2018-11-23 17:19 | Inpatient (IN) | payer MEDICARE ==
[2018-11-23] MEDS ORDERED: TESSALON PERLES PO PRN (19:42)
[2018-11-24] MEDS: HEPARIN SUB-Q SCH ×4 (06:30→22:10)
[2018-11-24] MEDS: COREG PO SCH ×3 (06:39→22:18)
--- NOTE | 2018-11-24 07:30 | History and Physical Report ---
History of Present Illness Date: 11/24/18 Date of admission: 11/23/18 19:32 Chief Complaint: Debility History of present illness: 73-year-old female with shortness of breath, worsening cough, and wheezing several days prior to presentation to her waxer tender was evaluated and instructed to seek further care or the ER. She was found to have COPD exacerbation, care by acute respiratory failure and SIRS. She was started on IV antibiotics, steroids and admitted to the [facility] unit. She then required intubation and was transferred to the ICU. Chest CTA did not show large central pulmonary artery emboli however could not exclude significant emboli. There was significant chronic hyperinflation and in increased secretions. She was weaned off the vent, extubated and placed on BiPAP. Steroids were weaned and she will be on prolonged wean of 2 weeks. She was also weaned to room air but ended up needing to be on supplemental oxygen with nasal cannula. There was discussion of patient being discharged to home with home health versus SNF versus acute inpatient rehabilitation. Therapy evaluated the patient and determined that she could tolerate the intensity of acute inpatient rehabilitation program. With the tenuous nature of the patient's respiratory system and the need for close monitoring while she continues to recover felt she was an appropriate candidate and would be more appropriately cared for in the acute inpatient rehabilitation setting prior to going back to her home environment where she has intermittent to limited assistance. She was previously independent with mobility and ADLs and currently requires moderate assistance with most ADLs and has decreased activity tolerance. We'll monitor her closely over the next 7-10 days while i mproving her functional and respiratory status prior to discharging home with the hopes of decreasing her need for a return to Hospital for treatment. We'll also work on energy conservation strategies to help her improve her function at home. After she was medically cleared she was transferred to the acute inpatient rehabilitation unit. She was discussed in Team Conference today. All available records were reviewed. Past History Past Medical History: COPD, GERD, hypertension, hyperlipidemia Past Surgical History: No surgical history Social history: lives with family, smoking, other (two-story home, home alone much of the time, some EtOH use) Family history: CAD, hypertension Medications and Allergies Allergies Allergy/AdvReac Type Severity Reaction Status Date / Time No Known Allergies Allergy Verified 11/13/18 12:09 Home Medications Medication Instructions Recorded Confirmed Last Taken Type ALBUTEROL Inhaler 2 puff INHALATION PRN PRN 30 Days 08/01/18 11/13/18 11/13/18 08:30 Rx Albuterol Sulfate [Albuterol 0.63% 0.63 mg IH TID PRN #30 vial.neb 08/01/18 11/13/18 11/13/18 08:30 Rx NEBS] Aspirin 325 mg PO DAILY 09/18/18 11/13/18 11/12/18 21:00 History Bevespi Aerosphere Inhaler 9 mcg INHALATION DAILY 09/18/18 11/13/18 11/13/18 History Flovent 44 MCG/PUFF HFA 2 inhalation PO BID 09/18/18 11/13/18 09/17/18 20:00 History Melatonin 10 mg Tablet 10 mg PO QHS 09/18/18 11/13/18 11/11/18 22:00 History AtorvaSTATin [Lipitor] 40 mg PO QHS #30 tablet 09/21/18 11/13/18 11/13/18 22:00 Rx Carvedilol [Coreg] 3.125 mg PO BID #60 tablet 09/21/18 11/13/18 11/13/18 10:00 Rx Lisinopril [Zestril TAB] 5 mg PO QDAY #30 tablet 09/21/18 11/13/18 11/13/18 Rx guaiFENesin [Robitussin] 200 mg PO Q4H PRN 10 Days 09/21/18 11/13/18 11/13/18 Rx oral.liqd Benzonatate [Tessalon Perles] 100 mg PO Q8HR PRN #20 capsule 10/31/18 11/13/18 11/13/18 08:00 Rx traMADol [Ultram 50 MG tab] 50 mg PO Q6HR PRN #7 tablet 10/31/18 11/13/18 11/13/18 11:00 Rx ALPRAZolam [Xanax TAB] 0.25 mg PO Q8H PRN #30 tablet 11/06/18 11/13/18 11/13/18 08:00 Rx 0.5 Nicotine [Habitrol] 14 mg TD QDAY #30 patch 11/06/18 11/13/18 11/13/18 15:00 Rx predniSONE [Deltasone] 10 mg PO QDAY #52 tab 11/23/18 Unknown Rx Active Meds: Active Medications Acetaminophen (Tylenol) 650 mg PO Q4H PRN PRN Reason: Pain MILD(1-3)/Fever >100.5/BLANC Albuterol (Proventil) 2.5 mg IH Q4HRT PRN PRN Reason: Shortness Of Breath Alprazolam (Xanax) 0.25 mg PO Q8H PRN PRN Reason: Anxiety Atorvastatin Calcium (Lipitor) 40 mg PO QHS [facility] Last Admin: 11/24/18 06:39 Dose: Not Given Documented by: Benzonatate (Tessalon Perles) 100 mg PO Q8HR PRN PRN Reason: Cough Carvedilol (Coreg) 3.125 mg PO BID [facility] Last Admin: 11/24/18 06:39 Dose: Not Given Documented by: Guaifenesin (Robitussin) 200 mg PO Q4H PRN PRN Reason: Cough Heparin Sodium (Porcine) (Heparin) 5,000 unit SUB-Q Q8HR [facility] Last Admin: 11/24/18 06:37 Dose: 5,000 unit Documented by: Lisinopril (Zestril) 5 mg PO QDAY [facility] Nicotine (Habitrol) 14 mg TD QDAY [facility] Prednisone (Deltasone) 60 mg PO QDAY [facility] Stop: 11/27/18 08:01 Prednisone (Deltasone) 40 mg PO QDAY [facility] Stop: 12/01/18 08:01 Prednisone (Deltasone) 20 mg PO QDAY [facility] Stop: 12/05/18 08:01 Prednisone (Deltasone) 10 mg PO QDAY [facility] Stop: 12/09/18 08:01 Tramadol HCl (Ultram) 50 mg PO Q6H PRN PRN Reason: Pain Review of Systems All systems: negative (12 systems reviewed and NEG except as noted) Constitutional: fatigue, weakness, no fever Cardiovascular: shortness of breath, dyspnea on exertion, decreased exercise tolerance, no chest pain, no syncope Respiratory: cough, no home oxygen Gastrointestinal: no nausea, no vomiting, no diarrhea, no constipation Integumentary: other (Bruising from lines/blood draws) Exam - Exam Narrative exam: MUSCULOSKELETAL SPECIALTY EXAM Constitutional: Well developed, well nourished, appropriately groomed Lymphatic: No appreciable abnormalities palpable in neck EENT: Visual burton full to confrontation. EOMI. Oropharynx clear. Hearing intact to soft voice Respiratory: Clear to ascultation bilaterally, diminished, no increased work of breathing, occ cough. Cardiovascular Regular Rate/ Rhythm, no swelling edema or tenderness in all 4 extremities. Pulses palpable in all 4 extremities. All 4 extremities warm. GI : + bowel sounds, soft, NTTP, nondistended INTEGUMENTARY Normal in all 4 extremities, except bruising in BUE Musuloskeletal BUE and RLE normal without defect, crepitus, sublux, effusion, or TTP. BUE 4+/5, good ROM with normal tone. BLE 4-/5 good ROM, with normal tone NEURO: CN 2-12 grossly intact. Sensation intact in all extremities. Reflexes 1+ bilaterally at biceps, brachioradialis and patella. No clonus at ankles. Coordination intact. No tremor noted. POSTURE and GAIT: Sitting posture good. Balance reasonable. Gait deferred until seen with therapy. PSYCH: Alert, orientated x3, affect appears normal. Insight appears intact. - Constitutional Vitals: Vital Signs - 12hr 11/23/18 11/24/18 11/24/18 22:00 00:18 01:06 Temperature 36.6 C 36.2 C L Pulse Rate 103 H 89 87 Respiratory 18 18 18 Rate Blood Pressure 129/65 Blood Pressure 96/76 [Right] O2 Sat by Pulse 96 97 95 Oximetry 11/24/18 11/24/18 01:08 03:38 Temperature 36.4 C Pulse Rate 90 Respiratory 17 Rate Blood Pressure 102/48 Blood Pressure [Right] O2 Sat by Pulse 95 95 Oximetry - Allied health notes Allied health notes reviewed: nursing, PT, OT - Labs CBC & Chem 7: 11/24/18 08:03 11/24/18 08:03 Assessment and Plan Assessment and plan: Patient was assessed and evaluated for Acute Inpatient Rehab Unit. Due to the patients above-mentioned medical complexity, along with decreased functional mobility and self care, this patient continues to require and be appropriate for a comprehensive, multidisciplinary [id number] rehabilitation program. These needs cannot be met in an outpatient or other less intensive setting. The patient would continue to benefit from skilled therapy intervention for at least 3 hours per day, five days a week, with techniques specific to the needs of the patient to improve function, activities of daily living, and reintegration into the community. The patient continues to require: -- OT to improve ROM, self-care, and learn use of adaptive equipment -- PT to improve strength and balance, functional transfers, and ambulation with energy conservation techniques to improve functional mobility -- 24 hour RN to ensure and prevent skin breakdown, promote progressive independence while ensuring safety, ensure education regarding medications, and incorporation of the rehabilitation at the bedside -- 24 hour Manager Advertising to coordinate this interdisciplinary program, and to manage/prevent complications as a result of the patients medical comorbidities. -Plan of care by day 4 -Weekly team conferences With such a program, there is a reasonable certainty that the goals individualized for this patient can be achieved within the specified length of stay. Z73.6 ADL dysfunction: OT will work on improving ability to perform ADLs (including assistive devices) to increase independence and decrease caregiver burden and improve functional transfers and mobility training. R26.2 Difficulty walking: PT will work on gait training and proper use of assistive devices and advance as appropriate to use of stairs and outside ambulation on uneven surfaces. R26.81 Unsteadiness on feet: PT will work on improving static and dynamic sitting and standing balance as well as proper use of assistive devices to decrease risk of falls. R26.89 Abnormality of gait: PT will work to improve safety and efficiency of gait through neuromotor training and gait training along with instruction on proper use of assistive devices. M62.81 Muscle weakness: PT & OT will work on strengthening exercises to improve functional strength including mixture of closed and open kinetic chain exercises. R53.81 Debility: PT & OT will work on improving overall functional status to improve participation with ADLs, mobility and social involvement. R53.83 Fatigue: PT & OT will work on improving endurance through aerobic exercises and therapeutic activity while monitoring patients tolerance for activity and vital signs as needed. E78.5 Hyperlipidemia: Reported during prior hospitalization, however not on a statin and do not see current lipid profile. Will order and treat as needed. I10 Hypertension: Continue medications and adjust as needed F17.210 Nicotine dependence: Discussed cessation. Nicotine patch J44.9 COPD: Continue medications, RT prn. Pulm follow up. DVT ppx: Heparin Pain: Continue physical modalities in therapy and pain medications as needed to achieve functional pain control. Sleep: Monitor and address as needed. Bowel: Monitor and address as needed. Appetite: Monitor and address as needed. Discharge planning: Pending therapy progress and care plan meeting. Will continue discussion with therapy team, SW, patient and family. Restrictions/ Precautions: Falls WB status: FWB Functional Hx: ADLs: Independent Cognition: Independent Mobility: independent Barriers to Discharge: Decreased mobility and ability to perform self care, balance deficits, weakness Estimated Length of Stay: 7 -10 days Discharge Destination: Home with family, alone most of the time POST ADMISSION PHYSICIAN EVALUATION I have examined the patient and find that her functional status, medical condition and appropriateness for IRF admission are essentially unchanged from those described in the preadmission screening. Will monitor for worsening pulmonary status, DVT/PE, bowel and bladder complications and complications due to hypertension and electrolyte abnormalities. Will attempt to avoid occurrence of these issues or treat them if they present themselves.
[2018-11-24] MEDS ORDERED: DELTASONE PO SCH (08:00)
[2018-11-24 08:40] LABS: Basophils % (Auto) 0.2 % (0.0-1.8); Eosinophils % (Auto) 0.2 % (0.0-4.3); Hematocrit 42.8 % (30.3-42.9); Hemoglobin 13.9 gm/dl (10.1-14.3); Lymphocytes # (Auto) 1.5 K/mm3 (1.2-5.4); Lymphocytes % (Auto) 13.5 % (13.4-35.0); Mean Corpuscular HGB Conc 33 % (30-34); Mean Corpuscular Volume 83 fl (79-97); Monocytes # (Auto) 0.7 K/mm3 (0.0-0.8); Monocytes % (Auto) 6.5 % (0.0-7.3); Platelet Count 225 K/mm3 (140-440); Red Blood Count 5.17 M/mm3 (3.65-5.03); Red Cell Distribution Width 15.5 % (13.2-15.2)
[2018-11-24] MEDS: ZESTRIL PO SCH (08:44)
[2018-11-24] MEDS: HABITROL TD SCH (08:46)
[2018-11-24] MEDS: DELTASONE PO SCH (08:46)
[2018-11-24 08:50] LABS: Alanine Aminotransferase 155 units/L (7-56); Albumin 3.4 g/dL (3.9-5); BUN/Creatinine Ratio 24; Blood Urea Nitrogen 12 mg/dL (7-17); Calcium 8.6 mg/dL (8.4-10.2); Hemolysis Index 9
[2018-11-24] MEDS: XANAX PO PRN (17:48)
[2018-11-24] MEDS: ROBITUSSIN PO PRN (22:09)
[2018-11-24] MEDS: ULTRAM PO PRN (22:11)
[2018-11-25] MEDS: HEPARIN SUB-Q SCH ×3 (05:33→21:09)
[2018-11-25] MEDS: ROBITUSSIN PO PRN (06:06)
[2018-11-25] MEDS: HABITROL TD SCH (08:43)
[2018-11-25] MEDS: DELTASONE PO SCH (08:43)
[2018-11-25] MEDS: COREG PO SCH ×2 (08:43→21:09)
[2018-11-25] MEDS: ZESTRIL PO SCH (08:44)
[2018-11-25] MEDS: XANAX PO PRN (22:39)
[2018-11-25] MEDS: PROVENTIL IH PRN (22:45)
[2018-11-26] MEDS: HEPARIN SUB-Q SCH ×3 (05:31→21:10)
[2018-11-26] MEDS: ROBITUSSIN PO PRN ×2 (05:36→21:10)
[2018-11-26] MEDS: COREG PO SCH ×2 (07:56→21:11)
[2018-11-26] MEDS: DELTASONE PO SCH (07:56)
[2018-11-26] MEDS: HABITROL TD SCH (07:57)
--- NOTE | 2018-11-26 08:54 | Progress Note ---
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 She was found to have COPD exacerbation, care by acute respiratory failure and SIRS. She was started on IV antibiotics, steroids and admitted to the [facility] unit. She then required intubation and was transferred to the ICU. She is pretty sparing in therapy and making decent progress. She is having issues with shortness of breath on exertion and taking breaks as needed. We'll continue to trial her off oxygen to see how she progresses during activity. At rest she is able to tolerate room air. Still exhibits decreased activity tolerance and decreased endurance. +BM. Vital signs within acceptable limits, blood pressure has been on the lower side and lisinopril has been held. Decreased as lisinopril and added hold orders. Continue therapy to improve functional mobility and activity. No other issues from patient, nursing or therapy. All available records were reviewed. Objective - Exam Narrative Exam: MUSCULOSKELETAL SPECIALTY EXAM Constitutional: Well developed, well nourished, appropriately groomed EENT: Visual [place] full to confrontation. Hearing intact to soft voice Respiratory: Clear to ascultation bilaterally, diminished, no increased work of breathing, occ cough. Cardiovascular Regular Rate/ Rhythm, no swelling edema or tenderness in all 4 extremities. All 4 extremities warm. GI : + bowel sounds, soft, NTTP, nondistended INTEGUMENTARY Normal in all 4 extremities, except bruising in BUE Musuloskeletal BUE and RLE normal without defect, crepitus, sublux, effusion, or TTP. BUE 4+/5, good ROM with normal tone. BLE 4-/5 good ROM, with normal tone NEURO: CN 2-12 grossly intact. Sensation intact in all extremities. No tremor noted. POSTURE and GAIT: Sitting posture good. Balance reasonable. Gait deferred until seen with therapy. PSYCH: Alert, orientated x3, affect appears normal. Insight appears intact. - Constitutional Vitals: Vital Signs - 12hr 11/25/18 11/25/18 11/25/18 21:09 21:26 22:00 Temperature Pulse Rate 78 Pulse Rate [ Anterior Bilateral Throughout] Respiratory 20 Rate Respiratory Rate [Anterior Bilateral Throughout] Blood Pressure 137/68 Blood Pressure [Right] O2 Sat by Pulse 98 98 Oximetry 11/25/18 11/25/18 11/26/18 22:45 22:55 03:41 Temperature Pulse Rate Pulse Rate [ 76 78 Anterior Bilateral Throughout] Respiratory 20 Rate Respiratory 20 20 Rate [Anterior Bilateral Throughout] Blood Pressure 105/62 Blood Pressure [Right] O2 Sat by Pulse Oximetry 11/26/18 11/26/18 07:00 07:33 Temperature 36.8 C Pulse Rate 86 Pulse Rate [ Anterior Bilateral Throughout] Respiratory 18 Rate Respiratory Rate [Anterior Bilateral Throughout] Blood Pressure Blood Pressure 107/64 [Right] O2 Sat by Pulse 97 Oximetry - Allied health notes Allied health notes reviewed: nursing, PT, OT FIMS assessment as documented by PT/OT/ST: Grooming Patient cleans teeth/dentures: Yes Patient beal/brushes hair: No Patient washes, rinses and Yes dries face: Patient washes, rinses and Yes dries hands: Patient applies make-up: No Patient performs (no make-up/ 3/4 (75%) shaving): Grooming FIM Score 5. Supervision ([place] applies toothpaste or opens containers.) Toileting Toileting Device Bedside Commode Patient able to: Adjust clothes before,Clean self,Adjust clothes after Patient able to perform: 3/3 (100%) Toileting FIM Score 4. Minimal Assistance (Patient = 75% or more. Needs touching.) Social interaction/Memory/Problem solving Social Interaction FIM Score 7. Complete [place] (Interacts appropriately. Controls temper.) Memory FIM Score 5. Supervision (Needs cueing <10%, stressful/ unfamiliar situations.) Problem Solving FIM Score 5. Supervision (Needs cueing <10% to solve routine problems.) Transfers Mode of Locomotion: Walking Bed/Chair/Wheelchair Transfers 5. Supervision (Needs supv. or set-up for FIM Score sliding board, foot rests.) Toilet Transfers FIM Score 4. Minimal Assistance (Patient = 75% or more. Needs touching.) Patient transferred to: Shower Shower Transfers FIM Score 4. Minimal Assistance (Patient = 75% or more. Needs touching.) Locomotion- Stairs Device used on Stairs Handrail/s Number of Stairs Ascended/ 12 Descended Patient used handrail/support: Yes Stairs FIM Score 4. Minimal Assistance (Patient = 75% or more, touching. 12-14 stairs.) Locomotion- walk/wheelchair Most Frequent Mode of Walking Locomotion: Ambulation Distance 340 Walking FIM Score 5. Supervision (Minimum 150 ft. supv./cues or 50 ft. independently.) Wheelchair Propulsion Distance 340 Wheelchair FIM Score 5. Supervision (Minimum 150 ft. supv./cues or 50 ft. independently.) Eating Eating FIM Score 7. Complete [place] (Cuts meat, opens containers, regular diet.) Dressing-Upper body Patient retrieves clothing No items: Patient applies/removes UE No: n/a prosthesis or orthosis: Upper Body Dressing FIM Score 5. Supv./Set-Up ([place] sets out clothes or applies pros./orth.) Dressing-lower body Patient retrieves clothing No items: Patient applies/removes LE No: n/a prosthesis or orthosis: Lower Body Dressing FIM Score 5. Supv./Set-Up ([place] sets out clothes or applies pros./orth.) - Labs CBC & Chem 7: 11/24/18 08:03 11/24/18 08:03 Labs: Laboratory Results - last 72 hr 11/24/18 11/24/18 11/24/18 08:03 08:03 22:29 WBC 10.8 RBC 5.17 H Hgb 13.9 Hct 42.8 MCV 83 MCH 27 L MCHC 33 RDW 15.5 H Plt Count 225 Lymph % (Auto) 13.5 [place] % (Auto) 6.5 Eos % (Auto) 0.2 Baso % (Auto) 0.2 Lymph # 1.5 [place] # 0.7 Eos # 0.0 Baso # 0.0 Seg Neutrophils % 79.6 H Seg Neutrophils # 8.6 H Sodium 144 Potassium 4.2 Chloride 102.5 Carbon Dioxide 30 Anion Gap 16 BUN 12 Creatinine 0.5 L Estimated GFR > 60 BUN/Creatinine Ratio 24 Glucose 92 POC Glucose 85 Calcium 8.6 Total Bilirubin 0.80 AST 44 H ALT 155 H Alkaline Phosphatase 81 Total Protein 5.9 L Albumin 3.4 L Albumin/Globulin Ratio 1.4 Assessment and Plan Z73.6 ADL dysfunction: OT will work on improving ability to perform ADLs (including assistive devices) to increase independence and decrease caregiver b urden and improve functional transfers and mobility training. R26.2 Difficulty walking: PT will work on gait training and proper use of assistive devices and advance as appropriate to use of stairs and outside ambulation on uneven surfaces. R26.81 Unsteadiness on feet: PT will work on improving static and dynamic sitting and standing balance as well as proper use of assistive devices to decrease risk of falls. R26.89 Abnormality of gait: PT will work to improve safety and efficiency of gait through neuromotor training and gait training along with instruction on proper use of assistive devices. M62.81 Muscle weakness: PT & OT will work on strengthening exercises to improve functional strength including mixture of closed and open kinetic chain exercises. R53.81 Debility: PT & OT will work on improving overall functional status to improve participation with ADLs, mobility and social involvement. R53.83 Fatigue: PT & OT will work on improving endurance through aerobic exercises and therapeutic activity while monitoring patients tolerance for activity and vital signs as needed. E78.5 Hyperlipidemia: Continue statin I10 Hypertension: Reduced lisinopril. Continue medications and adjust as needed F17.210 Nicotine dependence: Discussed cessation. Nicotine patch J44.9 COPD: Continue medications, RT prn. Pulm follow up. DVT ppx: Heparin Pain: Continue physical modalities in therapy and pain medications as needed to achieve functional pain control. Sleep: Monitor and address as needed. Bowel: Monitor and address as needed. Appetite: Monitor and address as needed. Discharge planning: Pending therapy progress and care plan meeting. Will continue discussion with therapy team, SW, patient and family. Restrictions/ Precautions: Falls WB status: FWB Functional Hx: ADLs: Independent Cognition: Independent Mobility: independent Barriers to Discharge: Decreased mobility and ability to perform self care, balance deficits, weakness Estimated Length of Stay: 7 -10 days Discharge Destination: Home with family, alone most of the time
[2018-11-26] MEDS: ZESTRIL PO SCH ×2 (10:20→15:04)
--- NOTE | 2018-11-26 10:45 | IRU Plan of Care ---
Interdisciplinary Plan of Care - IP IRU INTERDISCIPLINARY PLAN: [facility] Inpatient Rehab Unit Plan of Care IRU Interdisciplinary Care Plan Start: 11/23/18 22:08 Freq: Admission then PRN Status: Active Protocol: Document 11/26/18 09:22 TH (Rec: 11/26/18 09:36 TH [id number]) Interdisciplinary Problem List Interdisciplinary Problem List Interdisciplinary Problem List Impaired Bathing/Grooming Query Text:Answers will Trigger Problems Impaired Dressing and Outcomes on Worklist. Impaired Mobility Impaired Transfers Impaired Toileting Discharge Concerns Impaired Safety Medications Education Impaired Oxygenation IRU Interdisciplinary Care Plan Therapy Services Therapy Services Will Include: Physical Therapy Query Text:Patient will be seen for a Occupational Therapy minimum of 3 hours of daily therapy 5 out of 7 days a week. Therapy intensity may be adjusted within a 7 consecutive day period to effectively serve the individual needs of the patient. Treatment Frequency/Intensity/Duration Treatment Frequency 5 days/week Treatment Intensity 3 hours/ day Treatment Duration 7-10 days Problem Area: Eating/Swallowing Eating/Swallowing Outcomes Improve Labial ROM/Strength Improve Lingual ROM/Strength Eating/Swallowing Interventions ADL Training Problem Area: Bathing/Grooming Bathing/Grooming Outcomes Improve [place] w/ Grooming Improve [place] w/ Bathing Bathing/Grooming Interventions ADL Training Use of Assistive Devices Therapeutic Exercise Therapeutic Activity Neuromuscular Re-Education Balance Work Activity Tolerance Work Patient/Caregiver Education Problem Area: Dressing Dressing Outcomes Improve [place] w/ UB Dressing Improve [place] w/ LB Dressing Dressing Interventions ADL Training Neuromuscular Re-Education Therapeutic Exercise Balance Work Patient/Caregiver Education Problem Area: Mobility Mobility Outcomes Improve [place] w/ Bed Mobility Improve [place] w/ Ambulation Improve [place] w/ Stairs /Curb Improve [place] w/ Wheelchair Mobility Interventions Therapeutic Exercise Neuromuscular Re-Ed. Activity Tolerance Work Use of Assistive Devices Patient/Caregiver Education Bed Mobility Work Gait Training Household Mobility Work W/C Mobility Work Problem Area: Transfers Transfers Outcomes Improve [place] w/ Bed Transfers Improve [place] w/ Toilet Transfers Improve [place] w/ Tub/ Shower Transfers Improve [place] w/ Car Transfers Transfers Interventions Transfer Training Therapeutic Exercise Neuromuscular Re-Education Activity Tolerance Work Use of Assistive Devices Patient/Caregiver Education Problem Area: Bowel/Bladder Managment Bowel/Bladder Outcomes Bowel/Bladder Interventions Problem Area: Toileting Toileting Outcomes Improve [place] w/ Toileting Toileting Interventions ADL Training Balance Work Use of Assistive Devices Patient/Caregiver Education Problem Area: Nutrition Nutrition Outcomes Understand and Comply w/ Diet Improve/Maintain Oral Intake Improve/Maintain Weight Status Improve/Maintain Fluid Intake Nutrition Interventions Patient/Caregiver Education Problem Area: Comprehension Comprehension Outcomes Comprehension Interventions Problem Area: Expression Expression Outcomes Expression Interventions Problem Area: Problem Solving Problem Solving Outcomes Problem Solving Interventions Problem Area: Memory Memory Outcomes Memory Interventions Problem Area: Pain Management Pain Management Outcomes Pain Management Interventions Problem Area: Knowledge Deficits Knowledge Deficits Outcomes Knowledge Deficits Interventions Problem Area: Skin/Tissue Integrity Skin/Tissue Integrity Outcomes Skin/Tissue Integrity Interventions Problem Area: Social Interaction Social Interaction Outcomes Social Interaction Interventions Problem Area: Adjustment to Disability Adjustment to Disability Outcomes Adjustment to Disability Interventions Problem Area: Discharge Concerns Discharge Concerns Outcomes Discharge w/ Necessary Equipment Have Home Health/Outpatient Services Discharge Concerns Interventions Discharge Planning Family/Caregiver Conference Family/Caregiver Training Problem Area: Community Reintegration Community Reintegration Outcomes Community Reintegration Interventions Problem Area: Home Management Home Management Outcomes Home Management Interventions Problem Area: Safety Safety Outcomes Provide Safe Environment Demonstrate Good Safety w/ Transfers/Mobility Safety Interventions Identify Fall Risk [place] Pt. to Environment Reduce Environmental Hazards Problem Area: Medication Education Medication Education Outcomes Patient/Caregiver will Verbalize Understanding of Medications Medication Education Interventions Explain Administration/Side Effects/Interactions Problem Area: Diabetes Education Diabetes Education Outcomes Diabetes Education Interventions Problem Area: Oxygenation Oxygenation Outcomes Maintain Adequate Oxygenation Oxygenation Interventions Assess Respiratory Status Encourage Coughing and Deep Breathing Problem Area: Cardiovascular Cardiovascular Outcomes Cardiovascular Interventions Physician Only Medical Prognosis and Rehabilitation Potential (Completed by Physician) Fair medical prognosis given long history of smoking and decreased activity tolerance due to dyspnea on exertion. We'll continue to work with her on energy conservation methods as well as wean her from her need for supplemental oxygen. She has good rehabilitation potential and will hopefully return home at a modified independent level. We'll continue to work on improving her bilateral lower extremity weakness and monitor her blood pressure, respiratory status, and electrolytes. This plan of care has been developed based on the findings from the pre- admission assessment, post admission physician evaluation, information gathered from the assessments from all therapy disciplines and other pertinent clinicians. The plan of care has been reviewed and discussed in collaboration with the interdisciplinary team. The plan of care will be reviewed and updated at least weekly.
[2018-11-26] MEDS: DUONEB *Not for PRN Use IH SCH (20:55)
[2018-11-27] MEDS: HEPARIN SUB-Q SCH ×3 (05:35→21:29)
[2018-11-27] MEDS: ROBITUSSIN PO PRN (05:35)
[2018-11-27] MEDS: XANAX PO PRN (06:54)
[2018-11-27] MEDS: DUONEB *Not for PRN Use IH SCH ×3 (07:44→21:08)
[2018-11-27] MEDS: ZESTRIL PO SCH (10:58)
[2018-11-27] MEDS: COREG PO SCH ×2 (10:59→21:03)
[2018-11-27] MEDS: HABITROL TD SCH (11:00)
[2018-11-27] MEDS ORDERED: DELTASONE PO SCH (11:00)
[2018-11-27] MEDS: DELTASONE PO SCH (11:08)
[2018-11-28] MEDS: ULTRAM PO PRN (03:38)
[2018-11-28] MEDS: HEPARIN SUB-Q SCH ×3 (06:09→22:58)
[2018-11-28] MEDS: COREG PO SCH ×2 (08:15→22:56)
[2018-11-28] MEDS: HABITROL TD SCH (08:33)
[2018-11-28] MEDS: DELTASONE PO SCH (08:33)
[2018-11-28] MEDS: ZESTRIL PO SCH (08:34)
[2018-11-28] MEDS: DUONEB *Not for PRN Use IH SCH ×3 (09:31→21:39)
--- NOTE | 2018-11-28 12:03 | Progress Note ---
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 She was found to have COPD exacerbation, care by acute respiratory failure and SIRS. She was started on IV antibiotics, steroids and admitted to the [facility] unit. She then required intubation and was transferred to the ICU. She is participating in therapy and making decent progress. She is having issues with shortness of breath on exertion and taking breaks as needed but O2 sats seem to stay above 90% with elevated HR to 114. Continue to trial her off oxygen to see how she progresses. Still exhibits decreased activity tolerance and decreased endurance. +BM. Vital signs within acceptable limits, blood press ure has been on the lower side and lisinopril has been held. Decreased as lisinopril and added hold orders. Appetite improved. Continue therapy to improve functional mobility and activity. Discussed discharge next week if she continues to show improvement and the need to never smoke again. No other issues from patient, nursing or therapy. All available records were reviewed. Objective - Exam Narrative Exam: MUSCULOSKELETAL SPECIALTY EXAM Constitutional: Well developed, well nourished, appropriately groomed EENT: Visual [place] full to confrontation. Hearing intact to soft voice Respiratory: Clear to ascultation bilaterally, diminished, no increased work of breathing, occ cough. Cardiovascular Regular Rate/ Rhythm, no swelling edema or tenderness in all 4 extremities. All 4 extremities warm. GI : + bowel sounds, soft, NTTP, nondistended INTEGUMENTARY Normal in all 4 extremities, except bruising in BUE Musuloskeletal BUE and RLE normal without defect, crepitus, sublux, effusion, or TTP. BUE 4+/5, good ROM with normal tone. BLE 4-/5 good ROM, with normal tone NEURO: CN 2-12 grossly intact. Sensation intact in all extremities. No tremor noted. POSTURE and GAIT: Sitting posture good. Balance reasonable. Gait deferred until seen with therapy. PSYCH: Alert, orientated x3, affect appears normal. Insight appears intact. - Constitutional Vitals: Vital Signs - 12hr 11/28/18 11/28/18 11/28/18 07:54 08:34 09:28 Temperature 36.9 C Pulse Rate 90 97 H Pulse Rate [ 102 H Anterior Bilateral Throughout] Respiratory 19 Rate Respiratory 16 Rate [Anterior Bilateral Throughout] Blood Pressure 112/62 112/62 O2 Sat by Pulse 94 Oximetry 11/28/18 11/28/18 09:34 09:35 Temperature Pulse Rate Pulse Rate [ 101 H Anterior Bilateral Throughout] Respiratory Rate Respiratory 18 Rate [Anterior Bilateral Throughout] Blood Pressure O2 Sat by Pulse 98 Oximetry - Allied health notes Allied health notes reviewed: nursing, PT, OT FIMS assessment as documented by PT/OT/ST: Grooming Patient cleans teeth/dentures: Yes Patient beal/brushes hair: No Patient washes, rinses and Yes dries face: Patient washes, rinses and Yes dries hands: Patient applies make-up: No Patient performs (no make-up/ 3/4 (75%) shaving): Grooming FIM Score 5. Supervision ([place] applies toothpaste or opens containers.) Toileting Toileting Device Bedside Commode Patient able to: Adjust clothes before,Clean self,Adjust clothes after Patient able to perform: 3/3 (100%) Toileting FIM Score 4. Minimal Assistance (Patient = 75% or more. Needs touching.) Social interaction/Memory/Problem solving Social Interaction FIM Score 7. Complete [place] (Interacts appropriately. Controls temper.) Memory FIM Score 5. Supervision (Needs cueing <10%, stressful/ unfamiliar situations.) Problem Solving FIM Score 5. Supervision (Needs cueing <10% to solve routine problems.) Transfers Mode of Locomotion: Walking Bed/Chair/Wheelchair Transfers 6. Modified [place] (Uses device, sliding FIM Score board, prosth./orth.) Toilet Transfers FIM Score 4. Minimal Assistance (Patient = 75% or more. Needs touching.) Patient transferred to: Shower Shower Transfers FIM Score 4. Minimal Assistance (Patient = 75% or more. Needs touching.) Locomotion- Stairs Device used on Stairs Handrail/s Number of Stairs Ascended/ 8 Descended Patient used handrail/support: Yes Stairs FIM Score 2. Maximal Assistance (Patient = 25% or more, 4- 6 stairs.) Locomotion- walk/wheelchair Most Frequent Mode of Walking Locomotion: Ambulation Distance 725 Walking FIM Score 5. Supervision (Minimum 150 ft. supv./cues or 50 ft. independently.) Wheelchair Propulsion Distance 340 Wheelchair FIM Score 6. Modified [place] (Wheels a minimum of 150 ft.) Eating Eating FIM Score 7. Complete [place] (Cuts meat, opens containers, regular diet.) Dressing-Upper body Patient retrieves clothing No items: Patient applies/removes UE No: n/a prosthesis or orthosis: Upper Body Dressing FIM Score 5. Supv./Set-Up ([place] sets out clothes or applies pros./orth.) Dressing-lower body Patient retrieves clothing No items: Patient applies/removes LE No: n/a prosthesis or orthosis: Lower Body Dressing FIM Score 5. Supv./Set-Up ([place] sets out clothes or applies pros./orth.) - Labs CBC & Chem 7: 11/24/18 08:03 11/24/18 08:03 Assessment and Plan Z73.6 ADL dysfunction: OT will work on improving ability to perform ADLs (including assistive devices) to increase independence and decrease caregiver burden and improve functional transfers and mobility training. R26.2 Difficulty walking: PT will work on gait training and proper use of assistive devices and advance as appropriate to use of stairs and outside ambulation on uneven surfaces. R26.81 Unsteadiness on feet: PT will work on improving static and dynamic sitting and standing balance as well as proper use of assistive devices to decrease risk of falls. R26.89 Abnormality of gait: PT will work to improve safety and efficiency of gait through neuromotor training and gait training along with instruction on proper use of assistive devices. M62.81 Muscle weakness: PT & OT will work on strengthening exercises to improve functional strength including mixture of closed and open kinetic chain exercises. R53.81 Debility: PT & OT will work on improving overall functional status to improve participation with ADLs, mobility and social involvement. R53.83 Fatigue: PT & OT will work on improving endurance through aerobic exercises and therapeutic activity while monitoring patients tolerance for activity and vital signs as needed. E78.5 Hyperlipidemia: Continue statin I10 Hypertension: Reduced lisinopril. Continue medications and adjust as needed F17.210 Nicotine dependence: Discussed cessation. Nicotine patch J44.9 COPD: Continue medications, RT prn. Pulm follow up. DVT ppx: Heparin Pain: Continue physical modalities in therapy and pain medications as needed to achieve functional pain control. Sleep: Monitor and address as needed. Bowel: Monitor and address as needed. Appetite: Monitor and address as needed. Discharge planning: Pending therapy progress and care plan meeting. Will continue discussion with therapy team, SW, patient and family. Restrictions/ Precautions: Falls WB status: FWB Functional Hx: ADLs: Independent Cognition: Independent Mobility: independent Barriers to Discharge: Decreased mobility and ability to perform self care, balance deficits, weakness Estimated Length of Stay: 7 -10 days Discharge Destination: Home with family, alone most of the time
[2018-11-28] MEDS: XANAX PO PRN (15:32)
[2018-11-29] MEDS: ULTRAM PO PRN ×2 (05:27→22:18)
[2018-11-29] MEDS: HEPARIN SUB-Q SCH ×3 (05:28→22:19)
[2018-11-29] MEDS: PROVENTIL IH PRN (06:06)
[2018-11-29] MEDS: HABITROL TD SCH (08:16)
[2018-11-29] MEDS: COREG PO SCH ×2 (08:17→22:18)
[2018-11-29] MEDS: DELTASONE PO SCH (08:17)
[2018-11-29] MEDS: ZESTRIL PO SCH (08:20)
[2018-11-29] MEDS: DUONEB *Not for PRN Use IH SCH ×3 (08:37→19:11)
[2018-11-29] MEDS: XANAX PO PRN ×2 (14:18→22:19)
[2018-11-30] MEDS: TYLENOL PO PRN (03:58)
[2018-11-30] MEDS: ULTRAM PO PRN (03:59)
[2018-11-30] MEDS: ROBITUSSIN PO PRN (03:59)
[2018-11-30] MEDS: HEPARIN SUB-Q SCH ×3 (06:30→22:07)
[2018-11-30] MEDS: DUONEB *Not for PRN Use IH SCH ×3 (08:40→21:12)
[2018-11-30] MEDS: COREG PO SCH ×2 (09:02→22:00)
--- NOTE | 2018-11-30 10:45 | Progress Note ---
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 She was found to have COPD exacerbation, care by acute respiratory failure and SIRS. She was started on IV antibiotics, steroids and admitted to the [facility] unit. She then required intubation and was transferred to the ICU. She is participating in therapy and making decent progress. She is having issues with shortness of breath on exertion and taking breaks as needed but O2 sats seem to stay above 90% with elevated HR to low 100s. Continue to trial her off oxygen to see how she progresses. Still exhibits decreased activity tolerance and decreased endurance. +BM. Vital signs within acceptable limits, blood pressure has been on the lower side and lisinopril has been held numerous times even since being decreased, will monitor and likely d/c. Appetite improved. Continue therapy to improve functional mobility and activity. Discussed discharge this week if she continues to show improvement and the need to never smoke again. CXR to monitor pulm status with consistent cough. Likely smoking related. Recheck labs. Discussed in team conference. No other issues from patient, nursing or therapy. All available records were reviewed. Objective - Exam Narrative Exam: MUSCULOSKELETAL SPECIALTY EXAM Constitutional: Well developed, well nourished, appropriately groomed EENT: Visual burton full to confrontation. Hearing intact to soft voice Respiratory: Clear to ascultation bilaterally, diminished, no increased work of breathing, occ cough. Cardiovascular Regular Rate/ Rhythm, no swelling edema or tenderness in all 4 extremities. All 4 extremities warm. GI : + bowel sounds, soft, NTTP, nondistended INTEGUMENTARY Normal in all 4 extremities, except bruising in BUE Musuloskeletal BUE and RLE normal without defect, crepitus, sublux, effusion, or TTP. BUE 4+/5, good ROM with normal tone. BLE 4-/5 good ROM, with normal tone NEURO: CN 2-12 grossly intact. Sensation intact in all extremities. No tremor noted. POSTURE and GAIT: Sitting posture good. Balance reasonable. Gait slow, but no LOB with single point cane. PSYCH: Alert, orientated x3, affect appears normal. Insight appears intact. - Constitutional Vitals: Vital Signs - 12hr 11/29/18 11/30/18 11/30/18 23:17 03:36 03:58 Temperature 37.1 C 38.4 C H Pulse Rate 104 H 132 H Pulse Rate [ Anterior Bilateral Throughout] Respiratory 18 20 20 Rate Respiratory Rate [Anterior Bilateral Throughout] Respiratory Rate [ribcage] Blood Pressure 124/69 107/58 O2 Sat by Pulse 96 95 Oximetry 11/30/18 11/30/18 11/30/18 03:59 07:42 08:39 Temperature 37.0 C Pulse Rate 100 H Pulse Rate [ Anterior Bilateral Throughout] Respiratory 20 18 Rate Respiratory Rate [Anterior Bilateral Throughout] Respiratory Rate [ribcage] Blood Pressure 87/53 O2 Sat by Pulse 94 94 Oximetry 11/30/18 11/30/18 11/30/18 08:40 08:54 08:59 Temperature Pulse Rate Pulse Rate [ 109 H 110 H Anterior Bilateral Throughout] Respiratory Rate Respiratory 20 20 Rate [Anterior Bilateral Throughout] Respiratory Rate [ribcage] Blood Pressure O2 Sat by Pulse 94 Oximetry 11/30/18 10:00 Temperature Pulse Rate Pulse Rate [ Anterior Bilateral Throughout] Respiratory Rate Respiratory Rate [Anterior Bilateral Throughout] Respiratory 18 Rate [ribcage] Blood Pressure O2 Sat by Pulse Oximetry - Allied health notes Allied health notes reviewed: nursing, PT, OT FIMS assessment as documented by PT/OT/ST: Grooming Patient cleans teeth/dentures: Yes Patient beal/brushes hair: No Patient washes, rinses and Yes dries face: Patient washes, rinses and Yes dries hands: Patient applies make-up: No Patient performs (no make-up/ 3/4 (75%) shaving): Grooming FIM Score 5. Supervision ([place] applies toothpaste or opens containers.) Toileting Toileting Device Bedside Commode Patient able to: Adjust clothes before,Clean self,Adjust clothes after Patient able to perform: 3/3 (100%) Toileting FIM Score 4. Minimal Assistance (Patient = 75% or more. Needs touching.) Social interaction/Memory/Problem solving Social Interaction FIM Score 7. Complete [place] (Interacts appropriately. Controls temper.) Memory FIM Score 5. Supervision (Needs cueing <10%, stressful/ unfamiliar situations.) Problem Solving FIM Score 5. Supervision (Needs cueing <10% to solve routine problems.) Transfers Mode of Locomotion: Walking Bed/Chair/Wheelchair Transfers 6. Modified [place] (Uses device, sliding FIM Score board, prosth./orth.) Toilet Transfers FIM Score 4. Minimal Assistance (Patient = 75% or more. Needs touching.) Patient transferred to: Shower Shower Transfers FIM Score 4. Minimal Assistance (Patient = 75% or more. Needs touching.) Locomotion- Stairs Device used on Stairs Handrail/s Number of Stairs Ascended/ 8 Descended Patient used handrail/support: Yes Stairs FIM Score 2. Maximal Assistance (Patient = 25% or more, 4- 6 stairs.) Locomotion- walk/wheelchair Most Frequent Mode of Walking Locomotion: Ambulation Distance 725 Walking FIM Score 5. Supervision (Minimum 150 ft. supv./cues or 50 ft. independently.) Wheelchair Propulsion Distance 340 Wheelchair FIM Score 6. Modified [place]y (Wheels a minimum of 150 ft.) Eating Eating FIM Score 7. Complete [place] (Cuts meat, opens containers, regular diet.) Dressing-Upper body Patient retrieves clothing No items: Patient applies/removes UE No: n/a prosthesis or orthosis: Upper Body Dressing FIM Score 5. Supv./Set-Up ([place] sets out clothes or applies pros./orth.) Dressing-lower body Patient retrieves clothing No items: Patient applies/removes LE No: n/a prosthesis or orthosis: Lower Body Dressing FIM Score 5. Supv./Set-Up ([place] sets out clothes or applies pros./orth.) - Labs CBC & Chem 7: 11/24/18 08:03 11/24/18 08:03 - Imaging and cardiology Chest x-ray: pending Assessment and Plan Z73.6 ADL dysfunction: OT will work on improving ability to perform ADLs (including assistive devices) to increase independence and decrease caregiver burden and improve functional transfers and mobility training. R26.2 Difficulty walking: PT will work on gait training and proper use of assistive devices and advance as appropriate to use of stairs and outside ambulation on uneven surfaces. R26.81 Unsteadiness on feet: PT will work on improving static and dynamic sitting and standing balance as well as proper use of assistive devices to decrease risk of falls. R26.89 Abnormality of gait: PT will work to improve safety and efficiency of gait through neuromotor training and gait training along with instruction on proper use of assistive devices. M62.81 Muscle weakness: PT & OT will work on strengthening exercises to improve functional strength including mixture of closed and open kinetic chain exercises. R53.81 Debility: PT & OT will work on improving overall functional status to improve participation with ADLs, mobility and social involvement. R53.83 Fatigue: PT & OT will work on improving endurance through aerobic exercis es and therapeutic activity while monitoring patients tolerance for activity and vital signs as needed. E78.5 Hyperlipidemia: Continue statin I10 Hypertension: Reduced lisinopril. Continue medications and adjust as needed F17.210 Nicotine dependence: Discussed cessation. Nicotine patch J44.9 COPD: Continue medications, RT prn. Pulm follow up. Check CXR for continued cough, likely smoking related DVT ppx: Heparin Pain: Continue physical modalities in therapy and pain medications as needed to achieve functional pain control. Sleep: Monitor and address as needed. Bowel: Monitor and address as needed. Appetite: Monitor and address as needed. Discharge planning: Pending therapy progress and care plan meeting. Will continue discussion with therapy team, SW, patient and family. Restrictions/ Precautions: Falls WB status: FWB Functional Hx: ADLs: Independent Cognition: Independent Mobility: independent Barriers to Discharge: Decreased mobility and ability to perform self care, ba balwinder deficits, weakness Estimated Length of Stay: 7 -10 days Discharge Destination: Home with family, alone most of the time
[2018-11-30] MEDS: HABITROL TD SCH (11:08)
[2018-11-30] MEDS: DELTASONE PO SCH (11:08)
[2018-11-30] MEDS: ZESTRIL PO SCH (12:22)
--- NOTE | 2018-11-30 12:42 | XRay Report ---
CHEST 2 VIEWS INDICATION: Cough, COPD. COMPARISON: 11/19/2018 FINDINGS: Frontal and lateral chest radiographs demonstrate new left lower lobe pneumonia measuring approximately 10 x 5 cm on the frontal view. Subtle 1.3 cm left mid lung nodular opacity peripherally may also now be suspected. Pulmonary hyperinflation/COPD. Grossly clear remainder lungs without pleural effusions or CHF. Normal cardiomediastinal silhouette. Aortic knob calcifications. Demineralized bones. CONCLUSION: New left lower lung pneumonia in this patient with COPD, as described. Thank you for the opportunity to participate in this patient's care.
[2018-11-30 14:25] LABS: Hematocrit 40.6 % (30.3-42.9); Hemoglobin 13.4 gm/dl (10.1-14.3); Mean Corpuscular HGB Conc 33 % (30-34); Mean Corpuscular Volume 83 fl (79-97); Platelet Count 192 K/mm3 (140-440); Red Blood Count 4.91 M/mm3 (3.65-5.03); Red Cell Distribution Width 16.7 % (13.2-15.2)
--- NOTE | 2018-11-30 14:33 | Event Note ---
Date: 11/30/[address] Mckeon over the phone and reviewed CXR. At this time, given there is no clinical evidence to support that this new airspace disease is actually causing in clinical deterioration, I would not suggest starting treatment at this moment. Patient should continue PT as tolerated and we will continue to follow clinically as needed. She has had no fever, now white count and is currently on a steroid taper. She did not have this airspace disease on any of the films from earlier in the month, but with lack of clinical evidence to support change, I am not compelled to treat a chest X-ray.
[2018-11-30 14:49] LABS: Hemolysis Index 0
[2018-11-30 14:55] LABS: BUN/Creatinine Ratio TNR; Blood Urea Nitrogen TNR mg/dL (7-17); Calcium TNR mg/dL (8.4-10.2)
[2018-11-30 15:04] LABS: Anisocytosis Few; Band Neutrophils # (Manual) 2.7 K/mm3; Basophils % (Manual) 0 % (0.0-1.8); Eosinophils % (Manual) 0 % (0.0-4.3); Total Cells Counted 100
[2018-11-30 16:19] LABS: BUN/Creatinine Ratio 22; Blood Urea Nitrogen 11 mg/dL (7-17); Calcium 9.1 mg/dL (8.4-10.2); Hemolysis Index 7
[2018-11-30] MEDS ORDERED: VANCOMYCIN 1,500 MG in NACL 0.9% 500 ML 500 ML IV ONE (20:00)
[2018-11-30] MEDS: MAXIPIME/NS 2 GM/100 ML 2 GM/100 ML BAG IV SCH (22:07)
[2018-11-30] MEDS: XANAX PO PRN (22:12)
[2018-12-01] MEDS: PROVENTIL IH PRN (03:37)
[2018-12-01] MEDS: MAXIPIME/NS 2 GM/100 ML 2 GM/100 ML BAG IV SCH ×2 (06:16→17:40)
[2018-12-01] MEDS: HEPARIN SUB-Q SCH ×3 (06:16→22:07)
[2018-12-01 07:14] LABS: Basophils % (Auto) 0.3 % (0.0-1.8); Eosinophils % (Auto) 0.2 % (0.0-4.3); Hematocrit 37.4 % (30.3-42.9); Hemoglobin 12.1 gm/dl (10.1-14.3); Lymphocytes # (Auto) 0.7 K/mm3 (1.2-5.4); Lymphocytes % (Auto) 6.3 % (13.4-35.0); Mean Corpuscular HGB Conc 32 % (30-34); Mean Corpuscular Volume 83 fl (79-97); Monocytes # (Auto) 0.7 K/mm3 (0.0-0.8); Monocytes % (Auto) 6.5 % (0.0-7.3); Platelet Count 177 K/mm3 (140-440); Red Blood Count 4.53 M/mm3 (3.65-5.03); Red Cell Distribution Width 16.6 % (13.2-15.2)
[2018-12-01 07:31] LABS: BUN/Creatinine Ratio 18; Blood Urea Nitrogen 7 mg/dL (7-17); Calcium 8.5 mg/dL (8.4-10.2); Hemolysis Index 0
[2018-12-01] MEDS: ZESTRIL PO SCH (08:28)
[2018-12-01] MEDS: TYLENOL PO PRN (08:28)
[2018-12-01] MEDS: DELTASONE PO SCH (08:29)
[2018-12-01] MEDS: COREG PO SCH ×2 (08:29→22:07)
[2018-12-01] MEDS: HABITROL TD SCH (08:29)
[2018-12-01] MEDS: XANAX PO PRN (08:33)
--- NOTE | 2018-12-01 10:26 | Consultation ---
History of Present Illness - Reason for Consult Consult date: 11/30/18 PNA Requesting physician: MAINOR JUÁREZ - History of Present Illness This patient is a 73-year-old female with a past medcial history of COPD, GERD, hypertension and hyperlipidemia. 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 Her Fire Chief Deputy sent her to the ED at [facility] for persistent symptoms. Upon evaluation in the ED, patient was found to have COPD exacerbation complicated by acute respiratory failure as well as SIRS.she was started on IV antibiotics, steroids and admitted to the [facility] unit. She then required intubation and was transferred to the ICU. Chest CTA did not show large central pulmonary artery e mboli however could not exclude significant emboli. There was significant chronic hyperinflation and in increased secretions. She was weaned off the vent, extubated and placed on BiPAP. She was transferrred to the acute inpatient rehab on 11/23/18. where she contnues to exhibit decreased activity tolerance and endurance. On 11/30/18 , chest xray showed new left lower lung pneumonia, WBC 17.3, Creatinine 0.4, Lactic Acis 5.40, temperature 101.2,, HR 103, Blood Cultures were drawn and are in progress. . Review of Systems: General: + fever, no chils or , nightsweats, unintentional weight change, +change in appetite Cutaneous: no rash, pruritus Head: no headaches or injury Eyes: no changes in vision, eye pain, double vision Ears: no ear pain, ear discharge, ringing or hearing loss Nose: no nose bleeding, stuffiness Mouth & throat: no bleeding gums, no horseness, no dental problems, or swollen glands Neck: no pain, node enlargement/lumps, tyroid enlargement or tenderness Respiratory: + cough, +sputum, no hemoptysis, pleuritic chest pain Cardiovascular: no chest pain, leg edema, cyanosis, DUMONT, orthopnea Musculoskeletal: decreased joint motion, +generalized weakness Gastrointestinal: no nausea, vomiting, hematemesis, diarrhea, constipation, Genitourinary/Reproductive: no frequent urination, no dysuria, hematuria, incontinence Neurogical: no seizures, no headaches, no weakness, no paresthesias, Psychiatric: stable mood; no excessive anxiety, sadness or moodiness Past History Past Medical History: COPD, GERD, hypertension, hyperlipidemia Past Surgical History: No surgical history Social history: lives with family, smoking, other (two-story home, home alone much of the time, some EtOH use) Family history: CAD, hypertension Medications and Allergies Allergies Allergy/AdvReac Type Severity Reaction Status Date / Time No Known Allergies Allergy Verified 11/13/18 12:09 Home Medications Medication Instructions Recorded Confirmed Last Taken Type ALBUTEROL Inhaler 2 puff INHALATION PRN PRN 30 Days 08/01/18 11/26/18 11/13/18 08:30 Rx Albuterol Sulfate [Albuterol 0.63% 0.63 mg IH TID PRN #30 vial.neb 08/01/18 11/26/18 11/13/18 08:30 Rx NEBS] Aspirin 325 mg PO DAILY 09/18/18 11/26/18 11/12/18 21:00 History Bevespi Aerosphere Inhaler 9 mcg INHALATION DAILY 09/18/18 11/26/18 11/13/18 History Flovent 44 MCG/PUFF HFA 2 inhalation PO BID 09/18/18 11/26/18 09/17/18 20:00 History Melatonin 10 mg Tablet 10 mg PO QHS 09/18/18 11/26/18 11/11/18 22:00 History AtorvaSTATin [Lipitor] 40 mg PO QHS #30 tablet 09/21/18 11/26/18 11/13/18 22:00 Rx Carvedilol [Coreg] 3.125 mg PO BID #60 tablet 09/21/18 11/26/18 11/13/18 10:00 Rx Lisinopril [Zestril TAB] 5 mg PO QDAY #30 tablet 09/21/18 11/26/18 11/13/18 Rx guaiFENesin [Robitussin] 200 mg PO Q4H PRN 10 Days 09/21/18 11/26/18 11/13/18 Rx oral.liqd Benzonatate [Tessalon Perles] 100 mg PO Q8HR PRN #20 capsule 10/31/18 11/26/18 11/13/18 08:00 Rx traMADol [Ultram 50 MG tab] 50 mg PO Q6HR PRN #7 tablet 10/31/18 11/26/18 11/13/18 11:00 Rx ALPRAZolam [Xanax TAB] 0.25 mg PO Q8H PRN #30 tablet 11/06/18 11/26/18 11/13/18 08:00 Rx 0.5 Nicotine [Habitrol] 14 mg TD QDAY #30 patch 11/06/18 11/26/18 11/13/18 15:00 Rx predniSONE [Deltasone] 10 mg PO QDAY #52 tab 11/23/18 11/26/18 Unknown Rx Active Meds: Active Medications Acetaminophen (Tylenol) 650 mg PO Q4H PRN PRN Reason: Pain MILD(1-3)/Fever >100.5/BLANC Last Admin: 12/01/18 08:28 Dose: 650 mg Documented by: Albuterol (Proventil) 2.5 mg IH Q4HRT PRN PRN Reason: Shortness Of Breath Last Admin: 12/01/18 03:37 Dose: 2.5 mg Documented by: Albuterol/Ipratropium (Duoneb *Not For Prn Use*) 1 ampul IH TIDRT [facility] Last Admin: 11/30/18 21:12 Dose: 1 ampul Documented by: Alprazolam (Xanax) 0.25 mg PO Q8H PRN PRN Reason: Anxiety Last Admin: 12/01/18 08:33 Dose: 0.25 mg Documented by: Atorvastatin Calcium (Lipitor) 40 mg PO QHS [facility] Last Admin: 11/30/18 22:00 Dose: 40 mg Documented by: Benzonatate (Tessalon Perles) 100 mg PO Q8HR PRN PRN Reason: Cough Carvedilol (Coreg) 3.125 mg PO BID [facility] Last Admin: 12/01/18 08:29 Dose: 3.125 mg Documented by: Guaifenesin (Robitussin) 200 mg PO Q4H PRN PRN Reason: Cough Last Admin: 11/30/18 03:59 Dose: 200 mg Documented by: Heparin Sodium (Porcine) (Heparin) 5,000 unit SUB-Q Q8HR [facility] Last Admin: 12/01/18 06:16 Dose: 5,000 unit Documented by: Cefepime HCl (Maxipime/Ns 2 Gm/100 Ml) 2 gm in 100 mls @ 200 mls/hr IV Q12H [facility]; Protocol Last Admin: 12/01/18 06:16 Dose: 200 mls/hr Documented by: Vancomycin HCl (Vancomycin/Ns 1 Gm/250 Ml) 1 gm in 250 mls @ 166.667 mls/hr IV Q24H [facility] Lisinopril (Zestril) 2.5 mg PO QDAY [facility] Last Admin: 11/30/18 12:22 Dose: Not Given Documented by: Nicotine (Habitrol) 14 mg TD QDAY [facility] Last Admin: 12/01/18 08:29 Dose: 14 mg Documented by: Prednisone (Deltasone) 20 mg PO QDAY [facility] Stop: 12/05/18 08:01 Prednisone (Deltasone) 10 mg PO QDAY [facility] Stop: 12/09/18 08:01 Tramadol HCl (Ultram) 50 mg PO Q6H PRN PRN Reason: Pain Last Admin: 11/30/18 03:59 Dose: 50 mg Documented by: Physical Examination - Physical Exam Narrative exam: Constitutional: Alert, cooperative. generalized weakness Head, Ears, Nose: Normocephalic, atraumatic. External ears, nose normal Eyes: Conjunctivae/corneas clear. No icterus. No ptosis. Neck: Supple, no meningeal signs Oral: dentition good no. thrush Cardiovascular: S1, S2 normal. Respiratory: decreased LLL fremitus GI: Soft, non-tender; bowel sounds normal. No peritoneal signs Musculoskeletal: No pedal edema, no cyanosis. Skin: No rash or abscess. Hem/Lymphatic: No palpable cervical or supraclavicular nodes. No lymphangitis Psych: Mood ok. Affect normal Neurological: Awake, alert, oriented. - Constitutional Vitals: Vital Signs Temp Pulse Resp BP Pulse Ox 100.2 F H 129 H 20 102/50 91 12/01/18 07:20 12/01/18 07:20 12/01/18 07:20 12/01/18 07:20 12/01/18 07:20 Temperature -Last 24 Hours Temperature 100.2 F Temperature 97.9 F Temperature 97.9 F Temperature 99.0 F Results - Labs CBC & Chem 7: 12/01/18 06:51 12/01/18 06:51 Labs: Abnormal lab results 11/30/18 11/30/18 11/30/18 Range/Units 14:00 14:00 14:00 WBC 17.1 H (4.5-11.0) K/mm3 MCH 27 L (28-32) pg RDW 16.7 H (13.2-15.2) % Lymph % (Auto) (13.4-35.0) % Lymph # (1.2-5.4) K/mm3 Seg Neutrophils % (40.0-70.0) % Seg Neuts % (Manual) 79.0 H (40.0-70.0) % Lymphocytes % (Manual) 1.0 L (13.4-35.0) % Seg Neutrophils # (1.8-7.7) K/mm3 Seg Neutrophils # Man 13.5 H (1.8-7.7) K/mm3 Lymphocytes # (Manual) 0.2 L (1.2-5.4) K/mm3 Potassium (3.6-5.0) mmol/L Chloride 60.0 L (98-107) mmol/L Creatinine < 0.2 L (0.7-1.2) mg/dL Glucose (65-100) mg/dL POC Glucose (70-105) Lactic Acid 2.40 H* (0.7-2.0) mmol/L 11/30/18 11/30/18 11/30/18 Range/Units 15:23 15:23 16:18 WBC (4.5-11.0) K/mm3 MCH (28-32) pg RDW (13.2-15.2) % Lymph % (Auto) (13.4-35.0) % Lymph # (1.2-5.4) K/mm3 Seg Neutrophils % (40.0-70.0) % Seg Neuts % (Manual) (40.0-70.0) % Lymphocytes % (Manual) (13.4-35.0) % Seg Neutrophils # (1.8-7.7) K/mm3 Seg Neutrophils # Man (1.8-7.7) K/mm3 Lymphocytes # (Manual) (1.2-5.4) K/mm3 Potassium 5.1 H (3.6-5.0) mmol/L Chloride (98-107) mmol/L Creatinine 0.5 L D (0.7-1.2) mg/dL Glucose 120 H (65-100) mg/dL POC Glucose 166 H (70-105) Lactic Acid 5.40 H* (0.7-2.0) mmol/L 12/01/18 12/01/18 Range/Units 06:51 06:51 WBC 11.3 H (4.5-11.0) K/mm3 MCH 27 L (28-32) pg RDW 16.6 H (13.2-15.2) % Lymph % (Auto) 6.3 L (13.4-35.0) % Lymph # 0.7 L (1.2-5.4) K/mm3 Seg Neutrophils % 86.7 H (40.0-70.0) % Seg Neuts % (Manual) (40.0-70.0) % Lymphocytes % (Manual) (13.4-35.0) % Seg Neutrophils # 9.8 H (1.8-7.7) K/mm3 Seg Neutrophils # Man (1.8-7.7) K/mm3 Lymphocytes # (Manual) (1.2-5.4) K/mm3 Potassium (3.6-5.0) mmol/L Chloride (98-107) mmol/L Creatinine 0.4 L (0.7-1.2) mg/dL Glucose 119 H (65-100) mg/dL POC Glucose (70-105) Lactic Acid (0.7-2.0) mmol/L Assessment and Plan Imaging 11/30/18 Chest Xray: Frontal and lateral chest radiographs demonstrate new left lower lobe pneumonia measuring approximately 10 x 5 cm on the frontal view. Cultures 11/30/18 Blood: in progress A/P: 73 -year-old female with a history of COPD, GERD, hypertension and hyperlipidemia. Admitted to the [facility] unit on 11/13/18 for COPD exacerbation complicated by acute respiratory failure as well as SIRS.she was started on IV antibiotics, steroids She then required intubation and was transferred to the ICU. Chest CTA did not show large central pulmonary artery emboli however could not exclude significant emboli. There was significant chronic hyperinflation and increased secretions. She was weaned off the vent, extubated and placed on BiPAP. She was then transferred to the acute inpatient rehab on 11/23/18. whe re she continues to exhibit decreased activity tolerance and endurance. Now with: 1. Sepsis: not present on admission to rehab evidenced by leukocytosis, temperature, tachycardia and lactic acid. Etiology most likely Hospital acquired pneumonia. Chest xray showed a new left lower lobe consolidation. Blood cultures drawn and are in progress. Currently being treated with Vancomycin and Cefepime. 2. Left Lower Lobe Hospital Acquired Pneumonia: evidenced by clinical symptoms, exam with decreased LLL fremitus and CXR with new infiltrate on LLL. Possible etiology- Staph including MRSA, Pseudomonas. 3, Acute Hypoxic Respiratory failure: 11/13/18 , requiring intubation. 4. COPD with acute exacerbation Plan: -f/u blood cultures -continue vancomycin and cefepime D2 -obtain sputum culture -order procal d/w Dr. 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
[2018-12-01] MEDS: DUONEB *Not for PRN Use IH SCH ×3 (10:52→20:14)
--- NOTE | 2018-12-01 12:57 | Event Note ---
Date: 12/01/18 Following up on Patient from yesterday and now fever was documented at 0300 on 11/30. This was not in the chart on yesterday which is why I did not treat on yesterday. Spoke with Dr. Mckeon again today. ID consulted and started Vanc and Cefepime which I agree with. Oxygen requirement has not increased so I don't think she is in an exacerbation of COPD. Will defer to ID about abx duration.
[2018-12-01] MEDS: VANCOMYCIN/NS 1 GM/250 ML 1 GM/250 ML BAG IV SCH (22:00)
[2018-12-02] MEDS: MAXIPIME/NS 2 GM/100 ML 2 GM/100 ML BAG IV SCH ×2 (05:28→21:27)
[2018-12-02] MEDS: HEPARIN SUB-Q SCH ×3 (05:28→21:10)
[2018-12-02] MEDS: PROVENTIL IH PRN (06:30)
[2018-12-02 07:58] LABS: Basophils % (Auto) 0.1 % (0.0-1.8); Eosinophils # (Auto) 0.1 K/mm3 (0.0-0.4); Eosinophils % (Auto) 0.8 % (0.0-4.3); Hematocrit 35.4 % (30.3-42.9); Hemoglobin 11.5 gm/dl (10.1-14.3); Lymphocytes # (Auto) 0.7 K/mm3 (1.2-5.4); Lymphocytes % (Auto) 6.8 % (13.4-35.0); Mean Corpuscular HGB Conc 33 % (30-34); Mean Corpuscular Volume 84 fl (79-97); Monocytes # (Auto) 0.5 K/mm3 (0.0-0.8); Monocytes % (Auto) 4.9 % (0.0-7.3); Platelet Count 152 K/mm3 (140-440); Red Cell Distribution Width 16.7 % (13.2-15.2)
[2018-12-02] MEDS: DELTASONE PO SCH (08:21)
[2018-12-02] MEDS: COREG PO SCH ×2 (08:21→21:17)
[2018-12-02] MEDS: HABITROL TD SCH (08:21)
[2018-12-02] MEDS: ZESTRIL PO SCH (08:25)
[2018-12-02] MEDS: DUONEB *Not for PRN Use IH SCH ×3 (08:56→21:02)
--- NOTE | 2018-12-02 10:35 | Progress Note ---
Assessment and Plan Imaging 11/30/18 Chest Xray: Frontal and lateral chest radiographs demonstrate new left lower lobe pneumonia measuring approximately 10 x 5 cm on the frontal view. Cultures 11/30/18 Blood: in progress A/P: 73 -year-old female with a history of COPD, GERD, hypertension and hyperlipidemia. Admitted to the [facility] unit on 11/13/18 for COPD exacerbation complicated by acute respiratory failure as well as SIRS.she was started on IV antibiotics, steroids She then required intubation and was transferred to the ICU. Chest CTA did not show large central pulmonary artery emboli however could not exclude significant emboli. There was significant chronic hyperinflation and increased secretions. She was weaned off the vent, extubated and placed on BiPAP. She was then transferred to the acute inpatient rehab on 11/23/18. where she continues to exhibit decreased activity tolerance and endurance. Now with: 1. Sepsis: not present on admission to rehab Improved, Still spiking fevers. Etiology most likely Hospital acquired pneumonia. Chest xray showed a new left lower lobe consolidation. Blood cultures drawn and are in progress. Currently being treated with Vancomycin and Cefepime. 2. Left Lower Lobe Hospital Acquired Pneumonia: evidenced by clinical symptoms, exam with decreased LLL fremitus and CXR with new infiltrate on LLL. Possible etiology- Staph including MRSA, Pseudomonas. 3, Acute Hypoxic Respiratory failure: 11/13/18 , requiring intubation. 4. COPD with acute exacerbation Plan: -f/u blood cultures -continue vancomycin and cefepime D3 of D7 -f/u sputum culture -f/u [facility] M: [phone] O:[phone] - Subjective Date of service: 12/02/18 Principal diagnosis: Debility Interval history: Patient seen and examined. Sitting up in the chair on the side of bed. Stated that she was feeling better today. Denies SOB, generalized pain or weakness. Objective - Exam Narrative Exam: Constitutional: Alert, cooperative.no acute distress Head, Ears, Nose: Normocephalic, atraumatic. External ears, nose normal Eyes: Conjunctivae/corneas clear. No icterus. No ptosis. Neck: Supple, no meningeal signs Oral: dentition good no. thrush Cardiovascular: S1, S2 normal. Respiratory: decreased LLL fremitus GI: Soft, non-tender; bowel sounds normal. No peritoneal signs Musculoskeletal: No pedal edema, no cyanosis. Skin: No rash or abscess. Hem/Lymphatic: No palpable cervical or supraclavicular nodes. No lymphangitis Psych: Mood ok. Affect normal Neurological: Awake, alert, oriented. - Constitutional Vitals: Vital Signs Temp Pulse Resp BP Pulse Ox 98.9 F 109 H 20 108/48 94 12/02/18 07:27 12/02/18 07:27 12/02/18 07:27 12/02/18 07:27 12/02/18 07:27 Temperature -Last 24 Hours Temperature 98.9 F Temperature 97.9 F Temperature 98.2 F Temperature 97.9 F - Labs CBC & Chem 7: 12/02/18 07:34 12/01/18 06:51 Labs: Abnormal lab results 12/01/18 12/02/18 Range/Units 06:58 07:34 MCH 27 L (28-32) pg RDW 16.7 H (13.2-15.2) % Lymph % (Auto) 6.8 L (13.4-35.0) % Lymph # 0.7 L (1.2-5.4) K/mm3 Seg Neutrophils % 87.4 H (40.0-70.0) % Seg Neutrophils # 8.9 H (1.8-7.7) K/mm3 C-Reactive Protein 20.00 H (0.00-1.30) mg/dL
[2018-12-02] MEDS: XANAX PO PRN ×2 (14:15→22:35)
[2018-12-02] MEDS: VANCOMYCIN/NS 1 GM/250 ML 1 GM/250 ML BAG IV SCH (21:10)
[2018-12-03] MEDS: HEPARIN SUB-Q SCH ×3 (05:06→21:35)
[2018-12-03] MEDS: MAXIPIME/NS 2 GM/100 ML 2 GM/100 ML BAG IV SCH ×2 (05:07→17:49)
[2018-12-03 05:13] LABS: Basophils % (Auto) 0.2 % (0.0-1.8); Eosinophils # (Auto) 0.1 K/mm3 (0.0-0.4); Eosinophils % (Auto) 1.2 % (0.0-4.3); Hematocrit 36.8 % (30.3-42.9); Hemoglobin 11.8 gm/dl (10.1-14.3); Lymphocytes % (Auto) 14.9 % (13.4-35.0); Mean Corpuscular HGB Conc 32 % (30-34); Mean Corpuscular Volume 84 fl (79-97); Monocytes # (Auto) 0.5 K/mm3 (0.0-0.8); Monocytes % (Auto) 6.5 % (0.0-7.3); Platelet Count 154 K/mm3 (140-440); Red Blood Count 4.35 M/mm3 (3.65-5.03); Red Cell Distribution Width 16.6 % (13.2-15.2)
[2018-12-03] MEDS: XANAX PO PRN (06:38)
[2018-12-03] MEDS: DUONEB *Not for PRN Use IH SCH ×3 (08:12→21:00)
[2018-12-03] MEDS: HABITROL TD SCH (09:02)
[2018-12-03] MEDS: COREG PO SCH ×2 (09:03→21:35)
[2018-12-03] MEDS: DELTASONE PO SCH (09:03)
[2018-12-03] MEDS: ZESTRIL PO SCH (09:03)
--- NOTE | 2018-12-03 10:16 | Progress Note ---
Assessment and Plan Imaging 11/30/18 Chest Xray: Frontal and lateral chest radiographs demonstrate new left lower lobe pneumonia measuring approximately 10 x 5 cm on the frontal view. Cultures 11/30/18 Blood: no growth to date 12/02/18 Sputum: contaminated A/P: 73 -year-old female with a history of COPD, GERD, hypertension and hyperlipidemia. Admitted to the [facility] unit on 11/13/18 for COPD exacerbation complicated by acute respiratory failure as well as SIRS.she was started on IV antibiotics, steroids She then required intubation and was transferred to the ICU. Chest CTA did not show large central pulmonary artery emboli however could not exclude significant emboli. There was significant chronic hyperinflation and increased secretions. She was weaned off the vent, extubated and placed on BiPAP. She was then transferred to the acute inpatient rehab on 11/23/18. where she continues to exhibit decreased activity tolerance and endurance. Now with: 1. Sepsis: not present on admission to rehab Improved, Still spiking fevers. Etiology most likely Hospital acquired pneumonia. Chest xray showed a new left lower lobe consolidation. Blood cultures drawn and are in progress. Currently being treated with Vancomycin and Cefepime. 2. Left Lower Lobe Hospital Acquired Pneumonia: evidenced by clinical symptoms, exam with decreased LLL fremitus and CXR with new infiltrate on LLL. Possible etiology- Staph including MRSA, Pseudomonas. 3, Acute Hypoxic Respiratory failure: 11/13/18 , requiring intubation. 4. COPD with acute exacerbation Plan: -f/u blood cultures -continue vancomycin and cefepime D4 of D7 -If discharge home can do levaquin 750 mg PO qday and doxycycline 100 mg PO q12, total 7 days until 12/06/18. -f/u [facility] M: [phone] O:[phone] - Subjective Date of service: 12/03/18 Principal diagnosis: Debility Interval history: Patient seen and examined. Sitting up in the chair on the side of bed. Stated that she was feeling better today. Denies SOB, generalized pain or weakness. Objective - Exam Narrative Exam: Constitutional: Alert, cooperative.no acute distress Head, Ears, Nose: Normocephalic, atraumatic. External ears, nose normal Eyes: Conjunctivae/corneas clear. No icterus. No ptosis. Neck: Supple, no meningeal signs Oral: dentition good no. thrush Cardiovascular: S1, S2 normal. Respiratory: decreased LLL fremitus GI: Soft, non-tender; bowel sounds normal. No peritoneal signs Musculoskeletal: No pedal edema, no cyanosis. Skin: No rash or abscess. Hem/Lymphatic: No palpable cervical or supraclavicular nodes. No lymphangitis Psych: Mood ok. Affect normal Neurological: Awake, alert, oriented. - Constitutional Vitals: Vital Signs Temp Pulse Resp BP Pulse Ox 97.9 F 111 H 18 115/58 97 12/03/18 08:21 12/03/18 09:03 12/03/18 08:23 12/03/18 09:03 12/03/18 08:21 Temperature -Last 24 Hours Temperature 97.9 F Temperature 98.1 F Temperature 97.3 F Temperature 98.1 F Temperature 98.0 F - Labs CBC & Chem 7: 12/03/18 04:50 12/01/18 06:51 Labs: Abnormal lab results 12/03/18 Range/Units 04:50 MCH 27 L (28-32) pg RDW 16.6 H (13.2-15.2) % Lymph # 1.0 L (1.2-5.4) K/mm3 Seg Neutrophils % 77.2 H (40.0-70.0) %
--- NOTE | 2018-12-03 11:42 | Progress Note ---
Subjective Date of service: 12/03/18 Principal diagnosis: Debility Interval history: 73-year-old female with shortness of breath, worsening cough, and wheezing several days prior to presentation to her category specialist was evaluated and instructed to seek further care or the ER. She was found to have COPD exacerbation, care by acute respiratory failure and SIRS. She was started on IV antibiotics, steroids and admitted to the [facility] unit. She then required intubation and was transferred to the ICU. She is participating in therapy and making decent progress. She is having issues with shortness of breath on exertion and taking breaks as needed but O2 sats seem to stay above 90% with elevated HR to low 100s. Continue to trial her off oxygen to see how she progresses. Still exhibits decreased activity tolerance and decreased endurance. +BM. Vital signs within acceptable limits, blood pressure has been on the lower side and lisinopril has been held numerous times even since being decreased. Appetite improved. Continue therapy to improve functional mobility and activity. Recheck of CXR and labs revealed PNA and sepsis. Treatment started. Consulted Pulm and ID. Doing better, afebrile. Still has occasional cough with minimal production, no chills. Doing better, complete course of abx. Look to d/c Friday 12/08. No other issues from patient, nursing or therapy. All available records were reviewed. Objective - Exam Narrative Exam: MUSCULOSKELETAL SPECIALTY EXAM Constitutional: Well developed, well nourished, appropriately groomed EENT: Visual [place] full to confrontation. Hearing intact to soft voice Respiratory: Clear to ascultation bilaterally, diminished, no increased work of breathing, occ cough. on NC Cardiovascular Regular Rate/ Rhythm, no swelling edema or tenderness in all 4 extremities. All 4 extremities warm. GI : + bowel sounds, soft, NTTP, nondistended INTEGUMENTARY Normal in all 4 extremities, except bruising in BUE Musuloskeletal BUE and RLE normal without defect, crepitus, sublux, effusion, or TTP. BUE 4+/5, good ROM with normal tone. BLE 4-/5 good ROM, with normal tone NEURO: CN 2-12 grossly intact. Sensation intact in all extremities. No tremor noted. POSTURE and GAIT: Sitting posture good. Balance reasonable. Gait slow, but no LOB with single point cane. PSYCH: Alert, orientated x3, affect appears normal. Insight appears intact. - Constitutional Vitals: Vital Signs - 12hr 12/03/18 12/03/18 12/03/18 04:42 08:15 08:21 Temperature 36.7 C 36.6 C Pulse Rate 87 101 H Pulse Rate [ 102 H Anterior Bilateral Throughout] Respiratory 20 18 Rate Respiratory 18 Rate [Anterior Bilateral Throughout] Blood Pressure 113/52 115/58 O2 Sat by Pulse 96 97 97 Oximetry 12/03/18 12/03/18 08:23 09:03 Temperature Pulse Rate 111 H Pulse Rate [ 111 H Anterior Bilateral Throughout] Respiratory Rate Respiratory 18 Rate [Anterior Bilateral Throughout] Blood Pressure 115/58 O2 Sat by Pulse Oximetry - Allied health notes Allied health notes reviewed: nursing, PT, OT FIMS assessment as documented by PT/OT/ST: Grooming Patient cleans teeth/dentures: Yes Patient beal/brushes hair: No Patient washes, rinses and Yes dries face: Patient washes, rinses and Yes dries hands: Patient applies make-up: No Patient performs (no make-up/ 3/4 (75%) shaving): Grooming FIM Score 5. Supervision ([place] applies toothpaste or opens containers.) Toileting Toileting Device Bedside Commode Patient able to: Adjust clothes before,Clean self,Adjust clothes after Patient able to perform: 3/3 (100%) Toileting FIM Score 4. Minimal Assistance (Patient = 75% or more. Needs touching.) Social interaction/Memory/Problem solving Social Interaction FIM Score 7. Complete [place] (Interacts appropriately. Controls temper.) Memory FIM Score 5. Supervision (Needs cueing <10%, stressful/ unfamiliar situations.) Problem Solving FIM Score 5. Supervision (Needs cueing <10% to solve routine problems.) Transfers Mode of Locomotion: Walking Bed/Chair/Wheelchair Transfers 6. Modified [place] (Uses device, sliding FIM Score board, prosth./orth.) Toilet Transfers FIM Score 4. Minimal Assistance (Patient = 75% or more. Needs touching.) Patient transferred to: Shower Shower Transfers FIM Score 4. Minimal Assistance (Patient = 75% or more. Needs touching.) Locomotion- Stairs Device used on Stairs Handrail/s Number of Stairs Ascended/ 12 Descended Patient used handrail/support: Yes Stairs FIM Score 5. Supervision (12-14 stairs w/ supv. 4-6 stairs independently.) Locomotion- walk/wheelchair Most Frequent Mode of Walking Locomotion: Ambulation Distance 725 Walking FIM Score 5. Supervision (Minimum 150 ft. supv./cues or 50 ft. independently.) Wheelchair Propulsion Distance 340 Wheelchair FIM Score 6. Modified [place] (Wheels a minimum of 150 ft.) Eating Eating FIM Score 7. Complete [place] (Cuts meat, opens containers, regular diet.) Dressing-Upper body Patient retrieves clothing No items: Patient applies/removes UE No: n/a prosthesis or orthosis: Upper Body Dressing FIM Score 5. Supv./Set-Up ([place] sets out clothes or applies pros./orth.) Dressing-lower body Patient retrieves clothing No items: Patient applies/removes LE No: n/a prosthesis or orthosis: Lower Body Dressing FIM Score 5. Supv./Set-Up ([place] sets out clothes or applies pros./orth.) - Labs CBC & Chem 7: 12/03/18 04:50 12/01/18 06:51 Labs: Laboratory Results - last 72 hr 11/30/18 11/30/18 11/30/18 14:00 14:00 14:00 WBC 17.1 H RBC 4.91 Hgb 13.4 Hct 40.6 MCV 83 MCH 27 L MCHC 33 RDW 16.7 H Plt Count 192 Lymph % (Auto) [place] % (Auto) Eos % (Auto) Baso % (Auto) Lymph # [place] # Eos # Baso # Add Manual Diff Complete Total Counted 100 Seg Neutrophils % Electrical Development Engineer Seg Neuts % (Manual) 79.0 H Band Neutrophils % 16.0 Lymphocytes % (Manual) 1.0 L Reactive Lymphs % (Man) 0 Monocytes % (Manual) 4.0 Eosinophils % (Manual) 0 Basophils % (Manual) 0 Metamyelocytes % 0 Myelocytes % 0 Promyelocytes % 0 Blast Cells % 0 Nucleated RBC % Not Reportable Seg Neutrophils # Seg Neutrophils # Man 13.5 H Band Neutrophils # 2.7 Lymphocytes # (Manual) 0.2 L Abs React Lymphs (Man) 0.0 Monocytes # (Manual) 0.7 Eosinophils # (Manual) 0.0 Basophils # (Manual) 0.0 Metamyelocytes # 0.0 Myelocytes # 0.0 Promyelocytes # 0.0 Blast Cells # 0.0 WBC Morphology Not Reportable Hypersegmented Neuts Not Reportable Hyposegmented Neuts Not Reportable Hypogranular Neuts Not Reportable Smudge Cells Not Reportable Toxic Granulation Not Reportable Toxic Vacuolation Not Reportable Dohle Bodies Not Reportable Pelger-Huet Anomaly Not Reportable Kaycee Rods Not Reportable Platelet Estimate Not Reportable Clumped Platelets Not Reportable Plt Clumps, EDTA Not Reportable Large Platelets Not Reportable Giant Platelets Not Reportable Platelet Satelliting Not Reportable Plt Morphology Comment Not Reportable RBC Morphology Not Reportable Dimorphic RBCs Not Reportable Polychromasia Not Reportable Hypochromasia Not Reportable Poikilocytosis Not Reportable Anisocytosis Few Microcytosis Not Reportable Macrocytosis Not Reportable Spherocytes Not Reportable Pappenheimer Bodies Not Reportable Sickle Cells Not Reportable Target Cells Not Reportable Tear Drop Cells Not Reportable Ovalocytes Not Reportable Helmet Cells Not Reportable [place] Bodies Not Reportable [place] Rings Not Reportable Jonn Cells Not Reportable Bite Cells Not Reportable Crenated Cell Not Reportable Elliptocytes Not Reportable Acanthocytes (Spur) Not Reportable Rouleaux Not Reportable Hemoglobin C Crystals Not Reportable Schistocytes Not Reportable Malaria parasites Not Reportable Zhang Bodies Not Reportable Hem Pathologist Commnt No Sodium 139 Potassium 4.5 Chloride 60.0 L Carbon Dioxide TNR Anion Gap TNR BUN TNR Creatinine < 0.2 L Estimated GFR > 60 BUN/Creatinine Ratio TNR Glucose TNR POC Glucose Lactic Acid 2.40 H* Calcium TNR C-Reactive Protein 11/30/18 11/30/18 11/30/18 15:23 15:23 16:18 WBC RBC Hgb Hct MCV MCH MCHC RDW Plt Count Lymph % (Auto) [place] % (Auto) Eos % (Auto) Baso % (Auto) Lymph # [place] # Eos # Baso # Add Manual Diff Total Counted Seg Neutrophils % Seg Neuts % (Manual) Band Neutrophils % Lymphocytes % (Manual) Reactive Lymphs % (Man) Monocytes % (Manual) Eosinophils % (Manual) Basophils % (Manual) Metamyelocytes % Myelocytes % Promyelocytes % Blast Cells % Nucleated RBC % Seg Neutrophils # Seg Neutrophils # Man Band Neutrophils # Lymphocytes # (Manual) Abs React Lymphs (Man) Monocytes # (Manual) Eosinophils # (Manual) Basophils # (Manual) Metamyelocytes # Myelocytes # Promyelocytes # Blast Cells # WBC Morphology Hypersegmented Neuts Hyposegmented Neuts Hypogranular Neuts Smudge Cells Toxic Granulation Toxic Vacuolation Dohle Bodies Pelger-Huet Anomaly Kaycee Rods Platelet Estimate Clumped Platelets Plt Clumps, EDTA Large Platelets Giant Platelets Platelet Satelliting Plt Morphology Comment RBC Morphology Dimorphic RBCs Polychromasia Hypochromasia Poikilocytosis Anisocytosis Microcytosis Macrocytosis Spherocytes Pappenheimer Bodies Sickle Cells Target Cells Tear Drop Cells Ovalocytes Helmet Cells [place] Bodies [place] Rings [place] Cells Bite Cells Crenated Cell Elliptocytes Acanthocytes (Spur) Rouleaux Hemoglobin C Crystals Schistocytes Malaria parasites Zhang Bodies Hem Pathologist Commnt Sodium 140 Potassium 5.1 H Chloride 101.3 Carbon Dioxide 30 Anion Gap 14 BUN 11 Creatinine 0.5 L D Estimated GFR > 60 BUN/Creatinine Ratio 22 Glucose 120 H POC Glucose 166 H Lactic Acid 5.40 H* Calcium 9.1 C-Reactive Protein 12/01/18 12/01/18 12/01/18 06:51 06:51 06:58 WBC 11.3 H RBC 4.53 Hgb 12.1 Hct 37.4 MCV 83 MCH 27 L MCHC 32 RDW 16.6 H Plt Count 177 Lymph % (Auto) 6.3 L [place] % (Auto) 6.5 Eos % (Auto) 0.2 Baso % (Auto) 0.3 Lymph # 0.7 L [place] # 0.7 Eos # 0.0 Baso # 0.0 Add Manual Diff Total Counted Seg Neutrophils % 86.7 H Seg Neuts % (Manual) Band Neutrophils % Lymphocytes % (Manual) Reactive Lymphs % (Man) Monocytes % (Manual) Eosinophils % (Manual) Basophils % (Manual) Metamyelocytes % Myelocytes % Promyelocytes % Blast Cells % Nucleated RBC % Seg Neutrophils # 9.8 H Seg Neutrophils # Man Band Neutrophils # Lymphocytes # (Manual) Abs React Lymphs (Man) Monocytes # (Manual) Eosinophils # (Manual) Basophils # (Manual) Metamyelocytes # Myelocytes # Promyelocytes # Blast Cells # WBC Morphology Hypersegmented Neuts Hyposegmented Neuts Hypogranular Neuts Smudge Cells Toxic Granulation Toxic Vacuolation Dohle Bodies Pelger-Huet Anomaly Kaycee Rods Platelet Estimate Clumped Platelets Plt Clumps, EDTA Large Platelets Giant Platelets Platelet Satelliting Plt Morphology Comment RBC Morphology Dimorphic RBCs Polychromasia Hypochromasia Poikilocytosis Anisocytosis Microcytosis Macrocytosis Spherocytes Pappenheimer Bodies Sickle Cells Target Cells Tear Drop Cells Ovalocytes Helmet Cells [place] Bodies [place] Rings [place] Cells Bite Cells Crenated Cell Elliptocytes Acanthocytes (Sp[place]) Rouleaux Hemoglobin C Crystals Schistocytes Malaria parasites Zhang Bodies Hem Pathologist Commnt Sodium 140 Potassium 3.9 D Chloride 103.3 Carbon Dioxide 28 Anion Gap 13 BUN 7 Creatinine 0.4 L Estimated GFR > 60 BUN/Creatinine Ratio 18 Glucose 119 H POC Glucose Lactic Acid Calcium 8.5 C-Reactive Protein 20.00 H 12/02/18 12/03/18 07:34 04:50 WBC 10.2 6.9 RBC 4.20 4.35 Hgb 11.5 11.8 Hct 35.4 36.8 MCV 84 84 MCH 27 L 27 L MCHC 33 32 RDW 16.7 H 16.6 H Plt Count 152 154 Lymph % (Auto) 6.8 L 14.9 [place] % (Auto) 4.9 6.5 Eos % (Auto) 0.8 1.2 Baso % (Auto) 0.1 0.2 Lymph # 0.7 L 1.0 L [place] # 0.5 0.5 Eos # 0.1 0.1 Baso # 0.0 0.0 Add Manual Diff Total Counted Seg Neutrophils % 87.4 H 77.2 H Seg Neuts % (Manual) Band Neutrophils % Lymphocytes % (Manual) Reactive Lymphs % (Man) Monocytes % (Manual) Eosinophils % (Manual) Basophils % (Manual) Metamyelocytes % Myelocytes % Promyelocytes % Blast Cells % Nucleated RBC % Seg Neutrophils # 8.9 H 5.4 Seg Neutrophils # Man Band Neutrophils # Lymphocytes # (Manual) Abs React Lymphs (Man) Monocytes # (Manual) Eosinophils # (Manual) Basophils # (Manual) Metamyelocytes # Myelocytes # Promyelocytes # Blast Cells # WBC Morphology Hypersegmented Neuts Hyposegmented Neuts Hypogranular Neuts Smudge Cells Toxic Granulation Toxic Vacuolation Dohle Bodies Pelger-Huet Anomaly Kaycee Rods Platelet Estimate Clumped Platelets Plt Clumps, EDTA Large Platelets Giant Platelets Platelet Satelliting Plt Morphology Comment RBC Morphology Dimorphic RBCs Polychromasia Hypochromasia Poikilocytosis Anisocytosis Microcytosis Macrocytosis Spherocytes Pappenheimer Bodies Sickle Cells Target Cells Tear Drop Cells Ovalocytes Helmet Cells [place] Bodies [place] Rings Jonn Cells Bite Cells Crenated Cell Elliptocytes Acanthocytes (Spur) Rouleaux Hemoglobin C Crystals Schistocytes Malaria parasites Zhang Bodies Hem Pathologist Commnt Sodium Potassium Chloride Carbon Dioxide Anion Gap BUN Creatinine Estimated GFR BUN/Creatinine Ratio Glucose POC Glucose Lactic Acid Calcium C-Reactive Protein Assessment and Plan Z73.6 ADL dysfunction: OT will work on improving ability to perform ADLs (including assistive devices) to increase independence and decrease caregiver bu rden and improve functional transfers and mobility training. R26.2 Difficulty walking: PT will work on gait training and proper use of assistive devices and advance as appropriate to use of stairs and outside ambulation on uneven surfaces. R26.81 Unsteadiness on feet: PT will work on improving static and dynamic sitting and standing balance as well as proper use of assistive devices to decrease risk of falls. R26.89 Abnormality of gait: PT will work to improve safety and efficiency of gait through neuromotor training and gait training along with instruction on proper use of assistive devices. M62.81 Muscle weakness: PT & OT will work on strengthening exercises to improve functional strength including mixture of closed and open kinetic chain exercises. R53.81 Debility: PT & OT will work on improving overall functional status to improve participation with ADLs, mobility and social involvement. R53.83 Fatigue: PT & OT will work on improving endurance through aerobic exercises and therapeutic activity while monitoring patients tolerance for activity and vital signs as needed. E78.5 Hyperlipidemia: Continue statin I10 Hypertension: Continue medications and adjust as needed F17.210 Nicotine dependence: Discussed cessation. Nicotine patch J44.9 COPD: Continue medications, RT prn. Pulm follow up. Sepsis/SIRS, PNA ID and Pulm consulted - appreciate assistance DVT ppx: Heparin Pain: Continue physical modalities in therapy and pain medications as needed to achieve functional pain control. Sleep: Monitor and address as needed. Bowel: Monitor and address as needed. Appetite: Monitor and address as needed. Discharge planning: Pending therapy progress and care plan meeting. Will continue discussion with therapy team, SW, patient and family. Restrictions/ Precautions: Falls WB status: FWB Functional Hx: ADLs: Independent Cognition: Independent Mobility: independent Barriers to Discharge: Decreased mobility and ability to perform self care, balance deficits, weakness Estimated Length of Stay: 7 -10 days. Discharge Destination: Home with family, alone most of the time
[2018-12-03] MEDS: VANCOMYCIN/NS 1 GM/250 ML 1 GM/250 ML BAG IV SCH (21:37)
[2018-12-04] MEDS: XANAX PO PRN ×3 (03:02→21:40)
[2018-12-04] MEDS: PROVENTIL IH PRN (05:01)
[2018-12-04] MEDS: HEPARIN SUB-Q SCH ×3 (05:08→21:32)
[2018-12-04 06:05] LABS: Basophils % (Auto) 0.3 % (0.0-1.8); Eosinophils # (Auto) 0.1 K/mm3 (0.0-0.4); Eosinophils % (Auto) 2.2 % (0.0-4.3); Hematocrit 36.1 % (30.3-42.9); Hemoglobin 11.7 gm/dl (10.1-14.3); Lymphocytes # (Auto) 1.2 K/mm3 (1.2-5.4); Lymphocytes % (Auto) 24.6 % (13.4-35.0); Mean Corpuscular HGB Conc 32 % (30-34); Mean Corpuscular Volume 84 fl (79-97); Monocytes # (Auto) 0.5 K/mm3 (0.0-0.8); Monocytes % (Auto) 9.5 % (0.0-7.3); Platelet Count 156 K/mm3 (140-440); Red Blood Count 4.31 M/mm3 (3.65-5.03); Red Cell Distribution Width 17.1 % (13.2-15.2)
[2018-12-04] MEDS: MAXIPIME/NS 2 GM/100 ML 2 GM/100 ML BAG IV SCH (07:00)
[2018-12-04] MEDS: DUONEB *Not for PRN Use IH SCH ×3 (09:22→20:27)
[2018-12-04] MEDS: HABITROL TD SCH (09:33)
[2018-12-04] MEDS: COREG PO SCH ×2 (09:33→21:32)
[2018-12-04] MEDS: ZESTRIL PO SCH (09:34)
[2018-12-04] MEDS: DELTASONE PO SCH (09:34)
[2018-12-04] MEDS: LEVAQUIN PO SCH (09:35)
--- NOTE | 2018-12-04 10:29 | Progress Note ---
Assessment and Plan Imaging 11/30/18 Chest Xray: Frontal and lateral chest radiographs demonstrate new left lower lobe pneumonia measuring approximately 10 x 5 cm on the frontal view. Cultures 11/30/18 Blood: no growth to date 12/02/18 Sputum: contaminated A/P: 73 -year-old female with a history of COPD, GERD, hypertension and hyperlipidemia. Admitted to the [facility] unit on 11/13/18 for COPD exacerbation complicated by acute respiratory failure as well as SIRS.she was started on IV antibiotics, steroids She then required intubation and was transferred to the ICU. Chest CTA did not show large central pulmonary artery emboli however could not exclude significant emboli. There was significant chronic hyperinflation and increased secretions. She was weaned off the vent, extubated and placed on BiPAP. She was then transferred to the acute inpatient rehab on 11/23/18. where she continues to exhibit decreased activity tolerance and endurance. Now with: 1. Sepsis: resolved. Etiology most likely Hospital acquired pneumonia. Chest xray showed a new left lower lobe consolidation. Blood cultures drawn and are in progress. 2. Left Lower Lobe Hospital Acquired Pneumonia: evidenced by clinical symptoms, exam with decreased LLL fremitus and CXR with new infiltrate on LLL. Possible etiology- Staph including MRSA, Pseudomonas. 3, Acute Hypoxic Respiratory failure: resolved 4. COPD with acute exacerbation Plan: -f/u blood cultures -stop vancomycin and cefepime D5 of D7 -start levaquin 750 mg PO qday and doxycycline 100 mg PO q12, total 7 days until 12/06/18. -f/u aleja Garcia MD [facility] M: [phone] O: [phone] Subjective Date of service: 12/04/18 Principal diagnosis: Debility Interval history: Patient reports feeling better, no fever ROS: denies fever, chills, N/V/D Objective - Exam Narrative Exam: Constitutional: Alert, cooperative.no acute distress Head, Ears, Nose: Normocephalic, atraumatic. External ears, nose normal Eyes: Conjunctivae/corneas clear. No icterus. No ptosis. Neck: Supple, no meningeal signs Oral: dentition good no. thrush Cardiovascular: S1, S2 normal. Respiratory: scattered rhonchi GI: Soft, non-tender; bowel sounds normal. No peritoneal signs Musculoskeletal: No pedal edema, no cyanosis. Skin: No rash or abscess. Hem/Lymphatic: No palpable cervical or supraclavicular nodes. No lymphangitis Psych: Mood ok. Affect normal Neurological: Awake, alert, oriented. - Constitutional Vitals: Vital Signs Temp Pulse Resp BP Pulse Ox 99.1 F 108 H 20 123/60 98 12/04/18 07:55 12/04/18 09:36 12/04/18 09:36 12/04/18 09:34 12/04/18 09:26 Temperature -Last 24 Hours Temperature 99.1 F Temperature 98.2 F Temperature 98.0 F Temperature 97.8 F - Labs CBC & Chem 7: 12/04/18 05:41 12/01/18 06:51 Labs: Abnormal lab results 12/04/18 Range/Units 05:41 MCH 27 L (28-32) pg RDW 17.1 H (13.2-15.2) % [place] % (Auto) 9.5 H (0.0-7.3) %
[2018-12-04] MEDS: VIBRAMYCIN PO SCH ×2 (11:48→21:32)
[2018-12-05] MEDS: HEPARIN SUB-Q SCH ×3 (05:24→21:48)
[2018-12-05] MEDS: DUONEB *Not for PRN Use IH SCH ×3 (07:20→20:13)
[2018-12-05 07:27] LABS: Hematocrit 34.5 % (30.3-42.9); Mean Corpuscular HGB Conc 32 % (30-34); Mean Corpuscular Volume 84 fl (79-97); Platelet Count 152 K/mm3 (140-440); Red Blood Count 4.11 M/mm3 (3.65-5.03); Red Cell Distribution Width 16.3 % (13.2-15.2)
[2018-12-05 08:47] LABS: Basophils % (Manual) 0 % (0.0-1.8); Total Cells Counted 100
[2018-12-05 08:48] LABS: Anisocytosis 1+
[2018-12-05 08:49] LABS: Ovalocytes Few; Platelet Estimate Consistent w Auto; Target Cells Rare
--- NOTE | 2018-12-05 09:53 | Progress Note ---
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 She was found to have COPD exacerbation, care by acute respiratory failure and SIRS. She was started on IV antibiotics, steroids and admitted to the [facility] unit. She then required intubation and was transferred to the ICU. She is participating in therapy and making decent progress. She is having issues with shortness of breath on exertion and taking breaks as needed but O2 sats seem to stay above 90% with elevated HR to low 100s. Still exhibits decreased activity tolerance and decreased endurance. +BM. Vital signs within acceptable limits, d/c lisinopril - being held and BP WNL. Appetite improved. Continue therapy to improve functional mobility and activity. Doing better, afebrile. Abx changed to PO by ID. Still has occasional cough with minimal production, no chills. Doing better, complete course of abx. Reviewed patient's home medications that were just refilled prior to admission, will adjust meds as needed at discharge for NF items. Look to d/c Friday 12/08. No other issues from patient, nursing or therapy. All available records were reviewed. Objective - Exam Narrative Exam: MUSCULOSKELETAL SPECIALTY EXAM Constitutional: Well developed, well nourished, appropriately groomed EENT: Visual burton full to confrontation. Hearing intact to soft voice Respiratory: Clear to ascultation bilaterally, diminished, no increased work of breathing, occ cough. on RA this AM Cardiovascular Regular Rate/ Rhythm, no swelling edema or tenderness in all 4 extremities. All 4 extremities warm. GI : + bowel sounds, soft, NTTP, nondistended INTEGUMENTARY Normal in all 4 extremities Musculoskeletal BUE and RLE normal without defect, crepitus, sublux, effusion, or TTP. BUE 4+/5, good ROM with normal tone. BLE 4-/5 good ROM, with normal tone NEURO: CN 2-12 grossly intact. Sensation intact in all extremities. No tremor noted. POSTURE and GAIT: Sitting posture good. Balance reasonable. Gait slow, but no LOB with single point cane. PSYCH: Alert, orientated x3, affect appears normal. Insight appears intact. - Constitutional Vitals: Vital Signs - 12hr 12/04/18 12/05/18 12/05/18 22:52 05:21 07:20 Temperature Pulse Rate 86 Pulse Rate [ 84 Anterior Bilateral Throughout] Respiratory 17 Rate Respiratory 18 Rate [Anterior Bilateral Throughout] Blood Pressure 106/65 [Right] O2 Sat by Pulse 99 96 100 Oximetry 12/05/18 12/05/18 07:30 07:35 Temperature 37.3 C Pulse Rate 97 H Pulse Rate [ 86 Anterior Bilateral Throughout] Respiratory 18 Rate Respiratory 18 Rate [Anterior Bilateral Throughout] Blood Pressure 113/61 [Right] O2 Sat by Pulse 95 Oximetry - Allied health notes Allied health notes reviewed: nursing, PT, OT FIMS assessment as documented by PT/OT/ST: Grooming Patient cleans teeth/dentures: Yes Patient beal/brushes hair: No Patient washes, rinses and Yes dries face: Patient washes, rinses and Yes dries hands: Patient applies make-up: No Patient performs (no make-up/ 3/4 (75%) shaving): Grooming FIM Score 5. Supervision (Madison applies toothpaste or opens containers.) Toileting Toileting Device Bedside Commode Patient able to: Adjust clothes before,Clean self,Adjust clothes after Patient able to perform: 3/3 (100%) Toileting FIM Score 4. Minimal Assistance (Patient = 75% or more. Needs touching.) Social interaction/Memory/Problem solving Social Interaction FIM Score 6. Mod. Haines (Mostly appropriate. May need meds. No supv.) Memory FIM Score 6. Modified Haines(Mild difficulty remembering people/routines.) Problem Solving FIM Score 5. Supervision (Needs cueing <10% to solve routine problems.) Transfers Mode of Locomotion: Walking Bed/Chair/Wheelchair Transfers 6. Modified Haines (Uses device, sliding FIM Score board, prosth./orth.) Toilet Transfers FIM Score 4. Minimal Assistance (Patient = 75% or more. Needs touching.) Patient transferred to: Shower Shower Transfers FIM Score 4. Minimal Assistance (Patient = 75% or more. Needs touching.) Locomotion- Stairs Device used on Stairs Handrail/s Number of Stairs Ascended/ 12 Descended Patient used handrail/support: Yes Stairs FIM Score 5. Supervision (12-14 stairs w/ supv. 4-6 stairs independently.) Locomotion- walk/wheelchair Most Frequent Mode of Walking Locomotion: Ambulation Distance 725 Walking FIM Score 5. Supervision (Minimum 150 ft. supv./cues or 50 ft. independently.) Wheelchair Propulsion Distance 340 Wheelchair FIM Score 6. Modified Haines (Wheels a minimum of 150 ft.) Eating Eating FIM Score 7. Complete Haines (Cuts meat, opens containers, regular diet.) Dressing-Upper body Patient retrieves clothing No items: Patient applies/removes UE No: n/a prosthesis or orthosis: Upper Body Dressing FIM Score 5. Supv./Set-Up (Madison sets out clothes or applies pros./orth.) Dressing-lower body Patient retrieves clothing No items: Patient applies/removes LE No: n/a prosthesis or orthosis: Lower Body Dressing FIM Score 5. Supv./Set-Up (Madison sets out clothes or applies pros./orth.) - Labs CBC & Chem 7: 12/05/18 06:47 12/01/18 06:51 Labs: Laboratory Results - last 72 hr 12/03/18 12/03/18 12/04/18 04:50 18:44 05:41 WBC 6.9 4.8 RBC 4.35 4.31 Hgb 11.8 11.7 Hct 36.8 36.1 MCV 84 84 MCH 27 L 27 L MCHC 32 32 RDW 16.6 H 17.1 H Plt Count 154 156 Lymph % (Auto) 14.9 24.6 [place] % (Auto) 6.5 9.5 H Eos % (Auto) 1.2 2.2 Baso % (Auto) 0.2 0.3 Lymph # 1.0 L 1.2 [place] # 0.5 0.5 Eos # 0.1 0.1 Baso # 0.0 0.0 Add Manual Diff Total Counted Seg Neutrophils % 77.2 H 63.4 Seg Neuts % (Manual) Band Neutrophils % Lymphocytes % (Manual) Reactive Lymphs % (Man) Monocytes % (Manual) Eosinophils % (Manual) Basophils % (Manual) Metamyelocytes % Myelocytes % Promyelocytes % Blast Cells % Nucleated RBC % Seg Neutrophils # 5.4 3.0 Seg Neutrophils # Man Band Neutrophils # Lymphocytes # (Manual) Abs React Lymphs (Man) Monocytes # (Manual) Eosinophils # (Manual) Basophils # (Manual) Metamyelocytes # Myelocytes # Promyelocytes # Blast Cells # WBC Morphology Hypersegmented Neuts Hyposegmented Neuts Hypogranular Neuts Smudge Cells Toxic Granulation Toxic Vacuolation Dohle Bodies Pelger-Huet Anomaly Kaycee Rods Platelet Estimate Clumped Platelets Plt Clumps, EDTA Large Platelets Giant Platelets Platelet Satelliting Plt Morphology Comment RBC Morphology Dimorphic RBCs Polychromasia Hypochromasia Poikilocytosis Anisocytosis Microcytosis Macrocytosis Spherocytes Pappenheimer Bodies Sickle Cells Target Cells Tear Drop Cells Ovalocytes Helmet Cells Frey-[place] Bodies [place] Rings Jonn Cells Bite Cells Crenated Cell Elliptocytes Acanthocytes (Spur) Rouleaux Hemoglobin C Crystals Schistocytes Malaria parasites Zhang Bodies Hem Pathologist Commnt Vancomycin Trough 5.1 12/05/18 06:47 WBC 4.5 RBC 4.11 Hgb 11.0 Hct 34.5 MCV 84 MCH 27 L MCHC 32 RDW 16.3 H Plt Count 152 Lymph % (Auto) [place] % (Auto) Eos % (Auto) Baso % (Auto) Lymph # [place] # Eos # Baso # Add Manual Diff Complete Total Counted 100 Seg Neutrophils % Seg Neuts % (Manual) 63.0 Band Neutrophils % 0 Lymphocytes % (Manual) 25.0 Reactive Lymphs % (Man) 0 Monocytes % (Manual) 10.0 H Eosinophils % (Manual) 2.0 Basophils % (Manual) 0 Metamyelocytes % 0 Myelocytes % 0 Promyelocytes % 0 Blast Cells % 0 Nucleated RBC % Not Reportable Seg Neutrophils # Seg Neutrophils # Man 2.8 Band Neutrophils # 0.0 Lymphocytes # (Manual) 1.1 L Abs React Lymphs (Man) 0.0 Monocytes # (Manual) 0.5 Eosinophils # (Manual) 0.1 Basophils # (Manual) 0.0 Metamyelocytes # 0.0 Myelocytes # 0.0 Promyelocytes # 0.0 Blast Cells # 0.0 WBC Morphology Not Reportable Hypersegmented Neuts Not Reportable Hyposegmented Neuts Not Reportable Hypogranular Neuts Not Reportable Smudge Cells Not Reportable Toxic Granulation Not Reportable Toxic Vacuolation Not Reportable Dohle Bodies Not Reportable Pelger-Huet Anomaly Not Reportable Kaycee Rods Not Reportable Platelet Estimate Consistent w auto Clumped Platelets Not Reportable Plt Clumps, EDTA Not Reportable Large Platelets Not Reportable Giant Platelets Not Reportable Platelet Satelliting Not Reportable Plt Morphology Comment Not Reportable RBC Morphology Not Reportable Dimorphic RBCs Not Reportable Polychromasia Not Reportable Hypochromasia Not Reportable Poikilocytosis Not Reportable Anisocytosis 1+ Microcytosis 1+ Macrocytosis Not Reportable Spherocytes Not Reportable Pappenheimer Bodies Not Reportable Sickle Cells Not Reportable Target Cells Rare Tear Drop Cells Not Reportable Ovalocytes Few Helmet Cells Not Reportable Frey-[place] Bodies Not Reportable [place] Rings Not Reportable Jonn Cells Not Reportable Bite Cells Not Reportable Crenated Cell Not Reportable Elliptocytes Not Reportable Acanthocytes (Spur) Not Reportable Rouleaux Not Reportable Hemoglobin C Crystals Not Reportable Schistocytes Not Reportable Malaria parasites Not Reportable Zhang Bodies Not Reportable Hem Pathologist Commnt No Vancomycin Trough Assessment and Plan Z73.6 ADL dysfunction: OT will work on improving ability to perform ADLs (including assistive devices) to increase independence and decrease caregiver burden and improve functional transfers and mobility training. R26.2 Difficulty walking: PT will work on gait training and proper use of assist rita devices and advance as appropriate to use of stairs and outside ambulation on uneven surfaces. R26.81 Unsteadiness on feet: PT will work on improving static and dynamic sitting and standing balance as well as proper use of assistive devices to decrease risk of falls. R26.89 Abnormality of gait: PT will work to improve safety and efficiency of gait through neuromotor training and gait training along with instruction on proper use of assistive devices. M62.81 Muscle weakness: PT & OT will work on strengthening exercises to improve functional strength including mixture of closed and open kinetic chain exercises. R53.81 Debility: PT & OT will work on improving overall functional status to im prove participation with ADLs, mobility and social involvement. R53.83 Fatigue: PT & OT will work on improving endurance through aerobic exercises and therapeutic activity while monitoring patients tolerance for activity and vital signs as needed. E78.5 Hyperlipidemia: Continue statin I10 Hypertension: Continue medications and adjust as needed F17.210 Nicotine dependence: Discussed cessation. Nicotine patch J44.9 COPD: Continue medications, RT prn. Pulm follow up. Sepsis/SIRS, PNA - resolved ID and Pulm consulted - appreciate assistance DVT ppx: Heparin Pain: Continue physical modalities in therapy and pain medications as needed to achieve functional pain control. Sleep: Monitor and address as needed. Bowel: Monitor and address as needed. Appetite: Monitor and address as needed. Discharge planning: Pending therapy progress and care plan meeting. Will continue discussion with therapy team, SW, patient and family. Restrictions/ Precautions: Falls WB status: FWB Functional Hx: ADLs: Independent Cognition: Independent Mobility: independent Barriers to Discharge: Decreased mobility and ability to perform self care, balance deficits, weakness Estimated Length of Stay: 7 -10 days. Discharge Destination: Home with family, alone most of the time
[2018-12-05] MEDS: VIBRAMYCIN PO SCH ×2 (12:03→21:47)
[2018-12-05] MEDS: COREG PO SCH ×2 (12:03→21:47)
[2018-12-05] MEDS: HABITROL TD SCH (12:03)
[2018-12-05] MEDS: LEVAQUIN PO SCH (12:03)
[2018-12-05] MEDS: ROBITUSSIN PO PRN (12:49)
[2018-12-05] MEDS: DELTASONE PO SCH (12:52)
[2018-12-05] MEDS: XANAX PO PRN ×2 (13:28→21:46)
[2018-12-05] MEDS: ZESTRIL PO SCH (18:58)
[2018-12-06] MEDS: HEPARIN SUB-Q SCH ×3 (06:41→21:31)
[2018-12-06] MEDS: DUONEB *Not for PRN Use IH SCH ×3 (07:20→19:33)
--- NOTE | 2018-12-06 11:17 | Progress Note ---
Assessment and Plan Imaging 11/30/18 Chest Xray: Frontal and lateral chest radiographs demonstrate new left lower lobe pneumonia measuring approximately 10 x 5 cm on the frontal view. Cultures 11/30/18 Blood: no growth to date 12/02/18 Sputum: contaminated A/P: 73 -year-old female with a history of COPD, GERD, hypertension and hyperlipidemia. Admitted to the [facility] unit on 11/13/18 for COPD exacerbation complicated by acute respiratory failure as well as SIRS.she was started on IV antibiotics, steroids She then required intubation and was transferred to the ICU. Chest CTA did not show large central pulmonary artery emboli however could not exclude significant emboli. There was significant chronic hyperinflation and increased secretions. She was weaned off the vent, extubated and placed on BiPAP. She was then transferred to the acute inpatient rehab on 11/23/18. where she continues to exhibit decreased activity tolerance and endurance. Now with: 1. Sepsis: Resolved. Etiology most likely Hospital acquired pneumonia. Chest xray showed a new left lower lobe consolidation. Blood cultures drawn and are in progress. Currently being treated with Vancomycin and Cefepime. -Procalcitonin- 1.3 2. Left Lower Lobe Hospital Acquired Pneumonia: evidenced by clinical symptoms, exam with decreased LLL fremitus and CXR with new infiltrate on LLL. Possible etiology- Staph including MRSA, Pseudomonas. 3, Acute Hypoxic Respiratory failure: 11/13/18 , requiring intubation. 4. COPD with acute exacerbation Plan: -Continue Levaquin 750mg, PO BID and Doxycycline 100mg BID, D6 or D7 ,last dose tomorrow -ID is signing off [facility] [employer] M: [phone] O:[phone] - Subjective Date of service: 12/06/18 Principal diagnosis: Debility Interval history: Patient seen and examined. Sitting up in the chair on the side of bed. Stated that she was feeling better today. Denies SOB, generalized pain or weakness. Objective - Exam Narrative Exam: Constitutional: Alert, cooperative.no acute distress Head, Ears, Nose: Normocephalic, atraumatic. External ears, nose normal Eyes: Conjunctivae/corneas clear. No icterus. No ptosis. Neck: Supple, no meningeal signs Oral: dentition good no. thrush Cardiovascular: S1, S2 normal. Respiratory: decreased LLL fremitus GI: Soft, non-tender; bowel sounds normal. No peritoneal signs Musculoskeletal: No pedal edema, no cyanosis. Skin: No rash or abscess. Hem/Lymphatic: No palpable cervical or supraclavicular nodes. No lymphangitis Psych: Mood ok. Affect normal Neurological: Awake, alert, oriented. - Constitutional Vitals: Vital Signs Temp Pulse Resp BP Pulse Ox 98.0 F 112 H 21 103/60 97 12/06/18 09:00 12/06/18 09:00 12/06/18 09:00 12/06/18 09:00 12/06/18 09:00 Temperature -Last 24 Hours Temperature 98.0 F Temperature 97.9 F Temperature 98.0 F Temperature 99.1 F Temperature 98.5 F - Labs CBC & Chem 7: 12/05/18 06:47 12/01/18 06:51 Labs: Abnormal lab results 12/02/18 Range/Units 13:31 Miscellaneous Test Flexitest 1 H
[2018-12-06] MEDS: VIBRAMYCIN PO SCH ×2 (11:22→21:34)
[2018-12-06] MEDS: LEVAQUIN PO SCH (11:25)
[2018-12-06] MEDS: DELTASONE PO SCH (11:36)
[2018-12-06] MEDS: COREG PO SCH ×2 (11:37→21:39)
[2018-12-06] MEDS: XANAX PO PRN ×2 (13:55→21:31)
[2018-12-06] MEDS: HABITROL TD SCH (14:28)
[2018-12-06] MEDS: ULTRAM PO PRN (20:15)
[2018-12-07] MEDS: HEPARIN SUB-Q SCH ×3 (05:04→21:12)
[2018-12-07] MEDS: COREG PO SCH ×2 (08:04→21:12)
[2018-12-07] MEDS: HABITROL TD SCH (08:04)
[2018-12-07] MEDS: DELTASONE PO SCH (08:05)
[2018-12-07] MEDS: DUONEB *Not for PRN Use IH SCH ×3 (08:15→23:40)
[2018-12-07] MEDS: ULTRAM PO PRN (15:01)
[2018-12-07] MEDS: XANAX PO PRN (23:54)
[2018-12-08] MEDS: HEPARIN SUB-Q SCH (06:07)
[2018-12-08] MEDS: DELTASONE PO SCH (08:23)
[2018-12-08] MEDS: HABITROL TD SCH (08:26)
[2018-12-08] MEDS: COREG PO SCH (08:30)
[2018-12-08] MEDS: DUONEB *Not for PRN Use IH SCH (08:39)
[2018-12-08] MEDS ORDERED: LASIX PO NR (09:46)
--- NOTE | 2018-12-08 10:32 | Discharge Summary ---
Providers - Providers Date of Admission: 11/23/18 19:32 Date of discharge: 12/08/18 Attending physician: SAMMY DAMIAN III, MD 11/23/18 19:32 Consult to Dietitian/Nutrition [CONS] Routine Physician Instructions: Eval PO intake Reason For Exam: Reason for Consult: Poor oral intake Occupational Therapy Evaluate and Treat [CONS] Routine Comment: Reason For Exam: Eval & treat ADL dysfunction Physical Therapy Evaluation and Treat [CONS] Routine Comment: Reason For Exam: Eval & Treat mobility dysfunction 11/23/18 19:38 Consult to Case Management [CONS] Routine Services Needed at Discharge: Home Health Services Notified:: cm notified 11/30/18 15:03 Consult to Physician [CONS] Routine Comment: Consulting Provider: LINDSEY MAYFIELD Physician Instructions: Reason For Exam: PNA Primary care physician: DOSIMETRIST Hospitalization Reason for admission: Debility s/p SIRS, COPD exacerbation and acute respiratory failure Condition: Good Pertinent studies: 11/30/2018 chest x-ray new left lower lobe pneumonia measuring approximately 10 x 5 cm. 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 She was found to have COPD exacerbation, care by acute respiratory failure and SIRS. She was started on IV antibiotics, steroids and admitted to the [facility] unit. She then required intubation and was transferred to the ICU. Chest CTA did not show large central pulmonary artery emboli however could not exclude significant emboli. There was significant chronic hyperinflation and in increased secretions. She was weaned off the vent, extubated and placed on BiPAP. Steroids were weaned and she will be on prolonged wean of 2 weeks. She was also weaned to room air but ended up needing to be on supplemental oxygen with nasal cannula. There was discussion of patient being discharged to home with home health versus SNF versus acute inpatient rehabilitation. Therapy evaluated the patient and determined that she could tolerate the intensity of acute inpatient rehabilitation program. With the tenuous nature of the patient's respiratory system and the need for close monitoring while she continues to recover felt she was an appropriate candidate and would be more appropriately cared for in the acute inpatient rehabilitation setting prior to going back to her home environment where she has intermittent to limited assistance. She was previously independent with mobility and ADLs and currently requires moderate assistance with most ADLs and has decreased activity tolerance. She progressed well in therapy and tolerated the level of activity with rest breaks on a regular basis. She was able to maintain her oxygen saturation on room air for the most part which improved towards the end of her stay including ambulation without supplemental O2. As we were approaching discharge near the seven-day xander I opted to get a chest x-ray to evaluate her pulmonary status which had been stable / improved to that point. Prior chest x-ray showed atelectasis at the bases. Chest x-ray obtained on November 30 showed left lower lobe pneumonia which prompted further workup with labs as well as consult for patent searcher and infectious disease. Initially neither I nor the patent searcher could find any recorded fevers however we both found one later at approximately 3 in the morning the date of the chest x-ray. In consultation with ID and considering elevated WBC, lactic acid and fever she was treated with sepsis protocol for hospital-acquired pneumonia. During this time she tolerated her antibiotic therapy without issue, continued to participate in therapy and is doing well and ready to discharge home. She will continue with outpatient therapy to improve her mobility, balance, endurance/activity tolerance, and ability to perform ADLs independently. Numerous times during her acute hospital stay as well as the acute rehabilitation stay she was counseled by other physicians as well as megan gonzalez on the necessity to quit smoking. She was encouraged to follow-up with both her PCP and her patent searcher within 7-10 days. She has a bag full of medications which were just filled prior to her admission and I have taken the opportunity to reconcile those medications with her current medications to reduce her cost. Prescriptions were given for medications that she does not have. She has been weaned on her prednisone dose down to 10 mg per day and I have recommended that she continue this dose for the next 10 days. There is an error in the EMR that I can not correct that shows 52 tabs prescribed - she was not provided with a prescription but does have this medication from a previous physician. After 10 days, she should have time to follow up with her patent searcher who may recommend discontinuing or continuing the prednisone. Disposition: TO HOME OR SELFCARE Time spent for discharge: >30mins. 18 minutes were spent [id number] counseling/coordinating care - Discharge Diagnoses (1) Anxiety Status: Chronic (2) COPD (chronic obstructive pulmonary disease) Status: Chronic Qualifiers: COPD type: emphysema Emphysema type: centrilobular Qualified Code(s): J43.2 - Centrilobular emphysema (3) Debility Status: Acute (4) Hospital acquired PNA Status: Acute (5) Sepsis Status: Acute Qualifiers: Sepsis type: sepsis due to unspecified organism Qualified Code(s): A41.9 - Sepsis, unspecified organism Core Measure Documentation - Palliative Care Palliative Care/ Comfort Measures: Not Applicable - Core Measures Any of the following diagnoses?: none Exam - Physical Exam Narrative exam: MUSCULOSKELETAL SPECIALTY EXAM Constitutional: Well developed, well nourished, appropriately groomed EENT: Visual bur[place] full to confrontation. Hearing intact to soft voice Respiratory: Clear to ascultation bilaterally, diminished, no increased work of breathing, occ cough. on RA this AM Cardiovascular Regular Rate/ Rhythm, no tenderness in all 4 extremities. All 4 extremities warm. Mild 1+ edema in BLE, BUE normal GI : + bowel sounds, soft, NTTP, nondistended INTEGUMENTARY Normal in all 4 extremities, except bruising in BUE Musculoskeletal BUE and RLE normal without defect, crepitus, sublux, effusion, or TTP. BUE 4+/5, good ROM with normal tone. BLE 4-/5 good ROM, with normal tone NEURO: CN 2-12 grossly intact. Sensation intact in all extremities. No tremor noted. POSTURE and GAIT: Sitting posture good. Balance reasonable. Gait slow, but no LOB with single point cane. PSYCH: Alert, orientated x3, affect appears normal. Insight appears intact. - Constitutional Vitals: Temp Pulse Resp BP Pulse Ox 36.7 C 86 18 114/67 98 12/07/18 20:18 12/08/18 08:47 12/08/18 08:47 12/07/18 21:12 12/08/18 08:48 - Allied Health Allied health notes reviewed: nursing, PT, OT, RT Plan Activity: no restrictions, advance as tolerated, fall precautions Weight Bearing Status: Full Weight Bearing [facility]: [facility] Special Instructions: smoking cessation, physical therapy, occupational therapy Durable Medical Equipment Needed Upon Discharge: Cane Follow up with: MELISSA ANDRADE MD [Primary Care Provider] - 7 Days NIKHIL HOLDER MD [Staff Physician] - 7 Days Prescriptions: AtorvaSTATin [Lipitor] 40 mg PO QHS #30 tablet Carvedilol [Coreg] 3.125 mg PO BID #60 tablet predniSONE [Deltasone] 10 mg PO QDAY #52 tab
[2018-12-08 12:47] VITALS: BP 103/64
== END 2018-12-08 13:15 | disposition home or self-care (01) | DRG 189 ==
LOC: UNDOADMIN 17:19 → 3B 17:19
PROVIDERS: ADMIT Physical Medicine & Rehabilitation; ATTEND Physical Medicine & Rehabilitation
DX: J96.00 Acute respiratory failure, unspecified whether with hypoxia or hypercapnia (principal); J18.1 Lobar pneumonia, unspecified organism; A41.9 Sepsis, unspecified organism; E44.1 Mild protein-calorie malnutrition; J44.1 Chronic obstructive pulmonary disease with (acute) exacerbation; J44.0 Chronic obstructive pulmonary disease with (acute) lower respiratory infection; R53.81 Other malaise; R53.83 Other fatigue; I10 Essential (primary) hypertension; K21.9 Gastro-esophageal reflux disease without esophagitis; E78.5 Hyperlipidemia, unspecified; M62.81 Muscle weakness (generalized); F17.210 Nicotine dependence, cigarettes, uncomplicated; Z68.26 Body mass index [BMI] 26.0-26.9, adult; Y95 Nosocomial condition
CPT/HCPCS: 36415; 71046; 80048; 80053; 80202; 82140; 82962; 85007; 85025; 86140; 87040; 87205; 94640; 94760; G0378; A9270-GY; J0692; J1644; J3370; J7040; J7512

== ENCOUNTER 2019-04-19 05:26 | Emergency (ER) | payer BC ==
[2019-04-19] MEDS ORDERED: ASPIRIN PO ONE (05:42)
[2019-04-19 06:40] LABS: Basophils % (Auto) 1.1 % (0.0-1.8); Eosinophils # (Auto) 0.2 K/mm3 (0.0-0.4); Eosinophils % (Auto) 4.6 % (0.0-4.3); Hematocrit 40.7 % (30.3-42.9); Hemoglobin 13.2 gm/dl (10.1-14.3); Lymphocytes # (Auto) 1.5 K/mm3 (1.2-5.4); Lymphocytes % (Auto) 35.7 % (13.4-35.0); Mean Corpuscular HGB Conc 32 % (30-34); Mean Corpuscular Volume 82 fl (79-97); Monocytes # (Auto) 0.6 K/mm3 (0.0-0.8); Monocytes % (Auto) 14.3 % (0.0-7.3); Platelet Count 280 K/mm3 (140-440); Red Blood Count 4.99 M/mm3 (3.65-5.03)
[2019-04-19 06:55] LABS: BUN/Creatinine Ratio 10; Blood Urea Nitrogen 7 mg/dL (7-17); Calcium 9.2 mg/dL (8.4-10.2); Hemolysis Index 12
--- NOTE | 2019-04-19 06:56 | XRay Report ---
PROCEDURE: XR CHEST 1V AP TECHNIQUE: Chest radiograph single view. HISTORY: Chest Pain COMPARISONS: 11/19/2018 . FINDINGS: No mediastinal shift. Cardiac silhouette is not enlarged. Hyperaeration of the lungs and flattening o f the hemidiaphragms. No pneumothorax, effusion, or focal pulmonary opacity identified. No acute ske letal findings. IMPRESSION: Suggested sequela of COPD without superimposed acute pulmonary finding identified. This document is electronically signed by Steve Naqvi MD., April 19 2019 06:55:10 AM ET
[2019-04-19] MEDS ORDERED: MORPHINE IV ONE (07:37)
[2019-04-19] MEDS ORDERED: PROVENTIL IH ONE (07:37)
[2019-04-19] MEDS ORDERED: SOLU-Medrol IV ONE (07:37)
[2019-04-19] MEDS ORDERED: ATROVENT IH ONE (07:38)
--- NOTE | 2019-04-19 07:45 | Emergency Department Report ---
HPI - General Chief Complaint: Dyspnea/Respdistress Time Seen by Provider: 04/19/19 07:12 - HPI HPI: 73-year-old -[place] female presents to the emergency department with complaint of some midsternal right-sided sharp chest pain/tightness and shor tness of breath with wheezing and coughing that has been going on since yesterday afternoon. Patient has a history of COPD but is not oxygen dependent at home. She used her albuterol inhaler and nebulizer treatments and took some [id number] pain medications but did not get much relief. No recent travel or sick contacts at home. Her primary care physician is Dr. 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 Botello. Patient had a negative stress test here in September of last year. ED Past Medical Hx - Past Medical History Previous Medical History?: Yes Hx Pulmonary Embolism: No Hx Asthma: No Hx COPD: Yes Hx Tuberculosis: No - Surgical History Past Surgical History?: Yes Additional Surgical History: D&C. cataracts - Social History Smoking Status: Former Smoker Substance Use Type: None - Medications Home Medications: Home Medications Medication Instructions Recorded Confirmed Last Taken Type Bevespi Aerosphere Inhaler 9 mcg INHALATION DAILY 09/18/18 11/26/18 11/13/18 History Flovent 44 MCG/PUFF HFA 2 inhalation PO BID 09/18/18 11/26/18 09/17/18 20:00 History Melatonin 10 mg Tablet 10 mg PO QHS 09/18/18 11/26/18 11/11/18 22:00 History guaiFENesin [Robitussin] 200 mg PO Q4H PRN 10 Days 09/21/18 11/26/18 11/13/18 Rx oral.liqd Benzonatate [Tessalon Perles] 100 mg PO Q8HR PRN #20 capsule 10/31/18 11/26/18 11/13/18 08:00 Rx traMADol [Ultram 50 MG tab] 50 mg PO Q6HR PRN #7 tablet 10/31/18 11/26/18 11/13/18 11:00 Rx ALPRAZolam [Xanax TAB] 0.25 mg PO Q8H PRN #30 tablet 11/06/18 11/26/18 11/13/18 08:00 Rx 0.5 Nicotine [Habitrol] 14 mg TD QDAY #30 patch 11/06/18 11/26/18 11/13/18 15:00 Rx AtorvaSTATin [Lipitor] 40 mg PO QHS #30 tablet 12/08/18 Unknown Rx Carvedilol [Coreg] 3.125 mg PO BID #60 tablet 12/08/18 Unknown Rx predniSONE [Deltasone] 10 mg PO QDAY #52 tab 12/08/18 11/26/18 Unknown Rx ALBUTEROL Inhaler (OR & NICU) 2 puff IH QID PRN #1 inhalation 04/19/19 Unknown Rx [ProAir HFA Inhaler] Albuterol Sulfate [Albuterol 0.63% 0.63 mg IH TID PRN #30 vial.neb 04/19/19 Unknown Rx NEBS] predniSONE [Deltasone] 20 mg PO BID #10 tab 04/19/19 Unknown Rx ED Review of Systems ROS: Stated complaint: COPD Other details as noted in HPI Comment: All other systems reviewed and negative Constitutional: denies: chills, fever Eyes: denies: eye pain, vision change ENT: denies: ear pain, throat pain Respiratory: cough, shortness of breath, wheezing Cardiovascular: chest pain. denies: palpitations Gastrointestinal: denies: abdominal pain, vomiting Genitourinary: denies: dysuria, discharge Musculoskeletal: denies: back pain, arthralgia Skin: denies: rash, lesions Neurological: denies: headache, weakness Physical Exam - Physical Exam Vital Signs: Vital Signs 04/19/19 04/19/19 05:31 06:44 Temperature 97.9 F 97.9 F Pulse Rate 68 67 Respiratory 18 13 Rate Blood Pressure 134/60 Blood Pressure 131/51 [Left] O2 Sat by Pulse 98 97 Oximetry Physical Exam: GENERAL: The patient is well-developed well-nourished. HENT: Normocephalic. Atraumatic. Patient has moist mucous membranes. EYES: Extraocular motions are intact. Pupils equal reactive to light bilaterally. NECK: Supple. Trachea is midline. CHEST/LUNGS: Mild wheezing throughout the chest. No tachypnea or accessory muscle use. There is no respiratory distress noted. HEART/CARDIOVASCULAR: Regular. There is no tachycardia. There is no murmur. ABDOMEN: Abdomen is soft, nontender. Patient has normal bowel sounds. There is no abdominal distention. SKIN: Skin is warm and dry. NEURO: The patient is awake, alert, and oriented. The patient is cooperative. The patient has no focal neurologic deficits. The patient has normal speech. MUSCULOSKELETAL: There is no tenderness or deformity. There is no evidence of acute injury. ED Course Vital Signs 04/19/19 04/19/19 05:31 06:44 Temperature 97.9 F 97.9 F Pulse Rate 68 67 Respiratory 18 13 Rate Blood Pressure 134/60 Blood Pressure 131/51 [Left] O2 Sat by Pulse 98 97 Oximetry ED Medical Decision Making - Lab Data Result diagrams: 04/19/19 06:04 04/19/19 06:04 - EKG Data -: EKG Interpreted by Me EKG shows normal: sinus rhythm, axis (left axis deviation), intervals, QRS complexes, ST-T waves Rate: normal - EKG Data When compared to previous EKG there are: no significant change Interpretation: unchanged when compared t (11/13/18) - Radiology Data Radiology results: image reviewed interpreted by me: Chest x-ray shows some hyperinflation of the lungs and flattening of the diaphragms consistent with COPD/emphysema. No obvious pneumonia or pleural effusions. No pneumothorax. - Medical Decision Making Patient presents to the emergency department with some chest tightness, shortness of breath, wheezing with history of COPD. Vital signs are stable throughout her ED course including being afebrile and no signs of any hypoxia. On examination she has some mild bronchospasm and no signs of any respiratory distress. She was given Solu-Medrol and a breathing treatment and upon reevaluation she is feeling greatly improved. EKG did not show any signs of ST elevation AR, ischemia or dysrhythmia. Patient had unremarkable labs including negative troponins 3 and a negative d-dimer. On top of that, the patient had a negative stress test in September of last year. For these reasons, the patient appears safe for discharge home at this time. She has been instructed to follow-up with her primary care physician and production welder. She was given a course of steroids and a refill for albuterol medications. She will return to the ER with any worsening of her symptoms or any acute distress. - Differential Diagnosis Pneumonia, COPD, AR, PE, Asthma Critical Care Time: No Critical care attestation.: If time is entered above; I have spent that time in minutes in the direct care of this critically ill patient, excluding procedure time. ED Disposition Clinical Impression: COPD (chronic obstructive pulmonary disease) Qualifiers: COPD type: unspecified COPD Qualified Code(s): J44.9 - Chronic obstructive pulmonary disease, unspecified Disposition: TO HOME OR SELFCARE Is pt being admited?: No Condition: Stable Instructions: Chronic Obstructive Pulmonary Disease (ED) Additional Instructions: Please follow up with her primary care physician and production welder in the next few days. Return to the emergency Department with any worsening of your symptoms or any acute distress. Prescriptions: Albuterol Sulfate [Albuterol 0.63% NEBS] 0.63 mg IH TID PRN #30 vial.neb PRN Reason: Wheezing predniSONE [Deltasone] 20 mg PO BID #10 tab ALBUTEROL Inhaler (OR & NICU) [ProAir HFA Inhaler] 2 puff IH QID PRN #1 inhalation PRN Reason: Shortness Of Breath Referrals: TREMAINE GARCIA MD [Staff Physician] - 2-3 Days NIKHIL BOTELLO MD [Staff Physician] - 2-3 Days Time of Disposition: 14:01
[2019-04-19] MEDS ORDERED: MORPHINE ONE (08:19)
[2019-04-19 15:00] VITALS: BP 126/54
== END 2019-04-19 14:20 | disposition home or self-care (01) ==
LOC: ED 05:26
DX: J44.9 Chronic obstructive pulmonary disease, unspecified (principal); Z87.891 Personal history of nicotine dependence; Z79.899 Other long term (current) drug therapy
CPT/HCPCS: 36415; 71045; 80048; 84484; 85025; 85379; 93005; 93010; 94640; 96374; 96375; 99285; J2270; J2930

== ENCOUNTER 2019-10-07 19:20 | Emergency (ER) | payer BC ==
--- NOTE | 2019-10-07 19:34 | Emergency Department Report ---
Blank Doc - Documentation Documentation: 73-year-old female that presents with SOB and chest tightness. This initial assessment/diagnostic orders/clinical plan/treatment(s) is/are subject to change based on patient's health status, clinical progression and re- assessment by fellow clinical providers in the ED. Further treatment and workup at subsequent clinical providers discretion. Patient/guardians urged not to elope from the ED as their condition may be serious if not clinically assessed and managed. Initial orders include: 1- Patient sent to MAIN ED for further evaluation and treatment 2- labs 3- EKG 4- CXR
--- NOTE | 2019-10-07 20:08 | XRay Report ---
CHEST 2 VIEWS INDICATION / CLINICAL INFORMATION: Chest Pain. COMPARISON: 04/19/2019 FINDINGS: SUPPORT DEVICES: None. HEART / MEDIASTINUM: No significant abnormality. LUNGS / PLEURA: There is hyperinflation the lungs. No focal infiltrate is seen. No pneumothorax is se en. . No pleural effusion is seen. ADDITIONAL FINDINGS: No significant additional findings. IMPRESSION: 1. No acute findings. No significant change Signer Name: Stanislav Fair MD Signed: 10/07/2019 8:03 PM Workstation Name: [id number]
[2019-10-07 20:17] LABS: Eosinophils # (Auto) 0.2 K/mm3 (0.0-0.4); Eosinophils % (Auto) 3.8 % (0.0-4.3); Hematocrit 41.6 % (30.3-42.9); Hemoglobin 13.7 gm/dl (10.1-14.3); Lymphocytes # (Auto) 1.6 K/mm3 (1.2-5.4); Lymphocytes % (Auto) 31.7 % (13.4-35.0); Mean Corpuscular HGB Conc 33 % (30-34); Mean Corpuscular Volume 83 fl (79-97); Monocytes # (Auto) 0.6 K/mm3 (0.0-0.8); Platelet Count 225 K/mm3 (140-440); Red Blood Count 5.01 M/mm3 (3.65-5.03); Red Cell Distribution Width 14.1 % (13.2-15.2)
[2019-10-07 20:28] LABS: Partial Thromboplastin Time 37.7 Sec. (24.2-36.6)
[2019-10-07 20:40] LABS: Alanine Aminotransferase 17 units/L (7-56); Albumin 4.1 g/dL (3.9-5); BUN/Creatinine Ratio 18; Blood Urea Nitrogen 11 mg/dL (7-17); Calcium 9.2 mg/dL (8.4-10.2); Hemolysis Index 11
[2019-10-07] MEDS ORDERED: ALBUTEROL 2.5 MG/3 ML NEBU IH ONE (21:37)
[2019-10-07] MEDS ORDERED: IPRATROPIUM 0.02% NEBU 2.5 ML IH ONE (21:37)
[2019-10-07] MEDS ORDERED: predniSONE 20 MG TAB PO ONE (21:37)
--- NOTE | 2019-10-07 22:13 | Emergency Department Report ---
ED Shortness of Breath HPI - General Chief Complaint: Dyspnea/Respdistress Stated Complaint: ES, COPD Time Seen by Provider: 10/07/19 19:33 Source: patient Mode of arrival: Ambulatory Limitations: No Limitations - History of Present Illness Initial Comments: 73-year-old female with history of COPD presents to the ED with COPD exacerbation. Patient reports mild shortness of breath and chest tightness, which she states normally comes from her COPD. Patient states she used her inhaler at home, but did not use her nebulizer machine. Patient reports associated cough. Denies any fever, leg pain or swelling. She states she did get some relief from her inhaler. MD Complaint: shortness of breath -: This evening Severity: mild Quality: other (tightness) Consistency: constant Improves With: bronchodilators Worsens With: nothing Known History Of: COPD Associated Symptoms: chest pain, cough Treatments Prior to Arrival: bronchodilator - Related Data Home Oxygen Therapy: No Home Medications Medication Instructions Recorded Confirmed Last Taken Bevespi Aerosphere Inhaler 9 mcg INHALATION DAILY 09/18/18 11/26/18 11/13/18 Flovent 44 MCG/PUFF HFA 2 inhalation PO BID 09/18/18 11/26/18 09/17/18 20:00 Melatonin 10 mg Tablet 10 mg PO QHS 09/18/18 11/26/18 11/11/18 22:00 Previous Rx's Medication Instructions Recorded Last Taken Type guaiFENesin [Robitussin] 200 mg PO Q4H PRN 10 Days 09/21/18 11/13/18 Rx oral.liqd Benzonatate [Tessalon Perles] 100 mg PO Q8HR PRN #20 capsule 10/31/18 11/13/18 08:00 Rx traMADoL [Ultram 50 MG tab] 50 mg PO Q6HR PRN #7 tablet 10/31/18 11/13/18 11:00 Rx ALPRAZolam [Xanax TAB] 0.25 mg PO Q8H PRN #30 tablet 11/06/18 11/13/18 08:00 Rx 0.5 Nicotine [Habitrol] 14 mg TD QDAY #30 patch 11/06/18 11/13/18 15:00 Rx AtorvaSTATin [Lipitor] 40 mg PO QHS #30 tablet 12/08/18 Unknown Rx carvediloL [Coreg] 3.125 mg PO BID #60 tablet 12/08/18 Unknown Rx predniSONE [Deltasone] 10 mg PO QDAY #52 tab 12/08/18 Unknown Rx ALBUTEROL Inhaler (OR & NICU) 2 puff IH QID PRN #1 inhalation 04/19/19 Unknown Rx [ProAir HFA Inhaler] Albuterol Sulfate [Albuterol 0.63% 0.63 mg IH TID PRN #30 vial.neb 04/19/19 Unknown Rx NEBS] predniSONE [Deltasone] 20 mg PO BID #10 tab 04/19/19 Unknown Rx Albuterol Sulfate [Proventil Hfa] 2 puff IH Q4HR PRN #1 hfa.aer.ad 10/07/19 Unknown Rx predniSONE [Deltasone] 50 mg PO QDAY #5 tab 10/07/19 Unknown Rx Allergies Allergy/AdvReac Type Severity Reaction Status Date / Time No Known Allergies Allergy Verified 11/13/18 12:09 ED Review of Systems ROS: Stated complaint: ES, COPD Other details as noted in HPI Comment: All other systems reviewed and negative Constitutional: denies: chills, fever Respiratory: cough, shortness of breath, wheezing Cardiovascular: chest pain Gastrointestinal: denies: nausea, vomiting Musculoskeletal: other (denies leg pain or swelling) ED Past Medical Hx - Past Medical History Previous Medical History?: Yes Hx Pulmonary Embolism: No Hx Asthma: No Hx COPD: Yes Hx Tuberculosis: No - Surgical History Past Surgical History?: Yes Additional Surgical History: D&C. cataracts - Social History Smoking Status: Former Smoker Substance Use Type: None - Medications Home Medications: Home Medications Medication Instructions Recorded Confirmed Last Taken Type Bevespi Aerosphere Inhaler 9 mcg INHALATION DAILY 09/18/18 11/26/18 11/13/18 History Flovent 44 MCG/PUFF HFA 2 inhalation PO BID 09/18/18 11/26/18 09/17/18 20:00 History Melatonin 10 mg Tablet 10 mg PO QHS 09/18/18 11/26/18 11/11/18 22:00 History guaiFENesin [Robitussin] 200 mg PO Q4H PRN 10 Days 09/21/18 11/26/18 11/13/18 Rx oral.liqd Benzonatate [Tessalon Perles] 100 mg PO Q8HR PRN #20 capsule 10/31/18 11/26/18 11/13/18 08:00 Rx traMADoL [Ultram 50 MG tab] 50 mg PO Q6HR PRN #7 tablet 10/31/18 11/26/18 11/13/18 11:00 Rx ALPRAZolam [Xanax TAB] 0.25 mg PO Q8H PRN #30 tablet 11/06/18 11/26/18 11/13/18 08:00 Rx 0.5 Nicotine [Habitrol] 14 mg TD QDAY #30 patch 11/06/18 11/26/18 11/13/18 15:00 Rx AtorvaSTATin [Lipitor] 40 mg PO QHS #30 tablet 12/08/18 Unknown Rx carvediloL [Coreg] 3.125 mg PO BID #60 tablet 12/08/18 Unknown Rx predniSONE [Deltasone] 10 mg PO QDAY #52 tab 12/08/18 11/26/18 Unknown Rx ALBUTEROL Inhaler (OR & NICU) 2 puff IH QID PRN #1 inhalation 04/19/19 Unknown Rx [ProAir HFA Inhaler] Albuterol Sulfate [Albuterol 0.63% 0.63 mg IH TID PRN #30 vial.neb 04/19/19 Unknown Rx NEBS] predniSONE [Deltasone] 20 mg PO BID #10 tab 04/19/19 Unknown Rx Albuterol Sulfate [Proventil Hfa] 2 puff IH Q4HR PRN #1 hfa.aer.ad 10/07/19 Unknown Rx predniSONE [Deltasone] 50 mg PO QDAY #5 tab 10/07/19 Unknown Rx ED Physical Exam - General Limitations: No Limitations General appearance: alert, in no apparent distress - Head Head exam: Present: atraumatic, normocephalic - Eye Eye exam: Present: normal appearance, EOMI - ENT ENT exam: Present: mucous membranes moist - Neck Neck exam: Present: normal inspection - Respiratory Respiratory exam: Present: normal lung sounds bilaterally. Absent: respiratory distress - Cardiovascular Cardiovascular Exam: Present: regular rate, normal rhythm - GI/Abdominal GI/Abdominal exam: Present: soft. Absent: distended, tenderness - Extremities Exam Extremities exam: Present: normal inspection. Absent: pedal edema, calf tenderness - Neurological Exam Neurological exam: Present: alert, oriented X3 - Psychiatric Psychiatric exam: Present: normal affect, normal mood - Skin Skin exam: Present: warm, dry, intact, normal color ED Course Vital Signs 10/07/19 10/07/19 10/07/19 19:25 21:29 21:30 Temperature 98.4 F 98.3 F Pulse Rate 85 67 65 Pulse Rate [ Posterior] Respiratory 14 16 19 Rate Respiratory Rate [Posterior ] Blood Pressure 136/51 115/51 Blood Pressure 113/61 [Left] O2 Sat by Pulse 93 98 97 Oximetry 10/07/19 10/07/19 10/07/19 22:00 22:30 22:44 Temperature Pulse Rate 74 61 Pulse Rate [ 89 Posterior] Respiratory 13 18 Rate Respiratory 20 Rate [Posterior ] Blood Pressure 113/61 119/51 Blood Pressure [Left] O2 Sat by Pulse 96 98 Oximetry 10/07/19 10/07/19 23:00 23:30 Temperature Pulse Rate Pulse Rate [ Posterior] Respiratory 17 18 Rate Respiratory Rate [Posterior ] Blood Pressure 125/53 119/51 Blood Pressure [Left] O2 Sat by Pulse 100 100 Oximetry ED Medical Decision Making - Lab Data Result diagrams: 10/07/19 19:46 10/07/19 19:46 - EKG Data -: EKG Interpreted by Mi EKG shows normal: sinus rhythm, axis, intervals, QRS complexes, ST-T waves Rate: normal - EKG Data Interpretation: no acute changes, other (LAD) - Radiology Data Radiology results: report reviewed, image reviewed - Medical Decision Making - acute COPD exacerbation - pt feeling much better after the nebulizer, requesting discharge home - vitals normal - CXR normal - EKG shows no ST changes; troponin negative x 2 - will discharge at this time - advised to f/u w/ PCP - return precautions given - Differential Diagnosis COPD, pneumonia, ACS Critical care attestation.: If time is entered above; I have spent that time in minutes in the direct care of this critically ill patient, excluding procedure time. ED Disposition Clinical Impression: COPD with acute exacerbation Disposition: DC-01 TO HOME OR SELFCARE Is pt being admited?: No Condition: Stable Instructions: Chronic Obstructive Pulmonary Disease (ED) Prescriptions: predniSONE [Deltasone] 50 mg PO QDAY #5 tab Albuterol Sulfate [Proventil Hfa] 2 puff IH Q4HR PRN #1 hfa.aer.ad PRN Reason: Wheezing Referrals: AMY GARCIA MD [Primary Care Provider] - 3-5 Days PRIMARY CARE, [Referring] - 3-5 Days Time of Disposition: 23:43
[2019-10-08 00:07] VITALS: BP 119/51
== END 2019-10-08 | disposition home or self-care (01) ==
LOC: ED 19:20
DX: J44.1 Chronic obstructive pulmonary disease with (acute) exacerbation (principal); Z87.891 Personal history of nicotine dependence
CPT/HCPCS: 36415; 71046; 80053; 83880; 84484; 85025; 85610; 85730; 93005; 93010; 94640; 99284; J7512; 94644

== ENCOUNTER 2019-11-30 09:51 | Emergency (ER) | payer MEDICARE ==
[2019-11-30] MEDS ORDERED: methylPREDNISolone Sod Succinate 125 MG/2 ML INJ IV ONE (11:06)
[2019-11-30] MEDS ORDERED: IPRATROPIUM/ALBUTEROL SULFATE 3 ML AMPUL.NEB IH ONE (11:06)
[2019-11-30] MEDS ORDERED: IPRATROPIUM 0.02% NEBU 2.5 ML IH ONE (11:06)
--- NOTE | 2019-11-30 11:06 | Emergency Department Report ---
ED Shortness of Breath HPI - General Chief Complaint: Dyspnea/Respdistress Stated Complaint: COPD Time Seen by Provider: 11/30/19 10:51 Source: patient Mode of arrival: Ambulatory Limitations: No Limitations - History of Present Illness Initial Comments: 74-year-old -[place] female patient with history of hypertension and COPD presents with complaints of shortness of breath for 2 days. She denies any chest pain but admits to tightness and states this feels like her normal COPD flare. Patient follows with Dr. Botello, pulmonology, and states that recently she was changed from Bevespi to Anoro elliptica, which she states does not seem to be working very well. Patient also reports that she has not been taking her Flovent due to the and unsure if she is supposed to take this in combination with a Anoro elliptica Patient has history of multiple hospitalizations for her COPD and has history of intubation 1. She denies any hemoptysis, fever, leg pain/swelling, recent long travel, recent surgery, history of cancer, or hormones. Patient states she tried to nebulizer treatments at home and her symptoms did not improve. After 1 nebulizer treatment here in ED, patient states her chest tightness and shortness of breath has improved. She denies being on home oxygen. MD Complaint: shortness of breath -: Sudden Worsens With: exertion Known History Of: COPD - Related Data Home Medications Medication Instructions Recorded Confirmed Last Taken Bevespi Aerosphere Inhaler 9 mcg INHALATION DAILY 09/18/18 11/26/18 11/13/18 Flovent 44 MCG/PUFF HFA 2 inhalation PO BID 09/18/18 11/26/18 09/17/18 20:00 Melatonin 10 mg Tablet 10 mg PO QHS 09/18/18 11/26/18 11/11/18 22:00 Previous Rx's Medication Instructions Recorded Last Taken Type guaiFENesin [Robitussin] 200 mg PO Q4H PRN 10 Days 09/21/18 11/13/18 Rx oral.liqd Benzonatate [Tessalon Perles] 100 mg PO Q8HR PRN #20 capsule 10/31/18 11/13/18 08:00 Rx traMADoL [Ultram 50 MG tab] 50 mg PO Q6HR PRN #7 tablet 10/31/18 11/13/18 11:00 Rx ALPRAZolam [Xanax TAB] 0.25 mg PO Q8H PRN #30 tablet 11/06/18 11/13/18 08:00 Rx 0.5 Nicotine [Habitrol] 14 mg TD QDAY #30 patch 11/06/18 11/13/18 15:00 Rx AtorvaSTATin [Lipitor] 40 mg PO QHS #30 tablet 12/08/18 Unknown Rx carvediloL [Coreg] 3.125 mg PO BID #60 tablet 12/08/18 Unknown Rx predniSONE [Deltasone] 10 mg PO QDAY #52 tab 12/08/18 Unknown Rx Albuterol INH(or & Nicu Only) 2 puff IH QID PRN #1 inhalation 04/19/19 Unknown Rx [ProAir HFA Inhaler] Albuterol Sulfate [Albuterol 0.63% 0.63 mg IH TID PRN #30 vial.neb 04/19/19 Unknown Rx NEBS] predniSONE [Deltasone] 20 mg PO BID #10 tab 04/19/19 Unknown Rx Albuterol Sulfate [Proventil Hfa] 2 puff IH Q4HR PRN #1 hfa.aer.ad 10/07/19 Unknown Rx predniSONE [Deltasone] 50 mg PO QDAY #5 tab 10/07/19 Unknown Rx Prednisone [predniSONE 5 mg (6-Day 5 mg PO .TAPER #1 tab.ds.pk 11/30/19 Unknown Rx Pack, 21 Tabs)] Allergies Allergy/AdvReac Type Severity Reaction Status Date / Time No Known Allergies Allergy Verified 11/13/18 12:09 ED Review of Systems ROS: Stated complaint: COPD Other details as noted in HPI Constitutional: denies: chills, diaphoresis, fever Eyes: denies: vision change Respiratory: cough, shortness of breath, SOB with exertion, SOB at rest. denies: orthopnea Cardiovascular: denies: chest pain, palpitations, edema, syncope Gastrointestinal: denies: abdominal pain, nausea, vomiting Genitourinary: denies: urgency, dysuria Musculoskeletal: denies: back pain Neurological: denies: headache, weakness, paresthesias ED Past Medical Hx - Past Medical History Hx Pulmonary Embolism: No Hx Asthma: No Hx COPD: Yes Hx Tuberculosis: No - Surgical History Additional Surgical History: D&C. cataracts - Social History Smoking Status: Former Smoker Substance Use Type: None - Medications Home Medications: Home Medications Medication Instructions Recorded Confirmed Last Taken Type Bevespi Aerosphere Inhaler 9 mcg INHALATION DAILY 09/18/18 11/26/18 11/13/18 History Flovent 44 MCG/PUFF HFA 2 inhalation PO BID 09/18/18 11/26/18 09/17/18 20:00 History Melatonin 10 mg Tablet 10 mg PO QHS 09/18/18 11/26/18 11/11/18 22:00 History guaiFENesin [Robitussin] 200 mg PO Q4H PRN 10 Days 09/21/18 11/26/18 11/13/18 Rx oral.liqd Benzonatate [Tessalon Perles] 100 mg PO Q8HR PRN #20 capsule 10/31/18 11/26/18 11/13/18 08:00 Rx traMADoL [Ultram 50 MG tab] 50 mg PO Q6HR PRN #7 tablet 10/31/18 11/26/18 11/13/18 11:00 Rx ALPRAZolam [Xanax TAB] 0.25 mg PO Q8H PRN #30 tablet 11/06/18 11/26/18 11/13/18 08:00 Rx 0.5 Nicotine [Habitrol] 14 mg TD QDAY #30 patch 11/06/18 11/26/18 11/13/18 15:00 Rx AtorvaSTATin [Lipitor] 40 mg PO QHS #30 tablet 12/08/18 Unknown Rx carvediloL [Coreg] 3.125 mg PO BID #60 tablet 12/08/18 Unknown Rx predniSONE [Deltasone] 10 mg PO QDAY #52 tab 12/08/18 11/26/18 Unknown Rx Albuterol INH(or & Nicu Only) 2 puff IH QID PRN #1 inhalation 04/19/19 Unknown Rx [ProAir HFA Inhaler] Albuterol Sulfate [Albuterol 0.63% 0.63 mg IH TID PRN #30 vial.neb 04/19/19 Unknown Rx NEBS] predniSONE [Deltasone] 20 mg PO BID #10 tab 04/19/19 Unknown Rx Albuterol Sulfate [Proventil Hfa] 2 puff IH Q4HR PRN #1 hfa.aer.ad 10/07/19 Unknown Rx predniSONE [Deltasone] 50 mg PO QDAY #5 tab 10/07/19 Unknown Rx Prednisone [predniSONE 5 mg (6-Day 5 mg PO .TAPER #1 tab.ds.pk 11/30/19 Unknown Rx Pack, 21 Tabs)] ED Physical Exam - General Limitations: No Limitations General appearance: alert, in no apparent distress - Head Head exam: Present: atraumatic, normocephalic - Eye Eye exam: Present: normal appearance. Absent: scleral icterus - ENT ENT exam: Present: normal orophraynx, mucous membranes moist - Neck Neck exam: Present: normal inspection, full ROM. Absent: tenderness, lymphadenopathy - Respiratory Respiratory exam: Present: decreased breath sounds (diffusely). Absent: respiratory distress, wheezes, rales, rhonchi, stridor, chest wall tenderness, accessory muscle use - Cardiovascular Cardiovascular Exam: Present: regular rate, normal rhythm. Absent: systolic murmur, diastolic murmur, rubs, gallop - GI/Abdominal GI/Abdominal exam: Present: soft, normal bowel sounds. Absent: distended, tenderness, guarding, rebound, rigid - Extremities Exam Extremities exam: Present: normal inspection, full ROM, other (normal pedal pulses noted bilaterally). Absent: calf tenderness (no swelling noted) - Back Exam Back exam: Present: normal inspection - Neurological Exam Neurological exam: Present: alert, oriented X3 - Psychiatric Psychiatric exam: Present: normal affect, normal mood - Skin Skin exam: Present: warm, dry, intact, normal color. Absent: rash ED Course Vital Signs 11/30/19 11/30/19 11/30/19 09:58 11:02 11:07 Temperature 98.0 F 98.3 F Pulse Rate 98 H 95 H Respiratory 16 28 H Rate Blood Pressure 128/83 137/70 Blood Pressure 137/70 [Right] O2 Sat by Pulse 99 98 97 Oximetry 11/30/19 11/30/19 11/30/19 11:16 11:30 11:46 Temperature Pulse Rate 94 H 93 H 86 Respiratory 28 H 25 H 23 Rate Blood Pressure 137/70 137/70 137/70 Blood Pressure [Right] O2 Sat by Pulse 97 89 100 Oximetry 11/30/19 11/30/19 12:00 12:16 Temperature Pulse Rate 82 79 Respiratory 24 24 Rate Blood Pressure 136/73 137/70 Blood Pressure [Right] O2 Sat by Pulse 100 100 Oximetry ED Medical Decision Making - Lab Data Result diagrams: 11/30/19 10:59 11/30/19 10:59 Lab Results 11/30/19 11/30/19 11/30/19 Range/Units 10:59 10:59 10:59 WBC 4.3 L (4.5-11.0) K/mm3 RBC 5.43 H (3.65-5.03) M/mm3 Hgb 14.9 H (10.1-14.3) gm/dl Hct 45.3 H (30.3-42.9) % MCV 84 (79-97) fl MCH 28 (28-32) pg MCHC 33 (30-34) % RDW 15.2 (13.2-15.2) % Plt Count 260 (140-440) K/mm3 Lymph % (Auto) 29.9 (13.4-35.0) % [place] % (Auto) 11.2 H (0.0-7.3) % Eos % (Auto) 13.2 H (0.0-4.3) % Baso % (Auto) 0.6 (0.0-1.8) % Lymph # 1.3 (1.2-5.4) K/mm3 [place] # 0.5 (0.0-0.8) K/mm3 Eos # 0.6 H (0.0-0.4) K/mm3 Baso # 0.0 (0.0-0.1) K/mm3 Seg Neutrophils % 45.1 (40.0-70.0) % Seg Neutrophils # 1.9 (1.8-7.7) K/mm3 Sodium 141 (137-145) mmol/L Potassium 4.7 (3.6-5.0) mmol/L Chloride 102.8 (98-107) mmol/L Carbon Dioxide 23 (22-30) mmol/L Anion Gap 20 mmol/L BUN 8 (7-17) mg/dL Creatinine 0.6 L (0.7-1.2) mg/dL Estimated GFR > 60 ml/min BUN/Creatinine Ratio 13 % Glucose 101 H (65-100) mg/dL Calcium 9.6 (8.4-10.2) mg/dL Total Bilirubin 0.60 (0.1-1.2) mg/dL Direct Bilirubin < 0.2 (0-0.2) mg/dL Indirect Bilirubin 0.4 mg/dL AST 20 (5-40) units/L ALT 18 (7-56) units/L Alkaline Phosphatase 133 H (35-129) units/L Troponin T < 0.010 (0.00-0.029) ng/mL NT-Pro-B Natriuret Pep 12.67 (0-900) pg/mL Total Protein 7.9 (6.3-8.2) g/dL Albumin 4.7 (3.9-5) g/dL Albumin/Globulin Ratio 1.5 % Urine Color (Yellow) Urine Turbidity (Clear) Urine pH (5.0-7.0) Ur Specific [place] (1.003-1.030) Urine Protein (Negative) mg/dL Urine Glucose (UA) (Negative) mg/dL Urine Ketones (Negative) mg/dL Urine Blood (Negative) Urine Nitrite (Negative) Urine Bilirubin (Negative) Urine Urobilinogen (<2.0) mg/dL Ur Leukocyte Esterase (Negative) Urine WBC (Auto) (0.0-6.0) /HPF Urine RBC (Auto) (0.0-6.0) /HPF U Epithel Cells (Auto) (0-13.0) /HPF 11/30/19 Range/Units 11:40 WBC (4.5-11.0) K/mm3 RBC (3.65-5.03) M/mm3 Hgb (10.1-14.3) gm/dl Hct (30.3-42.9) % MCV (79-97) fl MCH (28-32) pg MCHC (30-34) % RDW (13.2-15.2) % Plt Count (140-440) K/mm3 Lymph % (Auto) (13.4-35.0) % [place] % (Auto) (0.0-7.3) % Eos % (Auto) (0.0-4.3) % Baso % (Auto) (0.0-1.8) % Lymph # (1.2-5.4) K/mm3 [place] # (0.0-0.8) K/mm3 Eos # (0.0-0.4) K/mm3 Baso # (0.0-0.1) K/mm3 Seg Neutrophils % (40.0-70.0) % Seg Neutrophils # (1.8-7.7) K/mm3 Sodium (137-145) mmol/L Potassium (3.6-5.0) mmol/L Chloride (98-107) mmol/L Carbon Dioxide (22-30) mmol/L Anion Gap mmol/L BUN (7-17) mg/dL Creatinine (0.7-1.2) mg/dL Estimated GFR ml/min BUN/Creatinine Ratio % Glucose (65-100) mg/dL Calcium (8.4-10.2) mg/dL Total Bilirubin (0.1-1.2) mg/dL Direct Bilirubin (0-0.2) mg/dL Indirect Bilirubin mg/dL AST (5-40) units/L ALT (7-56) units/L Alkaline Phosphatase (35-129) units/L Troponin T (0.00-0.029) ng/mL NT-Pro-B Natriuret Pep (0-900) pg/mL Total Protein (6.3-8.2) g/dL Albumin (3.9-5) g/dL Albumin/Globulin Ratio % Urine Color Yellow (Yellow) Urine Turbidity Clear (Clear) Urine pH 7.0 (5.0-7.0) Ur Specific [place] 1.013 (1.003-1.030) Urine Protein <15 mg/dl (Negative) mg/dL Urine Glucose (UA) Neg (Negative) mg/dL Urine Ketones Neg (Negative) mg/dL Urine Blood Neg (Negative) Urine Nitrite Neg (Negative) Urine Bilirubin Neg (Negative) Urine Urobilinogen < 2.0 (<2.0) mg/dL Ur Leukocyte Esterase Neg (Negative) Urine WBC (Auto) < 1.0 (0.0-6.0) /HPF Urine RBC (Auto) 1.0 (0.0-6.0) /HPF U Epithel Cells (Auto) < 1.0 (0-13.0) /HPF - EKG Data EKG shows normal: sinus rhythm - EKG Data Interpretation: no acute changes - Radiology Data Radiology results: report reviewed CHEST 1 VIEW INDICATION: chest pain COMPARISON: 10/07/2019 FINDINGS: Support devices: None Heart: Normal and unchanged Lungs/Pleura: Lungs are hyperinflated but clear of acute disease. IMPRESSION: 1. No acute disease and no interval change. - Medical Decision Making 74-year-old -[place] female patient with history of hypertension and COPD presents with complaints of shortness of breath for 2 days. She denies any history that are suspicious for PE. Chest x-ray is negative for acute findings. Labs are negative for acute findings. EKG is without acute changes. After continuous DuoNeb and Solu-Medrol, patient states her shortness of breath and chest tightness have resolved. Patient follows with Dr. Botello, pulmonology, and states that recently she was changed from Bevespi to Anoro elliptica, which she states does not seem to be working very well. Patient also reports that she has not been taking her Flovent due to the and unsure if she is supposed to take this in combination with a Anoro elliptica. Exacerbation is possibly due to patient not taking Flovent. Advised patient to contact Dr. Botello and clarify if she is to stop taking Flovent. She is nontoxic-appearing and stable for discharge home. Recommend follow-up with Dr. Botello within 2 days. Discussed very strict return precautions in great detail with patient who verbalizes understanding. Critical care attestation.: If time is entered above; I have spent that time in minutes in the direct care of this critically ill patient, excluding procedure time. ED Disposition Clinical Impression: COPD exacerbation Disposition: DC-01 TO HOME OR SELFCARE Is pt being admited?: No Condition: Stable Instructions: Chronic Obstructive Pulmonary Disease (ED) Prescriptions: Prednisone [predniSONE 5 mg (6-Day Pack, 21 Tabs)] 5 mg PO .TAPER #1 tab.ds.pk Referrals: PRIMARY CARE, [Primary Care Provider] - 3-5 Days
[2019-11-30 11:11] VITALS: BP 137/70
[2019-11-30 11:15] LABS: Basophils % (Auto) 0.6 % (0.0-1.8); Eosinophils # (Auto) 0.6 K/mm3 (0.0-0.4); Eosinophils % (Auto) 13.2 % (0.0-4.3); Hematocrit 45.3 % (30.3-42.9); Hemoglobin 14.9 gm/dl (10.1-14.3); Lymphocytes # (Auto) 1.3 K/mm3 (1.2-5.4); Lymphocytes % (Auto) 29.9 % (13.4-35.0); Mean Corpuscular HGB Conc 33 % (30-34); Mean Corpuscular Volume 84 fl (79-97); Monocytes # (Auto) 0.5 K/mm3 (0.0-0.8); Monocytes % (Auto) 11.2 % (0.0-7.3); Platelet Count 260 K/mm3 (140-440); Red Blood Count 5.43 M/mm3 (3.65-5.03); Red Cell Distribution Width 15.2 % (13.2-15.2)
--- NOTE | 2019-11-30 11:25 | XRay Report ---
CHEST 1 VIEW INDICATION: chest pain COMPARISON: 10/07/2019 FINDINGS: Support devices: None Heart: Normal and unchanged Lungs/Pleura: Lungs are hyperinflated but clear of acute disease. IMPRESSION: 1. No acute disease and no interval change. Signer Name: Ezra Sabillon MD Signed: 11/30/2019 11:21 AM Workstation Name: [id number]
[2019-11-30 11:31] LABS: BUN/Creatinine Ratio 13; Blood Urea Nitrogen 8 mg/dL (7-17); Calcium 9.6 mg/dL (8.4-10.2); Hemolysis Index 10
[2019-11-30 11:35] LABS: Alanine Aminotransferase 18 units/L (7-56); Albumin 4.7 g/dL (3.9-5)
[2019-11-30 11:37] LABS: Bilirubin,Direct < 0.2 mg/dL (0-0.2)
[2019-11-30 12:08] LABS: Bilirubin,Urine NEG (Negative); Blood,Urine NEG (Negative); Color,Urine Yellow (Yellow); Protein,Urine <15 mg/dL mg/dL (Negative); Urobilinogen,Urine < 2.0 mg/dL (<2.0); WBC,Urine < 1.0 /HPF (0.0-6.0)
== END 2019-11-30 14:42 | disposition home or self-care (01) ==
LOC: ED 09:51
DX: J44.1 Chronic obstructive pulmonary disease with (acute) exacerbation (principal); Z87.891 Personal history of nicotine dependence; Z79.899 Other long term (current) drug therapy
CPT/HCPCS: 36415; 71045; 80048; 80076; 81001; 83880; 84484; 85025; 93005; 93010; 94640; 96374; 99284; J2930

== ENCOUNTER 2020-01-01 23:03 | Emergency (ER) | payer BC ==
[2020-01-01] MEDS ORDERED: SODIUM CHLORIDE 0.9% 500 ML 500 ML IV ONE (23:14)
[2020-01-01] MEDS ORDERED: IPRATROPIUM 0.02% NEBU 2.5 ML IH ONE (23:14)
[2020-01-01] MEDS ORDERED: MAGNESIUM SULFATE 2 GM/50 ML BAG IV ONE (23:14)
[2020-01-01] MEDS ORDERED: ALBUTEROL 2.5 MG/3 ML NEBU IH ONE (23:14)
[2020-01-01] MEDS ORDERED: methylPREDNISolone Sod Succinate 125 MG/2 ML INJ IV ONE (23:14)
--- NOTE | 2020-01-01 23:15 | Emergency Department Report ---
ED General Adult HPI - General Chief complaint: Upper Respiratory Infection Stated complaint: DIFFICULTY IN BREATHING Time Seen by Provider: 01/01/20 23:05 Source: patient, EMS ( EMS documentation not available at time of chart dictation ), RN notes reviewed, old records reviewed Mode of arrival: Stretcher Limitations: No Limitations - History of Present Illness Initial comments: Pulmonology: Dr. Botello The patient is a 74-year-old female with a history of COPD, not oxygen dependent, debility, anxiety, presenting to the ER with a complaint of cough, resolved wheezing, chronic shortness of breath. She reports that she had the flu a few weeks ago. She has been coughing chronically. Intermittent mucus production. Has bilateral inferior rib pain. Denies headache, neck pain, chest pain, abdominal pain. Denies DVT and pulmonary embolism risk factors. EMS gave the patient albuterol in the field, by their verbal report, and this improved her symptoms. -: Gradual, days(s), week(s) Consistency: constant Improves with: medication, rest Worsens with: movement - Related Data Home Medications Medication Instructions Recorded Confirmed Last Taken Bevespi Aerosphere Inhaler 9 mcg INHALATION DAILY 09/18/18 11/26/18 11/13/18 Flovent 44 MCG/PUFF HFA 2 inhalation PO BID 09/18/18 11/26/18 09/17/18 20:00 Melatonin 10 mg Tablet 10 mg PO QHS 09/18/18 11/26/18 11/11/18 22:00 Previous Rx's Medication Instructions Recorded Last Taken Type guaiFENesin [Robitussin] 200 mg PO Q4H PRN 10 Days 09/21/18 11/13/18 Rx oral.liqd Benzonatate [Tessalon Perles] 100 mg PO Q8HR PRN #20 capsule 10/31/18 11/13/18 08:00 Rx traMADoL [Ultram 50 MG tab] 50 mg PO Q6HR PRN #7 tablet 10/31/18 11/13/18 11:00 Rx ALPRAZolam [Xanax TAB] 0.25 mg PO Q8H PRN #30 tablet 11/06/18 11/13/18 08:00 Rx 0.5 Nicotine [Habitrol] 14 mg TD QDAY #30 patch 11/06/18 11/13/18 15:00 Rx AtorvaSTATin [Lipitor] 40 mg PO QHS #30 tablet 12/08/18 Unknown Rx carvediloL [Coreg] 3.125 mg PO BID #60 tablet 12/08/18 Unknown Rx predniSONE [Deltasone] 10 mg PO QDAY #52 tab 12/08/18 Unknown Rx Albuterol INH(or & Nicu Only) 2 puff IH QID PRN #1 inhalation 04/19/19 Unknown Rx [ProAir HFA Inhaler] Albuterol Sulfate [Albuterol 0.63% 0.63 mg IH TID PRN #30 vial.neb 04/19/19 Unknown Rx NEBS] predniSONE [Deltasone] 20 mg PO BID #10 tab 04/19/19 Unknown Rx Albuterol Sulfate [Proventil Hfa] 2 puff IH Q4HR PRN #1 hfa.aer.ad 10/07/19 Unknown Rx predniSONE [Deltasone] 50 mg PO QDAY #5 tab 10/07/19 Unknown Rx Prednisone [predniSONE 5 mg (6-Day 5 mg PO .TAPER #1 tab.ds.pk 11/30/19 Unknown Rx Pack, 21 Tabs)] Albuterol Sulfate [Proair 90 mcg IH Q4HR PRN #2 aer.pow.ba 01/02/20 Unknown Rx Respiclick] DOXYCYCLINE Hyclate [Vibramycin] 100 mg PO Q12HR #10 capsule 01/02/20 Unknown Rx Ipratropium (Nf) [Atrovent] 2 puff IH Q6HR PRN #1 inha 01/02/20 Unknown Rx predniSONE [Deltasone] 40 mg PO QDAY #8 tab 01/02/20 Unknown Rx Allergies Allergy/AdvReac Type Severity Reaction Status Date / Time No Known Allergies Allergy Verified 11/13/18 12:09 ED Review of Systems ROS: Stated complaint: DIFFICULTY IN BREATHING Other details as noted in HPI Constitutional: malaise. denies: fever Eyes: denies: eye discharge ENT: congestion Respiratory: cough, wheezing Cardiovascular: denies: syncope Gastrointestinal: denies: abdominal pain Genitourinary: denies: dysuria Musculoskeletal: as per HPI Skin: as per HPI. denies: lesions Neurological: weakness Psychiatric: as per HPI Hematological/Lymphatic: as per HPI ED Past Medical Hx - Past Medical History Hx Pulmonary Embolism: No Hx Asthma: No Hx COPD: Yes Hx Tuberculosis: No - Surgical History Additional Surgical History: D&C. cataracts - Social History Smoking Status: Former Smoker Substance Use Type: None - Medications Home Medications: Home Medications Medication Instructions Recorded Confirmed Last Taken Type Bevespi Aerosphere Inhaler 9 mcg INHALATION DAILY 09/18/18 11/26/18 11/13/18 History Flovent 44 MCG/PUFF HFA 2 inhalation PO BID 09/18/18 11/26/18 09/17/18 20:00 History Melatonin 10 mg Tablet 10 mg PO QHS 09/18/18 11/26/18 11/11/18 22:00 History guaiFENesin [Robitussin] 200 mg PO Q4H PRN 10 Days 09/21/18 11/26/18 11/13/18 Rx oral.liqd Benzonatate [Tessalon Perles] 100 mg PO Q8HR PRN #20 capsule 10/31/18 11/26/18 11/13/18 08:00 Rx traMADoL [Ultram 50 MG tab] 50 mg PO Q6HR PRN #7 tablet 10/31/18 11/26/18 11:00 Rx ALPRAZolam [Xanax TAB] 0.25 mg PO Q8H PRN #30 tablet 11/06/18 11/26/18 11/13/18 08:00 Rx 0.5 Nicotine [Habitrol] 14 mg TD QDAY #30 patch 11/06/18 11/26/18 11/13/18 15:00 Rx AtorvaSTATin [Lipitor] 40 mg PO QHS #30 tablet 12/08/18 Unknown Rx carvediloL [Coreg] 3.125 mg PO BID #60 tablet 12/08/18 Unknown Rx predniSONE [Deltasone] 10 mg PO QDAY #52 tab 12/08/18 11/26/18 Unknown Rx Albuterol INH(or & Nicu Only) 2 puff IH QID PRN #1 inhalation 04/19/19 Unknown Rx [ProAir HFA Inhaler] Albuterol Sulfate [Albuterol 0.63% 0.63 mg IH TID PRN #30 vial.neb 04/19/19 Unknown Rx NEBS] predniSONE [Deltasone] 20 mg PO BID #10 tab 04/19/19 Unknown Rx Albuterol Sulfate [Proventil Hfa] 2 puff IH Q4HR PRN #1 hfa.aer.ad 10/07/19 Unknown Rx predniSONE [Deltasone] 50 mg PO QDAY #5 tab 10/07/19 Unknown Rx Prednisone [predniSONE 5 mg (6-Day 5 mg PO .TAPER #1 tab.ds.pk 11/30/19 Unknown Rx Pack, 21 Tabs)] Albuterol Sulfate [Proair 90 mcg IH Q4HR PRN #2 aer.pow.ba 01/02/20 Unknown Rx Respiclick] DOXYCYCLINE Hyclate [Vibramycin] 100 mg PO Q12HR #10 capsule 01/02/20 Unknown Rx Ipratropium (Nf) [Atrovent] 2 puff IH Q6HR PRN #1 inha 01/02/20 Unknown Rx predniSONE [Deltasone] 40 mg PO QDAY #8 tab 01/02/20 Unknown Rx ED Physical Exam - General Limitations: No Limitations General appearance: alert, anxious - Head Head exam: Present: atraumatic, normocephalic - Eye Eye exam: Present: normal appearance, EOMI. Absent: nystagmus - ENT ENT exam: Present: normal exam, normal orophraynx, mucous membranes moist, normal external ear exam - Neck Neck exam: Present: normal inspection - Respiratory Respiratory exam: Present: decreased breath sounds, other (Decreased breath sounds, very faint wheezes noted bilaterally). Absent: respiratory distress, rales, stridor - Cardiovascular Cardiovascular Exam: Present: regular rate, normal rhythm, normal heart sounds. Absent: bradycardia, tachycardia, irregular rhythm, systolic murmur, diastolic murmur, rubs, gallop - GI/Abdominal GI/Abdominal exam: Present: soft. Absent: distended, tenderness, guarding, rebound, rigid, pulsatile mass - Extremities Exam Extremities exam: Present: normal inspection, full ROM, pedal edema, other (2+ pulses noted in the bilateral upper and lower extremities. There is no palpable cord. negative Homans sign. Muscular compartments are soft. The pelvis is stable.). Absent: calf tenderness - Back Exam Back exam: Present: normal inspection, full ROM. Absent: tenderness, CVA tenderness (R), CVA tenderness (L), paraspinal tenderness, vertebral tenderness - Neurological Exam Neurological exam: Present: alert, other (There is no facial droop. The tongue is midline. Extraocular movements are intact bilaterally. There is 5 out of 5 strength in bilateral upper and lower extremities. Sensation is intact to light touch bilateral upper and lower extremities. ). Absent: motor sensory deficit - Psychiatric Psychiatric exam: Present: anxious - Skin Skin exam: Present: warm, dry, intact, normal color. Absent: rash ED Course Vital Signs 01/01/20 01/01/20 01/02/20 23:17 23:20 00:04 Temperature 97.8 F Pulse Rate 97 H 86 Pulse Rate [ Bilateral] Respiratory 21 24 24 Rate Respiratory Rate [Bilateral ] Blood Pressure 146/81 Blood Pressure 146/81 151/75 [Right] O2 Sat by Pulse 95 96 96 Oximetry 01/02/20 01/02/20 01:04 03:47 Temperature Pulse Rate 89 Pulse Rate [ 88 Bilateral] Respiratory 15 Rate Respiratory 22 Rate [Bilateral ] Blood Pressure Blood Pressure 135/83 [Right] O2 Sat by Pulse 100 Oximetry - Reevaluation(s) Reevaluation #1: 01/01/20 23:50 Differential diagnosis, including but not limited to: Bronchitis, COPD, pneumonia Assessment and plan: 74-year-old female likely experiencing natural history of chronic COPD. She is afebrile with reassuring vital signs. Diminished breath sounds very faint wheezes noted. Will give fluids, albuterol, Atrovent, steroids, magnesium, obtain laboratory studies, EKG and chest x-ray, and reassess. 2 view chest x-ray has been obtained, and looks to be unremarkable. Reevaluation #2: 01/02/20 02:30 Wheezing improved, labs unremarkable, x-ray the chest unremarkable, however, still slightly short of breath, and still completing albuterol, Atrovent therapy. Laboratory studies and x-ray are reviewed. Care will be transferred to the overnight physician, Dr. Donna Nicolas, to reassess patient after she is completed her nebulizer therapy. Anticipate discharge with outpatient management for presumed COPD exacerbation. ED Medical Decision Making - Lab Data Result diagrams: 01/01/20 23:28 01/01/20 23:28 Vital Signs 01/01/20 23:17 Temperature 97.8 F Pulse Rate 97 H Respiratory 21 Rate Blood Pressure 146/81 Blood Pressure 146/81 [Right] O2 Sat by Pulse 95 Oximetry Lab Results 01/01/20 Range/Units 23:28 Hgb 14.0 (10.1-14.3) gm/dl Hct 41.9 (30.3-42.9) % Plt Count 238 (140-440) K/mm3 - EKG Data -: EKG Interpreted by Me EKG shows normal: sinus rhythm Rate: normal - EKG Data When compared to previous EKG there are: no significant change 01/01/20 23:59 Sinus rhythm, 88 bpm, left axis deviation, QTC within normal limits, low voltage, motion artifact. No endorsement of chest pain. Not a STEMI. Unchanged from prior EKG from November 2019 - Radiology Data Radiology results: image reviewed interpreted by me: 2 view x-ray the chest unremarkable for acute disease. It appears to be unchanged when compared to prior x-ray from last month Critical care attestation.: If time is entered above; I have spent that time in minutes in the direct care of this critically ill patient, excluding procedure time. ED Disposition Clinical Impression: COPD (chronic obstructive pulmonary disease) Disposition: - TO HOME OR SELFCARE Is pt being admited?: No Does the pt Need Aspirin: No Condition: Stable Instructions: Chronic Obstructive Pulmonary Disease (ED) Additional Instructions: Continue outpatient medications. Use the albuterol Atrovent for the next 5 days as directed, and steroids, antibiotics as directed. Please follow-up with your primary care doctor or senior report developer within the next 7 to 10 days. Please return to the emergency room right away with new, worsened or different symptoms, or symptoms not present on the initial emergency room evaluation. Prescriptions: Ipratropium (Nf) [Atrovent] 2 puff IH Q6HR PRN #1 inha PRN Reason: Wheezing predniSONE [Deltasone] 40 mg PO QDAY #8 tab Albuterol Sulfate [Proair Respiclick] 90 mcg IH Q4HR PRN #2 aer.pow.ba PRN Reason: Wheezing DOXYCYCLINE Hyclate [Vibramycin] 100 mg PO Q12HR #10 capsule Referrals: NIKHIL BOTELLO MD [Staff Physician] - 7-10 days
[2020-01-01 23:37] LABS: Hematocrit 41.9 % (30.3-42.9)
[2020-01-01 23:50] LABS: BUN/Creatinine Ratio 14; Blood Urea Nitrogen 10 mg/dL (7-17); Calcium 9.3 mg/dL (8.4-10.2); Hemolysis Index 4
[2020-01-01 23:51] LABS: INR 0.96 (0.87-1.13)
--- NOTE | 2020-01-01 23:57 | XRay Report ---
CHEST 2 VIEWS INDICATION / CLINICAL INFORMATION: Dyspnea. COMPARISON: 11/30/2019 FINDINGS: SUPPORT DEVICES: None. HEART / MEDIASTINUM: No significant abnormality. LUNGS / PLEURA: No significant pulmonary or pleural abnormality. No pneumothorax. ADDITIONAL FINDINGS: No significant additional findings. IMPRESSION: 1. No acute findings. Signer Name: Demarco Hernandez MD Signed: 01/01/2020 11:53 PM Workstation Name: [id number]
[2020-01-02 03:47] VITALS: BP 135/83
== END 2020-01-02 04:15 | disposition home or self-care (01) ==
LOC: ED 23:03
DX: J44.9 Chronic obstructive pulmonary disease, unspecified (principal); F41.9 Anxiety disorder, unspecified; Z79.899 Other long term (current) drug therapy; Z98.890 Other specified postprocedural states; Z87.891 Personal history of nicotine dependence
CPT/HCPCS: 36415; 71046; 80048; 82550; 83735; 85014; 85018; 85049; 85610; 93005; 93010; 94644; 96365; 96375; 99285; J2930; J3475; J7040